=== PATIENT | male | born 1955 | race Caucasian/White ===

== ENCOUNTER → 2017-06-09 | Day surgery (SDC) | payer OTHER ==
[2017-06-08 14:49] VITALS: Ht 182.9 cm; Wt 86.4 kg
[~2017-06-09] VITALS: Ht 182.9 cm; Wt 86.4 kg
[~2017-06-09] MED LIST: LIDOCAINE HCL 2% 2 ML VIAL (20MG/ML) ONE; NAPR1TAB9 PO; PANT40TA PO; PROPOFOL IV EMULSION 10 MG/ML 20 ML VIAL IV ONE; SODIUM CHLORIDE 0.9% 500ML 500 ML IV ONE
--- NOTE | 2017-06-09 12:22 | Endo History and Physical ---
History & Physical Date of Service: Jun 09, 2017. Chief Complaint: Esophageal adenocarcinoma Referring Physician: Dr. Yury Robert History of Present Illness History of esophageal adenocarcinoma, s/p resection, recent mediastinal jaya metastasis. Past Medical History Cancer Past Surgical History Hx Cardiac Surgery: No Hx Internal Defibrillator: No Hx Pacemaker: No Hx Abdominal Surgery: No Hx Post-Op Nausea and Vomiting: No Hx Cancer Surgery: Yes (ESOPHAGECTOMY) Hx Thoracic Surgery: No Hx Orthopedic: No Hx Urinary Tract Surgery: No Family History Esophogeal CA Social History Smoking Status: Former Smoker Hx Substance Use: No Hx Alcohol Use: Yes (VERY RARELY) Allergies Coded Allergies: No Known Allergies (Verified , 06/09/17) Current Medications Reported Home Medications Medications Dose Route/Sig Max Daily Dose Days Date Category Aleve (Naproxen) 220 Mg Tab 220 Mg PO BID 06/09/17 Reported Protonix (Pantoprazole Sodium) 40 Mg Tab 40 Mg PO QAM 06/08/17 Reported Vital Signs Weight (Kilograms): 86.36 Height (Feet): 6 Height (Inches): 0 Date Time Temp Pulse Resp B/P (MAP) Pulse Ox O2 Delivery O2 Flow Rate FiO2 06/09/17 10:41 36.5 79 20 146/100 (115) 99 Room Air Physical Exam General Appearance: WD/WN, no apparent distress Respiratory/Chest: Auscultation: breath sounds normal, no wheezing Cardiovascular: Heart Auscultation: RRR, no murmurs Assessment and Plan EGD today.
--- NOTE | 2017-06-09 12:45 | GI REPORT ---
Procedure Date: 06/09/2017 12:29 PM Procedure: Upper GI endoscopy Indications: Follow-up of malignant esophageal adenocarcinoma, Assessment following esophagogastrectomy Medicines: Monitored Anesthesia Care Complications: No immediate complications. Estimated blood loss: None. Estimated Blood Loss: Estimated blood loss: none. Procedure: Pre-Anesthesia Assessment: - Prior to the procedure, a History and Physical was performed, and patient medications, allergies and sensitivities were reviewed. The patient's tolerance of previous anesthesia was reviewed. - ASA Grade Assessment: III - A patient with severe systemic disease. After obtaining informed consent, the endoscope was passed under direct vision. Throughout the procedure, the patient's blood pressure, pulse, and oxygen saturations were monitored continuously. The scope was introduced through the mouth, and advanced to the duodenal bulb. The upper GI endoscopy was accomplished with ease. The patient tolerated the procedure well. Findings: The upper third of the esophagus and middle third of the esophagus were normal. An esophago-gastric anastomosis was found in the lower third of the esophagus. This was characterized by an intact staple line. Biopsies were taken with a cold forceps for histology. A large amount of food (residue) was found in the entire examined stomach. Diffuse moderate inflammation was found in the entire examined stomach. The examined duodenum was normal. Verification of patient identification for the specimen was done by the physician and nurse using the patient's name, date and medical record number. Impression: - Normal upper third of esophagus and middle third of esophagus. - An esophago-gastric anastomosis was found, characterized by an intact staple line. Biopsied. - A large amount of food (residue) in the stomach. - Gastritis. - Normal examined duodenum. Recommendation: - Await pathology results. - Discharge patient to home (with escort). Arnel Quintana M.D. Arnel Quintana MD 06/09/2017 12:44:44 PM This report has been signed electronically. Note Initiated On: 06/09/2017 12:29 PM I attest to the content of the Intraoperative Record and orders documented therein, exceptions below
--- NOTE | 2017-06-09 12:57 | Discharge Instructions ---
Endoscopy Patient Instructions Date / Procedure(s) Performed Jun 09, 2017. EGD Allergy Information Coded Allergies: No Known Allergies (Verified , 06/09/17) Discharge Date / Findings Jun 09, 2017. Intact esophageal anastomosis. Gastritis with food in stomach. Medication Instructions Stopped Medication(s): Patient was told not to take anything this am. Restart Stopped Medication(s): Restart medications today. Pureed diet. Provider Instructions Activity Restrictions - No exercising or heavy lifting for 24 hours. - Do not drink alcohol the day of the procedure. - Do not drive a car or operate machinery until the day after the procedure. - Do not make any important decisions or sign important papers in 24 hours after the procedure. Following Day: - Return to full activity which may include returning to work/school. Diet Start your diet with liquids and light foods (jello, soup, juice, toast). Then eat your usual diet if not nauseated. Treatment For Common After Affects For mild abdominal pain, bloating, or excessive gas: - Rest - Eat lightly - Lie on right side Follow-Up Information Follow-up with Dr. Yury Robert as scheduled Anesthesia Information What You Should Know You have had a procedure that required some medicine to reduce anxiety and discomfort. This treatment is called moderate sedation. After receiving the treatment, you may be sleepy, but you will be able to breathe on your own. The effects of the treatment may last for several hours. Follow these instructions along with Activity/Diet recommendations noted above: * Do NOT do anything where dizziness or clumsiness would be dangerous. * Rest quietly at home today, then you can be up and about tomorrow. * Have a responsible person stay with you the rest of today. * You may have had an I.V. today. If so, you may take the dressing off later today. Recommendations Call your doctor if: * Trouble breathing * Continuous vomiting for more than 24 hours * Temperature above 101 degrees * Severe abdominal pain or bloating * Pain not relieved by pain medicine ordered * There is increased drainage or redness from any incision * A large amount of rectal bleeding greater than 2-3 tablespoons. (If you had a polyp/s removed or have hemorrhoids, a small amount of blood - from the rectum is to be expected.) * You have any unanswered questions or concerns. IN THE EVENT OF A SERIOUS EMERGENCY, GO TO THE NEAREST EMERGENCY ROOM Your discharge instructions were prepared by provider Arnel Quintana. Patient Instructions Signature Page Roshan Dixon Patient (or Guardian) Signature/Date: I have read and understand the instructions given to me by my caregivers. Caregiver/RN/Doctor Signature/Date: The above-named patient and/or guardian has received patient instructions on this date. + Original Patient Signature Page (only) stays with chart. Please make copy for patient.
--- NOTE | 2017-06-09 13:09 | Anesthesiology Progress Note ---
Anesthesia Post Op Note Date & Time Jun 09, 2017 at 13:09 Vital Signs Pain Intensity: 2 Vital Signs Past 12 Hours Date Time Temp Pulse Resp B/P (MAP) Pulse Ox O2 Delivery O2 Flow Rate FiO2 06/09/17 12:57 71 20 138/82 (100) 98 Room Air 06/09/17 12:42 73 20 136/87 (103) 99 Room Air 06/09/17 10:41 36.5 79 20 146/100 (115) 99 Room Air Notes Mental Status: alert / awake / arousable, participated in evaluation Pt Amnestic to Procedure: Yes Nausea / Vomiting: adequately controlled Pain: adequately controlled Airway Patency, RR, SpO2: stable & adequate BP & HR: stable & adequate Hydration State: stable & adequate Anesthetic Complications: no major complications apparent
[2017-06-09 13:13] VITALS: BP 133/90; PULSE 73; O2SAT 97
== END | disposition home or self-care (01) ==
LOC: C.GI 09:51
PROVIDERS: ATTEND Internal Medicine Gastroenterology
DX: C15.9 Malignant neoplasm of esophagus, unspecified (principal); K21.9 Gastro-esophageal reflux disease without esophagitis; K29.70 Gastritis, unspecified, without bleeding; Z87.891 Personal history of nicotine dependence; Z80.0 Family history of malignant neoplasm of digestive organs

== ENCOUNTER 2017-09-08 20:04 | Inpatient (IN) | payer OTHER ==
[~2017-09-08] VITALS: Ht 182.9 cm; Wt 74.2 kg
[~2017-09-08 20:04] MED LIST changes: -LIDOCAINE HCL 2% 2 ML VIAL (20MG/ML) ONE; -PROPOFOL IV EMULSION 10 MG/ML 20 ML VIAL IV ONE; -SODIUM CHLORIDE 0.9% 500ML 500 ML IV ONE
[2017-09-08] MEDS ORDERED: ALBUT/IPRATROP 3MG/0.5MG NEB 3 ML VIAL INH STA (20:22)
--- NOTE | 2017-09-08 20:27 | EMERGENCY ROOM VISIT NOTE ---
History Report prepared by Tom: Deb Sheppard Under the Supervision of: Dr. Tyrone Sharif M.D. First contact with patient: 20:18 Chief Complaint: DIZZY Stated Complaint: DIZZY History of Present Illness The patient is a 62 year old male who presents to the Emergency Room with complaints of intermittent dizziness beginning a few days ago. The patient states that he has felt more short of breath over the last few days and at work today he had an episode of shortness of breath and dizziness. He reports that his dizziness is worsened with standing and sitting up. The patient complains of right sided chest pain. He reports a history of esophageal cancer 2 years ago with a recent recurrence. Source of History: patient Onset: a few days ago Position: other (global) Quality: other (dizziness) Timing: intermittent Associated Symptoms: + chest pain, + SOB Note: Pt complains of lightheadedness. Review of Systems See HPI for pertinent positives & negatives. A total of 10 systems reviewed and were otherwise negative. Past Medical & Surgical Medical Problems: (1) Dizziness (2) Pneumonia (3) Sepsis Family History No pertinent family history stated. Social History Smoking Status: Former Smoker Drug Use: none Marital Status: Occupation Status: employed Current/Historical Medications Scheduled Pantoprazole (Protonix), 40 MG PO QAM Allergies Coded Allergies: No Known Allergies (Verified , 09/08/17) Physical Exam Vital Signs Date Time Temp Pulse Resp B/P (MAP) Pulse Ox O2 Delivery O2 Flow Rate FiO2 09/08/17 22:00 108 21 152/93 100 Nebulizer 09/08/17 21:22 84 09/08/17 21:22 92 20 96 Room Air 09/08/17 20:29 97 Room Air 09/08/17 20:09 36.7 107 18 97/70 90 Room Air Physical Exam GENERAL: Patient is a cachectic in appearance HEAD: Normocephalic atraumatic EYES: Ocular movements intact pupils equal and react to light OROPHARYNX mucous membranes are moist no exudates present no erythema or edema present NECK: Supple no nuchal rigidity CHEST: Good equal expansion LUNGS: Wheezing bilaterally CARDIAC: Normal S1 and S2 ABDOMEN: Soft nontender no guarding BACK: No CVA tenderness EXTREMITIES: No pain upon palpation normal muscle strength in all groups no clubbing cyanosis or edema NEURO: Patient is following commands and answering questions appropriately. Alert and oriented x3 Cranial Nerves 2-12 grossly intact Medical Decision & Procedures ER Provider Diagnostic Interpretation: CT results as stated below per my review and radiologist interpretation: CT ANGIOGRAM OF THE CHEST FINDINGS: There is a 31 mm left adrenal nodule. This is of mixed attenuation, likely representing a combination of adenoma and metastatic disease. There is extensive adenopathy encasing the superior mesenteric artery. The jaya mass measures 5 cm. There are subtle low-density hepatic lesions suspicious for metastatic deposits There is a left-sided retrocrural lymphadenopathy. There is mediastinal and bilateral hilar adenopathy. An index subcarinal lymph node measures 32 mm in diameter. Also present are enlarged right paratracheal and precarinal lymph nodes. The patient is status post a distal esophagectomy and gastric pull-up. There is extensive debris within the stomach and esophagus. There is mild aneurysmal dilatation of the ascending thoracic aorta which measures 44 mm in diameter. There are coronary artery calcifications. There were no pulmonary artery filling defects to indicate acute pulmonary embolism. There is fat density within the left posterior pleural space. This likely either represents extension of fat and the patient's left-sided hernia, or a chylous type effusion. There are tree-in-bud opacities within the right lower lobe and right upper lobe, consistent with a bronchiolitis/pneumonia. There is extensive debris within the right bronchus intermedius with near occlusion. IMPRESSION: 1. No evidence of acute pulmonary embolism 2. Tree-in-bud opacities within the right lower lobe and right upper lobe consistent with a bronchiolitis/pneumonia 3. Extensive debris within the right bronchus intermedius with near occlusion 4. Interval development of extensive mediastinal, hilar, and upper abdominal lymphadenopathy indicative of metastatic disease. 5. Postsurgical changes of a distal esophagectomy and gastric pull-up. There is extensive debris within the stomach and esophagus. 6. Fat within the left pleural space versus a chylous effusion 7. Suspected hepatic metastasis. Electronically signed by: Jorge A Taylor M.D. 09/08/2017 9:30 PM Dictated Date/Time: 09/08/2017 9:15 PM Laboratory Results 09/08/17 20:40 Red Blood Count 4.44, Mean Corpuscular Volume 71.4, Mean Corpuscular Hemoglobin 21.6, Mean Corpuscular Hemoglobin Concent 30.3, Mean Platelet Volume 8.5, Neutrophils (%) (Auto) 83.2, Lymphocytes (%) (Auto) 7.5, Monocytes (%) (Auto) 8.0, Eosinophils (%) (Auto) 0.7, Basophils (%) (Auto) 0.3, Neutrophils # (Auto) 6.36, Lymphocytes # (Auto) 0.57, Monocytes # (Auto) 0.61, Eosinophils # (Auto) 0.05, Basophils # (Auto) 0.02 09/08/17 20:40 Test 09/08/17 20:32 09/08/17 20:40 09/08/17 20:52 Influenza Type A (RT-PCR) Neg for Influ A (NEG) Influenza Type A Antigen Neg for Influ A (NEG) Influenza Type B Antigen Neg for Influ B (NEG) Influenza Type B (RT-PCR) Neg for Influ B (NEG) White Blood Count 7.63 K/uL (4.8-10.8) Red Blood Count 4.44 M/uL (4.7-6.1) Hemoglobin 9.6 g/dL (14.0-18.0) Hematocrit 31.7 % (42-52) Mean Corpuscular Volume 71.4 fL (80-100) Mean Corpuscular Hemoglobin 21.6 pg (25-34) Mean Corpuscular Hemoglobin Concent 30.3 g/dl (32-36) Platelet Count 334 K/uL (130-400) Mean Platelet Volume 8.5 fL (7.4-10.4) Neutrophils (%) (Auto) 83.2 % Lymphocytes (%) (Auto) 7.5 % Monocytes (%) (Auto) 8.0 % Eosinophils (%) (Auto) 0.7 % Basophils (%) (Auto) 0.3 % Neutrophils # (Auto) 6.36 K/uL (1.4-6.5) Lymphocytes # (Auto) 0.57 K/uL (1.2-3.4) Monocytes # (Auto) 0.61 K/uL (0.11-0.59) Eosinophils # (Auto) 0.05 K/uL (0-0.5) Basophils # (Auto) 0.02 K/uL (0-0.2) RDW Standard Deviation 47.1 fL (36.4-46.3) RDW Coefficient of Variation 18.2 % (11.5-14.5) Immature Granulocyte % (Auto) 0.3 % Immature Granulocyte # (Auto) 0.02 K/uL (0.00-0.02) Hypochromasia PRESENT Microcytosis PRESENT Est Creatinine Clear Calc Drug Dose 85.1 ml/min Estimated GFR () 98.5 Estimated GFR (Non- 85.0 BUN/Creatinine Ratio 16.5 (10-20) Calcium Level 8.6 mg/dl (8.5-10.1) Total Bilirubin 0.3 mg/dl (0.2-1) Aspartate Amino Transf (AST/SGOT) 46 U/L (15-37) Alanine Aminotransferase (ALT/SGPT) 16 U/L (12-78) Alkaline Phosphatase 117 U/L (45-117) Total Creatine Kinase 75 U/L (39-308) Creatine Kinase MB 0.7 ng/ml (0.5-3.6) Creatine Kinase MB Ratio 0.9 (0-3.0) Troponin I < 0.015 ng/ml (0-0.045) Pro-B-Type Natriuretic Peptide 738 pg/ml (0-900) Total Protein 7.3 gm/dl (6.4-8.2) Albumin 3.0 gm/dl (3.4-5.0) Globulin 4.3 gm/dl (2.5-4.0) Albumin/Globulin Ratio 0.7 (0.9-2) Bedside Hemoglobin 10.2 g/dl (14.0-18.0) Bedside Hematocrit 30 % (42-52) Bedside Sodium 139 mEq/L (135-144) Bedside Potassium 3.5 mEq/L (3.3-5.0) Bedside Chloride 101 mEq/L (101-112) Bedside Total CO2 26 mEq/l (24-31) Anion Gap 16.0 mmol/L (16-25) Bedside Blood Urea Nitrogen 17 mg/dl (7-18) Bedside Creatinine 0.9 mg/dl (0.6-1.3) Bedside Glucose (other) 117 mg/dl (70-99) Bedside Ionized Calcium (Ravin) 1.11 mmol/l (1.12-1.32) Labs reviewed by ED physician. Medications Administered Medications (Trade) Dose Ordered Sig/Konstantin Route Start Time Stop Time Status Last Admin Dose Admin Albuterol/ Ipratropium (Duoneb) 12 ml ONE STAT INH 09/08/17 20:22 09/08/17 20:25 DC 09/08/17 20:22 12 ML Sodium Chloride 1,000 ml @ 999 mls/hr Q1H1M STAT IV 09/08/17 21:37 09/08/17 22:37 DC 09/08/17 21:46 999 MLS/HR Cefepime HCl 2000 mg/Dextrose 122 ml @ 200 mls/hr NOW STAT IV 09/08/17 21:37 09/08/17 22:13 DC 09/08/17 22:07 200 MLS/HR Levofloxacin (Levaquin / D5W) 750 mg NOW STAT IV 09/08/17 21:37 09/08/17 21:39 DC 09/08/17 21:48 750 MG ECG Indication: SOB/dyspnea Rate (beats per minute): 88 Rhythm: normal sinus Findings: no acute ischemic change, no ectopy ED Course 2018: Past medical records reviewed. The patient was evaluated in room A11. A complete history and physical examination was performed. 2021: Duoneb 12ml INH. 2136: Levofloxacin 750mg IV, Cefepime HCl 2000mg/Dextrose 122ml @ 200mls/hr IV, Sodium Chloride 1000 ml @ 999 mls/hr IV. 2141: I discussed the patient's case with Dr. Cooney, he has agreed to evaluate the patient for further management and care. 2152: Upon reexamination the patient is doing well. I discussed results and treatment plan with the patient. He verbalizes agreement and understanding. I spoke with Dr. Conoey from the [facility] Hospitalist Service. The patient will be evaluated for further management. Medical Decision Differential diagnosis: Etiologies such as infections, reactive airway disease, pneumonia, pneumothorax , COPD, CHF, cardiac ischemia, pulmonary embolism, musculoskeletal, gastrointestinal, as well as others were entertained. This is a 62-year-old male with a history of esophageal cancer presents emergency department complaining of right-sided chest pain along with hypoxia. My suspicion of PE is high therefore the patient was sent for CAT scan of the chest. This did not reveal any evidence of a PE however the patient has metastatic disease present and appears to have pneumonia. He is hypotensive and tachycardic therefore he was given fluid bolus. I did discuss the case with the hospitalist service. The patient was pancultured up and started on cefepime as well as Levaquin. Patient and family were in agreement with the treatment plan. Medication Reconcilliation Current Medication List: was personally reviewed by me Blood Pressure Screening Patient's blood pressure: Low blood pressure Blood pressure disposition: Did not require urgent referral Consults Time Called: 2130 Consulting Physician: Dr. Cooney - [facility] Returned Call: [phone] I discussed the patient's case with Dr. Cooney, he has agreed to evaluate the patient for further management and care. Impression Primary Impression: Hypoxia Additional Impression: Pneumonia Scribe Attestation The scribe's documentation has been prepared under my direction and personally reviewed by me in its entirety. I confirm that the note above accurately reflects all work, treatment, procedures, and medical decision making performed by me. Departure Information Dispostion Being Evaluated By Hospitalist Referrals Yury Robert M.D. (PCP) Patient Instructions My [facility] Problem Qualifiers Additional Impression: Pneumonia Pneumonia type: due to unspecified organism Laterality: unspecified laterality Lung location: unspecified part of lung Qualified Codes: J18.9 - Pneumonia, unspecified organism
[2017-09-08 20:56] LABS: BASO % 0.3 %; BASO ABS # 0.02 K/uL (0-0.2); EOS % 0.7 %; HEMATOCRIT 31.7 % (42-52); IG% 0.3 %; LYMPH % 7.5 %; LYMPH ABS # 0.57 K/uL (1.2-3.4); MEAN CELL VOLUME 71.4 fL (80-100); MEAN CORPUSCULAR HEMOGLOBIN 21.6 pg (25-34); MEAN CORPUSCULAR HGB CONC 30.3 g/dl (32-36); MEAN PLATELET VOLUME 8.5 fL (7.4-10.4); NEUT % 83.2 %; PLATELET COUNT 334 K/uL (130-400); RED BLOOD COUNT 4.44 M/uL (4.7-6.1); WHITE BLOOD COUNT 7.63 K/uL (4.8-10.8)
[2017-09-08] MEDS ORDERED: OPTIRAY 320 IV PRN (21:00)
[2017-09-08 21:07] LABS: ISTAT CREATININE 0.9 mg/dl (0.6-1.3); ISTAT HEMOGLOBIN 10.2 g/dl (14.0-18.0); ISTAT IONIZED CALCIUM 1.11 mmol/l (1.12-1.32)
[2017-09-08 21:15] LABS: ALT/SGPT 16 U/L (12-78); BLOOD UREA NITROGEN 16 mg/dl (7-18); BUN/CREATININE RATIO 16.5 (10-20); CALCIUM 8.6 mg/dl (8.5-10.1); CARBON DIOXIDE 26 mmol/L (21-32); CHLORIDE 103 mmol/L (98-107); CREATININE 0.96 mg/dl (0.60-1.40); GLUCOSE 113 mg/dl (70-99); POTASSIUM 3.4 mmol/L (3.5-5.1); SODIUM 135 mmol/L (136-145)
[2017-09-08 21:20] LABS: ALB/GLOB RATIO 0.7 (0.9-2); ALKALINE PHOSPHATASE 117 U/L (45-117); AST/SGOT 46 U/L (15-37); CKMB/CK RATIO 0.9 (0-3.0)
[2017-09-08 21:22] VITALS: PULSE 92; O2SAT 96
[2017-09-08 21:27] LABS: COMPLETE YES; HYPOCHROMIA PRESENT; MICROCYTOSIS PRESENT
--- NOTE | 2017-09-08 21:32 | DIAGNOSTIC IMAGING REPORT ---
CT ANGIOGRAM OF THE CHEST CLINICAL HISTORY: Shortness of breath. History of esophageal carcinoma. COMPARISON STUDY: November 05, 2015 TECHNIQUE: Following the IV administration of 115 mL of Optiray-320, CT angiogram of the thorax was performed from the thoracic inlet to the lung bases utilizing the pulmonary embolus protocol. Images are reviewed in the axial, sagittal, and coronal planes. IV contrast was administered without complication. MIP imaging was performed. A dose lowering technique was utilized adhering to the principles of ALARA. CT DOSE: 313.95 mGy.cm FINDINGS: There is a 31 mm left adrenal nodule. This is of mixed attenuation, likely representing a combination of adenoma and metastatic disease. There is extensive adenopathy encasing the superior mesenteric artery. The jaya mass measures 5 cm. There are subtle low-density hepatic lesions suspicious for metastatic deposits There is a left-sided retrocrural lymphadenopathy. There is mediastinal and bilateral hilar adenopathy. An index subcarinal lymph node measures 32 mm in diameter. Also present are enlarged right paratracheal and precarinal lymph nodes. The patient is status post a distal esophagectomy and gastric pull-up. There is extensive debris within the stomach and esophagus. There is mild aneurysmal dilatation of the ascending thoracic aorta which measures 44 mm in diameter. There are coronary artery calcifications. There were no pulmonary artery filling defects to indicate acute pulmonary embolism. There is fat density within the left posterior pleural space. This likely either represents extension of fat and the patient's left-sided hernia, or a chylous type effusion. There are tree-in-bud opacities within the right lower lobe and right upper lobe, consistent with a bronchiolitis/pneumonia. There is extensive debris within the right bronchus intermedius with near occlusion. IMPRESSION: 1. No evidence of acute pulmonary embolism 2. Tree-in-bud opacities within the right lower lobe and right upper lobe consistent with a bronchiolitis/pneumonia 3. Extensive debris within the right bronchus intermedius with near occlusion 4. Interval development of extensive mediastinal, hilar, and upper abdominal lymphadenopathy indicative of metastatic disease. 5. Postsurgical changes of a distal esophagectomy and gastric pull-up. There is extensive debris within the stomach and esophagus. 6. Fat within the left pleural space versus a chylous effusion 7. Suspected hepatic metastasis. Electronically signed by: Jorge A Taylor M.D. 09/08/2017 9:30 PM Dictated Date/Time: 09/08/2017 9:15 PM
[2017-09-08] MEDS ORDERED: SODIUM CHLORIDE 0.9% 1000ML 1,000 ML IV STA (21:37)
[2017-09-08] MEDS ORDERED: CEFEPIME IV 2,000 MG in DEXTROSE 5% 100ML 100 ML IV STA (21:37)
[2017-09-08] MEDS ORDERED: LEVAQUIN 750MG / 150ML D5W IV STA (21:37)
--- NOTE | 2017-09-08 21:58 | History and Physical ---
History & Physical Date & Time of Service: Sep 08, 2017 at 21:57 Chief Complaint: DIZZY Primary Care Physician: Yury Robert M.D. History of Present Illness Source: patient 62 y/o M Hx Esophageal CA, esophagela resection 2014 - recent recurrence, GERD, gastritis, MRSA pneumonia 2015. Presents with cough, SOB and intermittent lightheadedness which occurred while he was working today. He denies CP, N/V, dysuria or fevers. A CTA was obtained which was negative for PE, however, results are consistent with RLL pneumonia. There is also debris within the right bronchus intermedius with near occlusion. Also demonstrated is extensive adenopathy and a liver lesion representing metastatic disease. Past Medical/Surgical History 1) Esophageal CA - resection of lower esophagus and gastro-esophageal anastomosis 2014 - recent recurrence. 2) GERD 3) Gastritis 4) MRSA PNM and sepsis 2015 Family History Noncontributory to current case Social History Quit smoking 2014 when he received CA diagnosis Smoking Status: Former Smoker Drug Use: none Marital Status: Occupational Status: employed Immunizations History of Influenza Vaccine: No History of Tetanus Vaccine?: No History of Pneumococcal: No History of Hepatitis B Vaccine: No Allergies Coded Allergies: No Known Allergies (Verified , 09/08/17) Home Medications Scheduled Pantoprazole (Protonix), 40 MG PO QAM Review of Systems Constitutional: No fever, No chills, No sweats Eyes: No worsening of vision ENT: No hearing loss, No unusual epistaxis, No nasal symptoms Respiratory: + cough, + shortness of breath, + dyspnea on exertion, + dyspnea at rest Cardiovascular: No chest pain, No orthopnea, No PND Abdomen: No pain, No nausea, No vomiting Musculoskeletal: No joint pain Genitourinary - Male: No hematuria, No dysuria Neurologic: + problem reported (Dizziness reported), No memory loss, No paralysis, No weakness Psychiatric: No depression symptoms Endocrine: No fatigue Hematologic / Lymphatic: No abnormal bleeding/bruising Integumentary: No rash Allergic / Immunologic: No environmental allergies Physical Exam Vital Signs Date Time Temp Pulse Resp B/P (MAP) Pulse Ox O2 Delivery O2 Flow Rate FiO2 09/08/17 21:22 84 09/08/17 21:22 92 20 96 Room Air 09/08/17 20:29 97 Room Air 09/08/17 20:09 36.7 107 18 97/70 90 Room Air General Appearance: WD/WN, no apparent distress Head: normocephalic ENT: normal ENT inspection, pharynx normal Neck: supple, no JVD Respiratory/Chest: + pertinent finding (Minmal air entry at bases and crackles on R) Cardiovascular: regular rate, rhythm, no edema, no gallop Abdomen/GI: normal bowel sounds, non tender, soft Back: normal inspection, no CVA tenderness Extremities/Musculoskelatal: normal inspection, no calf tenderness, normal capillary refill Neurologic/Psych: digital marketer II-XII nml as tested, no motor/sensory deficits, alert, oriented x 3 Skin: normal color Diagnostics Laboratory Results Results Past 24 Hours Test 09/08/17 20:32 09/08/17 20:40 09/08/17 20:52 Range/Units Influenza Type A Antigen Neg for Influ A NEG Influenza Type B Antigen Neg for Influ B NEG White Blood Count 7.63 4.8-10.8 K/uL Red Blood Count 4.44 4.7-6.1 M/uL Hemoglobin 9.6 14.0-18.0 g/dL Hematocrit 31.7 42-52 % Mean Corpuscular Volume 71.4 80-100 fL Mean Corpuscular Hemoglobin 21.6 25-34 pg Mean Corpuscular Hemoglobin Concent 30.3 32-36 g/dl Platelet Count 334 130-400 K/uL Mean Platelet Volume 8.5 7.4-10.4 fL Neutrophils (%) (Auto) 83.2 % Lymphocytes (%) (Auto) 7.5 % Monocytes (%) (Auto) 8.0 % Eosinophils (%) (Auto) 0.7 % Basophils (%) (Auto) 0.3 % Neutrophils # (Auto) 6.36 1.4-6.5 K/uL Lymphocytes # (Auto) 0.57 1.2-3.4 K/uL Monocytes # (Auto) 0.61 0.11-0.59 K/uL Eosinophils # (Auto) 0.05 0-0.5 K/uL Basophils # (Auto) 0.02 0-0.2 K/uL RDW Standard Deviation 47.1 36.4-46.3 fL RDW Coefficient of Variation 18.2 11.5-14.5 % Immature Granulocyte % (Auto) 0.3 % Immature Granulocyte # (Auto) 0.02 0.00-0.02 K/uL Hypochromasia PRESENT Microcytosis PRESENT Sodium Level 135 136-145 mmol/L Potassium Level 3.4 3.5-5.1 mmol/L Chloride Level 103 98-107 mmol/L Carbon Dioxide Level 26 21-32 mmol/L Anion Gap 7.0 16.0 16-25 mmol/L Blood Urea Nitrogen 16 7-18 mg/dl Creatinine 0.96 0.60-1.40 mg/dl Est Creatinine Clear Calc Drug Dose 85.1 ml/min Estimated GFR () 98.5 Estimated GFR (Non- 85.0 BUN/Creatinine Ratio 16.5 10-20 Random Glucose 113 70-99 mg/dl Calcium Level 8.6 8.5-10.1 mg/dl Total Bilirubin 0.3 0.2-1 mg/dl Aspartate Amino Transf (AST/SGOT) 46 15-37 U/L Alanine Aminotransferase (ALT/SGPT) 16 12-78 U/L Alkaline Phosphatase 117 45-117 U/L Total Creatine Kinase 75 39-308 U/L Creatine Kinase MB 0.7 0.5-3.6 ng/ml Creatine Kinase MB Ratio 0.9 0-3.0 Troponin I < 0.015 0-0.045 ng/ml Pro-B-Type Natriuretic Peptide 738 0-900 pg/ml Total Protein 7.3 6.4-8.2 gm/dl Albumin 3.0 3.4-5.0 gm/dl Globulin 4.3 2.5-4.0 gm/dl Albumin/Globulin Ratio 0.7 0.9-2 Bedside Hemoglobin 10.2 14.0-18.0 g/dl Bedside Hematocrit 30 42-52 % Bedside Sodium 139 135-144 mEq/L Bedside Potassium 3.5 3.3-5.0 mEq/L Bedside Chloride 101 101-112 mEq/L Bedside Total CO2 26 24-31 mEq/l Bedside Blood Urea Nitrogen 17 7-18 mg/dl Bedside Creatinine 0.9 0.6-1.3 mg/dl Bedside Glucose (other) 117 70-99 mg/dl Bedside Ionized Calcium (Ravin) 1.11 1.12-1.32 mmol/l Diagnostic Radiology CTA: 1. No evidence of acute pulmonary embolism 2. Tree-in-bud opacities within the right lower lobe and right upper lobe consistent with a bronchiolitis/pneumonia 3. Extensive debris within the right bronchus intermedius with near occlusion 4. Interval development of extensive mediastinal, hilar, and upper abdominal lymphadenopathy indicative of metastatic disease. 5. Postsurgical changes of a distal esophagectomy and gastric pull-up. There is extensive debris within the stomach and esophagus. 6. Fat within the left pleural space versus a chylous effusion 7. Suspected hepatic metastasis. EKG NSR Impression Assessment and Plan 62 y/o M Hx Esophageal CA, esophageal resection 2014 - recent recurrence, GERD, gastritis, MRSA pneumonia 2016. Presents with cough, SOB and intermittent lightheadedness which occurred while he was working today. He denies CP, N/V, dysuria or fevers. A CTA was obtained which was negative for PE, however, results are consistent with RLL pneumonia. There is also debris within the right bronchus intermedius with near occlusion. Also demonstrated is extensive adenopathy and a liver lesion representing metastatic disease. 1) Pneumonia - Placed on Levaquin and we will add Flagyl due to concern for aspiration - we will obtain a Sputum culture. He has a history of MRSA PNM - if a nasal swab is (+) we would consider empirical addition of Vanc. There is debris and plugging of the R bronchus - this may be due to aspiration owing to compromised anatomy. Pulmonology consult is requested. 2) Dizziness - may be due to poor oxygenation with activity - there is a 3% chance of brain metastasis with esophageal CA in individuals over 60. An MRI w/ suraj can be considered if his symptoms do not resolve with treatment of PNM. 3) Esophageal CA - Pt follows with Dr cochran - is aware of recurrence and has a PET scheduled for the . 4) Anemia is present on initial labs - we do not have a recent baseline - we will trend his Hb and check iron studies - this is presumably chronic as we have no evidence of acute hemorrhage. Full code - heparin prophylaxis Total time for this admit including review of labs, meds, imaging, records - discussion with pt and ER attending 38 min Level of Care Telemetry Resuscitation Status FULL RESUSCITATION VTE Prophylaxis Given or contraindicated: Unfractionated heparin SQ
[2017-09-08 21:59] LABS: INFLUENZA A PCR Neg for Influ A (NEG); INFLUENZA B PCR Neg for Influ B (NEG)
[2017-09-08] MEDS ORDERED: ONDANSETRON INJ 2 MG/ML 2 ML VIAL IV PRN (22:15)
[2017-09-08] MEDS ORDERED: ZOLPIDEM TARTRATE 5 MG TAB PO PRN (22:15)
[2017-09-08] MEDS ORDERED: POLYETHYLENE (MIRALAX) 17 GM PACK PO PRN (22:15)
[2017-09-08] MEDS ORDERED: LEVALBUTEROL 1.25MG/0.5ML NEB INH PRN (22:15)
[2017-09-08] MEDS ORDERED: ALUMINUM/MAGNESIUM/SIMETH (MAALOX MAX) 30 ML UDC PO PRN (22:15)
[2017-09-08] MEDS ORDERED: MAGNESIUM HYDROXIDE SUSP 30 ML UDC PO PRN (22:15)
[2017-09-08 22:53] VITALS: O2SAT 95; Ht 182.9 cm; Wt 74.2 kg
[2017-09-08 23:00] VITALS: BP 139/86; PULSE 125; TEMP 37.1; O2SAT 92
[2017-09-08] MEDS: D5NSS + 20MEQ KCL 1,000 ML IV SCH (23:34)
[2017-09-08] MEDS: METRONIDAZOLE / NSS 500 MG in PREMIXED NSS 100 ML IV SCH (23:34)
[2017-09-08 23:42] LABS: INR 1.1 (0.9-1.1); PROTHROMBIN TIME (PATIENT) 11.4 SECONDS (9.0-12.0)
[2017-09-08 23:58] LABS: URINE APPEARANCE CLEAR (CLEAR); URINE BILIRUBIN NEG (NEG); URINE COLOR YELLOW; URINE NITRITE NEG (NEG); URINE SPECIFIC GRAVITY > 1.045 (1.000-1.030); UROBILINOGEN NEG (NEG)
[2017-09-08 23:59] VITALS: O2SAT 92
[2017-09-08 23:59] LABS: MANUAL MICROSCOPIC REQUIRED? NO; REVIEW REQ? NO
[2017-09-09] VITALS (10 sets, daily range): BP systolic 132–142; BP diastolic 82–96; PULSE 90–105; TEMP 36.7–37.4; O2SAT 92–98
[2017-09-09] MEDS: ALBUT/IPRATROP 3MG/0.5MG NEB 3 ML VIAL INH SCH ×4 (02:39→19:15)
[2017-09-09] MEDS: HEPARIN SOD 5000 UNIT/0.5 ML CARP SQ SCH ×3 (05:38→21:53)
[2017-09-09 07:41] LABS: BUN/CREATININE RATIO 18.8 (10-20); CALCIUM 8.1 mg/dl (8.5-10.1); CREATININE 0.8 mg/dl (0.60-1.40); MAGNESIUM 1.8 mg/dl (1.8-2.4); POTASSIUM 3.5 mmol/L (3.5-5.1)
[2017-09-09] MEDS: METRONIDAZOLE / NSS 500 MG in PREMIXED NSS 100 ML IV SCH ×2 (07:42→16:12)
[2017-09-09] MEDS: PANTOprazole SOD 40 MG TAB PO SCH (07:42)
[2017-09-09] MEDS: ACETAMINOPHEN 325 MG TAB PO PRN ×2 (10:08→19:14)
[2017-09-09] MEDS: D5NSS + 20MEQ KCL 1,000 ML IV SCH (10:10)
[2017-09-09] MEDS ORDERED: NURSING VERBAL MED ORDER ONE (13:15)
[2017-09-09] MEDS ORDERED: [UNRECOGNIZED DRUG - REMARK] PRN (14:30)
--- NOTE | 2017-09-09 15:56 | Pulmonary Consultation ---
History General Date of Service: Sep 09, 2017. Stated Complaint: Dizziness, Pneumonia HPI The patient is a 62 year old male who presents to [facility] with complaints of Dizziness, Pneumonia. The patient's primary care provider is Yury Robert M.D.. Mr. Dixon is a 62-year-old male with history of recent diagnosis of esophageal adenocarcinoma in 2015 status post esophageal resection with gastroesophageal anastomosis who presents to the ER with worsening shortness of breath, dyspnea on exertion, and cough with nonproductive sputum. He also admits to increased lethargy, fatigue and lightheadedness. He denies any fevers, chills, chest pain , nausea, vomiting. He states that over the last several months he has had unintentional weight loss of about 30 pounds Her loss of appetite and decreased by mouth intake. He denies any lower extremity edema, paroxysmal nocturnal dyspnea or orthopnea. He denies any recent travel or sick contacts. He was recently informed this week that he had recurrence of adenocarcinoma and is scheduled to see the oncologist on 09/13/2017. Upon arrival to the ER his initial vital signs were 36.7, pulse 107, respiratory rate 18, blood pressure 97/70 saturating 90% on room air. EKG shows normal sinus rhythm at 80 bpm. Laboratory data showed white blood cell count of 7.63, hemoglobin 9.6, hematocrit 31.7, platelet count 334. Repeat hemoglobin this morning 7.7. Chemistry significant for sodium 135, potassium 3.4, BUN 16 and creatinine 0.96. Troponin less than 0.015 and proBNP 738. Influenza A and B PCR negative. CT chest showed no evidence of pulmonary emboli however did show new tree-in- bud opacities in the right upper and lower lobes consistent with bronchiolitis versus pneumonia. There is extensive debris in the right bronchus with near occlusion. There is also interval development of extensive mediastinal hilar and upper abdominal lymphadenopathy. Pulmonary was consulted for further evaluation and possible bronchoscopy. At the time of my evaluation patient had already eaten breakfast. He said that his lightheadedness and dizziness had resolved and he was feeling much better from a respiratory standpoint. Historian: patient Onset: last week Severity: mild Complaint Status: improved Review of Systems Constitutional: reports: as stated in HPI Eyes: reports: as stated in HPI ENT: reports: as stated in HPI Cardiovascular: reports: as stated in HPI Respiratory: reports: as stated in HPI Gastrointestinal: reports: as stated in HPI Genitourinary - Male: reports: as stated in HPI Musculoskeletal: reports: as stated in HPI Integumentary: reports: as stated in HPI Neurologic: reports: as stated in HPI Psychiatric: reports: as stated in HPI Endocrine: as stated in HPI Hematologic / Lymphatic: as stated in HPI Allergic / Immunologic: as stated in HPI All Other Symptoms All Other Systems: Reviewed and Negative Past Medical History Past Medical History: Esophageal adenocarcinoma status post resection of lower esophagus with gastroesophageal anastomosis GERD Gastritis MRSA bacteremia 2015 Social History Previous tobacco user. Quit smoking in 2014. Denies any alcohol or illicit drug use. and lives alone. Hx Tobacco Use In Past Year?: Yes (quit in April) Smoking Status: Former Smoker Marital status: Occupational Status: employed Immunizations History of Influenza Vaccine: No History of Tetanus Vaccine?: No History of Pneumococcal: No History of Hepatitis B Vaccine: No Allergies Coded Allergies: No Known Allergies (Verified , 09/08/17) Current Medications Reported Home Medications Medications Dose Route/Sig Max Daily Dose Days Date Category Protonix (Pantoprazole Sodium) 40 Mg Tab 40 Mg PO QAM 06/08/17 Reported Physical Physical Exam Vital Signs: Date Time Temp Pulse Resp B/P (MAP) Pulse Ox O2 Delivery O2 Flow Rate FiO2 09/09/17 08:00 Room Air 09/09/17 07:45 37.1 104 18 141/96 (111) 95 Room Air 09/09/17 07:02 101 18 96 Room Air 09/09/17 04:00 92 Room Air 09/09/17 03:10 37.4 103 18 132/82 (99) 97 Room Air 09/09/17 02:39 105 18 96 Room Air 09/08/17 23:59 92 Room Air 09/08/17 23:00 37.1 125 18 139/86 (103) 92 Room Air 09/08/17 22:53 95 Room Air 09/08/17 22:41 115 20 134/84 95 09/08/17 22:00 108 21 152/93 100 Nebulizer 09/08/17 21:22 84 09/08/17 21:22 92 20 96 Room Air 09/08/17 20:29 97 Room Air 09/08/17 20:09 36.7 107 18 97/70 90 Room Air General Appearance: WD/WN, NO APPARENT DISTRESS Head: NORMOCEPHALIC, ATRAUMATIC Eyes: PERRLA, NO DISCHARGE, EOMI, SCLERAE NORMAL ENT: NORMAL MOUTH EXAM, NORMAL THROAT EXAM Neck: NO TENDERNESS, TRACHEA MIDLINE, NO STRIDOR, SUPPLE Respiratory: other (bilateral basilar crackles greater on the right than on the left, no wheezing. Good air entry otherwise) Cardiovasular: REGULAR RATE/RHYTHM, NORMAL S1S2 Abdomen: NON TENDER, NORMAL BOWEL SOUNDS Back: NORMAL INSPECTION, NO MIDLINE TENDERNESS, NO CVA TENDERNESS Upper Extremities: NO EDEMA, NO DEFORMITY, NORMAL ROM, other (no cyanosis, no clubbing) Lower Extremities: NO EDEMA, NO DEFORMITY, NORMAL ROM Pulses: dorsalis pedis (R) (2+), dorsalis pedis (L) (2+) Neuro: ALERT, ORIENTED x 3 Psychiatric: NORMAL AFFECT, NO SUICIDAL IDEATION, CONTRACTS FOR SAFETY Diagnostics Labs Results Past 24 Hours Test 09/08/17 20:32 09/08/17 20:40 09/08/17 20:52 09/08/17 23:20 Range/Units Influenza Type A (RT-PCR) Neg for Influ A NEG Influenza Type A Antigen Neg for Influ A NEG Influenza Type B Antigen Neg for Influ B NEG Influenza Type B (RT-PCR) Neg for Influ B NEG White Blood Count 7.63 4.8-10.8 K/uL Red Blood Count 4.44 4.7-6.1 M/uL Hemoglobin 9.6 14.0-18.0 g/dL Hematocrit 31.7 42-52 % Mean Corpuscular Volume 71.4 80-100 fL Mean Corpuscular Hemoglobin 21.6 25-34 pg Mean Corpuscular Hemoglobin Concent 30.3 32-36 g/dl Platelet Count 334 130-400 K/uL Mean Platelet Volume 8.5 7.4-10.4 fL Neutrophils (%) (Auto) 83.2 % Lymphocytes (%) (Auto) 7.5 % Monocytes (%) (Auto) 8.0 % Eosinophils (%) (Auto) 0.7 % Basophils (%) (Auto) 0.3 % Neutrophils # (Auto) 6.36 1.4-6.5 K/uL Lymphocytes # (Auto) 0.57 1.2-3.4 K/uL Monocytes # (Auto) 0.61 0.11-0.59 K/uL Eosinophils # (Auto) 0.05 0-0.5 K/uL Basophils # (Auto) 0.02 0-0.2 K/uL RDW Standard Deviation 47.1 36.4-46.3 fL RDW Coefficient of Variation 18.2 11.5-14.5 % Immature Granulocyte % (Auto) 0.3 % Immature Granulocyte # (Auto) 0.02 0.00-0.02 K/uL Hypochromasia PRESENT Microcytosis PRESENT Sodium Level 135 136-145 mmol/L Potassium Level 3.4 3.5-5.1 mmol/L Chloride Level 103 98-107 mmol/L Carbon Dioxide Level 26 21-32 mmol/L Anion Gap 7.0 16.0 16-25 mmol/L Blood Urea Nitrogen 16 7-18 mg/dl Creatinine 0.96 0.60-1.40 mg/dl Est Creatinine Clear Calc Drug Dose 85.1 ml/min Estimated GFR () 98.5 Estimated GFR (Non- 85.0 BUN/Creatinine Ratio 16.5 10-20 Random Glucose 113 70-99 mg/dl Calcium Level 8.6 8.5-10.1 mg/dl Total Bilirubin 0.3 0.2-1 mg/dl Aspartate Amino Transf (AST/SGOT) 46 15-37 U/L Alanine Aminotransferase (ALT/SGPT) 16 12-78 U/L Alkaline Phosphatase 117 45-117 U/L Total Creatine Kinase 75 39-308 U/L Creatine Kinase MB 0.7 0.5-3.6 ng/ml Creatine Kinase MB Ratio 0.9 0-3.0 Troponin I < 0.015 0-0.045 ng/ml Pro-B-Type Natriuretic Peptide 738 0-900 pg/ml Total Protein 7.3 6.4-8.2 gm/dl Albumin 3.0 3.4-5.0 gm/dl Globulin 4.3 2.5-4.0 gm/dl Albumin/Globulin Ratio 0.7 0.9-2 Bedside Hemoglobin 10.2 14.0-18.0 g/dl Bedside Hematocrit 30 42-52 % Bedside Sodium 139 135-144 mEq/L Bedside Potassium 3.5 3.3-5.0 mEq/L Bedside Chloride 101 101-112 mEq/L Bedside Total CO2 26 24-31 mEq/l Bedside Blood Urea Nitrogen 17 7-18 mg/dl Bedside Creatinine 0.9 0.6-1.3 mg/dl Bedside Glucose (other) 117 70-99 mg/dl Bedside Ionized Calcium (Ravin) 1.11 1.12-1.32 mmol/l Prothrombin Time 11.4 9.0-12.0 SECONDS Prothromb Time International Ratio 1.1 0.9-1.1 Test 09/08/17 23:30 09/09/17 06:26 Range/Units Urine Color YELLOW Urine Appearance CLEAR CLEAR Urine pH 7.0 4.5-7.5 Urine Specific [place] > 1.045 1.000-1.030 Urine Protein NEG NEG Urine Glucose (UA) NEG NEG Urine Ketones 1+ NEG Urine Occult Blood NEG NEG Urine Nitrite NEG NEG Urine Bilirubin NEG NEG Urine Urobilinogen NEG NEG Urine Leukocyte Esterase NEG NEG Hemoglobin 7.7 14.0-18.0 g/dL Sodium Level 136 136-145 mmol/L Potassium Level 3.5 3.5-5.1 mmol/L Chloride Level 105 98-107 mmol/L Carbon Dioxide Level 26 21-32 mmol/L Anion Gap 5.0 3-11 mmol/L Blood Urea Nitrogen 15 7-18 mg/dl Creatinine 0.80 0.60-1.40 mg/dl Est Creatinine Clear Calc Drug Dose 101.6 ml/min Estimated GFR () 111.7 Estimated GFR (Non- 96.4 BUN/Creatinine Ratio 18.8 10-20 Random Glucose 126 70-99 mg/dl Calcium Level 8.1 8.5-10.1 mg/dl Magnesium Level 1.8 1.8-2.4 mg/dl Microbiology Results 09/08/17 MRSA DNA Surveillance Screen - Final, Complete Specimen Negative for MRSA by DNA Probe Diagnostic Radiology CT ANGIOGRAM OF THE CHEST CLINICAL HISTORY: Shortness of breath. History of esophageal carcinoma. COMPARISON STUDY: November 05, 2015 TECHNIQUE: Following the IV administration of 115 mL of [id number], CT angiogram of the thorax was performed from the thoracic inlet to the lung bases utilizing the pulmonary embolus protocol. Images are reviewed in the axial, sagittal, and coronal planes. IV contrast was administered without complication. MIP imaging was performed. A dose lowering technique was utilized adhering to the principles of ALARA. CT DOSE: 313.95 mGy.cm FINDINGS: There is a 31 mm left adrenal nodule. This is of mixed attenuation, likely representing a combination of adenoma and metastatic disease. There is extensive adenopathy encasing the superior mesenteric artery. The jaya mass measures 5 cm. There are subtle low-density hepatic lesions suspicious for metastatic deposits There is a left-sided retrocrural lymphadenopathy. There is mediastinal and bilateral hilar adenopathy. An index subcarinal lymph node measures 32 mm in diameter. Also present are enlarged right paratracheal and precarinal lymph nodes. The patient is status post a distal esophagectomy and gastric pull-up. There is extensive debris within the stomach and esophagus. There is mild aneurysmal dilatation of the ascending thoracic aorta which measures 44 mm in diameter. There are coronary artery calcifications. There were no pulmonary artery filling defects to indicate acute pulmonary embolism. There is fat density within the left posterior pleural space. This likely either represents extension of fat and the patient's left-sided hernia, or a chylous type effusion. There are tree-in-bud opacities within the right lower lobe and right upper lobe, consistent with a bronchiolitis/pneumonia. There is extensive debris within the right bronchus intermedius with near occlusion. IMPRESSION: 1. No evidence of acute pulmonary embolism 2. Tree-in-bud opacities within the right lower lobe and right upper lobe consistent with a bronchiolitis/pneumonia 3. Extensive debris within the right bronchus intermedius with near occlusion 4. Interval development of extensive mediastinal, hilar, and upper abdominal lymphadenopathy indicative of metastatic disease. 5. Postsurgical changes of a distal esophagectomy and gastric pull-up. There is extensive debris within the stomach and esophagus. 6. Fat within the left pleural space versus a chylous effusion 7. Suspected hepatic metastasis. EKG EKG shows normal sinus rhythm at 80 bpm. Impression Assessment and Plan Aspiration pneumonitis versus pneumonia Gastric reflux disease Adenocarcinoma of the esophagus, recurrence Mediastinal and hilar adenopathy Mr. Dixon is a 62-year-old male with history of esophageal carcinoma status post esophageal resection, GERD Presents with several week history of cough, shortness of breath associated with decreased by mouth intake and weight loss. Yesterday he had worsening lightheadedness and presented to ER for further evaluation. CT of chest showed extensive debris in the right bronchus intermedius, tree-in-bud opacities in the right upper and lower lobe suggestive of pneumonia/pneumonitis with extensive hilar and mediastinal adenopathy adenopathy. Esophagus and stomach are both full of retained food which is likely precipitating reflux into the lungs. Lightheadedness and dizziness likely secondary to dehydration and decreased by mouth intake. He is already feeling better with fluid resuscitation. Recommendations Recommend use supplemental oxygen when necessary, to maintain SaO2 greater than 92%. Discussed therapeutic bronchoscopy with the patient and will likely proceed tomorrow morning. Keep nothing by mouth past midnight. Aspiration will likely recur if GI and esophageal motility remain the same. Consider GI consult. Continue to treat for aspiration pneumonia. Can probably switch Flagyl to Unasyn for better respiratory coverage. Continue with nebulizers when necessary Continue with PPI. I appreciate the consult. Please contact me if you have any further questions or concerns
--- NOTE | 2017-09-09 16:23 | Progress Note ---
Subjective Date of Service: Sep 09, 2017. Subjective Pt evaluation today including: conversation w/ patient, physical exam, chart review, lab review, review of studies, conversation w/ portrait consultant, review of inpatient medication list Pain: no pain reported PO Intake: good Voiding: no voiding problems, no incontinence Patient is seen and examined by me. Pt denies cp, sob, dizziness, palpitation and loss of consciousness.Pt sates his cough did improved. Pt denies nausea, vomiting, abdominal pain and diarrhea.Did discuss with pulmonology regarding bronchoscopy. Problem List Medical Problems: (1) Hypoxia Status: Acute Review of Systems Constitutional: No fever, No chills, No sweats Eyes: No worsening of vision ENT: No hearing loss, No unusual epistaxis, No nasal symptoms Respiratory: + cough, + shortness of breath, + dyspnea on exertion, Cardiovascular: No chest pain, No orthopnea, No PND Abdomen: No pain, No nausea, No vomiting Musculoskeletal: No joint pain Genitourinary - Male: No hematuria, No dysuria Neurologic: + problem reported (Dizziness reported), No memory loss, No paralysis, No weakness Psychiatric: No depression symptoms Endocrine: No fatigue Hematologic / Lymphatic: No abnormal bleeding/bruising Integumentary: No rash Allergic / Immunologic: No environmental allergies Medications Medications (Trade) Dose Ordered Sig/Konstantin Route Start Time Stop Time Status Last Admin Dose Admin Albuterol/ Ipratropium (Duoneb) 12 ml ONE STAT INH 09/08/17 20:22 09/08/17 20:25 DC 09/08/17 20:22 12 ML Sodium Chloride 1,000 ml @ 999 mls/hr Q1H1M STAT IV 09/08/17 21:37 09/08/17 22:37 DC 09/08/17 21:46 999 MLS/HR Cefepime HCl 2000 mg/Dextrose 122 ml @ 200 mls/hr NOW STAT IV 09/08/17 21:37 09/08/17 22:13 DC 09/08/17 22:07 200 MLS/HR Levofloxacin (Levaquin / D5W) 750 mg NOW STAT IV 09/08/17 21:37 09/08/17 21:39 DC 09/08/17 21:48 750 MG Pantoprazole Sodium (Protonix Tab) 40 mg QAM PO 09/09/17 09:00 1/22/18 08:59 09/09/17 07:42 40 MG Heparin Sodium (Porcine) (Heparin Sq 5000 Unit/0.5ml) 5,000 unit Q8 SQ 09/09/17 06:00 10/09/17 05:59 09/09/17 13:49 5,000 UNIT Acetaminophen (Tylenol Tab) 650 mg Q4H PRN PO 09/08/17 22:15 18 22:14 09/09/17 10:08 650 MG Al Hydrox/Mg Hydrox/Simethicone (Maalox Max Susp) 15 ml Q4H PRN PO 09/08/17 22:15 10/08/17 22:14 09/09/17 00:41 15 ML Potassium Chloride/Dextrose/ Sod Cl 1,000 ml @ 100 mls/hr Q10H IV 09/08/17 23:30 09/09/17 19:29 09/09/17 10:10 100 MLS/HR Albuterol/ Ipratropium (Duoneb) 3 ml Q6R INH 09/09/17 03:00 10/09/17 02:59 09/09/17 14:16 3 ML Metronidazole 500 mg/Prmx 100 ml @ 100 mls/hr Q8H IV 09/09/17 00:00 09/16/17 00:00 09/09/17 07:42 100 MLS/HR Objective Vital Signs Date Time Temp Pulse Resp B/P (MAP) Pulse Ox O2 Delivery O2 Flow Rate FiO2 09/09/17 08:00 Room Air 09/09/17 07:45 37.1 104 18 141/96 (111) 95 Room Air 09/09/17 07:02 101 18 96 Room Air 09/09/17 04:00 92 Room Air 09/09/17 03:10 37.4 103 18 132/82 (99) 97 Room Air 09/09/17 02:39 105 18 96 Room Air 09/08/17 23:59 92 Room Air 09/08/17 23:00 37.1 125 18 139/86 (103) 92 Room Air 09/08/17 22:53 95 Room Air 09/08/17 22:41 115 20 134/84 95 09/08/17 22:00 108 21 152/93 100 Nebulizer 09/08/17 21:22 84 09/08/17 21:22 92 20 96 Room Air 09/08/17 20:29 97 Room Air 09/08/17 20:09 36.7 107 18 97/70 90 Room Air Physical Exam Comments: General Appearance: WD/WN, no apparent distress Head: normocephalic ENT: normal ENT inspection, pharynx normal Neck: supple, no JVD Respiratory/Chest: + pertinent finding (Minmal air entry at bases and crackles on R) Cardiovascular: regular rate, rhythm, no edema, no gallop Abdomen/GI: normal bowel sounds, non tender, soft Back: normal inspection, no CVA tenderness Extremities/Musculoskelatal: normal inspection, no calf tenderness, normal capillary refill 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, no motor/sensory deficits, alert, oriented x 3 Skin: normal color Laboratory Results Last 24 Hours Test 09/08/17 20:32 09/08/17 20:40 09/08/17 20:52 09/08/17 23:20 Influenza Type A (RT-PCR) Neg for Influ A Influenza Type A Antigen Neg for Influ A Influenza Type B Antigen Neg for Influ B Influenza Type B (RT-PCR) Neg for Influ B White Blood Count 7.63 K/uL Red Blood Count 4.44 M/uL Hemoglobin 9.6 g/dL Hematocrit 31.7 % Mean Corpuscular Volume 71.4 fL Mean Corpuscular Hemoglobin 21.6 pg Mean Corpuscular Hemoglobin Concent 30.3 g/dl Platelet Count 334 K/uL Mean Platelet Volume 8.5 fL Neutrophils (%) (Auto) 83.2 % Lymphocytes (%) (Auto) 7.5 % Monocytes (%) (Auto) 8.0 % Eosinophils (%) (Auto) 0.7 % Basophils (%) (Auto) 0.3 % Neutrophils # (Auto) 6.36 K/uL Lymphocytes # (Auto) 0.57 K/uL Monocytes # (Auto) 0.61 K/uL Eosinophils # (Auto) 0.05 K/uL Basophils # (Auto) 0.02 K/uL RDW Standard Deviation 47.1 fL RDW Coefficient of Variation 18.2 % Immature Granulocyte % (Auto) 0.3 % Immature Granulocyte # (Auto) 0.02 K/uL Hypochromasia PRESENT Microcytosis PRESENT Sodium Level 135 mmol/L Potassium Level 3.4 mmol/L Chloride Level 103 mmol/L Carbon Dioxide Level 26 mmol/L Anion Gap 7.0 mmol/L 16.0 mmol/L Blood Urea Nitrogen 16 mg/dl Creatinine 0.96 mg/dl Est Creatinine Clear Calc Drug Dose 85.1 ml/min Estimated GFR () 98.5 Estimated GFR (Non- 85.0 BUN/Creatinine Ratio 16.5 Random Glucose 113 mg/dl Calcium Level 8.6 mg/dl Total Bilirubin 0.3 mg/dl Aspartate Amino Transf (AST/SGOT) 46 U/L Alanine Aminotransferase (ALT/SGPT) 16 U/L Alkaline Phosphatase 117 U/L Total Creatine Kinase 75 U/L Creatine Kinase MB 0.7 ng/ml Creatine Kinase MB Ratio 0.9 Troponin I < 0.015 ng/ml Pro-B-Type Natriuretic Peptide 738 pg/ml Total Protein 7.3 gm/dl Albumin 3.0 gm/dl Globulin 4.3 gm/dl Albumin/Globulin Ratio 0.7 Bedside Hemoglobin 10.2 g/dl Bedside Hematocrit 30 % Bedside Sodium 139 mEq/L Bedside Potassium 3.5 mEq/L Bedside Chloride 101 mEq/L Bedside Total CO2 26 mEq/l Bedside Blood Urea Nitrogen 17 mg/dl Bedside Creatinine 0.9 mg/dl Bedside Glucose (other) 117 mg/dl Bedside Ionized Calcium (Ravin) 1.11 mmol/l Prothrombin Time 11.4 SECONDS Prothromb Time International Ratio 1.1 Test 09/08/17 23:30 09/09/17 06:26 Urine Color YELLOW Urine Appearance CLEAR Urine pH 7.0 Urine Specific [place] > 1.045 Urine Protein NEG Urine Glucose (UA) NEG Urine Ketones 1+ Urine Occult Blood NEG Urine Nitrite NEG Urine Bilirubin NEG Urine Urobilinogen NEG Urine Leukocyte Esterase NEG Hemoglobin 7.7 g/dL Sodium Level 136 mmol/L Potassium Level 3.5 mmol/L Chloride Level 105 mmol/L Carbon Dioxide Level 26 mmol/L Anion Gap 5.0 mmol/L Blood Urea Nitrogen 15 mg/dl Creatinine 0.80 mg/dl Est Creatinine Clear Calc Drug Dose 101.6 ml/min Estimated GFR () 111.7 Estimated GFR (Non- 96.4 BUN/Creatinine Ratio 18.8 Random Glucose 126 mg/dl Calcium Level 8.1 mg/dl Magnesium Level 1.8 mg/dl Assessment and Plan 62 y/o M Hx Esophageal CA, esophageal resection 2014 - recent recurrence, GERD, gastritis, MRSA pneumonia 2016. Presents with cough, SOB and intermittent lightheadedness, Ct shows RLL pneumonia and extensive adenopathy and a liver lesion representing metastatic disease. Pneumonia possible aspiration - we will switch to Unasyn 3g iv q6 hr. -- possible bronchoscopy in morning. - Sputum culture pending - He has a history of MRSA PNM - if a nasal swab is (+) we would consider empirical addition of Vanc. - There is debris and plugging of the R bronchus - this may be due to aspiration owing to compromised anatomy. - Pulmonology recommendation appreciated Dizziness - Improved, will keep a close eye. - there is a 3% chance of brain metastasis with esophageal CA in individuals over 60. - An MRI w/suraj can be considered if his symptoms do not resolve with treatment of PNM. Esophageal CA - Pt follows with Dr Lopez - is aware of recurrence and has a PET scheduled for the . Anemia - present on initial labs - Hgb trended down to 7.7 - will repeat h/h - Anemia could be secondary to malabsorption. - No black joy stool or fresh blood per rectum. Full code - heparin prophylaxis Continued [facility] stay due to: multiple IV medications needed Discharge planning: home
[2017-09-09 16:26] LABS: HEMATOCRIT 26.1 % (42-52)
[2017-09-09] MEDS: AMPICILLIN/SULBACTAM SOD INJ 3,000 MG in SODIUM CHLORIDE 0.9% 100ML 100 ML IV SCH (19:03)
[2017-09-09] MEDS ORDERED: LEVOFLOXACIN 750MG / D5W IV SCH (22:00)
[2017-09-10] VITALS (19 sets, daily range): BP systolic 128–161; BP diastolic 78–105; PULSE 88–105; TEMP 36.8–37.1; O2SAT 92–100
[2017-09-10] MEDS: AMPICILLIN/SULBACTAM SOD INJ 3,000 MG in SODIUM CHLORIDE 0.9% 100ML 100 ML IV SCH ×3 (00:15→11:43)
[2017-09-10] MEDS: ALBUT/IPRATROP 3MG/0.5MG NEB 3 ML VIAL INH SCH ×3 (02:07→14:27)
[2017-09-10 06:07] LABS: HEMATOCRIT 26.6 % (42-52)
[2017-09-10] MEDS: HEPARIN SOD 5000 UNIT/0.5 ML CARP SQ SCH ×2 (06:11→14:00)
[2017-09-10] MEDS ORDERED: NURSING VERBAL MED ORDER ONE (08:45)
--- NOTE | 2017-09-10 08:45 | Pulmonology Progress Note ---
Pulmonary Progress Note Date of Service Sep 10, 2017. Attending Dr. Ritter Subjective Patient seen and examined. He has no complaints. He still has intermittent cough, but denies any lightheadedness, dizziness, chest pain or shortness of breath. NPO past midnight for bronchoscopy. Objective VS reviewed. HEENT: [place] II CVS: S1, S2, RRR Lungs: diminshed breath sounds in the right, good air entry on the left. Mild crackles bibasilar Abd: soft/NT/NT/BS+ Ext: no edema bilaterally, no cyanosis, no clubbing Labs reviewed. Imaging reviewed. Medications reviewed. Assessment & Plan Aspiration pneumonitis versus pneumonia Gastric reflux disease Adenocarcinoma of the esophagus, recurrence Mediastinal and hilar adenopathy Patient doing much better from a respiratory standpoint. Will proceed with bronchoscopy. Consent in chart. Aspiration will likely recur if GI and esophageal motility remain the same. Consider GI consult. Continue to treat for aspiration pneumonia. Can probably switch Flagyl to Unasyn for better respiratory coverage. Continue with nebulizers when necessary Continue with PPI. Data Medications: Current Inpatient Medications Medications (Trade) Dose Ordered Sig/Konstantin Route Start Time Stop Time Status Last Admin Dose Admin Ioversol (Optiray 320) 100 ml UD PRN IV 09/08/17 21:00 09/12/17 20:59 Pantoprazole Sodium (Protonix Tab) 40 mg QAM PO 09/09/17 09:00 10/09/17 08:59 09/09/17 07:42 40 MG Heparin Sodium (Porcine) (Heparin Sq 5000 Unit/0.5ml) 5,000 unit Q8 SQ 09/09/17 06:00 10/09/17 05:59 09/10/17 06:11 5,000 UNIT Acetaminophen (Tylenol Tab) 650 mg Q4H PRN PO 09/08/17 22:15 10/08/17 22:14 09/09/17 19:14 650 MG Al Hydrox/Mg Hydrox/Simethicone (Maalox Max Susp) 15 ml Q4H PRN PO 09/08/17 22:15 10/08/17 22:14 09/09/17 00:41 15 ML Magnesium Hydroxide (Milk Of Magnesia Susp) 30 ml Q12H PRN PO 09/08/17 22:15 10/08/17 22:14 Zolpidem Tartrate (Ambien Tab) 5 mg HSZ PRN PO 09/08/17 22:15 18 22:14 Ondansetron HCl (Zofran Inj) 4 mg Q6H PRN IV 09/08/17 22:15 10/08/17 22:14 Polyethylene (Miralax Powder Packet) 17 gm DAILY PRN PO 09/08/17 22:15 10/08/17 22:14 Albuterol/ Ipratropium (Duoneb) 3 ml Q6R INH 09/09/17 03:00 10/09/17 02:59 09/10/17 07:01 3 ML Levalbuterol (Xopenex 1.25MG/ 0.5ML Neb) 1.25 mg Q4R PRN INH 09/08/17 22:15 10/08/17 22:14 Miscellaneous Information 1 ea UD PRN N/A 09/09/17 14:30 10/09/17 14:29 Ampicillin Sodium/ Sulbactam Sodium 3000 mg/Sodium Chloride 108 ml @ 216 mls/hr Q6 IV 09/09/17 18:00 09/16/17 17:59 09/10/17 06:05 216 MLS/HR Vital Signs: Date Time Temp Pulse Resp B/P (MAP) Pulse Ox O2 Delivery O2 Flow Rate FiO2 09/10/17 08:10 37.1 105 21 132/88 (103) 94 Room Air 09/10/17 07:01 98 16 99 Room Air 09/10/17 04:26 97 18 128/78 (95) 95 09/10/17 04:00 Room Air 09/10/17 02:07 88 16 97 Room Air 09/10/17 00:21 37.1 91 18 134/84 (101) 93 09/09/17 23:59 Room Air 09/09/17 20:09 37.3 99 18 142/91 (108) 97 Room Air 09/09/17 20:00 Room Air 09/09/17 19:15 90 18 96 Room Air 09/09/17 16:01 37.2 92 18 133/84 (100) 95 Room Air 09/09/17 16:00 Room Air 09/09/17 14:16 92 18 98 Room Air 09/09/17 12:10 Room Air 09/09/17 12:09 36.7 97 20 141/87 (105) 95 Room Air Laboratory Results: Last 24 Hours Test 09/09/17 16:13 09/10/17 05:56 Hemoglobin 7.8 g/dL 8.0 g/dL Hematocrit 26.1 % 26.6 %
--- NOTE | 2017-09-10 08:46 | Pre Sedation Assessment ---
Pre Sedation Assessment General Date of Sedation: Sep 10, 2017. Vital Signs Past 12 Hours Date Time Temp Pulse Resp B/P (MAP) Pulse Ox O2 Delivery O2 Flow Rate FiO2 09/10/17 08:10 37.1 105 21 132/88 (103) 94 Room Air 09/10/17 07:01 98 16 99 Room Air 09/10/17 04:26 97 18 128/78 (95) 95 09/10/17 04:00 Room Air 09/10/17 02:07 88 16 97 Room Air 09/10/17 00:21 37.1 91 18 134/84 (101) 93 09/09/17 23:59 Room Air Review Cardiovascular: regular rate, rhythm, no edema Lungs: no respiratory distress, no accessory muscle use, + crackles Pre-Sedation Airway Assessment Smoking Status: Former Smoker Hx of Sleep Apnea: No Short Thick Neck: No Thyro-mental Distance: > 3 Finger Breadths Oral Cavity: Dentures Mallampati Classification: Class II ASA Classification: Class III NPO Status Date of Last Intake of Fluids: Sep 10, 2017 Time of Last Intake of Fluids: 00:00 Date of Last Intake of Solids: Sep 10, 2017 Time of Last Intake of Solids: 00:00 Procedure Planning Contraindications for Sedation: None Current Medications Reviewed: Yes Notes The planned sedation has been discussed with the patient. Informed Consent was obtained. I have identified the patient, determined the appropriateness of sedation and have assessed the patient immediately prior to the procedure. All medicine(s) and interventions are by my order.
[2017-09-10] MEDS ORDERED: MIDAZOLAM HCL 5 MG/ML 1 ML VIAL ONE (08:47)
[2017-09-10] MEDS: FENTANYL CITRATE INJ 50 MCG/1 ML 2 ML VIAL ONE (09:05)
--- NOTE | 2017-09-10 09:36 | Procedure Note ---
Procedure Note Date of Service Sep 10, 2017. Procedure Note Procedure: Bronchoscopy, conscious sedation, Consent: Obtained through the patient placed into the chart Pre-procedural diagnosis:Mucus plug Post-procedural diagnosis:Endobronchial mass Start time: 906 End time: 927 Total time: 21 minutes Analgesia: 2% liquid lidocaine: Via nebulizer 4% gel lidocaine: Via right naris 2% liquid lidocaine: Via bronchoscopy Sedation: Versed IV: 4mg Fentanyl IV:100 g Procedure: The Olympus video bronchoscope was used for this procedure and passed down through the right naris Right naris/posterior naris/posterior oropharynx: Anatomically within normal limits Glottis: Anatomically within normal limits Vocal cords: Proper abduction and abduction, anatomically within normal limits Subglottis/trachea/Helen: Anatomically within normal limits Right bronchial tree: Right mainstem bronchus: Anatomically within normal limits Right upper lobe: Anatomically within normal limits Bronchus intermedius: Near obstructing pedunculated friable mass able to pass and view RML and RLL to subsegmental level Right middle lobe: Anatomically within normal limits Right lower lobe: Anatomically within normal limits Findings: Friable, bleeding controlled with cold saline. Left bronchial tree: Left mainstem bronchus: Anatomically within normal limits Left upper lobe: Anatomically within normal limits Lingula: Anatomically within normal limits Left lower lobe: Anatomically within normal limits Findings: No significant findings noted Bronchial alveolar lavage/Washing: Bronchus intermedius Brushings: Mass at Bronchus intermedius EBL: < 5 cc Complications: None
--- NOTE | 2017-09-10 10:52 | DIAGNOSTIC IMAGING REPORT ---
CHEST 1 VW FRONT-NOT PORTABLE CLINICAL HISTORY: post bronchoscopy ESOPHAGEAL CARCINOMA. SHORTNESS OF BREATH. COMPARISON STUDY: 05/13/2015, CT scan dated 09/08/2017 FINDINGS: There is a left-sided A-Port catheter. There is no pneumothorax. There is mild elevation of the interstitium suggesting mild pulmonary vascular congestion/fluid overload. There is a small left pleural effusion. There is left basilar atelectasis/consolidation. Gas of the left medial lung base, likely represents postsurgical changes of a distal esophagectomy and gastric pull-up. There is right hilar enlargement consistent with adenopathy.[ IMPRESSION: 1. Postsurgical changes 2. Small left pleural effusion with associated left basilar atelectasis/consolidation 3. Enlarged right hilum consistent with adenopathy 4. Mild pulmonary vascular congestion/fluid overload 5. No evidence of pneumothorax Electronically signed by: Jorge A Taylor M.D. 09/10/2017 10:50 AM Dictated Date/Time: 09/10/2017 10:48 AM
[2017-09-10] MEDS: ACETAMINOPHEN 325 MG TAB PO PRN (11:40)
[2017-09-10] MEDS: PANTOprazole SOD 40 MG TAB PO SCH (11:40)
--- NOTE | 2017-09-10 14:22 | DIAGNOSTIC IMAGING REPORT ---
CT HEAD WITHOUT CONTRAST (CT) CLINICAL HISTORY: dizziness COMPARISON STUDY: No previous studies for comparison. TECHNIQUE: Axial CT of the brain is performed from the vertex to the skull base. IV contrast was not administered for this examination. A dose lowering technique was utilized adhering to the principles of ALARA. CT DOSE: 537.48 mGy.cm FINDINGS: No intra or extra-axial mass lesions are visualized. There is no CT evidence of acute cortical infarction. There is no evidence of midline shift. There is no acute hemorrhage. No calvarial fractures are visualized. There are minimal white matter hypodensities likely on a small vessel basis. There is no evidence of pathologic ventricular dilatation. There is no evidence of acute sinusitis IMPRESSION: No acute intracranial findings Electronically signed by: Jorge A Taylor M.D. 09/10/2017 2:21 PM Dictated Date/Time: 09/10/2017 2:20 PM
--- NOTE | 2017-09-10 14:45 | Discharge Instructions ---
Discharge Instructions Date of Service Sep 10, 2017. Admission Reason for Admission: Dizziness, Pneumonia Discharge Discharge Diagnosis / Problem: Lung mass Discharge Goals Goal(s): Decrease discomfort, Improve function, Learn about illness, Diagnostic testing Activity Recommendations Activity Limitations: as noted below Lifting Limitations: gradually increase as tolerated Exercise/Sports Limitations: rest today May Resume Sexual Activity: when tolerated Shower/Bathe: no limitations Driving or Machine Use: resume 1 day after discharge . Current Hospital Diet Patient's current hospital diet: Full Liquid Diet Discharge Diet Recommended Diet: Regular Diet Procedures Procedures Performed: bronchoscopy Pending Studies Studies pending at discharge: no Medical Emergencies . Who to Call and When: Medical Emergencies: If at any time you feel your situation is an emergency, please call 911 immediately. . Non-Emergent Contact Non-Emergency issues call your: Primary Care Provider Call Non-Emergent contact if: temperature is above 100.5, your pain is not controlled . . "Provider Documentation" section prepared by Yasemin Saucedo . VTE Core Measure Inpt VTE Proph given/why not?: Unfractionated heparin SQ
--- NOTE | 2017-09-10 14:59 | Discharge Summary ---
Discharge Summary Date of Service Sep 10, 2017. Discharge Summary Admission Date: Sep 08, 2017 at 22:10 Discharge Date: Sep 10, 2017 Discharge Disposition: Home Principal Diagnosis: Metastatic disease primary liver or lung Immunizations: Have You Had Influenza Vaccine: No History of Tetanus Vaccine?: No History of Pneumococcal: No History of Hepatitis B Vaccine: No Procedures: Bronchoscopy Consultations: Pulmonary Medication Reconciliation Continued Medications: Pantoprazole (Protonix) 40 Mg Tab 40 MG PO QAM Referrals At Discharge Follow up Referrals: Physician Referral - Within 1-2 Weeks with Yury Robert M.D. Discharge Exam Review of Systems: Constitutional: + weight loss, No fever, No chills Eyes: No worsening of vision, No redness, No discharge ENT: No hearing loss Respiratory: No cough, No sputum, No wheezing, No shortness of breath, No dyspnea on exertion, No dyspnea at rest, No hemoptysis Cardiovascular: No chest pain, No orthopnea, No edema, No claudication, No palpitations Abdomen: No pain, No nausea, No vomiting, No diarrhea, No constipation Musculoskeletal: No joint pain, No muscle pain, No swelling Genitourinary - Male: No dysuria, No urinary frequency, No urinary urgency Neurologic: No memory loss Endocrine: No fatigue Integumentary: No rash Physical Exam: General Appearance: WD/WN, no apparent distress Eyes: normal inspection Neck: supple, no JVD Respiratory/Chest: chest non-tender, no respiratory distress, no accessory muscle use Cardiovascular: regular rate, rhythm, no edema, no gallop, no murmur Extremities: normal inspection, no calf tenderness, normal capillary refill , no pedal edema 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 Presents with cough, SOB and intermittent lightheadedness, Ct shows RLL pneumonia and extensive adenopathy and a liver lesion representing metastatic disease. Pneumonia less likely - we will discontinue Unasyn 3g iv q6 hr. -- s/p bronchoscopy new lung mass, pending pathology- need out patient palliative consult- talk to patient in full length-- patient wants to go home for [place]. - Sputum culture pending - There is debris and plugging of the R bronchus - confirm lung mass, and no aspiration on bronchoscopy - Pulmonology recommendation appreciated Dizziness - Ct head negative for brain metastasis. resolved, walking without any difficulty. - there is a 3% chance of brain metastasis with esophageal CA in individuals over 60. - An MRI w/suraj can be considered if his symptoms do not resolve with treatment of PNM. Esophageal CA - Pt follows with Dr Lopez - is aware of recurrence and has a PET scheduled for the . Pt has metastasis to possible liver, and a new mass found on bronchoscopy. Talk to patient about the findings. Pt states he will call his oncologist on Monday to schedule an earlier appointment. Anemia - present on initial labs - Hgb trended down to 7.7 - will repeat h/h - Anemia could be secondary to malabsorption. - No black joy stool or fresh blood per rectum. Full code - heparin prophylaxis Total Time Spent: Greater than 30 minutes This includes examination of the patient, discharge planning, medication reconciliation, and communication with other providers. Discharge Instructions Please refer to the electronic Patient Visit Report (Discharge Instructions) for additional information. Follow-Up With oncology with PCP Additional Copies To Yury Robert M.D.
== END 2017-09-10 16:00 | disposition home or self-care (01) | DRG 166 ==
LOC: C.EDB 20:06 → C.2E 22:10 → ENRESERV 22:32
PROVIDERS: ADMIT Internal Medicine; ATTEND Internal Medicine
PROC: 0B9L8ZX Drainage of Left Lung, Via Natural or Artificial Opening Endoscopic, Diagnostic (ICD-10-PCS; principal; 2017-09-10)
PROC: 0BB38ZX Excision of Right Main Bronchus, Via Natural or Artificial Opening Endoscopic, Diagnostic (ICD-10-PCS; principal; 2017-09-10)
DX: R91.8 Other nonspecific abnormal finding of lung field (principal); J69.0 Pneumonitis due to inhalation of food and vomit; C15.9 Malignant neoplasm of esophagus, unspecified; C78.7 Secondary malignant neoplasm of liver and intrahepatic bile duct; R42 Dizziness and giddiness; K21.9 Gastro-esophageal reflux disease without esophagitis; D64.89 Other specified anemias; R59.0 Localized enlarged lymph nodes; Z79.899 Other long term (current) drug therapy; Z87.891 Personal history of nicotine dependence

== ENCOUNTER 2017-10-06 06:49 | Inpatient (IN) | payer OTHER ==
[~2017-10-06] VITALS: Ht 182.9 cm; Wt 74.5 kg
[~2017-10-06 06:49] MED LIST changes: +[UNRECOGNIZED DRUG - CODE] PO
[2017-10-06] MEDS ORDERED: STEROID PO (07:33)
[2017-10-06] MEDS ORDERED: DRGTP12 TOP (07:33)
--- NOTE | 2017-10-06 07:33 | EMERGENCY ROOM VISIT NOTE ---
History Report prepared by Tom: Willam Lipscomb Under the Supervision of: Dr. Shon Guthrie M.D. First contact with patient: 07:02 Chief Complaint: ABDOMINAL PAIN Stated Complaint: ABD AREA TIGHT Nursing Triage Summary: Pt c/o "tightness going around his abdomen like a belt". Pt verbalizes he had a blood transfusion yesterday and thinks this might be a reaction. Abdominal pain 4/10. Pain is intermittent. Denies urinary problems. Last bm yesterday. Denies hx kid stones. Denies N/V/D. Hx esophageal CA with mets to lungs, liver, & kidneys. Chemotherapy treatments have not started yet. History of Present Illness The patient is a 62 year old male who presents to the Emergency Room with complaints of pain in his lower abdomen and back that began this morning. The patient describes his pain as being "squeezed by a belt" or a "bloating" feeling. The patient notes that he has been in the medical treatment unit for the past two days to receive blood transfusions. The patient is having blood transfusions secondary to esophageal cancer with metastasis. He is also complaining of "rubbery" feeling in his legs and a 30 minute period of chest pain this morning. He denies any recent fevers. Source of History: patient Onset: This morning Position: abdomen (Lower), back (lower) Quality: other ("Squeeze") Associated Symptoms: + chest pain Review of Systems See HPI for pertinent positives & negatives. A total of 10 systems reviewed and were otherwise negative. Past Medical & Surgical Medical Problems: (1) Dizziness (2) Esophageal cancer (3) Pneumonia (4) Sepsis Esophageal mass Old medical records were reviewed. Nurse's notes were reviewed and I agree with. Family History FHx: cancer Hypertension Social History Smoking Status: Former Smoker Drug Use: none Marital Status: Occupation Status: employed Current/Historical Medications Scheduled Fentanyl (Fentanyl), 12 MCG TOP Q3DAYS [Steroid], 1 TAB PO DAILY Allergies Coded Allergies: No Known Allergies (Verified , 10/06/17) Physical Exam Vital Signs Date Time Temp Pulse Resp B/P (MAP) Pulse Ox O2 Delivery O2 Flow Rate FiO2 10/06/17 09:02 89 16 134/87 97 Room Air 10/06/17 08:44 84 18 137/89 99 Room Air 10/06/17 07:41 90 18 133/90 96 Room Air 10/06/17 07:17 90 10/06/17 07:10 96 Room Air 10/06/17 06:54 36.4 104 18 113/79 92 Room Air Physical Exam General: Chronically-ill appearing middle age male, somewhat cachectic appearing. HEENT: Normal cephalic atraumatic. Pupils are equal round and reactive to light. Extraocular movements are intact. Oropharynx is pink with moist mucous membranes. No swelling of the mouth lips or tongue. Neck: Supple with a midline trachea. No meningeal signs or stiffness, no JVD or bruits. No Stridor. Chest: There is an A-port accessed in the left chest. Clear to auscultation bilaterally. No wheezes or rhonchi. No increased work of breathing. Heart: regular rate and rhythm. Abdomen: Soft nontender, nondistended without rebound guarding or rigidity. Extremities: No cyanosis clubbing. Trace pedal edema bilaterally. No calf tenderness or assymetry Spine/Back. Non tender to palpation. No CVA tenderness Skin: Good turgor without rashes. Neurologic exam: Cranial nerves two through 12 are intact. Motor and sensation are intact and symmetrical throughout. Rectal: Rectal exam reveals brown stool guaiac positive. Medical Decision & Procedures ER Provider Diagnostic Interpretation: Radiology results as stated below per my review and radiologist interpretation: CHEST ONE VIEW PORTABLE CLINICAL HISTORY: CHEST PAIN dyspnea COMPARISON STUDY: 09/10/2017 FINDINGS: Mild cardiomegaly. Central catheter in superior vena cava. Unchanging consolidative change/fusion change left base. Central catheter in superior vena cava. Unaltered right and to lesser extent left hilar prominence. Potential developing pulmonary vascular congestion versus right basilar infiltrate. IMPRESSION: Developing right basal infiltrate versus pulmonary vascular congestion. Unchanging consolidative change left lung base. The above report was generated using voice recognition software. It may contain grammatical, syntax or spelling errors. Electronically signed by: Riley Pittman M.D. 10/06/2017 7:35 AM Dictated Date/Time: 10/06/2017 7:34 AM Laboratory Results 10/06/17 07:35 Red Blood Count 3.52, Mean Corpuscular Volume 77.0, Mean Corpuscular Hemoglobin 24.1, Mean Corpuscular Hemoglobin Concent 31.4, Mean Platelet Volume 8.4, Neutrophils (%) (Auto) 73.9, Lymphocytes (%) (Auto) 11.8, Monocytes (%) (Auto) 12.8, Eosinophils (%) (Auto) 1.1, Basophils (%) (Auto) 0.1, Neutrophils # (Auto ) 5.87, Lymphocytes # (Auto) 0.94, Monocytes # (Auto) 1.02, Eosinophils # (Auto ) 0.09, Basophils # (Auto) 0.01 10/06/17 07:35 Test 10/06/17 07:35 10/06/17 07:52 White Blood Count 7.95 K/uL (4.8-10.8) Red Blood Count 3.52 M/uL (4.7-6.1) Hemoglobin 8.5 g/dL (14.0-18.0) Hematocrit 27.1 % (42-52) Mean Corpuscular Volume 77.0 fL (80-100) Mean Corpuscular Hemoglobin 24.1 pg (25-34) Mean Corpuscular Hemoglobin Concent 31.4 g/dl (32-36) Platelet Count 353 K/uL (130-400) Mean Platelet Volume 8.4 fL (7.4-10.4) Neutrophils (%) (Auto) 73.9 % Lymphocytes (%) (Auto) 11.8 % Monocytes (%) (Auto) 12.8 % Eosinophils (%) (Auto) 1.1 % Basophils (%) (Auto) 0.1 % Neutrophils # (Auto) 5.87 K/uL (1.4-6.5) Lymphocytes # (Auto) 0.94 K/uL (1.2-3.4) Monocytes # (Auto) 1.02 K/uL (0.11-0.59) Eosinophils # (Auto) 0.09 K/uL (0-0.5) Basophils # (Auto) 0.01 K/uL (0-0.2) RDW Standard Deviation 56.3 fL (36.4-46.3) RDW Coefficient of Variation 20.1 % (11.5-14.5) Immature Granulocyte % (Auto) 0.3 % Immature Granulocyte # (Auto) 0.02 K/uL (0.00-0.02) Nucleated RBC Absolute Count (auto) 0.11 K/uL (0-0) Nucleated Red Blood Cells % 1.4 % Hypochromasia PRESENT Anisocytosis PRESENT Microcytosis PRESENT Ovalocytes 1+ Prothrombin Time 10.4 SECONDS (9.0-12.0) Prothromb Time International Ratio 1.0 (0.9-1.1) Activated Partial Thromboplast Time 25.4 SECONDS (21.0-31.0) Partial Thromboplastin Ratio 1.0 Anion Gap 8.0 mmol/L (3-11) Est Creatinine Clear Calc Drug Dose 124.1 ml/min Estimated GFR () 133.4 Estimated GFR (Non- 115.1 BUN/Creatinine Ratio 37.9 (10-20) Calcium Level 8.0 mg/dl (8.5-10.1) Total Bilirubin 0.4 mg/dl (0.2-1) Direct Bilirubin < 0.1 mg/dl (0-0.2) Aspartate Amino Transf (AST/SGOT) 81 U/L (15-37) Alanine Aminotransferase (ALT/SGPT) 20 U/L (12-78) Alkaline Phosphatase 164 U/L (45-117) Total Creatine Kinase 63 U/L (39-308) Creatine Kinase MB 0.8 ng/ml (0.5-3.6) Creatine Kinase MB Ratio 1.3 (0-3.0) Total Protein 5.8 gm/dl (6.4-8.2) Albumin 2.4 gm/dl (3.4-5.0) Lipase 55 U/L (73-393) Bedside Troponin I < 0.030 ng/ml (0-0.045) Laboratory studies as stated above per my review. ECG Indication: abdominal pain, chest pain Rate (beats per minute): 84 Rhythm: normal sinus Findings: no acute ischemic change, no ectopy Comparison ECG Date: 09/08/2017 Change: no significant change Change: Patient's electrocardiogram per my interpretation ED Course 0703: Past medical records reviewed. The patient was evaluated in room A11B, and a complete history and physical examination were performed. 0748: I checked on the patient at this time. He is comfortable. 0825: I performed a rectal exam at this time. See PE for further findings. 0852: I discussed the case with Dr. Chris - Hospitalist at this time. He will evaluate the patient for further treatment. Medical Decision Differential Diagnosis includes; Anemia, GI bleed, cancer complication, transfusion reaction, electrolyte or metabolic abnormality, hematoma, cardiac disease. This patient comes in as described above he has metastatic esophageal cancer and was found have a low hemoglobin 2 days ago. he had a transfusion yesterday and today and he now has some back pain and some mild abdominal discomfort. He' s been afebrile. He does have an a port which is still accessed. He had a brief episode of chest pain as well. His vital signs are stable. He has been having dark stools for the last month he tells me. IV access has been established previously with his port and blood work was obtained including type and screen. EKG does not suggest acute coronary syndrome or arrhythmia. Chest x-ray was obtained and has some possible infiltrate/malignancy/atelectasis in the right base. His hemoglobin today was 8.4. CAT scan of the abdomen and chest shows progressive metastatic disease but no acute findings. His no acute electrode or metabolic abnormalities. He was guaiac positive from below and he may be losing his blood from a GI bleed/source. I do think he needs to be admitted/observed for further treatment and evaluation of his anemia and GI bleed Blood Pressure Screening Patient's blood pressure: Elevated blood pressure Consults Time Called: 0845 Consulting Physician: Dr. Arise Zheng Returned Call: [phone] I discussed the case with Dr. Aries Zheng at this time. He will evaluate the patient for further treatment. Impression Primary Impression: GI bleed Additional Impressions: Anemia Metastasis from esophageal cancer Scribe Attestation The scribe's documentation has been prepared under my direction and personally reviewed by me in its entirety. I confirm that the note above accurately reflects all work, treatment, procedures, and medical decision making performed by me. Departure Information Dispostion Being Evaluated By Hospitalist Referrals Yury Robert M.D. (PCP) Patient Instructions My [facility] Problem Qualifiers
--- NOTE | 2017-10-06 07:36 | DIAGNOSTIC IMAGING REPORT ---
CHEST ONE VIEW PORTABLE CLINICAL HISTORY: CHEST PAIN dyspnea COMPARISON STUDY: 09/10/2017 FINDINGS: Mild cardiomegaly. Central catheter in superior vena cava. Unchanging consolidative change/fusion change left base. Central catheter in superior vena cava. Unaltered right and to lesser extent left hilar prominence. Potential developing pulmonary vascular congestion versus right basilar infiltrate. IMPRESSION: Developing right basal infiltrate versus pulmonary vascular congestion. Unchanging consolidative change left lung base. The above report was generated using voice recognition software. It may contain grammatical, syntax or spelling errors. Electronically signed by: Riley Pittman M.D. 10/06/2017 7:35 AM Dictated Date/Time: 10/06/2017 7:34 AM
[2017-10-06 07:48] LABS: BASO % 0.1 %; BASO ABS # 0.01 K/uL (0-0.2); EOS % 1.1 %; EOS ABS # 0.09 K/uL (0-0.5); HEMATOCRIT 27.1 % (42-52); HEMOGLOBIN 8.5 g/dL (14.0-18.0); IG# 0.02 K/uL (0.00-0.02); LYMPH % 11.8 %; LYMPH ABS # 0.94 K/uL (1.2-3.4); MEAN CORPUSCULAR HEMOGLOBIN 24.1 pg (25-34); MEAN CORPUSCULAR HGB CONC 31.4 g/dl (32-36); MEAN PLATELET VOLUME 8.4 fL (7.4-10.4); MONO % 12.8 %; MONO ABS # 1.02 K/uL (0.11-0.59); NEUT % 73.9 %; NEUT ABS # 5.87 K/uL (1.4-6.5); NUCLEATED RED BLOOD CELL ABS 0.11 K/uL (0-0); PLATELET COUNT 353 K/uL (130-400); RED CELL DISTRIBUTION WIDTH CV 20.1 % (11.5-14.5); RED CELL DISTRIBUTION WIDTH SD 56.3 fL (36.4-46.3); WHITE BLOOD COUNT 7.95 K/uL (4.8-10.8)
[2017-10-06 07:57] LABS: PTT PATIENT 25.4 SECONDS (21.0-31.0)
[2017-10-06 08:08] LABS: CREATININE 0.52 mg/dl (0.60-1.40); POTASSIUM 3.7 mmol/L (3.5-5.1)
[2017-10-06 08:12] LABS: ALBUMIN 2.4 gm/dl (3.4-5.0); ALKALINE PHOSPHATASE 164 U/L (45-117); ALT/SGPT 20 U/L (12-78); AST/SGOT 81 U/L (15-37); CKMB 0.8 ng/ml (0.5-3.6); LIPASE 55 U/L (73-393); TOTAL PROTEIN 5.8 gm/dl (6.4-8.2)
--- NOTE | 2017-10-06 09:10 | DIAGNOSTIC IMAGING REPORT ---
CT ABD/PELVIS IV CONTRAST ONLY CLINICAL HISTORY: Metastatic esophageal carcinoma. Chest and abdominal pain. COMPARISON STUDY: October 2015 TECHNIQUE: Following the IV administration of 120 mL of [id number]-320, CT scan of the abdomen and pelvis was performed from the lung bases to the proximal femurs. Images are reviewed in the axial, sagittal, and coronal planes. IV contrast was administered without complication. A dose lowering technique was utilized adhering to the principles of ALARA. CT DOSE: FINDINGS: Lower chest: There are postsurgical changes of a distal esophagectomy and gastric pull-up. There are bilateral pleural effusions. There are nodular right lower lobe airspace opacities, likely inflammatory. Liver: Since the prior study, the patient has developed in numerable space-occupying hepatic masses the largest of which measures 6 cm. The findings are indicative of extensive metastatic disease. Gallbladder: Contracted with pericholecystic edema Spleen: There is a 21 mm perisplenic nodule, possibly representing a tumor implant Pancreas: No definite masses but difficult to evaluate due to adjacent adenopathy Adrenal glands: There is a 3 cm left adrenal mass consistent with a metastasis Kidneys: There is a persistent dilated left renal pelvis unchanged from the prior study. There is a 12 mm left renal cyst. Bowel: There are no transition zones indicate bowel obstruction. No acute inflammatory changes are visualized. Peritoneum: There is low volume ascites. Vasculature: The abdominal aorta is normal in course and caliber. Adenopathy: There is retroperitoneal adenopathy encasing the celiac and superior mesenteric arteries. There is periportal adenopathy. There are enlarged para-aortic lymph nodes. Pelvic viscera: The bladder, and pelvic viscera are unremarkable. Skeletal structures: No destructive osseous lesions are seen. IMPRESSION: 1. Interval space-occupying hepatic masses consistent with extensive hepatic metastasis 2. Left adrenal mass consistent with metastasis 3. Moderately extensive retroperitoneal adenopathy with encasement of the celiac and superior mesenteric origins 4. No evidence of bowel obstruction. No evidence of free air 5. Postsurgical changes of distal esophagectomy and gastric pull-up. Bilateral pleural effusions 6. Low volume ascites 7. Right lower lobe nodularity, likely inflammatory. Electronically signed by: Jorge A Taylor M.D. 10/06/2017 9:09 AM Dictated Date/Time: 10/06/2017 9:01 AM
--- NOTE | 2017-10-06 09:12 | DIAGNOSTIC IMAGING REPORT ---
(CHEST) THORAX WITH CT DOSE: 601.83 mGy.cm HISTORY: Pain 09/08/2017 TECHNIQUE: Multiaxial CT images of the chest were performed following the intravenous administration of contrast. A dose lowering technique was utilized adhering to the principles of ALARA. COMPARISON: 09/08/2017 FINDINGS: operative findings consistent with a prior distal esophagectomy and gastric pull-through procedure. This component of the study is similar as compared to the prior exam. Hilar mediastinal adenopathy is mildly progressive from the prior exam. A precarinal node has a maximum linear dimension of 3.2 cm increased from the prior study of 2.8 cm. Moderate atelectatic change thoracic aorta unchanged. Upper mediastinal) esophageal node. Moderate narrowing of the proximal esophagus. Is perhaps minimally progressive from the prior exam. Hilar adenopathy is also somewhat progressive. Bilateral pleural effusions are present considered at least mildly progressive compared to the prior exam. Upper chest no pathology is considered stable. Reticular nodular-type changes and/or infiltrative changes of the right middle lobe are slightly diminished compared to the prior exam. Potential developing left basilar and to a lesser extent right basilar parenchymal infiltrative change associated with slightly progressive and/or interval nodular pathology. Limited evaluation the upper abdomen shows diffuse progression of the patient's hepatic metastatic disease. There is also progression of the patient's upper abdominal and retroperitoneal adenopathy. IMPRESSION:: 1. Operative changes consistent with a prior partial esophagectomy and gastric pull-through procedure. 2. Progressive mediastinal and hilar jaya pathology with moderately progressive superior mediastinal jaya pathology. 3. Progressive metastatic pulmonary nodular pathology. 4. Improved infiltrative change right middle lobe procedure described in the prior exam. 5. Progressive hepatic metastatic disease. 6. Progressive bilateral pleural effusions and bibasilar infiltrative change. 7. Restless of upper abdominal adenopathy. IMPRESSION: No significant abnormality identified within the chest. The above report was generated using voice recognition software. It may contain grammatical, syntax or spelling errors. Electronically signed by: Riley Pittman M.D. 10/06/2017 9:11 AM Dictated Date/Time: 10/06/2017 9:01 AM
[2017-10-06] MEDS ORDERED: ACETAMINOPHEN 325 MG TAB PO PRN (09:30)
[2017-10-06] MEDS ORDERED: ONDANSETRON INJ 2 MG/ML 2 ML VIAL IV PRN (09:30)
[2017-10-06] MEDS ORDERED: ALUMINUM/MAGNESIUM/SIMETH (MAALOX MAX) 30 ML UDC PO PRN (09:30)
[2017-10-06] MEDS ORDERED: MAGNESIUM HYDROXIDE SUSP 30 ML UDC PO PRN (09:30)
--- NOTE | 2017-10-06 09:47 | History and Physical ---
History & Physical Date & Time of Service: Oct 06, 2017 at 09:27 Chief Complaint: Abd Area Tight Primary Care Physician: Yury Robert M.D. History of Present Illness Source: patient, clinic records, hospital records Patient is a pleasant 62 y/o male, with PMHx of esophageal cancer w/ mets to lungs/liver/kidneys s/p esophagectomy/gastrectomy, chronic anemia, gastritis, GERD, and MRSA PNA in 2015, who presented to the ED because of belt like pain around umbilical region and back. Patient was treated in [facility] on 10/04 and 10/05 with 2 u PRBCs each day due to anemia of 4.3 and 6.4. Today his hgb is 8.5. His main reason for coming to the ED is because of the abdominal/back pain that has not subsided. He notes +weakness/fatigue over the last few days. +melena- patient states this has been ongoing for a couple of months now. He has an EGD 06/04 and colonoscopy 01/31, which reported gastritis and diverticulosis. He has not been on Protonix as he states he cannot afford the medication. Patient notes he has chronic back pain- he was seen in ED in 07/2017 and had lumbar, throacic, and ribs x-ray with no significant findings. He was placed on Fentanyl 12 mcg patch 3 days ago and notes no significant improvement in pain. Patient recently found out about metastatic disease. He follows with Dr. Nicole- has not started chemo/radiation yet. Patient denies any fever, chills, sweats, lightheadedness, dizziness, vision changes, CP, palpitations, edema, SOB, wheezing, cough, nausea, vomiting, diarrhea, urinary symptoms, numbness/tingling , anxiety/depression, active bleeding, or new skin discoloration/changes. Past Medical/Surgical History Medical Problems: esophageal cancer w/ mets to lungs/liver/kidneys s/p esophagectomy/gastrectomy gastritis GERD MRSA PNA in 2016 chronic anemia Family History FHx: cancer Hypertension Social History Smoking Status: Former Smoker Drug Use: none Marital Status: Occupational Status: employed Immunizations History of Influenza Vaccine: No History of Tetanus Vaccine?: No History of Pneumococcal: No History of Hepatitis B Vaccine: No Allergies Coded Allergies: No Known Allergies (Verified , 10/06/17) Home Medications Scheduled Fentanyl (Fentanyl), 12 MCG TOP Q3DAYS [Steroid], 1 TAB PO DAILY Physical Exam Vital Signs Date Time Temp Pulse Resp B/P (MAP) Pulse Ox O2 Delivery O2 Flow Rate FiO2 10/06/17 09:02 89 16 134/87 97 Room Air 10/06/17 08:44 84 18 137/89 99 Room Air 10/06/17 07:41 90 18 133/90 96 Room Air 10/06/17 07:17 90 10/06/17 07:10 96 Room Air 10/06/17 06:54 36.4 104 18 113/79 92 Room Air General Appearance: no apparent distress Head: normocephalic, atraumatic Eyes: PERRL ENT: hearing grossly normal Neck: supple Respiratory/Chest: no respiratory distress, no accessory muscle use, + wheezing (R lung mid/base ), + pertinent finding (course breath sounds R mid/base lung ) Cardiovascular: regular rate, rhythm Abdomen/GI: normal bowel sounds, non tender, soft Back: normal inspection Extremities/Musculoskelatal: no calf tenderness, + swelling (non pitting, bilateral lower extremities ) Neurologic/Psych: alert, normal mood/affect, oriented x 3 Skin: normal color, warm/dry, no rash Diagnostics Laboratory Results Results Past 24 Hours Test 10/06/17 07:35 10/06/17 07:52 Range/Units White Blood Count 7.95 4.8-10.8 K/uL Red Blood Count 3.52 4.7-6.1 M/uL Hemoglobin 8.5 14.0-18.0 g/dL Hematocrit 27.1 42-52 % Mean Corpuscular Volume 77.0 80-100 fL Mean Corpuscular Hemoglobin 24.1 25-34 pg Mean Corpuscular Hemoglobin Concent 31.4 32-36 g/dl Platelet Count 353 130-400 K/uL Mean Platelet Volume 8.4 7.4-10.4 fL Neutrophils (%) (Auto) 73.9 % Lymphocytes (%) (Auto) 11.8 % Monocytes (%) (Auto) 12.8 % Eosinophils (%) (Auto) 1.1 % Basophils (%) (Auto) 0.1 % Neutrophils # (Auto) 5.87 1.4-6.5 K/uL Lymphocytes # (Auto) 0.94 1.2-3.4 K/uL Monocytes # (Auto) 1.02 0.11-0.59 K/uL Eosinophils # (Auto) 0.09 0-0.5 K/uL Basophils # (Auto) 0.01 0-0.2 K/uL RDW Standard Deviation 56.3 36.4-46.3 fL RDW Coefficient of Variation 20.1 11.5-14.5 % Immature Granulocyte % (Auto) 0.3 % Immature Granulocyte # (Auto) 0.02 0.00-0.02 K/uL Nucleated RBC Absolute Count (auto) 0.11 0-0 K/uL Nucleated Red Blood Cells % 1.4 % Hypochromasia PRESENT Anisocytosis PRESENT Microcytosis PRESENT Ovalocytes 1+ Prothrombin Time 10.4 9.0-12.0 SECONDS Prothromb Time International Ratio 1.0 0.9-1.1 Activated Partial Thromboplast Time 25.4 21.0-31.0 SECONDS Partial Thromboplastin Ratio 1.0 Sodium Level 136 136-145 mmol/L Potassium Level 3.7 3.5-5.1 mmol/L Chloride Level 103 98-107 mmol/L Carbon Dioxide Level 25 21-32 mmol/L Anion Gap 8.0 3-11 mmol/L Blood Urea Nitrogen 20 7-18 mg/dl Creatinine 0.52 0.60-1.40 mg/dl Est Creatinine Clear Calc Drug Dose 124.1 ml/min Estimated GFR () 133.4 Estimated GFR (Non- 115.1 BUN/Creatinine Ratio 37.9 10-20 Random Glucose 86 70-99 mg/dl Calcium Level 8.0 8.5-10.1 mg/dl Total Bilirubin 0.4 0.2-1 mg/dl Direct Bilirubin < 0.1 0-0.2 mg/dl Aspartate Amino Transf (AST/SGOT) 81 15-37 U/L Alanine Aminotransferase (ALT/SGPT) 20 12-78 U/L Alkaline Phosphatase 164 45-117 U/L Total Creatine Kinase 63 39-308 U/L Creatine Kinase MB 0.8 0.5-3.6 ng/ml Creatine Kinase MB Ratio 1.3 0-3.0 Total Protein 5.8 6.4-8.2 gm/dl Albumin 2.4 3.4-5.0 gm/dl Lipase 55 73-393 U/L Bedside Troponin I < 0.030 0-0.045 ng/ml Diagnostic Radiology CHEST ONE VIEW PORTABLE CLINICAL HISTORY: CHEST PAIN dyspnea COMPARISON STUDY: 09/10/2017 FINDINGS: Mild cardiomegaly. Central catheter in superior vena cava. Unchanging consolidative change/fusion change left base. Central catheter in superior vena cava. Unaltered right and to lesser extent left hilar prominence. Potential developing pulmonary vascular congestion versus right basilar infiltrate. IMPRESSION: Developing right basal infiltrate versus pulmonary vascular congestion. Unchanging consolidative change left lung base. The above report was generated using voice recognition software. It may contain grammatical, syntax or spelling errors. Electronically signed by: Riley Pittman M.D. 10/06/2017 7:35 AM Dictated Date/Time: 10/06/2017 7:34 AM The status of this report is Signed. Draft = Not yet reviewed or approved by Radiologist. Signed = Reviewed and approved by Radiologist. (CHEST) THORAX WITH CT DOSE: 601.83 mGy.cm HISTORY: Pain 09/08/2017 TECHNIQUE: Multiaxial CT images of the chest were performed following the intravenous administration of contrast. A dose lowering technique was utilized adhering to the principles of ALARA. COMPARISON: 09/08/2017 FINDINGS: operative findings consistent with a prior distal esophagectomy and gastric pull-through procedure. This component of the study is similar as compared to the prior exam. Hilar mediastinal adenopathy is mildly progressive from the prior exam. A precarinal node has a maximum linear dimension of 3.2 cm increased from the prior study of 2.8 cm. Moderate atelectatic change thoracic aorta unchanged. Upper mediastinal) esophageal node. Moderate narrowing of the proximal esophagus. Is perhaps minimally progressive from the prior exam. Hilar adenopathy is also somewhat progressive. Bilateral pleural effusions are present considered at least mildly progressive compared to the prior exam. Upper chest no pathology is considered stable. Reticular nodular-type changes and/or infiltrative changes of the right middle lobe are slightly diminished compared to the prior exam. Potential developing left basilar and to a lesser extent right basilar parenchymal infiltrative change associated with slightly progressive and/or interval nodular pathology. Limited evaluation the upper abdomen shows diffuse progression of the patient's hepatic metastatic disease. There is also progression of the patient's upper abdominal and retroperitoneal adenopathy. IMPRESSION:: 1. Operative changes consistent with a prior partial esophagectomy and gastric pull-through procedure. 2. Progressive mediastinal and hilar jaya pathology with moderately progressive superior mediastinal jaya pathology. 3. Progressive metastatic pulmonary nodular pathology. 4. Improved infiltrative change right middle lobe procedure described in the prior exam. 5. Progressive hepatic metastatic disease. 6. Progressive bilateral pleural effusions and bibasilar infiltrative change. 7. Restless of upper abdominal adenopathy. IMPRESSION: No significant abnormality identified within the chest. The above report was generated using voice recognition software. It may contain grammatical, syntax or spelling errors. Electronically signed by: Riley Pittman M.D. 10/06/2017 9:11 AM Dictated Date/Time: 10/06/2017 9:01 AM The status of this report is Signed. Draft = Not yet reviewed or approved by Radiologist. Signed = Reviewed and approved by Radiologist. CT ABD/PELVIS IV CONTRAST ONLY CLINICAL HISTORY: Metastatic esophageal carcinoma. Chest and abdominal pain. COMPARISON STUDY: October 2015 TECHNIQUE: Following the IV administration of 120 mL of [id number]-320, CT scan of the abdomen and pelvis was performed from the lung bases to the proximal femurs. Images are reviewed in the axial, sagittal, and coronal planes. IV contrast was administered without complication. A dose lowering technique was utilized adhering to the principles of ALARA. CT DOSE: FINDINGS: Lower chest: There are postsurgical changes of a distal esophagectomy and gastric pull-up. There are bilateral pleural effusions. There are nodular right lower lobe airspace opacities, likely inflammatory. Liver: Since the prior study, the patient has developed in numerable space-occupying hepatic masses the largest of which measures 6 cm. The findings are indicative of extensive metastatic disease. Gallbladder: Contracted with pericholecystic edema Spleen: There is a 21 mm perisplenic nodule, possibly representing a tumor implant Pancreas: No definite masses but difficult to evaluate due to adjacent adenopathy Adrenal glands: There is a 3 cm left adrenal mass consistent with a metastasis Kidneys: There is a persistent dilated left renal pelvis unchanged from the prior study. There is a 12 mm left renal cyst. Bowel: There are no transition zones indicate bowel obstruction. No acute inflammatory changes are visualized. Peritoneum: There is low volume ascites. Vasculature: The abdominal aorta is normal in course and caliber. Adenopathy: There is retroperitoneal adenopathy encasing the celiac and superior mesenteric arteries. There is periportal adenopathy. There are enlarged para-aortic lymph nodes. Pelvic viscera: The bladder, and pelvic viscera are unremarkable. Skeletal structures: No destructive osseous lesions are seen. IMPRESSION: 1. Interval space-occupying hepatic masses consistent with extensive hepatic metastasis 2. Left adrenal mass consistent with metastasis 3. Moderately extensive retroperitoneal adenopathy with encasement of the celiac and superior mesenteric origins 4. No evidence of bowel obstruction. No evidence of free air 5. Postsurgical changes of distal esophagectomy and gastric pull-up. Bilateral pleural effusions 6. Low volume ascites 7. Right lower lobe nodularity, likely inflammatory. Electronically signed by: Jorge A Taylor M.D. 10/06/2017 9:09 AM Dictated Date/Time: 10/06/2017 9:01 AM The status of this report is Signed. Draft = Not yet reviewed or approved by Radiologist. Signed = Reviewed and approved by Radiologist. EKG TAE CISSE ID:[id number] 06-OCT-2017 07:30:52 [facility] Poor data quality, interpretation may be adversely affected Normal sinus rhythm Normal ECG When compared with ECG of 08-SEP-2017 20:33, No significant change was found 25mm/s 10mm/mV 150Hz 8.0 SP2 12SL 241 CLEMENTINE: 13 Referred by: Referred Self Unconfirmed Vent. rate 84 BPM [place] interval 132 ms QRS duration 102 ms QT/QTc 382/451 ms P-R-T axes * 34 48 1955 (62 yr) Male 1lb Room:[facility] Loc:15 Supervisor Patching: [id number] Test ind: Impression Assessment and Plan Patient is a pleasant 62 y/o male, with PMHx of esophageal cancer w/ mets to lungs/liver/kidneys s/p esophagectomy/gastrectomy, who presented to the ED because of belt like pain around umbilical region and back. Acute on chronic iron deficient anemia secondary to GI bleed: - Admit to med/surg- vitals stable, no ischemic change on EKG, negative cardiac enzymes - Follow H&H- STABLE currently at 8.5- transfuse PRN -- Transfused a total of 4 u on 10/04 and 10/05 - Keep NPO until seen by GI - IV NSS @ 100 ml/hr - IV Protonix BID - Iron panel reviewed from 10/04/17 - Consult GI, appreciate recommendations Metastatic esophageal cancer- follows w/ Dr. Nicole: - Continue Fentanyl 12 mcg q72 hr patch- consider increasing - Continue Prednisone- call out to [facility] pharmacy for prescription as patient is unsure and not in [employer] GI prophylaxis: Protonix IV BID DVT prophylaxis: TEDs/SCDs; no chemical anticoagulation due to anemia Code Status: LEVEL I, FULL- no prolonged measures Dispo: From home- PT/OT and CM consulted Level of Care Med/Surg Resuscitation Status FULL RESUSCITATION VTE Prophylaxis VTE Risk Assessment Done? Y/N: Yes Risk Level: Moderate Given or contraindicated: T.E.D. Stockings, SCD's, Contraindicated Note Supervising Note Dr. Diallo I performed a history and physical examination on the patient. I reviewed above note and agree with it. I discussed plan with APC and patient. During my face to face encounter with the patient, I answered all of the patient's questions. Patient was informed of his porr prognosis. At this time, he would like to discuss case with GI and Onc, while also obtaining a consult with palliative care before changing his code status. Currently, he is a full resuscitation. This may change, either over the course of the weekend, or Monday when the patient has a meeting with his daughter and palliative care.
[2017-10-06 10:53] VITALS: BP 139/88; PULSE 82; TEMP 36.3; O2SAT 98
[2017-10-06 10:55] VITALS: BP 139/88; PULSE 82; TEMP 36.3; O2SAT 98; BMI 31.0
[2017-10-06] MEDS: SODIUM CHLORIDE 0.9% 1000ML 1,000 ML IV SCH ×2 (10:55→23:14)
--- NOTE | 2017-10-06 11:14 | Gastrointestinal Consultation ---
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 Pt was seen and evaluate, chart reviewed. Pt notes that over the past few months he has had abrupt weight loss, abd pain, back pain and melena daily resulting in anemia requiring frequent transfusion. Pt grew concerned as he developed an episode of coffee ground emesis and more frequent episodes of dark, tarry stools 2 times daily. Pt denies any BRBPR and hematemesis. He endorses generalized abdominal pain and back pains and sensation of abdominal fullness. No fever, chills, CP, SOB. NSAIDs: Aleve BID daily x months EGD 06/09/17: Normal upper third of esophagus and middle third of esophagus. An esophago-gastric anastomosis was found, characterized by an intact staple line. Biopsied. A large amount of food (residue) in the stomach. Gastritis. Normal examined duodenum. EGD Biopsies 06/09/17: INFLAMED COLUMNAR/GASTRIC-TYPE MUCOSA PRESENT. NEGATIVE FOR INTESTINAL METAPLASIA, DYSPLASIA AND CARCINOMA. CT ABD/Pelvis 10/06/17: Interval space-occupying hepatic masses consistent with extensive hepatic metastasis Left adrenal mass consistent with metastasis Moderately extensive retroperitoneal adenopathy with encasement of the celiac and superior mesenteric origins No evidence of bowel obstruction. No evidence of free air Postsurgical changes of distal esophagectomy and gastric pull-up. Bilateral pleural effusions Low volume ascites Right lower lobe nodularity, likely inflammatory Past Medical/Surgical History Medical Problems: (1) Anemia Status: Acute (2) Esophageal cancer Status: Chronic (3) GI bleed Status: Acute (4) Hypoxia Status: Acute (5) Metastasis from esophageal cancer Status: Acute Past Medical History: esophageal CA 2015 s/p chemo radiation, recurrent eso CA w/ mets to lungs/liver/ kidneys s/p esophagectomy/gastrectomy, gastritis, GERD, anemia Past Surgical History: EGD Family History FHx: cancer Hypertension Social History Smoking Status: Former Smoker Drug Use: none Marital Status: Occupation Status: employed Allergies Coded Allergies: No Known Allergies (Verified , 10/06/17) Current Medications Home Meds and Scripts Medications Dose Route/Sig Max Daily Dose Days Date Category Dose Instructions [Steroid] 1 Tab PO DAILY 10/06/17 Reported PT UNSURE WHAT MED THIS IS. I'M CALLING [facility] WHEN THEY OPEN TO FIND OUT. -BETTY Fentanyl 12 Mcg Tdsy 12 Mcg TOP Q3DAYS 10/06/17 Reported Review of Systems Constitutional: + weight loss, + weakness, + fatigue, No fever, No chills Respiratory: + cough, No shortness of breath Cardiac: No chest pain, No edema Abdomen: + pain, + nausea, + vomiting, + diarrhea, + GI bleeding (dark tarry stools, coffee ground emesis), No constipation Physical Exam Date Time Temp Pulse Resp B/P (MAP) Pulse Ox O2 Delivery O2 Flow Rate FiO2 10/06/17 10:53 36.3 82 16 139/88 (105) 98 Room Air 10/06/17 10:24 89 16 128/90 97 Room Air 10/06/17 09:02 89 16 134/87 97 Room Air 10/06/17 08:44 84 18 137/89 99 Room Air 10/06/17 07:41 90 18 133/90 96 Room Air 10/06/17 07:17 90 10/06/17 07:10 96 Room Air 10/06/17 06:54 36.4 104 18 113/79 92 Room Air General Appearance: + thin, + pertinent finding (ill appearing) Eyes: PERRL ENT: hearing grossly normal Neck: trachea midline Respiratory/Chest: no respiratory distress, no accessory muscle use, + wheezing (bilateral expiratory wheezes) Cardiovascular: regular rate, rhythm, no JVD, + pertinent finding (trace lower extremity edema) Abdomen: normal bowel sounds, soft, + tenderness, + pertinent finding ( palpable lesion of RUQ) Neurologic/Psych: alert, normal mood/affect, oriented x 3 Skin: warm/dry, no rash Laboratory Results Last 24 Hours Test 10/06/17 07:35 10/06/17 07:52 White Blood Count 7.95 K/uL Red Blood Count 3.52 M/uL Hemoglobin 8.5 g/dL Hematocrit 27.1 % Mean Corpuscular Volume 77.0 fL Mean Corpuscular Hemoglobin 24.1 pg Mean Corpuscular Hemoglobin Concent 31.4 g/dl Platelet Count 353 K/uL Mean Platelet Volume 8.4 fL Neutrophils (%) (Auto) 73.9 % Lymphocytes (%) (Auto) 11.8 % Monocytes (%) (Auto) 12.8 % Eosinophils (%) (Auto) 1.1 % Basophils (%) (Auto) 0.1 % Neutrophils # (Auto) 5.87 K/uL Lymphocytes # (Auto) 0.94 K/uL Monocytes # (Auto) 1.02 K/uL Eosinophils # (Auto) 0.09 K/uL Basophils # (Auto) 0.01 K/uL RDW Standard Deviation 56.3 fL RDW Coefficient of Variation 20.1 % Immature Granulocyte % (Auto) 0.3 % Immature Granulocyte # (Auto) 0.02 K/uL Nucleated RBC Absolute Count (auto) 0.11 K/uL Nucleated Red Blood Cells % 1.4 % Hypochromasia PRESENT Anisocytosis PRESENT Microcytosis PRESENT Ovalocytes 1+ Prothrombin Time 10.4 SECONDS Prothromb Time International Ratio 1.0 Activated Partial Thromboplast Time 25.4 SECONDS Partial Thromboplastin Ratio 1.0 Sodium Level 136 mmol/L Potassium Level 3.7 mmol/L Chloride Level 103 mmol/L Carbon Dioxide Level 25 mmol/L Anion Gap 8.0 mmol/L Blood Urea Nitrogen 20 mg/dl Creatinine 0.52 mg/dl Est Creatinine Clear Calc Drug Dose 124.1 ml/min Estimated GFR () 133.4 Estimated GFR (Non- 115.1 BUN/Creatinine Ratio 37.9 Random Glucose 86 mg/dl Calcium Level 8.0 mg/dl Total Bilirubin 0.4 mg/dl Direct Bilirubin < 0.1 mg/dl Aspartate Amino Transf (AST/SGOT) 81 U/L Alanine Aminotransferase (ALT/SGPT) 20 U/L Alkaline Phosphatase 164 U/L Total Creatine Kinase 63 U/L Creatine Kinase MB 0.8 ng/ml Creatine Kinase MB Ratio 1.3 Total Protein 5.8 gm/dl Albumin 2.4 gm/dl Lipase 55 U/L Bedside Troponin I < 0.030 ng/ml Impression Patient is a 62 year old male admitted with melena, ongoing x 2 months w/ bouts of coffee ground emesis. No AC but was using Aleve BID x months for abd pain, back pain. Recently diagnosed suspected recurrent esophageal CA w/ suspected mets to lungs/liver/kidneys. gastritis vs PUD vs anastomotic ulceration vs malignancy vs other Plan NPO EGD IV PPI bolus and drip Trend H&H Monitor stools Transfuse PRN Additional recommendations pending results of EGD Attg add: I interviewed and examined pt, reviewed chart and labs. Pt with esoph cancer, now with UGIB. Plan EGD now.
[2017-10-06] MEDS ORDERED: HYDROmorphone INJ 1 MG/ML SYR IV PRN (11:15)
[2017-10-06] MEDS: PANTOprazole INJ 40 MG in SYRINGE 0 ML IV SCH ×2 (11:31→20:45)
[2017-10-06] MEDS: FENTANYL 12 MCG/HR TDSY TD SCH (11:31)
[2017-10-06] MEDS: FENTANYL PATCH REMOVE & WASTE SCH (11:36)
[2017-10-06] MEDS ORDERED: PROPOFOL IV EMULSION 10 MG/ML 20 ML VIAL IV ONE (12:47)
[2017-10-06] MEDS ORDERED: LIDOCAINE HCL 2% 2 ML VIAL (20MG/ML) ONE ×2 (12:47)
--- NOTE | 2017-10-06 12:51 | Oncology Consultation ---
Oncology/Heme Consultation Date of Consultation: Oct 06, 2017. Attending Physician: Benjamin Diallo M.D. Reason for Consultation: History of esophageal carcinoma History of Present Illness Mr. Mcmahon is a 62-year-old gentleman with a history of esophageal adenocarcinoma that dates back to April 2015. He was treated with neoadjuvant chemoradiotherapy. He then went have resection of this tumor done at [facility]. That was followed by 3 months of FOLFOX therapy. He has been doing well until recently he reviews with me that he has lost between 30 and 40 pounds over the past few months. He is also now required frequent transfusions with a CBCs that reflect a decreasing hemoglobin since late June. He also states that he has had black stool. He denies dysphagia. He lives alone. He denies any fever or chills. Recent PET CT scan shows widespread changes consistent with metastatic disease to the liver as well as retroperitoneal abdominal adenopathy. He denies constipation. He is admitted now with abdominal pain that is primarily over the liver and has been gradually increasing over the past few weeks. The plans in our clinic were to begin chemotherapy with docetaxel cis-sun'aq and leucovorin 5-FU next week. Past Medical/Surgical History Medical Problems: (1) Anemia Status: Acute (2) Esophageal cancer Status: Chronic (3) GI bleed Status: Acute (4) Hypoxia Status: Acute (5) Metastasis from esophageal cancer Status: Acute Family History FHx: cancer Hypertension Social History Smoking Status: Former Smoker Drug Use: none Marital Status: Occupation Status: employed Allergies Coded Allergies: No Known Allergies (Verified , 10/06/17) Home Medications Scheduled Fentanyl (Fentanyl), 12 MCG TOP Q3DAYS [Steroid], 1 TAB PO DAILY Current Inpatient Medications Current Inpatient Medications Medications (Trade) Dose Ordered Sig/Konstantin Route Start Time Stop Time Status Last Admin Dose Admin Acetaminophen (Tylenol Tab) 650 mg Q4H PRN PO 10/06/17 09:30 11/05/17 09:29 Al Hydrox/Mg Hydrox/Simethicone (Maalox Max Susp) 15 ml Q4H PRN PO 10/06/17 09:30 11/05/17 09:29 Magnesium Hydroxide (Milk Of Magnesia Susp) 30 ml Q6H PRN PO 10/06/17 09:30 11/05/17 09:29 Polyethylene (Miralax Powder Packet) 17 gm DAILY PRN PO 10/06/17 09:30 11/05/17 09:29 Ondansetron HCl (Zofran Inj) 4 mg Q6H PRN IV 10/06/17 09:30 11/05/17 09:29 Fentanyl (Duragesic Patch) 12 mcg Q3D@1130 TD 10/06/17 11:30 10/20/17 11:29 10/06/17 11:31 12 MCG Miscellaneous Information (Order Awaiting Action) 1 ea QS N/A 10/06/17 16:00 11/05/17 15:59 Pantoprazole Sodium 40 mg/ Syringe 10 ml @ 5 mls/min BID@0900,2100 IV 10/06/17 12:00 11/05/17 11:59 10/06/17 11:31 5 MLS/MIN Sodium Chloride 1,000 ml @ 100 mls/hr Q10H IV 10/06/17 09:45 11/05/17 09:44 10/06/17 10:55 100 MLS/HR Hydromorphone HCl (Dilaudid Inj) 1 mg Q3H PRN IV 10/06/17 11:15 10/20/17 11:14 10/06/17 11:32 1 MG Miscellaneous (Fentanyl Patch Remove & Waste) 1 ea Q3D@1129 N/A 10/06/17 11:29 11/05/17 11:28 10/06/17 11:36 1 EA Miscellaneous Information (Check Fentanyl Patch Placement) 1 ea QS N/A 10/06/17 16:00 11/05/17 15:59 Review of Systems Constitutional: Positive for weight loss as stated negative for fever or chills Eyes: Negative for event change of vision ENT: Negative for epistaxis, nasal discharge, sore throat, or deafness Cardiovascular: Negative for chest pain, palpitations, dizziness, diaphoresis Respiratory: Negative for new shortness of breath,hemoptysis, or purulent cough Gastrointestinal: Negative for diarrhea, or significant constipation. He states his stools have been black. He has not been taking oral iron. Integumentary (skin): Negative for rash or jaundice discoloration Genitourinary: Negative for urinary frequency, hematuria, or dysuria Neurological: Negative for weakness, seizure activity, headache, or dizziness Lymphatic/Hematologic: Negative for petechiae, bleeding or new adenopathy Musculoskeletal: Negative for new joint or back pain Allergic/Immunologic: Negative for unusual rash or pruritis. Physical Exam Date Time Temp Pulse Resp B/P (MAP) Pulse Ox O2 Delivery O2 Flow Rate FiO2 10/06/17 12:30 36.5 88 18 135/90 (105) 18 Room Air 10/06/17 10:55 36.3 82 16 139/88 98 Room Air 10/06/17 10:53 36.3 82 16 139/88 (105) 98 Room Air 10/06/17 10:24 89 16 128/90 97 Room Air 10/06/17 09:02 89 16 134/87 97 Room Air 10/06/17 08:44 84 18 137/89 99 Room Air 10/06/17 07:41 90 18 133/90 96 Room Air 10/06/17 07:17 90 10/06/17 07:10 96 Room Air 10/06/17 06:54 36.4 104 18 113/79 92 Room Air Constitutional: vitals are stable. Thin pleasant gentleman. Eyes: negative for icterus. ENT: External examination was negative for masses. Neck: Negative for masses or palpable thyromegaly Respiratory: Lung sounds were generally clear bilaterally Cardiovascular: Heart was RRR without significant murmur, gallops aoe rubs Gastrointestinal: The liver extends below the right costal margin at least 5-6 cm. Spleen is not enlarged Lymphatic system: there was no palpable peripheral lymphadenopathy Musculoskeletal System: The musculoskeletal system seemed concordant with age. Skin: The skin was negative for jaundice. Neurologic exam: The exam was negative for any focal findings. Deep tendon reflexes were equal and symmetrical. Psychiatric exam: Was essentially negative with normal mood and effect. Extremities: Negative for edema or erythema Laboratory Results Last 24 Hours Test 10/06/17 07:35 10/06/17 07:52 White Blood Count 7.95 K/uL Red Blood Count 3.52 M/uL Hemoglobin 8.5 g/dL Hematocrit 27.1 % Mean Corpuscular Volume 77.0 fL Mean Corpuscular Hemoglobin 24.1 pg Mean Corpuscular Hemoglobin Concent 31.4 g/dl Platelet Count 353 K/uL Mean Platelet Volume 8.4 fL Neutrophils (%) (Auto) 73.9 % Lymphocytes (%) (Auto) 11.8 % Monocytes (%) (Auto) 12.8 % Eosinophils (%) (Auto) 1.1 % Basophils (%) (Auto) 0.1 % Neutrophils # (Auto) 5.87 K/uL Lymphocytes # (Auto) 0.94 K/uL Monocytes # (Auto) 1.02 K/uL Eosinophils # (Auto) 0.09 K/uL Basophils # (Auto) 0.01 K/uL RDW Standard Deviation 56.3 fL RDW Coefficient of Variation 20.1 % Immature Granulocyte % (Auto) 0.3 % Immature Granulocyte # (Auto) 0.02 K/uL Nucleated RBC Absolute Count (auto) 0.11 K/uL Nucleated Red Blood Cells % 1.4 % Hypochromasia PRESENT Anisocytosis PRESENT Microcytosis PRESENT Ovalocytes 1+ Prothrombin Time 10.4 SECONDS Prothromb Time International Ratio 1.0 Activated Partial Thromboplast Time 25.4 SECONDS Partial Thromboplastin Ratio 1.0 Sodium Level 136 mmol/L Potassium Level 3.7 mmol/L Chloride Level 103 mmol/L Carbon Dioxide Level 25 mmol/L Anion Gap 8.0 mmol/L Blood Urea Nitrogen 20 mg/dl Creatinine 0.52 mg/dl Est Creatinine Clear Calc Drug Dose 124.1 ml/min Estimated GFR () 133.4 Estimated GFR (Non- 115.1 BUN/Creatinine Ratio 37.9 Random Glucose 86 mg/dl Calcium Level 8.0 mg/dl Total Bilirubin 0.4 mg/dl Direct Bilirubin < 0.1 mg/dl Aspartate Amino Transf (AST/SGOT) 81 U/L Alanine Aminotransferase (ALT/SGPT) 20 U/L Alkaline Phosphatase 164 U/L Total Creatine Kinase 63 U/L Creatine Kinase MB 0.8 ng/ml Creatine Kinase MB Ratio 1.3 Total Protein 5.8 gm/dl Albumin 2.4 gm/dl Lipase 55 U/L Bedside Troponin I < 0.030 ng/ml Assessment & Plan Metastatic carcinoma most likely metastatic adenocarcinoma from the original esophageal ca (original lesion pT3N2). Black tarry stools with need for frequent transfusions recently consistent with a GI bleed. An upper endoscopy is being planned. PET CT scan was reviewed. Again widespread changes consistent with metastatic disease throughout the abdomen. There is a small defect in the rectum. If nothing is found in the upper endoscopy that I would suspect a brief sigmoid exam might delineate a cause or possibly a cause. We do plan to begin chemotherapy next week. In review of his original diagnosis it turns out that his tumor was read originally as HER-2/minh positive. Most likely will be adding trastuzumab to his therapy next week. In preparation for that I will asked for an echocardiogram. We will follow with you while he is hospitalized.
--- NOTE | 2017-10-06 13:14 | Anesthesiology Progress Note ---
Anesthesia Post Op Note Date & Time Oct 06, 2017 at 13:14 Vital Signs Pain Intensity: 1 Vital Signs Past 12 Hours Date Time Temp Pulse Resp B/P (MAP) Pulse Ox O2 Delivery O2 Flow Rate FiO2 10/06/17 13:04 89 18 112/79 (90) 18 Room Air 10/06/17 12:30 36.5 88 18 135/90 (105) 18 Room Air 10/06/17 10:55 36.3 82 16 139/88 98 Room Air 10/06/17 10:53 36.3 82 16 139/88 (105) 98 Room Air 10/06/17 10:24 89 16 128/90 97 Room Air 10/06/17 09:02 89 16 134/87 97 Room Air 10/06/17 08:44 84 18 137/89 99 Room Air 10/06/17 07:41 90 18 133/90 96 Room Air 10/06/17 07:17 90 10/06/17 07:10 96 Room Air 10/06/17 06:54 36.4 104 18 113/79 92 Room Air Notes Mental Status: alert / awake / arousable, participated in evaluation Pt Amnestic to Procedure: Yes Nausea / Vomiting: adequately controlled Pain: adequately controlled Airway Patency, RR, SpO2: stable & adequate BP & HR: stable & adequate Hydration State: stable & adequate Anesthetic Complications: no major complications apparent
--- NOTE | 2017-10-06 13:27 | GI REPORT ---
Procedure Date: 10/06/2017 12:54 PM Procedure: Upper GI endoscopy Indications: Melena Medicines: See the Anesthesia note for documentation of the administered medications Complications: No immediate complications. Estimated Blood Loss: Estimated blood loss: none. Procedure: Pre-Anesthesia Assessment: - ASA Grade Assessment: III - A patient with severe systemic disease. After obtaining informed consent, the endoscope was passed under direct vision. Throughout the procedure, the patient's blood pressure, pulse, and oxygen saturations were monitored continuously. The Scope was introduced through the mouth, and advanced to the body of the stomach. The upper GI endoscopy was accomplished without difficulty. The patient tolerated the procedure well. Findings: There was esophagitis in the lower esophagus. There was food and bilious fluid in the esophagus. The GE junction was at 32 cm. There was a large, cratered ulcer with a single small pigmented spot at the anastamotic line; there was food collecting in the ulcer base. The ulcer did not clearly appear malignant - there was no mass effect, and ulcer edges were smooth, and ulcer shape was round. There were multiple mik around the ulcer edge. There was a large amount of food and bilious fluid that could not be suctioned, in the body of the stomach. The stomach was not well examined. Biopsies taken from ulcer edge and brushing done of ulcer base Impression: Large ulcer at esophago gastric anastamosis. Large amount of food in stomach. Recommendation: - Discharge patient to floor. - BID PPI, carafate. - Follow up biopsy results. - Proctoscopy cancelled due to aspiration risk; would ask oncology service to reconsult us if this is needed. Gerardo Griggs M.D. Gerardo Griggs MD 10/06/2017 1:26:34 PM This report has been signed electronically. Note Initiated On: 10/06/2017 12:54 PM I attest to the content of the Intraoperative Record and orders documented therein, exceptions below
--- NOTE | 2017-10-06 14:14 | Palliative Care Consultation ---
Consultation Date of Consultation: Oct 06, 2017. Requesting Physician: Dr. Diallo Attending Physician: Dr. Diallo Reason for Consultation: Goals of care History of Present Illness This 62 year old male patient with PMH terminal esophageal cancer with mets to lungs, liver and adrenal glands, presents to the hospital today with c/o abdominal pain, black tarry stools, and anemia requiring frequent blood transfusions. Patient had two units of PRBCs yesterday as outpatient. After his transfusion he went home and was doing find until this "band-like" lower abdominal pain started today. His hgb is 8.5 today. Patient's cancer started in August 2015 at which time he underwent esophagectomy and partial gastrectomy. He received chemo and radiation in 2015. He was doing fairly well after that- following regularly with heme/onc until the Fall of 2016 when the abdominal pain started as well as weakness and weight loss. He had a PET/CT done which showed metastatic disease. Today, CT abd/pelvis shows widespread mets to the lungs, liver, spleen, adrenal glands, as well as retroperitoneal lymphadenopathy which encases his mesenteric and celiac arteries. Our GI team saw patient and plans to take him for EGD. Patient reports that he was told at his last heme/onc appointment that his cancer was terminal, but they planned to do a trial of chemotherapy beginning next week. He has never had a discussion about goals of care per se. Palliative care is consulted. I met with the patient in room [address] Cooper. He is awake, alert and oriented x4, quite pleasant. States that his pain has been relieved by 1mg IV Dilaudid that he received about 20 minutes before I entered room and denies any other complaints. Patient states he has lost about 30-40lbs in last few months, but otherwise is still living independently without difficulty. His daughter, Lolly Junior, is supportive and involved in his life. We discussed his medical conditions as well as reviewed the findings on his CT scan. Patient was aware of the metastases and understands that his disease has been deemed terminal. Patient states he tolerated chemotherapy very well the first time around and would be willing to try it again if it will give him a chance of extending his life as long as he is able to maintain good quality. Past Medical/Surgical History Medical History: Metastatic esophageal cancer as described above Gastritis GERD MRSA pnx 2016 Chronic anemia Surgical History: Esophagectomy Partial gastrectomy 2014 Social History Smoking Status: Former Smoker History of Alcohol Use: No Drug Use: none Marital Status: Occupation Status: employed Review of Systems Constitutional: + weight loss, No fever, No chills, No weakness ENT: No trouble swallowing Respiratory: + dyspnea on exertion, No wheezing, No dyspnea at rest Cardiac: No chest pain, No edema Abdomen: + pain, + GI bleeding (tarry stools), No nausea, No vomiting Male : No sexual dysfunction Neurologic: + numbness/tingling (of feet during chemotherapy) Psychiatric: No depression symptoms, No anxiety Allergies Coded Allergies: No Known Allergies (Verified , 10/06/17) Medications Current Inpatient Medications Medications (Trade) Dose Ordered Sig/Konstantin Route Start Time Stop Time Status Last Admin Dose Admin Acetaminophen (Tylenol Tab) 650 mg Q4H PRN PO 10/06/17 09:30 11/05/17 09:29 Al Hydrox/Mg Hydrox/Simethicone (Maalox Max Susp) 15 ml Q4H PRN PO 10/06/17 09:30 11/05/17 09:29 Magnesium Hydroxide (Milk Of Magnesia Susp) 30 ml Q6H PRN PO 10/06/17 09:30 11/05/17 09:29 Polyethylene (Miralax Powder Packet) 17 gm DAILY PRN PO 10/06/17 09:30 11/05/17 09:29 Ondansetron HCl (Zofran Inj) 4 mg Q6H PRN IV 10/06/17 09:30 11/05/17 09:29 Fentanyl (Duragesic Patch) 12 mcg Q3D@1130 TD 10/06/17 11:30 10/20/17 11:29 10/06/17 11:31 12 MCG Miscellaneous Information (Order Awaiting Action) 1 ea QS N/A 10/06/17 16:00 11/05/17 15:59 Pantoprazole Sodium 40 mg/ Syringe 10 ml @ 5 mls/min BID@0900,2100 IV 10/06/17 12:00 11/05/17 11:59 10/06/17 11:31 5 MLS/MIN Sodium Chloride 1,000 ml @ 100 mls/hr Q10H IV 10/06/17 09:45 11/05/17 09:44 10/06/17 10:55 100 MLS/HR Hydromorphone HCl (Dilaudid Inj) 1 mg Q3H PRN IV 10/06/17 11:15 10/20/17 11:14 10/06/17 11:32 1 MG Miscellaneous (Fentanyl Patch Remove & Waste) 1 ea Q3D@1129 N/A 10/06/17 11:29 11/05/17 11:28 10/06/17 11:36 1 EA Miscellaneous Information (Check Fentanyl Patch Placement) 1 ea QS N/A 10/06/17 16:00 11/05/17 15:59 Physical Exam Date Time Temp Pulse Resp B/P (MAP) Pulse Ox O2 Delivery O2 Flow Rate FiO2 10/06/17 13:19 85 18 124/86 (99) 94 Room Air 10/06/17 13:04 89 18 112/79 (90) 94 Room Air 10/06/17 12:30 36.5 88 18 135/90 (105) 18 Room Air 10/06/17 10:55 36.3 82 16 139/88 98 Room Air 10/06/17 10:53 36.3 82 16 139/88 (105) 98 Room Air 10/06/17 10:24 89 16 128/90 97 Room Air 10/06/17 09:02 89 16 134/87 97 Room Air 10/06/17 08:44 84 18 137/89 99 Room Air 10/06/17 07:41 90 18 133/90 96 Room Air 10/06/17 07:17 90 10/06/17 07:10 96 Room Air 10/06/17 06:54 36.4 104 18 113/79 92 Room Air General Appearance: no apparent distress, + pertinent finding (appears older than stated age) ENT: hearing grossly normal Neck: supple, no JVD Respiratory: no respiratory distress, no accessory muscle use Cardiovascular: regular rate, rhythm, no edema, + normal peripheral pulses Abdomen: normal bowel sounds, non tender, soft Neurologic/Psychiatric: alert, normal mood/affect, oriented x 3 Skin: + pallor Laboratory Results Last 24 Hours Test 10/06/17 07:35 10/06/17 07:52 10/06/17 13:30 White Blood Count 7.95 K/uL Red Blood Count 3.52 M/uL Hemoglobin 8.5 g/dL Hematocrit 27.1 % Mean Corpuscular Volume 77.0 fL Mean Corpuscular Hemoglobin 24.1 pg Mean Corpuscular Hemoglobin Concent 31.4 g/dl Platelet Count 353 K/uL Mean Platelet Volume 8.4 fL Neutrophils (%) (Auto) 73.9 % Lymphocytes (%) (Auto) 11.8 % Monocytes (%) (Auto) 12.8 % Eosinophils (%) (Auto) 1.1 % Basophils (%) (Auto) 0.1 % Neutrophils # (Auto) 5.87 K/uL Lymphocytes # (Auto) 0.94 K/uL Monocytes # (Auto) 1.02 K/uL Eosinophils # (Auto) 0.09 K/uL Basophils # (Auto) 0.01 K/uL RDW Standard Deviation 56.3 fL RDW Coefficient of Variation 20.1 % Immature Granulocyte % (Auto) 0.3 % Immature Granulocyte # (Auto) 0.02 K/uL Nucleated RBC Absolute Count (auto) 0.11 K/uL Nucleated Red Blood Cells % 1.4 % Hypochromasia PRESENT Anisocytosis PRESENT Microcytosis PRESENT Ovalocytes 1+ Prothrombin Time 10.4 SECONDS Prothromb Time International Ratio 1.0 Activated Partial Thromboplast Time 25.4 SECONDS Partial Thromboplastin Ratio 1.0 Sodium Level 136 mmol/L Potassium Level 3.7 mmol/L Chloride Level 103 mmol/L Carbon Dioxide Level 25 mmol/L Anion Gap 8.0 mmol/L Blood Urea Nitrogen 20 mg/dl Creatinine 0.52 mg/dl Est Creatinine Clear Calc Drug Dose 124.1 ml/min Estimated GFR () 133.4 Estimated GFR (Non- 115.1 BUN/Creatinine Ratio 37.9 Random Glucose 86 mg/dl Calcium Level 8.0 mg/dl Total Bilirubin 0.4 mg/dl Direct Bilirubin < 0.1 mg/dl Aspartate Amino Transf (AST/SGOT) 81 U/L Alanine Aminotransferase (ALT/SGPT) 20 U/L Alkaline Phosphatase 164 U/L Total Creatine Kinase 63 U/L Creatine Kinase MB 0.8 ng/ml Creatine Kinase MB Ratio 1.3 Total Protein 5.8 gm/dl Albumin 2.4 gm/dl Lipase 55 U/L Bedside Troponin I < 0.030 ng/ml Assessment & Plan Palliative Performance Scale: 70 % Problem list: Pain, abdominal MATTA Weight loss, unintentional Widely metastatic esophageal cancer Black tarry stools/GI bleed Anemia Goals of care (Z51.5) Palliative care recs: -Fentanyl patch 12mcg/hr TD patch Q72h placed today. Continue. -Has Dilaudid 1mg IV PRN pain. After EGD, consider dropping this to 0.5mg. Patient felt this was possibly even more than enough. Will follow pain medication needs during hospitalization and determine plan. -Patient states he is aware his cancer is terminal and was told by heme/onc he could have 3-6 months to live. Patient states he is okay with pursuing systemic therapy as long as he is able to tolerate it well. If not, he would consider stopping treatment. -Plan for EGD today with our GI team. Awaiting results of this. -Patient is currently a full code. This can be addressed with him when I revisit. -On Monday I will reach out to patient's daughter Lolly Junior to arrange for discussion of goals of care. Will see how the weekend goes. Than you kindly for this consult. I will follow as needed.
[2017-10-06 15:08] VITALS: BP 132/84; PULSE 87; TEMP 36.5; O2SAT 98
[2017-10-06] MEDS: CHECK FENTANYL PATCH PLACEMENT SCH (15:46)
--- NOTE | 2017-10-06 15:57 | ECHOCARDIOGRAM REPORT ---
*NOTICE TO RECEIVING REPUBLICAN AGENCY This information is strictly Confidential and protected under [place] law. [place] law prohibits you from making any further disclosure of this information unless further disclosure is expressly permitted by the written consent of the person to whom it pertains or is authorized by law. A general authorization for the release of medical or other information is not sufficient for this purpose. Hospital accepts no responsibility if the information is made available to any other person, INCLUDING THE PATIENT. Interpretation Summary * Name: TAE CISSE Study Date: 10/06/2017 02:15 PM BP: 127/85 mmHg * Patient Location: .[id number]\S\E421\S\1 HR: 87 * : 1955 (M/d/yyyy) Gender: Male Height: 72 in * Age: 62 yrs Ethnicity: CA Weight: 158 lb * Ordering Physician: Gregorio Carson * Referring Physician: Self, Referred * Performed By: Elena Quiles RCS * * Reason For Study: Pre-CHEMO, Eval LVFX * BSA: 1.9 m2 * -- Conclusions -- * 1. Normal LV size, mild concentric LVH. * 2. Normal LV function. LVEF 55-60%. No regional wall motion abnormalities. * 3. Borderline dilated RV. Normal RV function. * 4. Aortic sclerosis. Mild aortic regurgitation. * 5. Mild to moderate mitral regurgitation. * 6. Mild TR. Borderline PASP 35-40 mmHg. Normal CVP. * 7. Dilated ascending aorta (4.2 cm). * 8. Compared with prior study on 09/28/2015: AI is new. MR is slightly worse. Procedure Details * A complete two-dimensional transthoracic echocardiogram was performed (2D, M-mode, Doppler and color flow Doppler). Left Ventricle * The left ventricle is grossly normal size. * There is mild concentric left ventricular hypertrophy. * Ejection Fraction = 60-65%. Right Ventricle * The right ventricle is borderline dilated. * The right ventricular systolic function is normal as assessed by tricuspid annular plane systolic excursion (TAPSE) (normal >1.5 cm). Atria * The left atrium is moderately dilated. * The right atrium is mildly dilated. * No ASD detected; PFO is not assessed. Mitral Valve * The mitral valve is grossly normal. * There is no mitral valve stenosis. * There is mild to moderate mitral regurgitation. Tricuspid Valve * There is mild tricuspid regurgitation. Aortic Valve * Aortic valve sclerosis mild, without significant aortic valvular stenosis. * The aortic valve is trileaflet. * Mild aortic regurgitation. Pulmonic Valve * The pulmonary valve is inadequately visualized, but the Doppler data is adequate for interpretation. * There is no pulmonic valvular stenosis. * Mild pulmonic valvular regurgitation. Great Vessels * Mildly dilated ascending aorta. * Asc Aorta 4.2 cm Pericardium/Pleural * There is no pericardial effusion. Great Vessels * Normal inferior vena cava size and collapsability with sniff indicates a normal right atrial pressure of 3 mmHg MMode 2D Measurements and Calculations IVSd 1.2 cm IVSs 1.5 cm LVIDd 3.7 cm LVIDs 2.5 cm LVPWd 1.2 cm LVPWs 1.5 cm IVS/LVPW 1.0 FS 30.7 % EDV(Teich) 56.9 ml ESV(Teich) 23.3 ml EF(Teich) 59.2 % EDV(cubed) 49.4 ml ESV(cubed) 16.4 ml EF(cubed) 66.7 % % IVS thick 17.4 % % LVPW thick 19.9 % LV mass(C)d 153.9 grams LV mass(C)dI 79.8 grams/m\S\2 LV mass(C)s 125.1 grams LV mass(C)sI 64.9 grams/m\S\2 SV(Teich) 33.7 ml SI(Teich) 17.5 ml/m\S\2 SV(cubed) 32.9 ml SI(cubed) 17.1 ml/m\S\2 Ao root diam 3.9 cm Ao root area 11.9 cm\S\2 ACS 2.0 cm LA dimension 4.1 cm asc Aorta Diam 4.2 cm LA/Ao 1.1 EDV(MOD-sp4) 177.0 ml ESV(MOD-sp4) 86.0 ml EF(MOD-sp4) 51.4 % EDV(MOD-sp2) 162.0 ml ESV(MOD-sp2) 76.0 ml EF(MOD-sp2) 53.1 % SV(MOD-sp4) 91.0 ml SI(MOD-sp4) 47.2 ml/m\S\2 SV(MOD-sp2) 86.0 ml SI(MOD-sp2) 44.6 ml/m\S\2 Doppler Measurements and Calculations MV E max yessy 102.4 cm/sec MV A max yessy 101.2 cm/sec MV E/A 1.0 MV P1/2t max yessy 126.7 cm/sec MV P1/2t 74.8 msec MVA(P1/2t) 2.9 cm\S\2 MV dec slope 496.1 cm/sec\S\2 MV dec time 0.22 sec Ao V2 max 180.3 cm/sec Ao max PG 13.0 mmHg Ao max PG (full) 8.7 mmHg AI max yessy 470.3 cm/sec AI max PG 88.5 mmHg AI dec slope 327.5 cm/sec\S\2 AI P1/2t 420.7 msec LV V1 max PG 4.3 mmHg LV V1 max 103.9 cm/sec PA V2 max 101.7 cm/sec PA max PG 4.1 mmHg TR max yessy 278.7 cm/sec
[2017-10-06 17:04] LABS: HEMATOCRIT 25.5 % (42-52)
[2017-10-06] MEDS: HYDROmorphone INJ 0.5 MG/0.5 ML SYR IV PRN (18:51)
[2017-10-06 19:49] VITALS: BP 130/82; PULSE 90; TEMP 36.9; O2SAT 94
[2017-10-06 22:27] LABS: HEMATOCRIT 26.4 % (42-52); HEMOGLOBIN 8.4 g/dL (14.0-18.0)
[2017-10-06 23:28] VITALS: BP 150/85; PULSE 82; TEMP 36.5; O2SAT 94
[2017-10-07] MEDS: HYDROmorphone INJ 0.5 MG/0.5 ML SYR IV PRN ×6 (00:12→23:28)
[2017-10-07] MEDS: CHECK FENTANYL PATCH PLACEMENT SCH ×4 (00:15→23:29)
[2017-10-07 01:52] LABS: HEMATOCRIT 25.5 % (42-52)
[2017-10-07 04:20] VITALS: BP 145/93; PULSE 87; TEMP 37; O2SAT 94
[2017-10-07 05:59] LABS: HEMATOCRIT 25.8 % (42-52); MEAN CELL VOLUME 77.2 fL (80-100); MEAN PLATELET VOLUME 8.7 fL (7.4-10.4); NUCLEATED RED BLOOD CELL ABS 0.07 K/uL (0-0); PLATELET COUNT 355 K/uL (130-400); RED CELL DISTRIBUTION WIDTH CV 20.4 % (11.5-14.5); RED CELL DISTRIBUTION WIDTH SD 57.7 fL (36.4-46.3)
[2017-10-07] MEDS: SODIUM CHLORIDE 0.9% 1000ML 1,000 ML IV SCH ×2 (06:26→16:29)
[2017-10-07 06:34] LABS: CALCIUM 7.4 mg/dl (8.5-10.1); CREATININE 0.43 mg/dl (0.60-1.40); POTASSIUM 3.6 mmol/L (3.5-5.1)
[2017-10-07 07:05] VITALS: BP 149/89; PULSE 89; TEMP 36.8; O2SAT 96
[2017-10-07] MEDS: PANTOprazole INJ 40 MG in SYRINGE 0 ML IV SCH ×2 (08:38→20:21)
[2017-10-07 11:36] VITALS: BP 128/85; PULSE 93; TEMP 36.4; O2SAT 94
--- NOTE | 2017-10-07 13:03 | Hematology/Oncology Prog Note ---
Hematology/Onc Progress Note Date of Service Oct 07, 2017. Diagnoses Metastatic esophageal adenocarcinoma GI bleed Pain secondary to liver involvement with tumor Medications Medications Administered Medications (Trade) Dose Ordered Sig/Konstantin Route Start Time Stop Time Status Last Admin Dose Admin Magnesium Hydroxide (Milk Of Magnesia Susp) 30 ml Q6H PRN PO 10/06/17 09:30 11/05/17 09:29 10/06/17 18:56 30 ML Fentanyl (Duragesic Patch) 12 mcg Q3D@1130 TD 10/06/17 11:30 10/20/17 11:29 10/06/17 11:31 12 MCG Pantoprazole Sodium 40 mg/ Syringe 10 ml @ 5 mls/min BID@0900,2100 IV 10/06/17 12:00 11/05/17 11:59 10/07/17 08:38 5 MLS/MIN Sodium Chloride 1,000 ml @ 100 mls/hr Q10H IV 10/06/17 09:45 11/05/17 09:44 10/07/17 06:26 100 MLS/HR Hydromorphone HCl (Dilaudid Inj) 1 mg Q3H PRN IV 10/06/17 11:15 10/06/17 14:42 DC 10/06/17 11:32 1 MG Miscellaneous (Fentanyl Patch Remove & Waste) 1 ea Q3D@1129 N/A 10/06/17 11:29 11/05/17 11:28 10/06/17 11:36 1 EA Miscellaneous Information (Check Fentanyl Patch Placement) 1 ea QS N/A 10/06/17 16:00 11/05/17 15:59 10/07/17 07:37 1 EA Hydromorphone HCl (Dilaudid Inj) 0.5 mg Q3H PRN IV 10/06/17 14:45 10/20/17 11:14 10/07/17 11:56 0.5 MG Subjective Seems to be doing well. Had endoscopy yesterday showed a large smooth based E- G ulceration. He states his pain seems to be better. He is eating a liquid lunch today Review of Systems: Constitutional: Negative for night sweats, or fever Eyes: Negative for event change of vision ENT: Negative for epistaxis, nasal discharge, sore throat, or deafness Cardiovascular: Negative for chest pain, palpitations, dizziness, diaphoresis Respiratory: Negative for new shortness of breath,hemoptysis, or purulent cough Gastrointestinal: Negative for diarrhea, hematemesis, melena, nausea, vomiting , or dyspepsia Integumentary (skin): Negative for rash or jaundice discoloration Neurological: Negative for weakness, seizure activity, headache, or dizziness Lymphatic/Hematologic: Negative for petechiae, bleeding or new adenopathy Musculoskeletal: Negative for new joint or back pain Allergic/Immunologic: Negative for unusual rash or pruritis. Vital Signs Vital Signs Past 12 Hours Date Time Temp Pulse Resp B/P (MAP) Pulse Ox O2 Delivery O2 Flow Rate FiO2 10/07/17 11:36 36.4 93 18 128/85 (99) 94 Room Air 10/07/17 08:00 Room Air 10/07/17 07:05 36.8 89 18 149/89 (109) 96 Room Air 10/07/17 04:20 37.0 87 20 145/93 (110) 94 Room Air Physical Exam Constitutional: vitals are stable. Eyes: Eyes are CAROL EOMI without conjuctival erythema or icterus. ENT: External examination was negative for masses. Neck: Negative for masses or palpable thyromegaly Respiratory: Lung sounds were generally clear bilaterally Cardiovascular: Heart was RRR without significant murmur, gallops aoe rubs Gastrointestinal: The abdomen is soft. Hepatomegaly as before. Lymphatic system: there was no palpable peripheral lymphadenopathy Musculoskeletal System: The musculoskeletal system seemed concordant with age. Skin: The skin was negative for jaundice. Neurologic exam: The exam was negative for any focal findings. Deep tendon reflexes were equal and symmetrical. Psychiatric exam: Was essentially negative with normal mood and effect. Extremities: negative for edema Laboratory Last 24 Hours Test 10/06/17 16:06 10/06/17 22:19 10/07/17 01:24 10/07/17 05:03 Hemoglobin 8.0 g/dL 8.4 g/dL 8.0 g/dL 8.0 g/dL Hematocrit 25.5 % 26.4 % 25.5 % 25.8 % White Blood Count 6.60 K/uL Red Blood Count 3.34 M/uL Mean Corpuscular Volume 77.2 fL Mean Corpuscular Hemoglobin 24.0 pg Mean Corpuscular Hemoglobin Concent 31.0 g/dl RDW Standard Deviation 57.7 fL RDW Coefficient of Variation 20.4 % Platelet Count 355 K/uL Mean Platelet Volume 8.7 fL Nucleated RBC Absolute Count (auto) 0.07 K/uL Nucleated Red Blood Cells % 1.1 % Sodium Level 134 mmol/L Potassium Level 3.6 mmol/L Chloride Level 103 mmol/L Carbon Dioxide Level 25 mmol/L Anion Gap 6.0 mmol/L Blood Urea Nitrogen 12 mg/dl Creatinine 0.43 mg/dl Est Creatinine Clear Calc Drug Dose 150.0 ml/min Estimated GFR () 144.2 Estimated GFR (Non- 124.4 BUN/Creatinine Ratio 27.8 Random Glucose 82 mg/dl Calcium Level 7.4 mg/dl Assessment & Plan Metastatic esophageal carcinoma. Patient's echocardiogram is acceptable. It appears that the EG ulceration is likely responsible for his anemia. Hemoglobin is 8.0 and would ask that he be transfused with 1-2 more units of blood prior to discharge in preparation for chemotherapy next week. His hemoglobin at 8 g/dL is just barely acceptable. He should also be placed on oral iron supplementation such as ferrous sulfate daily. We will see him in clinic in anticipation of chemotherapy next week. Thank you.
[2017-10-07 15:44] VITALS: BP 154/88; PULSE 88; TEMP 36.8; O2SAT 95
[2017-10-07 16:36] VITALS: Ht 182.9 cm; Wt 74.5 kg
[2017-10-07 19:38] VITALS: BP 147/83; PULSE 95; TEMP 36.9; O2SAT 94
--- NOTE | 2017-10-07 21:33 | Progress Note ---
Subjective Date of Service: Oct 07, 2017. Subjective Pt evaluation today including: conversation w/ patient, physical exam, chart review, lab review, review of studies, review of inpatient medication list Pain: well controled with medication Voiding: no voiding problems, no incontinence pt is seen and exmained by me. After talking to patient wants to try to see id he can get little bit more time after systemic chemotherapy. Pt is considering also palliative care/hospice. Problem List Medical Problems: (1) Anemia Status: Acute (2) Esophageal cancer Status: Chronic (3) GI bleed Status: Acute (4) Hypoxia Status: Acute (5) Metastasis from esophageal cancer Status: Acute Review of Systems Constitutional: vitals are stable.cachetic Eyes: Eyes are CAROL EOMI without conjuctival erythema or icterus. ENT: External examination was negative for masses. Neck: Negative for masses or palpable thyromegaly Respiratory: Lung sounds were generally clear bilaterally Cardiovascular: Heart was RRR without significant murmur, gallops aoe rubs Gastrointestinal: The abdomen is soft. Hepatomegaly as before. Lymphatic system: there was no palpable peripheral lymphadenopathy Musculoskeletal System: The musculoskeletal system seemed concordant with age. Skin: The skin was negative for jaundice. Neurologic exam: The exam was negative for any focal findings. Deep tendon reflexes were equal and symmetrical. Psychiatric exam: Was essentially negative with normal mood and effect. Extremities: negative for edema All Other Systems: Reviewed and Negative Objective Vital Signs Date Time Temp Pulse Resp B/P (MAP) Pulse Ox O2 Delivery O2 Flow Rate FiO2 10/07/17 20:00 Room Air 10/07/17 19:38 36.9 95 18 147/83 (104) 94 Room Air 10/07/17 16:00 Room Air 10/07/17 15:44 36.8 88 18 154/88 (110) 95 Room Air 10/07/17 11:36 36.4 93 18 128/85 (99) 94 Room Air 10/07/17 08:00 Room Air 10/07/17 07:05 36.8 89 18 149/89 (109) 96 Room Air 10/07/17 04:20 37.0 87 20 145/93 (110) 94 Room Air 10/07/17 00:50 Room Air 10/06/17 23:28 36.5 82 19 150/85 (106) 94 Room Air Laboratory Results Last 24 Hours Test 10/06/17 22:19 10/07/17 01:24 10/07/17 05:03 Hemoglobin 8.4 g/dL 8.0 g/dL 8.0 g/dL Hematocrit 26.4 % 25.5 % 25.8 % White Blood Count 6.60 K/uL Red Blood Count 3.34 M/uL Mean Corpuscular Volume 77.2 fL Mean Corpuscular Hemoglobin 24.0 pg Mean Corpuscular Hemoglobin Concent 31.0 g/dl RDW Standard Deviation 57.7 fL RDW Coefficient of Variation 20.4 % Platelet Count 355 K/uL Mean Platelet Volume 8.7 fL Nucleated RBC Absolute Count (auto) 0.07 K/uL Nucleated Red Blood Cells % 1.1 % Sodium Level 134 mmol/L Potassium Level 3.6 mmol/L Chloride Level 103 mmol/L Carbon Dioxide Level 25 mmol/L Anion Gap 6.0 mmol/L Blood Urea Nitrogen 12 mg/dl Creatinine 0.43 mg/dl Est Creatinine Clear Calc Drug Dose 150.0 ml/min Estimated GFR () 144.2 Estimated GFR (Non- 124.4 BUN/Creatinine Ratio 27.8 Random Glucose 82 mg/dl Calcium Level 7.4 mg/dl Assessment and Plan Metastatic esophageal carcinoma. -- EG ulceration is likely responsible for his anemia. -- Hemoglobin is 8.0 -- will transfuse 2 units PRBC in morning. -- will strat feso4 1 tab twice a day. GI prophylaxis: Protonix IV BID DVT prophylaxis: TEDs/SCDs; no chemical anticoagulation due to anemia Code Status: LEVEL I, FULL- no prolonged measures Continued [facility] stay due to: multiple IV medications needed Discharge planning: home with Hospice
[2017-10-07 23:14] VITALS: BP 146/91; PULSE 90; TEMP 36.9; O2SAT 94
[2017-10-08] VITALS (16 sets, daily range): BP systolic 140–160; BP diastolic 83–96; PULSE 84–98; TEMP 36.5–37.1; O2SAT 93–96
[2017-10-08] MEDS: SODIUM CHLORIDE 0.9% 1000ML 1,000 ML IV SCH ×3 (02:37→23:29)
[2017-10-08] MEDS: HYDROmorphone INJ 0.5 MG/0.5 ML SYR IV PRN ×4 (04:32→19:30)
[2017-10-08 06:32] LABS: HEMATOCRIT 25.6 % (42-52); HEMOGLOBIN 7.9 g/dL (14.0-18.0); MEAN CELL VOLUME 77.6 fL (80-100); MEAN CORPUSCULAR HEMOGLOBIN 23.9 pg (25-34); MEAN CORPUSCULAR HGB CONC 30.9 g/dl (32-36); MEAN PLATELET VOLUME 8.4 fL (7.4-10.4); NUCLEATED RED BLOOD CELL ABS 0.03 K/uL (0-0); PLATELET COUNT 357 K/uL (130-400); RED CELL DISTRIBUTION WIDTH CV 20.4 % (11.5-14.5); RED CELL DISTRIBUTION WIDTH SD 58.1 fL (36.4-46.3); WHITE BLOOD COUNT 6.11 K/uL (4.8-10.8)
[2017-10-08 06:58] LABS: CALCIUM 7.3 mg/dl (8.5-10.1); CREATININE 0.4 mg/dl (0.60-1.40); POTASSIUM 3.4 mmol/L (3.5-5.1)
[2017-10-08] MEDS: CHECK FENTANYL PATCH PLACEMENT SCH ×3 (07:19→23:30)
[2017-10-08] MEDS: PANTOprazole INJ 40 MG in SYRINGE 0 ML IV SCH ×2 (08:13→20:30)
[2017-10-08] MEDS: FERROUS SULFATE 325 MG TAB PO SCH ×2 (08:13→15:44)
[2017-10-08] MEDS: POLYETHYLENE (MIRALAX) 17 GM PACK PO PRN (08:13)
--- NOTE | 2017-10-08 12:13 | Progress Note ---
Subjective Date of Service: Oct 08, 2017. Subjective Pt evaluation today including: conversation w/ patient, physical exam, chart review, lab review, review of studies, review of inpatient medication list Voiding: no voiding problems Patient is seen and examined by me. Pt denies, nausea, vomiting and diarrhea. pt denies cp, sob, dizziness and palpitation. We will give 1 units PRBC. Problem List Medical Problems: (1) Anemia Status: Acute (2) Esophageal cancer Status: Chronic (3) GI bleed Status: Acute (4) Hypoxia Status: Acute (5) Metastasis from esophageal cancer Status: Acute Review of Systems All Other Systems: Reviewed and Negative Medications Medications (Trade) Dose Ordered Sig/Konstantin Route Start Time Stop Time Status Last Admin Dose Admin Ferrous Sulfate (Feosol Tab) 325 mg BIDM PO 10/08/17 08:00 11/07/17 07:59 10/08/17 08:13 325 MG Objective Vital Signs Date Time Temp Pulse Resp B/P (MAP) Pulse Ox O2 Delivery O2 Flow Rate FiO2 10/08/17 11:17 36.5 88 18 160/94 (116) 94 Room Air 10/08/17 08:04 36.8 84 16 151/85 (107) 93 Room Air 10/08/17 04:46 36.8 87 20 154/93 (113) 93 Room Air 10/08/17 00:20 Room Air 10/07/17 23:14 36.9 90 18 146/91 (109) 94 Room Air 10/07/17 20:00 Room Air 10/07/17 19:38 36.9 95 18 147/83 (104) 94 Room Air 10/07/17 16:00 Room Air 10/07/17 15:44 36.8 88 18 154/88 (110) 95 Room Air Physical Exam General Appearance: no apparent distress, + cachetic Eyes: EOMI Neck: supple Respiratory/Chest: chest non-tender, lungs clear, normal breath sounds, no respiratory distress Cardiovascular: regular rate, rhythm, no murmur Abdomen: normal bowel sounds, soft Neurologic/Psychiatric: alert, normal mood/affect, oriented x 3 Skin: no rash Laboratory Results Last 24 Hours Test 10/08/17 05:48 White Blood Count 6.11 K/uL Red Blood Count 3.30 M/uL Hemoglobin 7.9 g/dL Hematocrit 25.6 % Mean Corpuscular Volume 77.6 fL Mean Corpuscular Hemoglobin 23.9 pg Mean Corpuscular Hemoglobin Concent 30.9 g/dl RDW Standard Deviation 58.1 fL RDW Coefficient of Variation 20.4 % Platelet Count 357 K/uL Mean Platelet Volume 8.4 fL Nucleated RBC Absolute Count (auto) 0.03 K/uL Nucleated Red Blood Cells % 0.5 % Sodium Level 134 mmol/L Potassium Level 3.4 mmol/L Chloride Level 103 mmol/L Carbon Dioxide Level 24 mmol/L Anion Gap 7.0 mmol/L Blood Urea Nitrogen 7 mg/dl Creatinine 0.40 mg/dl Est Creatinine Clear Calc Drug Dose 199.1 ml/min Estimated GFR () 148.6 Estimated GFR (Non- 128.2 BUN/Creatinine Ratio 18.2 Random Glucose 96 mg/dl Calcium Level 7.3 mg/dl Assessment and Plan Metastatic esophageal carcinoma. -- EG ulceration is likely responsible for his anemia. -- Hemoglobin is 7.9 -- will transfuse 1 units PRBC today -- cont feso4 1 tab twice a day. GI prophylaxis: Protonix IV BID DVT prophylaxis: TEDs/SCDs; no chemical anticoagulation due to anemia Code Status: LEVEL I, FULL- no prolonged measures Continued [facility] stay due to: multiple IV medications needed Discharge planning: home with Hospice
[2017-10-09] MEDS: HYDROmorphone INJ 0.5 MG/0.5 ML SYR IV PRN ×7 (00:09→21:12)
[2017-10-09 04:52] VITALS: BP 158/90; PULSE 86; TEMP 36.9; O2SAT 93
[2017-10-09 05:58] LABS: HEMATOCRIT 29.9 % (42-52); HEMOGLOBIN 9.4 g/dL (14.0-18.0); MEAN CELL VOLUME 78.7 fL (80-100); MEAN CORPUSCULAR HEMOGLOBIN 24.7 pg (25-34); MEAN CORPUSCULAR HGB CONC 31.4 g/dl (32-36); MEAN PLATELET VOLUME 8.4 fL (7.4-10.4); PLATELET COUNT 320 K/uL (130-400); RED CELL DISTRIBUTION WIDTH CV 19.7 % (11.5-14.5); RED CELL DISTRIBUTION WIDTH SD 56.8 fL (36.4-46.3); WHITE BLOOD COUNT 6.38 K/uL (4.8-10.8)
[2017-10-09 06:32] LABS: BLOOD UREA NITROGEN 5 mg/dl (7-18); CALCIUM 7.3 mg/dl (8.5-10.1); CARBON DIOXIDE 26 mmol/L (21-32); CREATININE 0.37 mg/dl (0.60-1.40); GLUCOSE 84 mg/dl (70-99); POTASSIUM 3.3 mmol/L (3.5-5.1); SODIUM 135 mmol/L (136-145)
[2017-10-09] MEDS: CHECK FENTANYL PATCH PLACEMENT SCH ×3 (07:07→23:20)
[2017-10-09] MEDS: SODIUM CHLORIDE 0.9% 1000ML 1,000 ML IV SCH ×2 (07:18→21:12)
[2017-10-09] MEDS: FERROUS SULFATE 325 MG TAB PO SCH ×2 (07:18→17:25)
[2017-10-09 07:40] VITALS: BP 164/94; PULSE 84; TEMP 37; O2SAT 91
[2017-10-09] MEDS: PANTOprazole INJ 40 MG in SYRINGE 0 ML IV SCH ×2 (08:31→21:12)
--- NOTE | 2017-10-09 10:44 | Gastroenterology Progress Note ---
Progress Note Date of Service: Oct 09, 2017 Subjective Pt evaluation today including: conversation w/ patient, physical exam, chart review, lab review Pt was seen and evaluated, chart reviewed. No acute events noted. No further episodes of coffee ground emesis or melena. Stools now brown. No BRBPR either. EGD w/ EG anatomsis, is on PPI and carafate. Biopsies pending. Pt continues to have abd pain and back pain, likely secondary to lesions. No new concerns. No fever, chills, CP, SOB NSAIDs: Aleve BID daily x months EGD: Large ulcer at esophago gastric anastamosis. Large amount of food in stomach. EGD 06/09/17: Normal upper third of esophagus and middle third of esophagus. An esophago-gastric anastomosis was found, characterized by an intact staple line. Biopsied. A large amount of food (residue) in the stomach. Gastritis. Normal examined duodenum. EGD Biopsies 06/09/17: INFLAMED COLUMNAR/GASTRIC-TYPE MUCOSA PRESENT. NEGATIVE FOR INTESTINAL METAPLASIA, DYSPLASIA AND CARCINOMA. CT ABD/Pelvis 10/06/17: Interval space-occupying hepatic masses consistent with extensive hepatic metastasis Left adrenal mass consistent with metastasis Moderately extensive retroperitoneal adenopathy with encasement of the celiac and superior mesenteric origins No evidence of bowel obstruction. No evidence of free air Postsurgical changes of distal esophagectomy and gastric pull-up. Bilateral pleural effusions Low volume ascites Right lower lobe nodularity, likely inflammatory Review of Systems Constitutional: No fever, No chills Respiratory: No cough Cardiac: No chest pain Abdomen: + pain, No nausea, No vomiting, No diarrhea Medications Current Inpatient Medications Medications (Trade) Dose Ordered Sig/Konstantin Route Start Time Stop Time Status Last Admin Dose Admin Acetaminophen (Tylenol Tab) 650 mg Q4H PRN PO 10/06/17 09:30 11/05/17 09:29 Al Hydrox/Mg Hydrox/Simethicone (Maalox Max Susp) 15 ml Q4H PRN PO 10/06/17 09:30 11/05/17 09:29 Magnesium Hydroxide (Milk Of Magnesia Susp) 30 ml Q6H PRN PO 10/06/17 09:30 11/05/17 09:29 10/06/17 18:56 30 ML Polyethylene (Miralax Powder Packet) 17 gm DAILY PRN PO 10/06/17 09:30 11/05/17 09:29 10/08/17 08:13 17 GM Ondansetron HCl (Zofran Inj) 4 mg Q6H PRN IV 10/06/17 09:30 11/05/17 09:29 Fentanyl (Duragesic Patch) 12 mcg Q3D@1130 TD 10/06/17 11:30 10/20/17 11:29 10/06/17 11:31 12 MCG Miscellaneous Information (Order Awaiting Action) 1 ea QS N/A 10/06/17 16:00 11/05/17 15:59 Pantoprazole Sodium 40 mg/ Syringe 10 ml @ 5 mls/min BID@0900,2100 IV 10/06/17 12:00 11/05/17 11:59 10/09/17 08:31 5 MLS/MIN Sodium Chloride 1,000 ml @ 100 mls/hr Q10H IV 10/06/17 09:45 11/05/17 09:44 10/09/17 07:18 100 MLS/HR Miscellaneous (Fentanyl Patch Remove & Waste) 1 ea Q3D@1129 N/A 10/06/17 11:29 11/05/17 11:28 10/06/17 11:36 1 EA Miscellaneous Information (Check Fentanyl Patch Placement) 1 ea QS N/A 10/06/17 16:00 11/05/17 15:59 10/09/17 07:07 1 EA Hydromorphone HCl (Dilaudid Inj) 0.5 mg Q3H PRN IV 10/06/17 14:45 10/20/17 11:14 10/09/17 07:19 0.5 MG Heparin Sodium (Porcine) (Heparin 100 Unit/ml 5ml Flush) 5 ml PRN PRN IV 10/07/17 00:45 11/06/17 00:44 Ferrous Sulfate (Feosol Tab) 325 mg BIDM PO 10/08/17 08:00 11/07/17 07:59 10/09/17 07:18 325 MG Objective Vital Signs Date Time Temp Pulse Resp B/P (MAP) Pulse Ox O2 Delivery O2 Flow Rate FiO2 10/09/17 08:00 Room Air 10/09/17 07:40 37.0 84 18 164/94 (117) 91 Room Air 10/09/17 04:52 36.9 86 20 158/90 (112) 93 Room Air 10/09/17 00:05 Room Air 10/08/17 23:30 37.0 91 18 151/96 10/08/17 23:10 37.0 87 18 160/92 10/08/17 22:40 37.0 86 20 157/91 10/08/17 22:25 37.0 88 20 149/93 10/08/17 22:10 36.6 92 20 156/92 10/08/17 22:04 36.6 92 20 156/92 94 10/08/17 21:00 37.0 85 18 154/87 10/08/17 20:30 Room Air 10/08/17 20:30 37.1 88 18 153/83 10/08/17 20:00 37.0 88 18 157/86 10/08/17 19:45 37.0 88 18 150/85 10/08/17 19:25 36.9 90 18 149/83 94 0.0 10/08/17 16:00 Room Air 10/08/17 15:50 36.8 88 18 157/90 (112) 95 Room Air 10/08/17 13:35 98 96 10/08/17 11:17 36.5 88 18 160/94 (116) 94 Room Air Physical Exam General Appearance: no apparent distress Eyes: PERRL ENT: hearing grossly normal Neck: supple Respiratory/Chest: lungs clear Cardiovascular: regular rate, rhythm Abdomen: normal bowel sounds, soft, no pulsatile mass, + tenderness ( generalized tenderness) Neurologic/Psych: alert, normal mood/affect, oriented x 3 Skin: normal color Laboratory Results Last 24 Hours Test 10/09/17 05:20 White Blood Count 6.38 K/uL Red Blood Count 3.80 M/uL Hemoglobin 9.4 g/dL Hematocrit 29.9 % Mean Corpuscular Volume 78.7 fL Mean Corpuscular Hemoglobin 24.7 pg Mean Corpuscular Hemoglobin Concent 31.4 g/dl RDW Standard Deviation 56.8 fL RDW Coefficient of Variation 19.7 % Platelet Count 320 K/uL Mean Platelet Volume 8.4 fL Sodium Level 135 mmol/L Potassium Level 3.3 mmol/L Chloride Level 103 mmol/L Carbon Dioxide Level 26 mmol/L Anion Gap 6.0 mmol/L Blood Urea Nitrogen 5 mg/dl Creatinine 0.37 mg/dl Est Creatinine Clear Calc Drug Dose 215.3 ml/min Estimated GFR () > 150.0 Estimated GFR (Non- 132.4 BUN/Creatinine Ratio 12.9 Random Glucose 84 mg/dl Calcium Level 7.3 mg/dl Assessment and Plan 62 year old male admitted with melena, ongoing x 2 months w/ bouts of coffee ground emesis. No AC but was using Aleve BID x months for abd pain, back pain. Recently diagnosed suspected recurrent esophageal CA w/ suspected mets to lungs/ liver/kidneys. gastritis vs PUD vs anastomotic ulceration vs malignancy vs other. EGD w/ large ulceration at EG anastomosis. It appears there is already plan in place for initiating chemotherapy - if EUS w/ biopsy is needed, GI is able to perform. PPI BID Carafate Follow up biopsy results. GI to sign off. GI can perform EUS, colonoscopy if needed. Please re-consult if appropriate. I saw and evaluated the patient. I agree with the plan as stated by . At this point we are waiting for biopsies taken last week. If needed we are happy to pursue endoscopic ultrasound for further assessment of suspected metastatic disease.
[2017-10-09] MEDS: FENTANYL PATCH REMOVE & WASTE SCH (10:45)
[2017-10-09] MEDS: FENTANYL 12 MCG/HR TDSY TD SCH (10:49)
[2017-10-09 11:57] VITALS: BP 149/90; PULSE 82; TEMP 37; O2SAT 93
[2017-10-09] MEDS: SUCRALFATE 1 GM/10 ML UDC PO SCH ×3 (12:30→21:12)
[2017-10-09] MEDS ORDERED: POTASSIUM CHLORIDE 20 MEQ TABCR PO ONE (13:00)
--- NOTE | 2017-10-09 13:02 | Hospitalist Progress Note ---
Hospitalist Progress Note Date of Service Oct 09, 2017. (Joaquina Pizano ., PA-C) Subjective Pt evaluation today including: conversation w/ patient, physical exam, lab review, review of studies, conversation w/ property consultant, review of inpatient medication list Voiding: no voiding problems Patient resting in bed. On clear liquid diet Discussed w/ GI and Oncology- no further workup needed, GI sign-off, will advance diet today. +BM, no melena noted. +abdominal pain but improving and well controlled w/ IV Dilaudid. Patient denies any fever, chills, sweats, lightheadedness, dizziness, vision changes, CP, palpitations, edema, SOB, wheezing, cough, nausea, vomiting, diarrhea, urinary symptoms, melena, numbness/tingling, weakness, muscle/joint pain, anxiety/depression, active bleeding, or new skin discoloration/changes. (Joaquina Pizano ., PA-C) Medications Current Inpatient Medications Medications (Trade) Dose Ordered Sig/Konstantin Route Start Time Stop Time Status Last Admin Dose Admin Acetaminophen (Tylenol Tab) 650 mg Q4H PRN PO 10/06/17 09:30 11/05/17 09:29 Al Hydrox/Mg Hydrox/Simethicone (Maalox Max Susp) 15 ml Q4H PRN PO 10/06/17 09:30 11/05/17 09:29 Magnesium Hydroxide (Milk Of Magnesia Susp) 30 ml Q6H PRN PO 10/06/17 09:30 11/05/17 09:29 10/06/17 18:56 30 ML Polyethylene (Miralax Powder Packet) 17 gm DAILY PRN PO 10/06/17 09:30 11/05/17 09:29 10/08/17 08:13 17 GM Ondansetron HCl (Zofran Inj) 4 mg Q6H PRN IV 10/06/17 09:30 11/05/17 09:29 Fentanyl (Duragesic Patch) 12 mcg Q3D@1130 TD 10/06/17 11:30 10/20/17 11:29 10/09/17 10:49 12 MCG Miscellaneous Information (Order Awaiting Action) 1 ea QS N/A 10/06/17 16:00 11/05/17 15:59 Pantoprazole Sodium 40 mg/ Syringe 10 ml @ 5 mls/min BID@0900,2100 IV 10/06/17 12:00 11/05/17 11:59 10/09/17 08:31 5 MLS/MIN Sodium Chloride 1,000 ml @ 100 mls/hr Q10H IV 10/06/17 09:45 11/05/17 09:44 10/09/17 07:18 100 MLS/HR Miscellaneous (Fentanyl Patch Remove & Waste) 1 ea Q3D@1129 N/A 10/06/17 11:29 11/05/17 11:28 10/09/17 10:45 1 EA Miscellaneous Information (Check Fentanyl Patch Placement) 1 ea QS N/A 10/06/17 16:00 11/05/17 15:59 10/09/17 07:07 1 EA Hydromorphone HCl (Dilaudid Inj) 0.5 mg Q3H PRN IV 10/06/17 14:45 10/20/17 11:14 10/09/17 10:49 0.5 MG Heparin Sodium (Porcine) (Heparin 100 Unit/ml 5ml Flush) 5 ml PRN PRN IV 10/07/17 00:45 11/06/17 00:44 Ferrous Sulfate (Feosol Tab) 325 mg BIDM PO 10/08/17 08:00 11/07/17 07:59 10/09/17 07:18 325 MG Sucralfate (Carafate Susp) 1 gm QID PO 10/09/17 12:00 11/08/17 11:59 10/09/17 12:30 1 GM (Joaquina Pizano, RAMUC) Objective Vital Signs Date Time Temp Pulse Resp B/P (MAP) Pulse Ox O2 Delivery O2 Flow Rate FiO2 10/09/17 08:00 Room Air 10/09/17 07:40 37.0 84 18 164/94 (117) 91 Room Air 10/09/17 04:52 36.9 86 20 158/90 (112) 93 Room Air 10/09/17 00:05 Room Air 10/08/17 23:30 37.0 91 18 151/96 10/08/17 23:10 37.0 87 18 160/92 10/08/17 22:40 37.0 86 20 157/91 10/08/17 22:25 37.0 88 20 149/93 10/08/17 22:10 36.6 92 20 156/92 10/08/17 22:04 36.6 92 20 156/92 94 10/08/17 21:00 37.0 85 18 154/87 10/08/17 20:30 Room Air 10/08/17 20:30 37.1 88 18 153/83 10/08/17 20:00 37.0 88 18 157/86 10/08/17 19:45 37.0 88 18 150/85 10/08/17 19:25 36.9 90 18 149/83 94 0.0 10/08/17 16:00 Room Air 10/08/17 15:50 36.8 88 18 157/90 (112) 95 Room Air 10/08/17 13:35 98 96 (Joaquina Pizano, NAIMA-C) Physical Exam General Appearance: no apparent distress Eyes: normal inspection, PERRL ENT: hearing grossly normal Neck: supple Respiratory/Chest: lungs clear, no respiratory distress, no accessory muscle use Cardiovascular: regular rate, rhythm Abdomen: normal bowel sounds, non tender, soft Extremities: no pedal edema, no calf tenderness Neurologic/Psychiatric: alert, normal mood/affect, oriented x 3 Skin: normal color, warm/dry, no rash (Joaquina Pizano, NAIMA-C) Laboratory Results Last 24 Hours Test 10/09/17 05:20 White Blood Count 6.38 K/uL Red Blood Count 3.80 M/uL Hemoglobin 9.4 g/dL Hematocrit 29.9 % Mean Corpuscular Volume 78.7 fL Mean Corpuscular Hemoglobin 24.7 pg Mean Corpuscular Hemoglobin Concent 31.4 g/dl RDW Standard Deviation 56.8 fL RDW Coefficient of Variation 19.7 % Platelet Count 320 K/uL Mean Platelet Volume 8.4 fL Sodium Level 135 mmol/L Potassium Level 3.3 mmol/L Chloride Level 103 mmol/L Carbon Dioxide Level 26 mmol/L Anion Gap 6.0 mmol/L Blood Urea Nitrogen 5 mg/dl Creatinine 0.37 mg/dl Est Creatinine Clear Calc Drug Dose 215.3 ml/min Estimated GFR () > 150.0 Estimated GFR (Non- 132.4 BUN/Creatinine Ratio 12.9 Random Glucose 84 mg/dl Calcium Level 7.3 mg/dl (Joaquina Pizano, PA-C) Assessment and Plan Patient is a pleasant 62 y/o male, with PMHx of esophageal cancer w/ mets to lungs/liver/kidneys s/p esophagectomy/gastrectomy, who presented to the ED because of belt like pain around umbilical region and back. Acute on chronic iron deficient anemia secondary to GI bleed from EG anastomosis ulceration: - Admit to med/surg - Follow H&H- STABLE currently at 9.4 -- Transfused 2 u PRBCs on 10/08- continue to follow and transfuse PRN for hgb < 8.0 or symptomatic - Advance diet today - IV NSS @ 100 ml/hr while NPO- will d/c tonight if diet tolerated - IV Protonix BID + Carafate - Iron panel reviewed from 10/04/17- Ferrous Sulfate BID started - Consult GI, appreciate recommendations- EGD on 10/[address] Lyles, continue Protonix BID and Carafate - Oncology consulted- no further workup needed from oncology standpoint Metastatic esophageal cancer- follows w/ Dr. Nicole: - Continue Fentanyl 12 mcg q72 hr patch, Prednisone - Oncology following- ECHO completed in preparation for chemotherapy treatment, f/u outpatient as scheduled Hypokalemia: Replace w/ KCL 40 mEq supplement x1, follow PRP and replace PRN GI prophylaxis: Protonix IV BID + Carafate DVT prophylaxis: TEDs/SCDs; no chemical anticoagulation due to anemia/GI bleed Code Status: LEVEL I, FULL- no prolonged measures Dispo: From home- PT/OT and CM consulted- hopeful discharge in the next 1 day (oJaquina Pizano, RAMUC) I personally interviewed and examined the patient. I agree with history of present illness and physical exam mentioned above, I also performed my own history taking and examination. Past medical history and review of system has been obtained by myself I reviewed all pertinent labs and studies Reviewed current medications I discussed and formulated of the assessment and plan mentioned above. Please refer to the Summary mentioned below. 62-year-old male with history of metastasized esophageal cancer presented with abdominal pain referred to the back Found to have GI bleed from esophageal gastric anastomosis ulceration site Acute blood loss anemia Electrolyte imbalance Plan Status post EGD, GI consult an oncologist consult appreciated Status post 2 units red blood corpuscles transfusion Advanced diet today/tolerated well Continue IV Protonix BID + Carafate If continues to improve might be discharged tomorrow General Appearance: not in acute distress Eyes: normal Sclerae, extraocular muscle intact ENT: hearing grossly normal Neck: supple Respiratory/Chest: normal air entry bilateral ,no respiratory distress, no accessory muscle use Cardiovascular: regular rate, rhythm, no murmur Abdomen: non tender, soft, no masses Extremities: no edema Neurologic/Psychiatric: Awake alert oriented times place and person moves all extremities sensation intact cranial nerves II-12 appear to be intact Skin: normal color, warm/dry, no rash Gustavo Hu MD, [facility] (Gustavo Denney MD)
[2017-10-09] MEDS: POLYETHYLENE (MIRALAX) 17 GM PACK PO PRN (14:24)
[2017-10-09 16:18] VITALS: BP 160/101; PULSE 95; TEMP 36.6; O2SAT 93
[2017-10-09 19:33] VITALS: BP 160/102; PULSE 96; TEMP 37.1; O2SAT 93
[2017-10-09 23:25] VITALS: BP 168/106; PULSE 88; TEMP 36.9; O2SAT 91
[2017-10-10] MEDS: HYDROmorphone INJ 0.5 MG/0.5 ML SYR IV PRN ×3 (01:49→11:52)
[2017-10-10 04:28] VITALS: BP 159/96; PULSE 82; TEMP 37; O2SAT 90
[2017-10-10 05:58] LABS: HEMATOCRIT 31.1 % (42-52); HEMOGLOBIN 9.8 g/dL (14.0-18.0); MEAN CELL VOLUME 79.3 fL (80-100); MEAN CORPUSCULAR HGB CONC 31.5 g/dl (32-36); MEAN PLATELET VOLUME 8.8 fL (7.4-10.4); PLATELET COUNT 333 K/uL (130-400); RED CELL DISTRIBUTION WIDTH SD 57.7 fL (36.4-46.3); WHITE BLOOD COUNT 7.87 K/uL (4.8-10.8)
[2017-10-10 06:41] LABS: CALCIUM 7.5 mg/dl (8.5-10.1); CREATININE 0.46 mg/dl (0.60-1.40); POTASSIUM 3.6 mmol/L (3.5-5.1)
[2017-10-10] MEDS: CHECK FENTANYL PATCH PLACEMENT SCH ×2 (08:00→15:42)
--- NOTE | 2017-10-10 08:02 | Hematology/Oncology Prog Note ---
Hematology/Onc Progress Note Date of Service Oct 10, 2017. Diagnoses Metastatic esophageal adenocarcinoma GI bleed Pain secondary to liver involvement with tumor Medications Medications Administered Medications (Trade) Dose Ordered Sig/Konstantin Route Start Time Stop Time Status Last Admin Dose Admin Magnesium Hydroxide (Milk Of Magnesia Susp) 30 ml Q6H PRN PO 10/06/17 09:30 11/05/17 09:29 10/06/17 18:56 30 ML Polyethylene (Miralax Powder Packet) 17 gm DAILY PRN PO 10/06/17 09:30 11/05/17 09:29 10/09/17 14:24 17 GM Fentanyl (Duragesic Patch) 12 mcg Q3D@1130 TD 10/06/17 11:30 10/20/17 11:29 10/09/17 10:49 12 MCG Pantoprazole Sodium 40 mg/ Syringe 10 ml @ 5 mls/min BID@0900,2100 IV 10/06/17 12:00 11/05/17 11:59 10/09/17 21:12 5 MLS/MIN Sodium Chloride 1,000 ml @ 100 mls/hr Q10H IV 10/06/17 09:45 11/05/17 20:00 10/09/17 21:12 100 MLS/HR Hydromorphone HCl (Dilaudid Inj) 1 mg Q3H PRN IV 10/06/17 11:15 10/06/17 14:42 DC 10/06/17 11:32 1 MG Miscellaneous (Fentanyl Patch Remove & Waste) 1 ea Q3D@1129 N/A 10/06/17 11:29 11/05/17 11:28 10/09/17 10:45 1 EA Miscellaneous Information (Check Fentanyl Patch Placement) 1 ea QS N/A 10/06/17 16:00 11/05/17 15:59 10/09/17 23:20 1 EA Hydromorphone HCl (Dilaudid Inj) 0.5 mg Q3H PRN IV 10/06/17 14:45 10/20/17 11:14 10/10/17 06:30 0.5 MG Ferrous Sulfate (Feosol Tab) 325 mg BIDM PO 10/08/17 08:00 11/07/17 07:59 10/09/17 17:25 325 MG Sucralfate (Carafate Susp) 1 gm QID PO 10/09/17 12:00 11/08/17 11:59 10/09/17 21:12 1 GM Potassium Chloride (Klor-Con Tab) 40 meq ONE ONCE PO 10/09/17 13:00 10/09/17 13:19 DC 10/09/17 14:15 40 MEQ Subjective Seems to be doing fairly well hemoglobin is 9.8. He complains bitterly of constipation. He also complains of fullness underneath his ribs. Review of Systems: Constitutional: Negative for night sweats, or fever Eyes: Negative for event change of vision ENT: Negative for epistaxis, nasal discharge, sore throat, or deafness Cardiovascular: Negative for chest pain, palpitations, dizziness, diaphoresis Respiratory: Negative for new shortness of breath,hemoptysis, or purulent cough Gastrointestinal: Pain seems to be fairly well-controlled. He complains of constipation. He has not seen any further black stools Integumentary (skin): Negative for rash or jaundice discoloration Genitourinary: Negative for urinary frequency, hematuria, or dysuria Neurological: Negative for weakness, seizure activity, headache, or dizziness Lymphatic/Hematologic: Negative for petechiae, bleeding or new adenopathy Musculoskeletal: Negative for new joint or back pain Allergic/Immunologic: Negative for unusual rash or pruritis. Vital Signs Vital Signs Past 12 Hours Date Time Temp Pulse Resp B/P (MAP) Pulse Ox O2 Delivery O2 Flow Rate FiO2 10/10/17 04:28 37.0 82 16 159/96 (117) 90 Room Air 10/10/17 00:10 Room Air 10/09/17 23:25 36.9 88 18 168/106 (126) 91 Room Air Physical Exam Constitutional: vitals are stable. Thin pleasant gentleman Eyes: Eyes are CAROL EOMI without conjuctival erythema or icterus. ENT: External examination was negative for masses. Neck: Negative for masses or palpable thyromegaly Respiratory: Lung sounds were generally clear bilaterally Cardiovascular: Heart was RRR without significant murmur, gallops aoe rubs Gastrointestinal: The patient is feeling his liver. The liver extends several centimeters at least 4 5 cm below the right costal margin and over to the subxiphoid process at least 3 cm below that.. Lymphatic system: there was no palpable peripheral lymphadenopathy Musculoskeletal System: The musculoskeletal system seemed concordant with age. Skin: The skin was negative for jaundice. Neurologic exam: The exam was negative for any focal findings. Deep tendon reflexes were equal and symmetrical. Psychiatric exam: Was essentially negative with normal mood and effect. Extremities: Negative for edema Laboratory Last 24 Hours Test 10/10/17 05:10 White Blood Count 7.87 K/uL Red Blood Count 3.92 M/uL Hemoglobin 9.8 g/dL Hematocrit 31.1 % Mean Corpuscular Volume 79.3 fL Mean Corpuscular Hemoglobin 25.0 pg Mean Corpuscular Hemoglobin Concent 31.5 g/dl RDW Standard Deviation 57.7 fL RDW Coefficient of Variation 20.0 % Platelet Count 333 K/uL Mean Platelet Volume 8.8 fL Sodium Level 134 mmol/L Potassium Level 3.6 mmol/L Chloride Level 102 mmol/L Carbon Dioxide Level 24 mmol/L Anion Gap 8.0 mmol/L Blood Urea Nitrogen 7 mg/dl Creatinine 0.46 mg/dl Est Creatinine Clear Calc Drug Dose 177.7 ml/min Estimated GFR () 140.3 Estimated GFR (Non- 121.0 BUN/Creatinine Ratio 14.3 Random Glucose 80 mg/dl Calcium Level 7.5 mg/dl Assessment & Plan Metastatic esophageal carcinoma. Please supply the patient with a strong stool softener. Perhaps lactulose as part of his regimen 30 cc every 4-6 hours as needed could be part of that. His hemoglobin is stable and I suspect discharge is eminent. He will be seen in our clinic in anticipation of chemotherapy in the very near future. I believe he was scheduled actually for this week but will have to delay that until he is discharged. Otherwise he seems quite stable. For now we will sign off as a service for please not hesitate to reconsult as needed.
[2017-10-10 08:15] VITALS: BP 138/88; PULSE 90; TEMP 36.6; O2SAT 95
[2017-10-10] MEDS: SODIUM CHLORIDE 0.9% 1000ML 1,000 ML IV SCH (08:26)
[2017-10-10] MEDS: SUCRALFATE 1 GM/10 ML UDC PO SCH ×3 (08:34→16:49)
[2017-10-10] MEDS: FERROUS SULFATE 325 MG TAB PO SCH ×2 (08:35→16:49)
[2017-10-10] MEDS: PANTOprazole INJ 40 MG in SYRINGE 0 ML IV SCH (08:36)
[2017-10-10] MEDS ORDERED: OXYC-57 PO (10:48)
[2017-10-10] MEDS ORDERED: FRRS300 PO (10:48)
[2017-10-10] MEDS ORDERED: CRFUDL PO (10:48)
[2017-10-10] MEDS ORDERED: PANT40TA PO (10:48)
--- NOTE | 2017-10-10 10:52 | Discharge Instructions ---
Discharge Instructions Date of Service Oct 10, 2017. Admission Reason for Admission: Anemia, Gi Bleed Discharge Discharge Diagnosis / Problem: Gastric ulcer; GI bleed; anemia Discharge Goals Goal(s): Decrease discomfort, Improve function, Increase independence, Improve disease control, Learn about illness, Diagnostic testing, Therapeutic intervention, Prevent Disease Progression Activity Recommendations Activity Limitations: resume your previous activity . Instructions / Follow-Up Instructions / Follow-Up Gastric Ulcer: Protonix 40 mg twice daily Carafate 1 gm four times daily STOP NSAID use (ex: Ibuprofen, Aleve, Motrin, Naprosyn) Anemia secondary to GI bleed from gastric ulcer: Iron supplement twice daily It is recommended you continue MiraLAX daily to prevent constipation. You may also take a stool softener as needed. These medications can be bought over-the- counter, please follow instructions on the label. You may take Percocet 1 tablet every 4 hours as needed for pain control Resume all other regular home medications FOLLOW-UPS: Please follow-up with your PCP on October 12 as scheduled Please follow-up with Oncology on October 16 as scheduled Please follow-up/keep all of your subspecialty appointments Current Hospital Diet Patient's current hospital diet: Regular Diet Discharge Diet Recommended Diet: Regular Diet Procedures Procedures Performed: EGD Pending Studies Studies pending at discharge: no Medical Emergencies . Who to Call and When: Medical Emergencies: If at any time you feel your situation is an emergency, please call 911 immediately. . Non-Emergent Contact Non-Emergency issues call your: Primary Care Provider, International Sales Manager, Oncologist Call Non-Emergent contact if: you have a fever, your pain is not controlled, your pain is worsening, your pain is unusual for you, your pain is concerning you, you have any medication questions . . "Provider Documentation" section prepared by Joaquina Pizano. . VTE Core Measure Inpt VTE Proph given/why not?: T.E.D. Stockings, SCD's, Contraindicated
--- NOTE | 2017-10-10 11:00 | Discharge Summary ---
Discharge Summary Date of Service Oct 10, 2017. Discharge Summary Admission Date: Oct 06, 2017 at 09:27 Discharge Disposition: Home with services Principal Diagnosis: GI bleed Problems/Secondary Diagnoses: Acute on chronic iron deficient anemia secondary to GI bleed from EG anastomosis ulceration Metastatic esophageal cancer Hypokalemia Immunizations: Have You Had Influenza Vaccine: No History of Tetanus Vaccine?: No History of Pneumococcal: No History of Hepatitis B Vaccine: No Procedures: CHEST ONE VIEW PORTABLE CLINICAL HISTORY: CHEST PAIN dyspnea COMPARISON STUDY: 09/10/2017 FINDINGS: Mild cardiomegaly. Central catheter in superior vena cava. Unchanging consolidative change/fusion change left base. Central catheter in superior vena cava. Unaltered right and to lesser extent left hilar prominence. Potential developing pulmonary vascular congestion versus right basilar infiltrate. IMPRESSION: Developing right basal infiltrate versus pulmonary vascular congestion. Unchanging consolidative change left lung base. The above report was generated using voice recognition software. It may contain grammatical, syntax or spelling errors. Electronically signed by: Riley Pittman M.D. 10/06/2017 7:35 AM Dictated Date/Time: 10/06/2017 7:34 AM The status of this report is Signed. Draft = Not yet reviewed or approved by Radiologist. Signed = Reviewed and approved by Radiologist. (CHEST) THORAX WITH CT DOSE: 601.83 mGy.cm HISTORY: Pain 09/08/2017 TECHNIQUE: Multiaxial CT images of the chest were performed following the intravenous administration of contrast. A dose lowering technique was utilized adhering to the principles of ALARA. COMPARISON: 09/08/2017 FINDINGS: operative findings consistent with a prior distal esophagectomy and gastric pull-through procedure. This component of the study is similar as compared to the prior exam. Hilar mediastinal adenopathy is mildly progressive from the prior exam. A precarinal node has a maximum linear dimension of 3.2 cm increased from the prior study of 2.8 cm. Moderate atelectatic change thoracic aorta unchanged. Upper mediastinal) esophageal node. Moderate narrowing of the proximal esophagus. Is perhaps minimally progressive from the prior exam. Hilar adenopathy is also somewhat progressive. Bilateral pleural effusions are present considered at least mildly progressive compared to the prior exam. Upper chest no pathology is considered stable. Reticular nodular-type changes and/or infiltrative changes of the right middle lobe are slightly diminished compared to the prior exam. Potential developing left basilar and to a lesser extent right basilar parenchymal infiltrative change associated with slightly progressive and/or interval nodular pathology. Limited evaluation the upper abdomen shows diffuse progression of the patient's hepatic metastatic disease. There is also progression of the patient's upper abdominal and retroperitoneal adenopathy. IMPRESSION:: 1. Operative changes consistent with a prior partial esophagectomy and gastric pull-through procedure. 2. Progressive mediastinal and hilar jaya pathology with moderately progressive superior mediastinal jaya pathology. 3. Progressive metastatic pulmonary nodular pathology. 4. Improved infiltrative change right middle lobe procedure described in the prior exam. 5. Progressive hepatic metastatic disease. 6. Progressive bilateral pleural effusions and bibasilar infiltrative change. 7. Restless of upper abdominal adenopathy. IMPRESSION: No significant abnormality identified within the chest. The above report was generated using voice recognition software. It may contain grammatical, syntax or spelling errors. Electronically signed by: Riley Pittman M.D. 10/06/2017 9:11 AM Dictated Date/Time: 10/06/2017 9:01 AM The status of this report is Signed. Draft = Not yet reviewed or approved by Radiologist. Signed = Reviewed and approved by Radiologist. CT ABD/PELVIS IV CONTRAST ONLY CLINICAL HISTORY: Metastatic esophageal carcinoma. Chest and abdominal pain. COMPARISON STUDY: October 2015 TECHNIQUE: Following the IV administration of 120 mL of [id number]-320, CT scan of the abdomen and pelvis was performed from the lung bases to the proximal femurs. Images are reviewed in the axial, sagittal, and coronal planes. IV contrast was administered without complication. A dose lowering technique was utilized adhering to the principles of ALARA. CT DOSE: FINDINGS: Lower chest: There are postsurgical changes of a distal esophagectomy and gastric pull-up. There are bilateral pleural effusions. There are nodular right lower lobe airspace opacities, likely inflammatory. Liver: Since the prior study, the patient has developed in numerable space-occupying hepatic masses the largest of which measures 6 cm. The findings are indicative of extensive metastatic disease. Gallbladder: Contracted with pericholecystic edema Spleen: There is a 21 mm perisplenic nodule, possibly representing a tumor implant Pancreas: No definite masses but difficult to evaluate due to adjacent adenopathy Adrenal glands: There is a 3 cm left adrenal mass consistent with a metastasis Kidneys: There is a persistent dilated left renal pelvis unchanged from the prior study. There is a 12 mm left renal cyst. Bowel: There are no transition zones indicate bowel obstruction. No acute inflammatory changes are visualized. Peritoneum: There is low volume ascites. Vasculature: The abdominal aorta is normal in course and caliber. Adenopathy: There is retroperitoneal adenopathy encasing the celiac and superior mesenteric arteries. There is periportal adenopathy. There are enlarged para-aortic lymph nodes. Pelvic viscera: The bladder, and pelvic viscera are unremarkable. Skeletal structures: No destructive osseous lesions are seen. IMPRESSION: 1. Interval space-occupying hepatic masses consistent with extensive hepatic metastasis 2. Left adrenal mass consistent with metastasis 3. Moderately extensive retroperitoneal adenopathy with encasement of the celiac and superior mesenteric origins 4. No evidence of bowel obstruction. No evidence of free air 5. Postsurgical changes of distal esophagectomy and gastric pull-up. Bilateral pleural effusions 6. Low volume ascites 7. Right lower lobe nodularity, likely inflammatory. Electronically signed by: Jorge A Taylor M.D. 10/06/2017 9:09 AM Dictated Date/Time: 10/06/2017 9:01 AM The status of this report is Signed. Draft = Not yet reviewed or approved by Radiologist. ECHOCARDIOGRAM: Interpretation Summary * Name: TAE CISSE Study Date: 10/06/2017 02:15 PM BP: 127/85 mmHg * Patient Location: [facility]\S\21\S\1 HR: 87 * : 1955 (M/d/yyyy) Gender: Male Height: 72 in * Age: 62 yrs Ethnicity: [place] Weight: 158 lb * Ordering Physician: Gregorio Carson * Referring Physician: Self, Referred * Performed By: Elena Quiles RCS * * Reason For Study: Pre-CHEMO, Eval LVFX * BSA: 1.9 m2 * -- Conclusions -- * 1. Normal LV size, mild concentric LVH. * 2. Normal LV function. LVEF 55-60%. No regional wall motion abnormalities. * 3. Borderline dilated RV. Normal RV function. * 4. Aortic sclerosis. Mild aortic regurgitation. * 5. Mild to moderate mitral regurgitation. * 6. Mild TR. Borderline PASP 35-40 mmHg. Normal CVP. * 7. Dilated ascending aorta (4.2 cm). * 8. Compared with prior study on 09/28/2015: AI is new. MR is slightly worse. Procedure Details * A complete two-dimensional transthoracic echocardiogram was performed (2D, M- mode, Doppler and color flow Doppler). Left Ventricle * The left ventricle is grossly normal size. * There is mild concentric left ventricular hypertrophy. * Ejection Fraction = 60-65%. Right Ventricle * The right ventricle is borderline dilated. * The right ventricular systolic function is normal as assessed by tricuspid annular plane systolic excursion (TAPSE) (normal >1.5 cm). Atria * The left atrium is moderately dilated. * The right atrium is mildly dilated. * No ASD detected; PFO is not assessed. Mitral Valve * The mitral valve is grossly normal. * There is no mitral valve stenosis. * There is mild to moderate mitral regurgitation. Tricuspid Valve * There is mild tricuspid regurgitation. Aortic Valve * Aortic valve sclerosis mild, without significant aortic valvular stenosis. * The aortic valve is trileaflet. * Mild aortic regurgitation. Pulmonic Valve * The pulmonary valve is inadequately visualized, but the Doppler data is adequate for interpretation. * There is no pulmonic valvular stenosis. * Mild pulmonic valvular regurgitation. Great Vessels * Mildly dilated ascending aorta. * Asc Aorta 4.2 cm Pericardium/Pleural * There is no pericardial effusion. Great Vessels * Normal inferior vena cava size and collapsability with sniff indicates a normal right atrial pressure of 3 mmHg EGD: Large ulceration at EG anastomosis Consultations: GI Oncology Palliative care Medication Reconciliation New Medications: Oxycodone/Acetaminophen 5MG/325MG (Percocet 5MG/325MG) Tab 1 TABLET PO Q4H PRN for Pain for 3 Days, #18 TAB Pantoprazole (Protonix) 40 Mg Tab 40 MG PO BID, #60 TAB Ferrous Sulfate (Ferrous Sulfate) 325 Mg Tab 325 MG PO BIDM for 30 Days, #60 TAB Sucralfate (Sucralfate) 1 Gm/10 Ml Susp 1 GM PO QID for 10 Days, #40 DOSE Continued Medications: Fentanyl (Fentanyl) 12 Mcg Tdsy 12 MCG TOP Q3DAYS [Steroid] () 1 TAB PO DAILY PT UNSURE WHAT MED THIS IS. I'M CALLING [facility] WHEN THEY OPEN TO FIND OUT. -BETTY Discharge Exam Review of Systems: Constitutional: No fever, No chills, No sweats, No weakness, No fatigue Eyes: No worsening of vision ENT: No hearing loss Respiratory: No cough, No shortness of breath, No hemoptysis Cardiovascular: No chest pain, No edema, No palpitations Abdomen: No pain, No nausea, No vomiting, No diarrhea, No constipation, No GI bleeding Musculoskeletal: No joint pain, No muscle pain, No swelling, No calf pain Genitourinary - Male: No hematuria, No dysuria Neurologic: No weakness, No numbness/tingling Psychiatric: No depression symptoms, No anxiety Endocrine: No fatigue Hematologic / Lymphatic: No abnormal bleeding/bruising Integumentary: No rash, No itch, No new/changing skin lesions Physical Exam: General Appearance: no apparent distress Eyes: normal inspection, PERRL ENT: hearing grossly normal Neck: supple Respiratory/Chest: lungs clear, no respiratory distress, no accessory muscle use Cardiovascular: regular rate, rhythm Abdomen / GI: normal bowel sounds, non tender, soft Extremities: no calf tenderness, no pedal edema Neurologic/Psychiatric: alert, normal mood/affect, oriented x 3 Skin: normal color, warm/dry, no rash Hospital Course Patient is a pleasant 62 y/o male, with PMHx of esophageal cancer w/ mets to lungs/liver/kidneys s/p esophagectomy/gastrectomy, who presented to the ED because of belt like pain around umbilical region and back. Acute on chronic iron deficient anemia secondary to GI bleed from EG anastomosis ulceration: - Admit to med/surg - Follow H&H- STABLE at 9.8 -- Transfused 2 u PRBCs on 10/08- continue to follow and transfuse PRN for hgb < 8.0 or symptomatic - Advance diet today- tolerating well prior to discharge - IV NSS @ 100 ml/hr while NPO - IV Protonix BID + Carafate - IV Dilaudid PRN for pain management- Percocet 1 tablet q4 hrs PRN x3 days for pain management at discharge - Iron panel reviewed from 10/04/17- Ferrous Sulfate BID started - Consult GI, appreciate recommendations- EGD on 10/[address] Lyles, continue Protonix BID and Carafate - Oncology consulted- no further workup needed from oncology standpoint Metastatic esophageal cancer- follows w/ Dr. Nicole: - Continue Fentanyl 12 mcg q72 hr patch, Prednisone - Oncology following- ECHO completed in preparation for chemotherapy treatment, f/u outpatient as scheduled Hypokalemia- RESOLVED: Replace w/ KCL 40 mEq supplement x1, follow PRP and replace PRN Constipation: - Had large BM day of discharge- recommend MiraLAX daily and stool softener PRN at discharge GI prophylaxis: Protonix IV BID + Carafate DVT prophylaxis: TEDs/SCDs; no chemical anticoagulation due to anemia/GI bleed Code Status: LEVEL I, FULL- no prolonged measures Dispo: Discharge to home w/ [facility] I personally interviewed and examined the patient. I agree with history of present illness and physical exam mentioned above, I also performed my own history taking and examination. Past medical history and review of system has been obtained by myself I reviewed all pertinent labs and studies Reviewed current medications I discussed and formulated of the assessment and plan mentioned above. Please refer to the Summary mentioned below. 62-year-old male with history of metastasized esophageal cancer presented with abdominal pain referred to the back Found to have GI bleed from esophageal gastric anastomosis ulceration site Acute blood loss anemia Electrolyte imbalance Plan Status post EGD, GI consult an oncologist consult appreciated Status post 2 units red blood corpuscles transfusion Advanced diet today/tolerated well IV Protonix BID switched to by mouth + Carafate Appears stable and within acceptable medical condition for discharge General Appearance: not in acute distress Eyes: normal Sclerae, extraocular muscle intact ENT: hearing grossly normal Neck: supple Respiratory/Chest: normal air entry bilateral ,no respiratory distress, no accessory muscle use Cardiovascular: regular rate, rhythm, no murmur Abdomen: non tender, soft, no masses Extremities: no edema Neurologic/Psychiatric: Awake alert oriented times place and person moves all extremities sensation intact cranial nerves II-12 appear to be intact Skin: normal color, warm/dry, no rash Gustavo Hu MD, [facility] hospitalist group Total Time Spent: Greater than 30 minutes This includes examination of the patient, discharge planning, medication reconciliation, and communication with other providers. Discharge Instructions Please refer to the electronic Patient Visit Report (Discharge Instructions) for additional information. Follow-Up Please follow-up with your PCP on October 12 as scheduled Please follow-up with Oncology on October 16 as scheduled Please follow-up/keep all of your subspecialty appointments Additional Copies To Yury Robert M.D.
--- NOTE | 2017-10-10 11:14 | Palliative Care Progress Note ---
Palliative Care Progress Note Date of Service Oct 10, 2017. Subjective Dr. Cooper and I met briefly with patient yesterday. He is feeling much better , still having some abdominal pain but it is improved. He plans to go back home and continue to pursue chemotherapy. I believe patient would be a good candidate to follow palliative perhaps as an outpatient which was offered to him. He will let his oncologist know if he wants palliative as outpt. Thank you again for this consult, please contact me with any further palliative needs.
[2017-10-10 11:27] VITALS: O2SAT 95
[2017-10-10 11:56] VITALS: BP 158/94; PULSE 92; TEMP 36.5; O2SAT 94
[2017-10-10 15:31] VITALS: BP 145/94; PULSE 104; TEMP 37.1; O2SAT 92
[2017-10-10 15:40] VITALS: BP 145/94; PULSE 104; TEMP 37.1; O2SAT 92
== END 2017-10-10 17:15 | disposition home or self-care (01) | DRG 378 ==
LOC: C.EDB 06:49 → C.4E 09:27 → ENRESERV 09:59
PROVIDERS: ADMIT Internal Medicine Sports Medicine; ATTEND Internal Medicine
PROC: 0DB48ZX Excision of Esophagogastric Junction, Via Natural or Artificial Opening Endoscopic, Diagnostic (ICD-10-PCS; principal; 2017-10-06 12:26)
DX: K25.4 Chronic or unspecified gastric ulcer with hemorrhage (principal); D62 Acute posthemorrhagic anemia; C15.9 Malignant neoplasm of esophagus, unspecified; C78.00 Secondary malignant neoplasm of unspecified lung; C79.01 Secondary malignant neoplasm of right kidney and renal pelvis; C79.02 Secondary malignant neoplasm of left kidney and renal pelvis; C78.7 Secondary malignant neoplasm of liver and intrahepatic bile duct; C78.89 Secondary malignant neoplasm of other digestive organs; C79.71 Secondary malignant neoplasm of right adrenal gland; C79.72 Secondary malignant neoplasm of left adrenal gland; Z87.891 Personal history of nicotine dependence; Z86.14 Personal history of Methicillin resistant Staphylococcus aureus infection; K21.9 Gastro-esophageal reflux disease without esophagitis; E87.6 Hypokalemia; K59.00 Constipation, unspecified; Z92.3 Personal history of irradiation

== ENCOUNTER 2017-10-14 19:40 | Inpatient (IN) | payer OTHER ==
[~2017-10-14] VITALS: Ht 182.9 cm; Wt 69.4 kg
[~2017-10-14 19:40] MED LIST changes: +CRFUDL PO; +DRGTP12 TOP; +FRRS300 PO; -NAPR1TAB9 PO; +OXYC-57 PO; +STEROID PO; -[UNRECOGNIZED DRUG - CODE] PO
[2017-10-14] MEDS ORDERED: ALBUT/IPRATROP 3MG/0.5MG NEB 3 ML VIAL INH STA (19:54)
--- NOTE | 2017-10-14 20:00 | EMERGENCY ROOM VISIT NOTE ---
History Report prepared by Tom: Gigi Domingo Under the Supervision of: Dr. Roosevelt Gregory M.D. First contact with patient: 19:48 Chief Complaint: SHORTNESS OF BREATH Stated Complaint: SOB, WEAK History of Present Illness The patient is a 62 year old male who presents to the Emergency Room with complaints of worsening shortness of breath that began 1 day ago. Patient has associated symptoms of weakness and a cough. Patient denies any fevers or chest pain. Patient is present with his daughter. Daughter states that the patient was discharged from [facility] 4 days ago. Patient denies using any breathing treatments or oxygen at home. Pertinent past medical history includes a collapsed lung in 2014. Patient adds that he has a port located on the left side of his chest. Patient states his PCP is Dr. Robert. I reviewed the patient's records and noted that he was discharged from the hospital on October 10. He was at the hospital for a GI bleed. The patient's hemoglobin level was 9.8 at discharge. Source of History: patient Onset: 1 day ago Position: chest Timing: worsening Associated Symptoms: + cough, + weakness, No fevers, No chest pain Review of Systems See HPI for pertinent positives & negatives. A total of 10 systems reviewed and were otherwise negative. Past Medical & Surgical Medical Problems: (1) Acute respiratory failure with hypoxia (2) Dizziness (3) Esophageal cancer (4) Pneumonia (5) Sepsis Family History FHx: cancer Hypertension Social History Smoking Status: Former Smoker Drug Use: none Marital Status: Occupation Status: employed Current/Historical Medications Scheduled Fentanyl (Fentanyl), 12 MCG TOP Q3DAYS Ferrous Sulfate (Ferrous Sulfate), 325 MG PO BIDM Pantoprazole (Protonix), 40 MG PO BID Sucralfate (Sucralfate), 1 GM PO QID Scheduled PRN Ondansetron Hcl (Zofran), 8 MG PO Q8 PRN for Nausea Oxycodone Hcl (Oxycodone Hcl), 1 TAB PO Q4 PRN for Pain Oxycodone/Acetaminophen 5MG/325MG (Percocet 5MG/325MG), 1 TABLET PO Q4H PRN for Pain Miscellaneous Medications Dexamethasone (Decadron), 8 MG PO Allergies Coded Allergies: No Known Allergies (Verified , 10/14/17) Physical Exam Vital Signs Date Time Temp Pulse Resp B/P (MAP) Pulse Ox O2 Delivery O2 Flow Rate FiO2 10/14/17 22:45 104 20 92 Nasal Cannula 4.0 10/14/17 22:31 109/67 10/14/17 22:15 108 20 95 10/14/17 22:00 126/81 10/14/17 21:45 108 19 89 Nasal Cannula 4.0 10/14/17 21:30 133/91 10/14/17 21:21 107 20 130/86 90 Nasal Cannula 4.0 10/14/17 21:15 108 22 90 10/14/17 20:40 98 18 93 Nasal Cannula 4.0 10/14/17 20:30 134/86 10/14/17 20:12 128/88 10/14/17 20:10 104 19 92 10/14/17 20:07 92 Nasal Cannula 4.0 10/14/17 19:59 101 10/14/17 19:58 92 Nasal Cannula 4.0 10/14/17 19:44 36.8 111 20 106/73 75 Room Air Physical Exam GENERAL: Patient is in no acute distress. HEENT: No acute trauma, normocephalic atraumatic, mucous membranes moist, no nasal congestion, no scleral icterus. NECK: No stridor, no adenopathy, no meningismus, trachea is midline. LUNGS: Decreased breath sounds on the left, with crackles on the left, no wheezing, right lung fairly clear. HEART: Without murmurs gallops or rubs, regular rate and rhythm. ABDOMEN: Soft, nontender, bowel sounds positive, no hernias, no peritonitis. EXTREMITIES: No cyanosis, moderate bilateral pedal edema, full range of motion of all the joints without pain or difficulty, no signs for acute trauma. NEUROLOGIC: Oriented x 3, no acute motor or sensory deficits, no focal weakness. SKIN: No rash, no jaundice, no diaphoresis. Medical Decision & Procedures ER Provider Diagnostic Interpretation: Radiology results as stated below per my review and radiologist interpretation: CHEST ONE VIEW PORTABLE HISTORY: EVALUATE RESPIRATORY DISTRESS.DYSPNEA COMPARISON: Chest 10/06/2017. Chest CT 10/06/2017. FINDINGS: Small right and moderate left pleural effusions have progressed. Left subclavian Port-A-Cath terminates in the right atrium. The heart remains mildly enlarged. No pneumothorax. Bibasilar densities have also progressed. There is mild interstitial thickening which is also progressed. Bilateral hilar lymphadenopathy is again noted. IMPRESSION: Progressive bilateral pleural effusions and bibasilar airspace opacities. This could represent atelectasis or pneumonia. Electronically signed by: Ángel Prieto M.D. 10/14/2017 8:46 PM CHEST CTA for PULMONARY ARTERIES CT DOSE: 346.83 mGy.cm HISTORY: Atypical chest pain. Short of breath. TECHNIQUE: Multiaxial CT images of the chest were performed following the intravenous administration of contrast to evaluate the pulmonary arteries. Maximal intensity projection images were also obtained. A dose lowering technique was utilized adhering to the principles of ALARA. COMPARISON STUDY: Chest CT 10/06/2017. FINDINGS: No evidence for an aortic dissection. Respiratory motion artifact results in suboptimal evaluation of the majority of the segmental and subsegmental pulmonary emboli. However, there are no definite filling defects within the pulmonary arteries to suggest pulmonary embolus. Mild narrowing of the bilateral distal main pulmonary arteries and bilateral lower pulmonary arteries due to the extensive mediastinal and hilar lymphadenopathy. There is also supraclavicular lymphadenopathy, unchanged. Left subclavian Port-A-Cath terminates in the right atrium. There again noted postoperative changes consistent with esophagectomy with gastric pull-up. Moderate bilateral pleural effusions have increased in size. The right pleural effusion is partially loculated. Hepatic metastatic lesions are again noted. Small amount of upper abdominal ascites. Body wall edema is present. Large diaphragmatic hernia occupying the majority of the left lung base. This contains both large and small bowel. This also remains unchanged. No significant pericardial effusion. Consolidation involving the base of the left lower lobe and a small amount of consolidation within the base of the lingula. This favors atelectasis. However, a pneumonia also have a similar appearance. There is mucoid material filling the majority of the left distal mainstem bronchus and left lower lobe bronchi. Focal obstruction of the bronchus intermedius best seen on image 147. This could represent a mass or mucous plug. No pneumothorax. Multiple scattered pulmonary nodules are again noted consistent with metastatic disease. Patchy densities within the right lower lobe. IMPRESSION: 1. No definite evidence for pulmonary embolus. 2. There appears to be near complete mucoid impaction of the distal left main bronchus and left lower lobe bronchus. There is associated consolidation at the base of the left lower lobe and lingula which may be due to atelectasis from the mucoid impaction or a possible pneumonia. 3. Focal obstruction of the right bronchus intermedius which could be due to a mass or mucous plug. 4. Recommend follow-up bronchoscopy for further evaluation. 5. Increase in size in the moderate bilateral pleural effusions. The right pleural effusion is partially loculated. 6. Metastatic disease is again noted. 7. Patchy densities within the right lower lobe favor a pneumonia. 8. No change in the large left diaphragmatic hernia. 9. These findings were discussed with Dr. Gregory at 9:26 PM on 10/14/2017. Electronically signed by: Ángel Prieto M.D. 10/14/2017 9:26 PM Laboratory Results 10/14/17 20:00 Red Blood Count 4.12, Mean Corpuscular Volume 82.3, Mean Corpuscular Hemoglobin 25.0, Mean Corpuscular Hemoglobin Concent 30.4, Mean Platelet Volume 8.9, Neutrophils (%) (Auto) 77.6, Lymphocytes (%) (Auto) 11.5, Monocytes (%) (Auto) 9.3, Eosinophils (%) (Auto) 1.1, Basophils (%) (Auto) 0.2, Neutrophils # (Auto) 5.12, Lymphocytes # (Auto) 0.76, Monocytes # (Auto) 0.61, Eosinophils # (Auto) 0.07, Basophils # (Auto) 0.01 10/14/17 20:00 Test 10/14/17 20:00 10/14/17 20:39 White Blood Count 6.59 K/uL (4.8-10.8) Red Blood Count 4.12 M/uL (4.7-6.1) Hemoglobin 10.3 g/dL (14.0-18.0) Hematocrit 33.9 % (42-52) Mean Corpuscular Volume 82.3 fL (80-100) Mean Corpuscular Hemoglobin 25.0 pg (25-34) Mean Corpuscular Hemoglobin Concent 30.4 g/dl (32-36) Platelet Count 347 K/uL (130-400) Mean Platelet Volume 8.9 fL (7.4-10.4) Neutrophils (%) (Auto) 77.6 % Lymphocytes (%) (Auto) 11.5 % Monocytes (%) (Auto) 9.3 % Eosinophils (%) (Auto) 1.1 % Basophils (%) (Auto) 0.2 % Neutrophils # (Auto) 5.12 K/uL (1.4-6.5) Lymphocytes # (Auto) 0.76 K/uL (1.2-3.4) Monocytes # (Auto) 0.61 K/uL (0.11-0.59) Eosinophils # (Auto) 0.07 K/uL (0-0.5) Basophils # (Auto) 0.01 K/uL (0-0.2) RDW Standard Deviation 64.5 fL (36.4-46.3) RDW Coefficient of Variation 21.2 % (11.5-14.5) Immature Granulocyte % (Auto) 0.3 % Immature Granulocyte # (Auto) 0.02 K/uL (0.00-0.02) Polychromasia 1+ Hypochromasia PRESENT Anisocytosis PRESENT Prothrombin Time 13.4 SECONDS (9.0-12.0) Prothromb Time International Ratio 1.3 (0.9-1.1) Activated Partial Thromboplast Time 32.8 SECONDS (21.0-31.0) Partial Thromboplastin Ratio 1.3 Anion Gap 5.0 mmol/L (3-11) Estimated GFR () 130.4 Estimated GFR (Non- 112.5 BUN/Creatinine Ratio 18.5 (10-20) Calcium Level 7.7 mg/dl (8.5-10.1) Total Bilirubin 0.3 mg/dl (0.2-1) Aspartate Amino Transf (AST/SGOT) 108 U/L (15-37) Alanine Aminotransferase (ALT/SGPT) 22 U/L (12-78) Alkaline Phosphatase 254 U/L (45-117) Troponin I 0.017 ng/ml (0-0.045) Pro-B-Type Natriuretic Peptide 1180 pg/ml (0-900) Total Protein 6.0 gm/dl (6.4-8.2) Albumin 2.3 gm/dl (3.4-5.0) Globulin 3.7 gm/dl (2.5-4.0) Albumin/Globulin Ratio 0.6 (0.9-2) Arterial Blood pH 7.40 (7.35-7.45) Arterial Blood Partial Pressure CO2 48 mmHg (35-46) Arterial Blood Partial Pressure O2 66 mm/Hg (80-95) Arterial Blood HCO3 29 mmol/L (19-24) Arterial Blood Oxygen Saturation 91.2 % (90-95) Arterial Blood Base Excess 3.4 mEq/L (-9-1.8) Arterial Blood Gas Delivery 4L O2 Danny Test POS (POS) Laboratory results reviewed by me. Medications Administered Medications (Trade) Dose Ordered Sig/Konstantin Route Start Time Stop Time Status Last Admin Dose Admin Albuterol/ Ipratropium (Duoneb) 3 ml NOW STAT INH 10/14/17 19:54 10/14/17 19:57 DC 10/14/17 20:01 3 ML Furosemide (Lasix Inj) 40 mg NOW STAT IV 10/14/17 20:19 10/14/17 20:20 DC 10/14/17 20:30 40 MG Cefepime HCl 2000 mg/Dextrose 112.5 ml @ 200 mls/hr ONE STAT IV 10/14/17 21:24 10/14/17 21:57 DC 10/14/17 21:48 200 MLS/HR ECG Indication: SOB/dyspnea Rate (beats per minute): 99 Rhythm: sinus rhythm Findings: 1st degree AV block, no acute ischemic change, no ectopy, other ( Significant baseline artifact) Change: Patient's electrocardiogram was interpreted by me. ED Course 1949: The patient was evaluated in room B1. A complete history and physical exam was performed. 1953: Duoneb 3ml INH 2019: Lasix Inj 40mg IV 5: Ioversol 100ml IV 4: Cefepime HCl 2000mg/Dextrose 112.5ml @ 200 mls/hr IV 2201: Upon reexamination the patient will be further evaluated. I discussed results and treatment plan with the patient. He verbalizes agreement and understanding. I spoke with Dr. Allen, who is a 3rd year resident covering for the [facility] [place]. We discussed the patient's results and findings. The patient will be evaluated by Dr. Allen for further management. Medical Decision Differential Diagnosis: Pneumonia or bronchitis, CHF, cardiac ischemia, anemia, pneumothorax, ND, or PE. There is no leukocytosis. An anemia was noted. No significant electrolyte abnormality or kidney failure. No hepatitis. No concerning coagulopathy. BNP was elevated consistent with fluid overload. EKG showed a sinus tachycardia, no acute ischemia. Cardiac enzyme testing times one is not consistent with acute cardiac injury. Chest x-ray shows possible pneumonia worse on the left versus fluid overload. There was no evidence for pneumothorax. Chest CT shows significant lung collapse and bronchial plugging. There was some mass effect noted on the bronchial tubes. No evidence for PE. ABG does show a mild hypoxia , no acidosis. The patient received a DuoNeb, IV Lasix. He was given a dose of IV cefepime. The patient seems to be improved with the above treatment and with oxygen supplementation. I discussed this case with the commercial litigation paralegal. I talked with the on-call hospitalist. Case management has been involved. Admission/ observation is warranted. A bronchoscopy may be needed. Medication Reconcilliation Current Medication List: was personally reviewed by me Blood Pressure Screening Patient's blood pressure: Elevated blood pressure Referred to hospitalist. Consults Time Called: 2124 Consulting Physician: Myles Moreno PA-C - ICU Returned Call: 2125 Discussed the patient's case with Myles Moreno PA-C. He states he will see the patient and then talk with his attending about the possibility of a bronchoscopy. Additional Consults: Time Called: 2137 Consulted Physician: Dr. Allen - 3rd year resident covering for [facility] Returned Call: 2138 Additional Comments: Discussed the patient's case. The patient will be evaluated for further management. Impression Primary Impression: Hypoxia Additional Impressions: Pneumonia Pedal edema Scribe Attestation The scribe's documentation has been prepared under my direction and personally reviewed by me in its entirety. I confirm that the note above accurately reflects all work, treatment, procedures, and medical decision making performed by me. Departure Information Dispostion Being Evaluated By Hospitalist Referrals Yury Robert M.D. (PCP) Forms HOME CARE DOCUMENTATION FORM, IMPORTANT VISIT INFORMATION Patient Instructions [facility] Problem Qualifiers
[2017-10-14 20:18] LABS: BASO % 0.2 %; BASO ABS # 0.01 K/uL (0-0.2); EOS % 1.1 %; EOS ABS # 0.07 K/uL (0-0.5); HEMATOCRIT 33.9 % (42-52); HEMOGLOBIN 10.3 g/dL (14.0-18.0); IG# 0.02 K/uL (0.00-0.02); LYMPH % 11.5 %; LYMPH ABS # 0.76 K/uL (1.2-3.4); MEAN CELL VOLUME 82.3 fL (80-100); MEAN CORPUSCULAR HGB CONC 30.4 g/dl (32-36); MEAN PLATELET VOLUME 8.9 fL (7.4-10.4); MONO % 9.3 %; MONO ABS # 0.61 K/uL (0.11-0.59); NEUT % 77.6 %; NEUT ABS # 5.12 K/uL (1.4-6.5); PLATELET COUNT 347 K/uL (130-400); RED CELL DISTRIBUTION WIDTH CV 21.2 % (11.5-14.5); RED CELL DISTRIBUTION WIDTH SD 64.5 fL (36.4-46.3); WHITE BLOOD COUNT 6.59 K/uL (4.8-10.8)
[2017-10-14] MEDS ORDERED: FUROSEMIDE 40 MG/4 ML VIAL IV STA (20:19)
[2017-10-14 20:30] LABS: INR 1.3 (0.9-1.1); PTT PATIENT 32.8 SECONDS (21.0-31.0)
[2017-10-14 20:36] LABS: ALBUMIN 2.3 gm/dl (3.4-5.0); ALT/SGPT 22 U/L (12-78); AST/SGOT 108 U/L (15-37); BLOOD UREA NITROGEN 10 mg/dl (7-18); CALCIUM 7.7 mg/dl (8.5-10.1); CARBON DIOXIDE 30 mmol/L (21-32); CREATININE 0.55 mg/dl (0.60-1.40); GLUCOSE 94 mg/dl (70-99); POTASSIUM 3.7 mmol/L (3.5-5.1); SODIUM 134 mmol/L (136-145)
[2017-10-14 20:41] LABS: ALKALINE PHOSPHATASE 254 U/L (45-117)
[2017-10-14] MEDS ORDERED: OPTIRAY 320 IV PRN (20:45)
--- NOTE | 2017-10-14 20:47 | DIAGNOSTIC IMAGING REPORT ---
CHEST ONE VIEW PORTABLE HISTORY: EVALUATE RESPIRATORY DISTRESS.DYSPNEA COMPARISON: Chest 10/06/2017. Chest CT 10/06/2017. FINDINGS: Small right and moderate left pleural effusions have progressed. Left subclavian Port-A-Cath terminates in the right atrium. The heart remains mildly enlarged. No pneumothorax. Bibasilar densities have also progressed. There is mild interstitial thickening which is also progressed. Bilateral hilar lymphadenopathy is again noted. IMPRESSION: Progressive bilateral pleural effusions and bibasilar airspace opacities. This could represent atelectasis or pneumonia. Electronically signed by: Ángel Prieto M.D. 10/14/2017 8:46 PM Dictated Date/Time: 10/14/2017 8:44 PM
[2017-10-14] MEDS ORDERED: CEFEPIME IV 2,000 MG in DEXTROSE 5% 100ML 100 ML IV STA (21:24)
--- NOTE | 2017-10-14 21:27 | DIAGNOSTIC IMAGING REPORT ---
CHEST CTA for PULMONARY ARTERIES CT DOSE: 346.83 mGy.cm HISTORY: Atypical chest pain. Short of breath. TECHNIQUE: Multiaxial CT images of the chest were performed following the intravenous administration of contrast to evaluate the pulmonary arteries. Maximal intensity projection images were also obtained. A dose lowering technique was utilized adhering to the principles of ALARA. COMPARISON STUDY: Chest CT 10/06/2017. FINDINGS: No evidence for an aortic dissection. Respiratory motion artifact results in suboptimal evaluation of the majority of the segmental and subsegmental pulmonary emboli. However, there are no definite filling defects within the pulmonary arteries to suggest pulmonary embolus. Mild narrowing of the bilateral distal main pulmonary arteries and bilateral lower pulmonary arteries due to the extensive mediastinal and hilar lymphadenopathy. There is also supraclavicular lymphadenopathy, unchanged. Left subclavian Port-A-Cath terminates in the right atrium. There again noted postoperative changes consistent with esophagectomy with gastric pull-up. Moderate bilateral pleural effusions have increased in size. The right pleural effusion is partially loculated. Hepatic metastatic lesions are again noted. Small amount of upper abdominal ascites. Body wall edema is present. Large diaphragmatic hernia occupying the majority of the left lung base. This contains both large and small bowel. This also remains unchanged. No significant pericardial effusion. Consolidation involving the base of the left lower lobe and a small amount of consolidation within the base of the lingula. This favors atelectasis. However, a pneumonia also have a similar appearance. There is mucoid material filling the majority of the left distal mainstem bronchus and left lower lobe bronchi. Focal obstruction of the bronchus intermedius best seen on image 147. This could represent a mass or mucous plug. No pneumothorax. Multiple scattered pulmonary nodules are again noted consistent with metastatic disease. Patchy densities within the right lower lobe. IMPRESSION: 1. No definite evidence for pulmonary embolus. 2. There appears to be near complete mucoid impaction of the distal left main bronchus and left lower lobe bronchus. There is associated consolidation at the base of the left lower lobe and lingula which may be due to atelectasis from the mucoid impaction or a possible pneumonia. 3. Focal obstruction of the right bronchus intermedius which could be due to a mass or mucous plug. 4. Recommend follow-up bronchoscopy for further evaluation. 5. Increase in size in the moderate bilateral pleural effusions. The right pleural effusion is partially loculated. 6. Metastatic disease is again noted. 7. Patchy densities within the right lower lobe favor a pneumonia. 8. No change in the large left diaphragmatic hernia. 9. These findings were discussed with Dr. Gregory at 9:26 PM on 10/14/2017. Electronically signed by: Ángel Prieto M.D. 10/14/2017 9:26 PM Dictated Date/Time: 10/14/2017 9:12 PM
[2017-10-14] MEDS ORDERED: DXM/4 PO (22:30)
[2017-10-14] MEDS ORDERED: OXYC-164 PO (22:30)
[2017-10-14] MEDS ORDERED: OXYC-57 PO (22:30)
[2017-10-14] MEDS ORDERED: ONDA-170 PO (22:35)
[2017-10-14] MEDS ORDERED: POLYETHYLENE (MIRALAX) 17 GM PACK PO PRN (23:00)
[2017-10-14] MEDS ORDERED: FENTANYL 12 MCG/HR TDSY TD SCH (23:00)
--- NOTE | 2017-10-14 23:03 | History and Physical ---
History & Physical Date & Time of Service: Oct 14, 2017 at 23:00 Chief Complaint: Sob, Weak Primary Care Physician: Yury Robert M.D. History of Present Illness Source: patient, family, hospital records 62-year-old male with a past medical history of esophageal cancer with metastasis to the lungs, liver, kidneys status post esophagectomy and gastrectomy, chronic anemia, GERD presented to the ER with complaints of acute onset of shortness of breath that started this morning. He also complains of fatigue and a cough but denies any fevers with chills, chest pain, palpitations , dizziness or lightheadedness. States that he had received IV fluids during his recent hospitalization within this last week and had noticed increased swelling of his lower extremities ever since. His most recent admission was for GI bleed and was discharged about 4 days ago. Past Medical/Surgical History Medical Problems: (1) Esophageal cancer Status: Chronic Family History FHx: cancer Hypertension Social History Smoking Status: Former Smoker Smokeless Tobacco Use: No Alcohol Use: none Drug Use: none Marital Status: Occupational Status: employed Immunizations History of Influenza Vaccine: No History of Tetanus Vaccine?: No History of Pneumococcal: No History of Hepatitis B Vaccine: No Multi-Drug Resistant Organisms History of MDRO: No Allergies Coded Allergies: No Known Allergies (Verified , 10/14/17) Home Medications Scheduled Fentanyl (Fentanyl), 12 MCG TOP Q3DAYS Ferrous Sulfate (Ferrous Sulfate), 325 MG PO BIDM Pantoprazole (Protonix), 40 MG PO BID Sucralfate (Sucralfate), 1 GM PO QID Scheduled PRN Ondansetron Hcl (Zofran), 8 MG PO Q8 PRN for Nausea Oxycodone Hcl (Oxycodone Hcl), 1 TAB PO Q4 PRN for Pain Oxycodone/Acetaminophen 5MG/325MG (Percocet 5MG/325MG), 1 TABLET PO Q4H PRN for Pain Miscellaneous Medications Dexamethasone (Decadron), 8 MG PO Review of Systems Constitutional: No fever, No chills Eyes: No worsening of vision ENT: No hearing loss Respiratory: + shortness of breath, + dyspnea at rest, No cough Cardiovascular: No chest pain, No palpitations Abdomen: + pain (generalized), No nausea, No vomiting Musculoskeletal: No joint pain Genitourinary - Male: No hematuria, No dysuria Neurologic: No memory loss Psychiatric: No depression symptoms Physical Exam Vital Signs Date Time Temp Pulse Resp B/P (MAP) Pulse Ox O2 Delivery O2 Flow Rate FiO2 10/14/17 21:21 107 20 130/86 90 Nasal Cannula 4.0 10/14/17 20:40 98 18 93 Nasal Cannula 4.0 10/14/17 20:30 134/86 10/14/17 20:12 128/88 10/14/17 20:10 104 19 92 10/14/17 20:07 92 Nasal Cannula 4.0 10/14/17 19:59 101 10/14/17 19:58 92 Nasal Cannula 4.0 10/14/17 19:44 36.8 111 20 106/73 75 Room Air General Appearance: WD/WN, + mild distress, + cachetic Head: normocephalic Eyes: normal inspection ENT: hearing grossly normal Neck: supple Respiratory/Chest: + crackles (RLL base), + rhonchi (diffuse), + wheezing ( left lung) Cardiovascular: no murmur, + tachycardia Abdomen/GI: normal bowel sounds, soft, + tenderness (diffusely) Back: + pertinent finding (decub ulcer) Extremities/Musculoskelatal: + pedal edema Neurologic/Psych: alert, normal mood/affect, oriented x 3 Diagnostics Laboratory Results Results Past 24 Hours Test 10/14/17 20:00 10/14/17 20:39 Range/Units White Blood Count 6.59 4.8-10.8 K/uL Red Blood Count 4.12 4.7-6.1 M/uL Hemoglobin 10.3 14.0-18.0 g/dL Hematocrit 33.9 42-52 % Mean Corpuscular Volume 82.3 80-100 fL Mean Corpuscular Hemoglobin 25.0 25-34 pg Mean Corpuscular Hemoglobin Concent 30.4 32-36 g/dl Platelet Count 347 130-400 K/uL Mean Platelet Volume 8.9 7.4-10.4 fL Neutrophils (%) (Auto) 77.6 % Lymphocytes (%) (Auto) 11.5 % Monocytes (%) (Auto) 9.3 % Eosinophils (%) (Auto) 1.1 % Basophils (%) (Auto) 0.2 % Neutrophils # (Auto) 5.12 1.4-6.5 K/uL Lymphocytes # (Auto) 0.76 1.2-3.4 K/uL Monocytes # (Auto) 0.61 0.11-0.59 K/uL Eosinophils # (Auto) 0.07 0-0.5 K/uL Basophils # (Auto) 0.01 0-0.2 K/uL RDW Standard Deviation 64.5 36.4-46.3 fL RDW Coefficient of Variation 21.2 11.5-14.5 % Immature Granulocyte % (Auto) 0.3 % Immature Granulocyte # (Auto) 0.02 0.00-0.02 K/uL Polychromasia 1+ Hypochromasia PRESENT Anisocytosis PRESENT Prothrombin Time 13.4 9.0-12.0 SECONDS Prothromb Time International Ratio 1.3 0.9-1.1 Activated Partial Thromboplast Time 32.8 21.0-31.0 SECONDS Partial Thromboplastin Ratio 1.3 Sodium Level 134 136-145 mmol/L Potassium Level 3.7 3.5-5.1 mmol/L Chloride Level 99 98-107 mmol/L Carbon Dioxide Level 30 21-32 mmol/L Anion Gap 5.0 3-11 mmol/L Blood Urea Nitrogen 10 7-18 mg/dl Creatinine 0.55 0.60-1.40 mg/dl Estimated GFR () 130.4 Estimated GFR (Non- 112.5 BUN/Creatinine Ratio 18.5 10-20 Random Glucose 94 70-99 mg/dl Calcium Level 7.7 8.5-10.1 mg/dl Total Bilirubin 0.3 0.2-1 mg/dl Aspartate Amino Transf (AST/SGOT) 108 15-37 U/L Alanine Aminotransferase (ALT/SGPT) 22 12-78 U/L Alkaline Phosphatase 254 45-117 U/L Troponin I 0.017 0-0.045 ng/ml Pro-B-Type Natriuretic Peptide 1180 0-900 pg/ml Total Protein 6.0 6.4-8.2 gm/dl Albumin 2.3 3.4-5.0 gm/dl Globulin 3.7 2.5-4.0 gm/dl Albumin/Globulin Ratio 0.6 0.9-2 Arterial Blood pH 7.40 7.35-7.45 Arterial Blood Partial Pressure CO2 48 35-46 mmHg Arterial Blood Partial Pressure O2 66 80-95 mm/Hg Arterial Blood HCO3 29 19-24 mmol/L Arterial Blood Oxygen Saturation 91.2 90-95 % Arterial Blood Base Excess 3.4 -9-1.8 mEq/L Arterial Blood Gas Delivery 4L O2 Danny Test POS POS Microbiology Results 10/14/17 Blood Culture, Received Pending 10/14/17 Blood Culture, Received Pending Diagnostic Radiology CHEST ONE VIEW PORTABLE HISTORY: EVALUATE RESPIRATORY DISTRESS.DYSPNEA COMPARISON: Chest 10/06/2017. Chest CT 10/06/2017. FINDINGS: Small right and moderate left pleural effusions have progressed. Left subclavian Port-A-Cath terminates in the right atrium. The heart remains mildly enlarged. No pneumothorax. Bibasilar densities have also progressed. There is mild interstitial thickening which is also progressed. Bilateral hilar lymphadenopathy is again noted. IMPRESSION: Progressive bilateral pleural effusions and bibasilar airspace opacities. This could represent atelectasis or pneumonia. Electronically signed by: Ángel Prieto M.D. 10/14/2017 8:46 PM Dictated Date/Time: 10/14/2017 8:44 PM CHEST CTA for PULMONARY ARTERIES CT DOSE: 346.83 mGy.cm HISTORY: Atypical chest pain. Short of breath. TECHNIQUE: Multiaxial CT images of the chest were performed following the intravenous administration of contrast to evaluate the pulmonary arteries. Maximal intensity projection images were also obtained. A dose lowering technique was utilized adhering to the principles of ALARA. COMPARISON STUDY: Chest CT 10/06/2017. FINDINGS: No evidence for an aortic dissection. Respiratory motion artifact results in suboptimal evaluation of the majority of the segmental and subsegmental pulmonary emboli. However, there are no definite filling defects within the pulmonary arteries to suggest pulmonary embolus. Mild narrowing of the bilateral distal main pulmonary arteries and bilateral lower pulmonary arteries due to the extensive mediastinal and hilar lymphadenopathy. There is also supraclavicular lymphadenopathy, unchanged. Left subclavian Port-A-Cath terminates in the right atrium. There again noted postoperative changes consistent with esophagectomy with gastric pull-up. Moderate bilateral pleural effusions have increased in size. The right pleural effusion is partially loculated. Hepatic metastatic lesions are again noted. Small amount of upper abdominal ascites. Body wall edema is present. Large diaphragmatic hernia occupying the majority of the left lung base. This contains both large and small bowel. This also remains unchanged. No significant pericardial effusion. Consolidation involving the base of the left lower lobe and a small amount of consolidation within the base of the lingula. This favors atelectasis. However, a pneumonia also have a similar appearance. There is mucoid material filling the majority of the left distal mainstem bronchus and left lower lobe bronchi. Focal obstruction of the bronchus intermedius best seen on image 147. This could represent a mass or mucous plug. No pneumothorax. Multiple scattered pulmonary nodules are again noted consistent with metastatic disease. Patchy densities within the right lower lobe. IMPRESSION: 1. No definite evidence for pulmonary embolus. 2. There appears to be near complete mucoid impaction of the distal left main bronchus and left lower lobe bronchus. There is associated consolidation at the base of the left lower lobe and lingula which may be due to atelectasis from the mucoid impaction or a possible pneumonia. 3. Focal obstruction of the right bronchus intermedius which could be due to a mass or mucous plug. 4. Recommend follow-up bronchoscopy for further evaluation. 5. Increase in size in the moderate bilateral pleural effusions. The right pleural effusion is partially loculated. 6. Metastatic disease is again noted. 7. Patchy densities within the right lower lobe favor a pneumonia. 8. No change in the large left diaphragmatic hernia. 9. These findings were discussed with Dr. Gregory at 9:26 PM on 10/14/2017. Electronically signed by: Ángel Prieto M.D. 10/14/2017 9:26 PM Dictated Date/Time: 10/14/2017 9:12 PM Impression Assessment and Plan 62-year-old male with a past medical history of esophageal cancer with metastasis to the lungs, liver, kidneys status post esophagectomy and gastrectomy, chronic anemia, GERD presented to the ER with complaints of acute onset of shortness of breath that started this morning. Acute hypoxic respiratory failure: - His saturations on arrival to the ER was about 75% which had increased to late 80s-90s after O2 supplementation. It could be a combination of fluid overload due to IV fluids he received during his hospitalization and pneumonia as evidenced on CT - Chest x-ray :Progressive bilateral pleural effusions and bibasilar airspace opacities, which could represent atelectasis or pneumonia - CT chest: near complete mucoid impaction of the distal left main bronchus and left lower lobe bronchus. consolidation at the base of the left lower lobe and lingula which may be due to atelectasis from the mucoid impaction or a possible pneumonia and a Focal obstruction of the right bronchus intermedius which could be due to a mass or mucous plug. Patchy densities within the right lower lobe favor a pneumonia. - Consult pulmonology for possible bronchoscopy - DuoNeb's, vibration vest, incentive spirometer to enable pulmonary toilet - Vancomycin, Levaquin, Zosyn for pneumonia - Consider cardiac thoracic surgery consult for thoracocentesis for bilateral pleural effusions Metastatic esophageal carcinoma status post esophagectomy and gastrectomy - The patient follows with Dr. Nicole and intends to pursue chemotherapy and radiation therapy - Elevated liver enzymes reflective of liver metastasis - 12 g fentanyl patch and oxycodone as needed for pain - Consider palliative consult: The patient still intends to be aggressive with this treatment and was seen by palliative during his previous admission and was recommended outpatient palliative follow-up H/o Recent Gastric bleed: - Protonix IV 40 mg BID DVT prophylaxis: SCDs Chemical anticoagulation avoided in anticipation of bronchoscopy tomorrow Full code Disposition: Admitted to telemetry Attending addendum: I have physically seen this patient, have supervised the medical residents activities, and agree with the H&P unless as otherwise noted. Assessment and Plan: Acute respiratory failure with hypoxia/progressive bilateral pleural effusions/ bibasilar pneumonia/mucous plugging bilaterally-- Nothing by mouth status for possible procedure Admit to telemetry unit Vancomycin IV, levofloxacin IV and Zosyn IV Solu-Medrol 40 mg IV every 8 hours Sputum Gram stain and culture Duonebs every 4 hours while awake and every 2 hours when necessary. Consult pulmonology for bronchoscopy Metastatic esophageal carcinoma/status post esophagectomy and gastrectomy-- Continue current pain regimen of fentanyl patch and oxycodone Consult Dr. Lopez his oncologist GERD/recent gastric ulcer with bleeding requiring 6 units PRBCs Protonix 40 mg IV twice a day Level of Care Telemetry Advanced Directives Existing Advance Directive: No Existing Living Will: No Existing Power of Compliance Analyst: No Resuscitation Status FULL RESUSCITATION VTE Prophylaxis VTE Risk Assessment Done? Y/N: Yes Risk Level: Moderate Given or contraindicated: SCD's Resident Tracking Resident Involvement: Resident Care Provided Care Provided: Adult [facility]
[2017-10-14 23:08] VITALS: BP 135/85; PULSE 103; TEMP 36.4; O2SAT 93; BMI 22.0; BMI 23.8
[2017-10-14] MEDS ORDERED: OXYCODONE/ACETAMINOPHEN 5-325 TAB ONE (23:11)
[2017-10-14] MEDS: OXYCODONE/ACETAMINOPHEN 5-325 TAB PO PRN (23:14)
[2017-10-14] MEDS ORDERED: PIPERACILL/TAZOBAC CONSULT ACTIVE PRN (23:30)
[2017-10-14] MEDS ORDERED: VANCOMYCIN CONSULT ACTIVE PRN (23:30)
[2017-10-14 23:37] VITALS: BP 137/87; PULSE 111; TEMP 36.4; O2SAT 89
[2017-10-14 23:48] VITALS: BP 135/85; PULSE 103; O2SAT 92
[2017-10-15] VITALS (28 sets, daily range): BP systolic 112–151; BP diastolic 75–96; PULSE 18–102; TEMP 36.4–37; O2SAT 90–100; Ht 182.9 cm; Wt 69.4 kg
[2017-10-15] MEDS ORDERED: PIPERACILL/TAZOBAC IV 3.375 GM in DEXTROSE 5% 100ML IV ONE ×2
[2017-10-15] MEDS ORDERED: VANCOMYCIN INJ 2,000 MG in SODIUM CHLORIDE 0.9% 500ML 500 ML IV SCH ×2
[2017-10-15] MEDS: CHECK FENTANYL PATCH PLACEMENT SCH ×4 (00:04→23:18)
[2017-10-15] MEDS: LEVOFLOXACIN / D5W 750 MG in PREMIXED IN D5W 150 ML IV SCH (03:14)
[2017-10-15] MEDS: ACETAMINOPHEN 325 MG TAB PO PRN ×2 (05:29→21:55)
[2017-10-15] MEDS: PIPERACILL/TAZOBAC IV 3.375 GM in DEXTROSE 5% 100ML IV SCH ×3 (05:30→21:53)
[2017-10-15] MEDS ORDERED: PIPERACILL/TAZOBAC IV 3.375 GM in DEXTROSE 5% 100ML 100 ML IV SCH (06:00)
[2017-10-15] MEDS: ALBUT/IPRATROP 3MG/0.5MG NEB 3 ML VIAL INH SCH ×4 (07:08→19:45)
[2017-10-15] MEDS: FERROUS SULFATE 325 MG TAB PO SCH ×2 (07:15→16:05)
[2017-10-15] MEDS: SUCRALFATE 1 GM/10 ML UDC PO SCH ×4 (07:26→20:59)
[2017-10-15] MEDS: VANCOMYCIN INJ 1,250 MG in SODIUM CHLORIDE 0.9% 250ML 250 ML IV SCH ×2 (07:30→16:00)
[2017-10-15] MEDS: ONDANSETRON INJ 2 MG/ML 2 ML VIAL IV PRN (07:59)
[2017-10-15] MEDS ORDERED: DEXAMETHASONE 4 MG TAB PO SCH (09:00)
[2017-10-15] MEDS ORDERED: PANTOprazole INJ 40 MG in SYRINGE 0 ML IV SCH (09:00)
[2017-10-15] MEDS ORDERED: PANTOprazole SOD 40 MG TAB PO SCH (09:00)
[2017-10-15] MEDS ORDERED: VANCOMYCIN INJ 1,000 MG in SODIUM CHLORIDE 0.9% 250ML 250 ML IV SCH (09:00)
[2017-10-15] MEDS ORDERED: LIDOCAINE HCL 1% 20 ML VIAL ONE (09:17)
[2017-10-15] MEDS ORDERED: NURSING VERBAL MED ORDER ONE ×2 (10:00→11:15)
[2017-10-15] MEDS ORDERED: MIDAZOLAM HCL 5 MG/ML 1 ML VIAL IV SCH (10:15)
[2017-10-15] MEDS ORDERED: FENTANYL CITRATE INJ 50 MCG/1 ML 2 ML VIAL IV SCH (10:15)
[2017-10-15] MEDS ORDERED: FENTANYL CITRATE INJ 50 MCG/1 ML 2 ML VIAL ONE (10:20)
[2017-10-15] MEDS ORDERED: MIDAZOLAM HCL 1 MG/ML 2ML VIAL ONE (10:20)
--- NOTE | 2017-10-15 10:38 | DIAGNOSTIC IMAGING REPORT ---
CHEST ONE VIEW PORTABLE CLINICAL HISTORY: post bilateral thoracentesis COMPARISON STUDY: Chest radiograph and chest CT October 14, 2017. FINDINGS: A left subclavian [id number] is in place. There is no pneumothorax. Bilateral pleural effusions have decreased in size. There are bibasilar opacities bilateral hilar enlargement is due to lymphadenopathy as shown on CT. Abnormal mediastinal contour is due to lymphadenopathy and previous esophagectomy with gastric pull-up. IMPRESSION: No pneumothorax following bilateral thoracentesis. Interval decrease in size of the bilateral pleural effusions. Electronically signed by: Zay Jones M.D. 10/15/2017 10:37 AM Dictated Date/Time: 10/15/2017 10:33 AM
[2017-10-15 10:48] LABS: PLEURAL FLUID GLUCOSE 87 mg/dl
[2017-10-15 10:59] LABS: PLEURAL FLUID TOTAL PROTEIN 1.8 g/dl
[2017-10-15] MEDS: OXYCODONE/ACETAMINOPHEN 5-325 TAB PO PRN ×3 (13:50→23:11)
--- NOTE | 2017-10-15 15:13 | Hospitalist Progress Note ---
Hospitalist Progress Note Date of Service Oct 15, 2017. (Katrina Calvert PA-C) Subjective Pt evaluation today including: conversation w/ patient, conversation w/ family , physical exam, chart review, lab review, review of studies, conversation w/ seo consultant (Dr. Sumner), review of inpatient medication list Patient seen today after b/l thoracentesis. States he feel a lot better now that that fluid is removed. Also had bronchoscopy that show b/l mass protrusion on airways. Patient discussed with daughter and is planning of mass removal He continues to have a cough that is sometimes productive of small amounts of sputum. Denies fever/chills. Additional Comments: General/Constitutional: Denies fever/chills, fatigue, weakness ENT: Denies visual changes, nasal drainage, sore throat, trouble swallowing Cardiovascular: Denies chest pain, palpitations, edema Respiratory: + SOB - improving after thoracentesis, + cough, + minimal sputum; Denies orthopnea GI: Denies nausea, vomiting, abdominal pain, constipation, diarrhea, melena/ hematochezia : Denies dysuria Musculoskeletal: + swelling b/l lower extremities - improving; Denies joint/ muscle aches, weakness Neurologic: Denies dizziness/lightheadedness, numbness/tingling, weakness Hematologic/Lymphatic: Denies bleeding/clotting abnormalities Skin: Denies rash (Katrina Calvert, [facility]) Medications Current Inpatient Medications Medications (Trade) Dose Ordered Sig/Konstantin Route Start Time Stop Time Status Last Admin Dose Admin Ioversol (Optiray 320) 100 ml UD PRN IV 10/14/17 20:45 10/18/17 20:44 Acetaminophen (Tylenol Tab) 650 mg Q4H PRN PO 10/14/17 23:00 11/13/17 22:59 10/15/17 05:29 650 MG Ondansetron HCl (Zofran Inj) 4 mg Q6H PRN IV 10/14/17 23:00 11/13/17 22:59 10/15/17 07:59 4 MG Polyethylene (Miralax Powder Packet) 17 gm DAILY PRN PO 10/14/17 23:00 11/13/17 22:59 Dexamethasone (Decadron Tab) 8 mg QAM PO 10/15/17 09:00 11/14/17 08:59 Ferrous Sulfate (Feosol Tab) 325 mg BIDM PO 10/15/17 07:15 11/14/17 07:59 Oxycodone/ Acetaminophen (Percocet 5-325mg Tab) 1 tab Q4H PRN PO 10/14/17 23:00 10/28/17 22:59 10/15/17 13:50 1 TAB Sucralfate (Carafate Susp) 1 gm QID PO 10/15/17 09:00 11/14/17 08:59 Albuterol/ Ipratropium (Duoneb) 3 ml QIDR INH 10/15/17 08:00 11/14/17 07:59 10/15/17 11:19 3 ML Miscellaneous Information (Consult) 1 ea UD PRN N/A 10/14/17 23:30 11/13/17 23:29 Miscellaneous Information (Consult) 1 ea UD PRN N/A 10/14/17 23:30 11/13/17 23:29 Levofloxacin 750 mg/Prmx 150 ml @ 100 mls/hr Q24H IV 10/15/17 03:00 10/22/17 02:59 10/15/17 03:14 100 MLS/HR Pantoprazole Sodium 40 mg/ Syringe 10 ml @ 5 mls/min DAILY@09,21 IV 10/15/17 09:00 11/14/17 08:59 10/15/17 08:40 5 MLS/MIN Piperacillin Sod/ Tazobactam Sod 3.375 gm/Dextrose 115 ml @ 28.75 mls/ hr Q8H IV 10/15/17 06:00 10/22/17 05:59 10/15/17 13:46 28.75 MLS/HR Fentanyl (Duragesic Patch) 12 mcg Q3D TD 10/16/17 14:30 10/30/17 14:29 Miscellaneous (Fentanyl Patch Remove & Waste) 1 ea Q3D N/A 10/16/17 14:29 11/15/17 14:28 Miscellaneous Information (Check Fentanyl Patch Placement) 1 ea QS N/A 10/15/17 00:00 11/14/17 00:00 10/15/17 07:30 1 EA Heparin Sodium (Porcine) (Heparin 100 Unit/ml 5ml Flush) 5 ml PRN PRN IV 10/15/17 00:30 11/14/17 00:29 Vancomycin HCl 1250 mg/Sodium Chloride 275 ml @ 125 mls/hr Q8H IV 10/15/17 08:00 10/22/17 07:59 10/15/17 07:30 125 MLS/HR (Katrina Calvert, EDIN) Objective Vital Signs Date Time Temp Pulse Resp B/P (MAP) Pulse Ox O2 Delivery O2 Flow Rate FiO2 10/15/17 12:30 Nasal Cannula 3.0 10/15/17 12:30 36.4 18 18 129/84 (99) 96 Nasal Cannula 3.0 92 10/15/17 11:30 36.6 98 17 122/77 98 Nasal Cannula 4.0 10/15/17 11:20 36.6 94 14 122/80 (90) 100 10/15/17 11:19 94 16 98 Mask 4.0 10/15/17 11:15 96 15 116/76 (80) 98 10/15/17 11:10 36.6 95 14 112/75 (90) 98 10/15/17 11:09 Mask 10/15/17 11:05 92 20 127/77 (91) 98 10/15/17 11:05 36.6 94 14 127/77 98 Mask 4.0 10/15/17 11:00 36.6 96 15 138/87 (92) 97 10/15/17 10:55 92 2 127/83 (93) 100 10/15/17 10:50 36.6 98 17 140/91 (101) 100 10/15/17 10:45 92 27 137/92 (100) 100 10/15/17 10:45 97 18 137/92 100 Diffusion Mask 5.0 10/15/17 10:43 36.8 92 20 129/89 (102) 100 10/15/17 10:40 91 25 100 10/15/17 10:35 89 19 100 10/15/17 08:00 Nasal Cannula 3.0 10/15/17 07:39 36.7 91 18 140/87 (104) 92 Nasal Cannula 3.0 10/15/17 07:08 95 18 91 Nasal Cannula 3.0 10/15/17 04:00 36.6 95 16 138/84 (102) 95 Nasal Cannula 3.0 10/15/17 04:00 95 Nasal Cannula 3.0 10/15/17 03:00 95 20 145/92 (109) 90 Nasal Cannula 3.0 10/15/17 02:00 89 14 117/76 (90) 94 Nasal Cannula 3.0 10/15/17 01:00 93 15 127/82 (97) 96 Nasal Cannula 3.0 10/15/17 00:01 95 Nasal Cannula 3.0 10/15/17 00:00 101 16 127/88 (101) 96 Nasal Cannula 3.0 10/14/17 23:48 103 19 135/85 (102) 92 Nasal Cannula 3.0 10/14/17 23:37 36.4 111 17 137/87 (104) 89 Nasal Cannula 3.0 10/14/17 23:21 101 20 137/96 92 10/14/17 23:08 36.4 103 20 135/85 93 Nasal Cannula 3.0 10/14/17 23:03 106 10/14/17 23:00 137/96 10/14/17 22:45 104 20 92 Nasal Cannula 4.0 10/14/17 22:31 109/67 10/14/17 22:15 108 20 95 10/14/17 22:00 126/81 10/14/17 21:45 108 19 89 Nasal Cannula 4.0 10/14/17 21:30 133/91 10/14/17 21:21 107 20 130/86 90 Nasal Cannula 4.0 10/14/17 21:15 108 22 90 10/14/17 20:40 98 18 93 Nasal Cannula 4.0 10/14/17 20:30 134/86 10/14/17 20:12 128/88 10/14/17 20:10 104 19 92 10/14/17 20:07 92 Nasal Cannula 4.0 10/14/17 19:59 101 10/14/17 19:58 92 Nasal Cannula 4.0 10/14/17 19:44 36.8 111 20 106/73 75 Room Air (Katrina Calvert, [facility]) Physical Exam Notes: General Appearance: WDWN in NAD who is A&O x 3; thin HEENT: Head is normocephalic/atraumatic; Hearing grossly intact; Mucous membranes moist; Pharynx negative for exudate/lesions Neck: Supple; Trachea midline; Neg JVD Heart: RRR with no M/G/R Lungs: + rhonchi diffusely with good inspiratory expansion; Respirations unlabored; Neg accessory muscle use; chest wall with dressings c/d/i after b/l thoracentesis Abdomen: Soft, non-tender, non-distended; Positive BS x 4 quadrants Extremities: + Edema B/L lower extremities (reporting improving) Neurological: Speech clear; Neg focal neurologic deficits Psychiatric: Appropriate mood/affect Skin: Normal Color; Warm/Dry (Katrina Calvert, EDIN) Laboratory Results Last 24 Hours Test 10/14/17 20:00 10/14/17 20:39 10/15/17 09:32 10/15/17 09:47 White Blood Count 6.59 K/uL Red Blood Count 4.12 M/uL Hemoglobin 10.3 g/dL Hematocrit 33.9 % Mean Corpuscular Volume 82.3 fL Mean Corpuscular Hemoglobin 25.0 pg Mean Corpuscular Hemoglobin Concent 30.4 g/dl Platelet Count 347 K/uL Mean Platelet Volume 8.9 fL Neutrophils (%) (Auto) 77.6 % Lymphocytes (%) (Auto) 11.5 % Monocytes (%) (Auto) 9.3 % Eosinophils (%) (Auto) 1.1 % Basophils (%) (Auto) 0.2 % Neutrophils # (Auto) 5.12 K/uL Lymphocytes # (Auto) 0.76 K/uL Monocytes # (Auto) 0.61 K/uL Eosinophils # (Auto) 0.07 K/uL Basophils # (Auto) 0.01 K/uL RDW Standard Deviation 64.5 fL RDW Coefficient of Variation 21.2 % Immature Granulocyte % (Auto) 0.3 % Immature Granulocyte # (Auto) 0.02 K/uL Polychromasia 1+ Hypochromasia PRESENT Anisocytosis PRESENT Prothrombin Time 13.4 SECONDS Prothromb Time International Ratio 1.3 Activated Partial Thromboplast Time 32.8 SECONDS Partial Thromboplastin Ratio 1.3 Sodium Level 134 mmol/L Potassium Level 3.7 mmol/L Chloride Level 99 mmol/L Carbon Dioxide Level 30 mmol/L Anion Gap 5.0 mmol/L Blood Urea Nitrogen 10 mg/dl Creatinine 0.55 mg/dl Estimated GFR () 130.4 Estimated GFR (Non- 112.5 BUN/Creatinine Ratio 18.5 Random Glucose 94 mg/dl Calcium Level 7.7 mg/dl Total Bilirubin 0.3 mg/dl Aspartate Amino Transf (AST/SGOT) 108 U/L Alanine Aminotransferase (ALT/SGPT) 22 U/L Alkaline Phosphatase 254 U/L Troponin I 0.017 ng/ml Pro-B-Type Natriuretic Peptide 1180 pg/ml Total Protein 6.0 gm/dl Albumin 2.3 gm/dl Globulin 3.7 gm/dl Albumin/Globulin Ratio 0.6 Arterial Blood pH 7.40 Arterial Blood Partial Pressure CO2 48 mmHg Arterial Blood Partial Pressure O2 66 mm/Hg Arterial Blood HCO3 29 mmol/L Arterial Blood Oxygen Saturation 91.2 % Arterial Blood Base Excess 3.4 mEq/L Arterial Blood Gas Delivery 4L O2 Danny Test POS Pleural Fluid Source LEFT LUNG RIGHT LUNG Pleural Fluid Color NISREEN NISREEN Pleural Fluid Appearance HAZY HAZY Pleural Fluid WBC 530 /uL 482 /uL Pleural Fluid RBC 41689 /uL 66840 /uL Pleural Fluid Polynuclear WBCs % 20.9 % 27.0 % Pleural Fluid Mononuclear WBCs % 79.1 % 73.0 % Pleural Fluid Total Protein 1.8 g/dl Pleural Fluid Albumin 0.9 g/dl Pleural Fluid LDH 150 IU Pleural Fluid Glucose 87 mg/dl Pleural Fluid Amylase 11 U/L (Katrina Calvert, PA-C) Assessment and Plan 62-year-old male with a past medical history of esophageal cancer with metastasis to the lungs, liver, kidneys status post esophagectomy and gastrectomy, chronic anemia, GERD presented to the ER with complaints of acute onset of shortness of breath that started this morning. Acute Hypoxic Respiratory Failure 2/2 B/L Pleural Effusions with Mucus Plugging vs Tumor Hiddenite vs HCAP - Patient is S/P B/L Thoracentesis and Bronchoscopy on 10/15 - tapped for 650 cc and 1 L with bronchoscopy revealing tumor burden on airways and mucus plugging -- Dr. Sumner discussed with patient and patient would be interested in mass removal - will need interventionalist consultation - Possible PNA? However patient is afebrile and without leukocytosis - currently being covered for HCAP but likely can de-escalate - for now will continue Levafloxacin 750 mg daily, Zosyn, and Vancomycin - Follow pleural fluid cytology - Continue Duonebs KONSTANTIN and PRN - Pulmonary following - discussed case with Dr. Sumner - findings as above Recent Ulceration of Esophagogastric Anastamosis with Recent Upper GI Bleed: - Recent admission with EGD performed - will continue Protonix 40 mg BID and Carafate QID Metastatic Esophageal Carcinoma S/P Esophagectomy and Gastrectomy: Follows with Dr. Nicole - Has not initiated chemotherapy yet due to hospitalization. Patient currently would like to pursue aggressive treatment - [place] to Lung, Liver, and Kidney - evidenced on imaging and support LFTs - He is prescribed Decadron to take with chemotherapy DVT Prophylaxis: SCDs Code Status: FULL RESUSCITATION Disposition: - Discussion with pulm interventionalist for possible tumor burden on airways - patient does want to actively treat his cancer at this point; was seen by Palliative on previous admission with recommendations for outpatient F/U. Continued [facility] stay due to: multiple IV medications needed Discharge planning: home (Katrina Calvert PA-C) Reviewed: Pt Seen/Exam by Me (Ines Donovan MD) History Physician Imaging Account Manager Supervision Note: I interviewed and examined the patient. Discussed with NAIMA Calvert and agree with findings and plan as documented in the note. Any exceptions or clarifications are listed here: Pt feeling much improved with less SOB since bilat thoracenteses and bronchoscopy with lavage of mucus plugging. Discussed case with Pulmonology today. Effusions are transudative and likely reactive due to atelectasis. But did have a lot of purulence on bronchoscopy and likely could have post-obstructive PNA as well. Pt has c/o left shoulder pain constantly. Vitals reviewed thin, appears chronically ill, temporal wasting RRR no mgr Diffuse rhonchi, decreased BS throughout both lungs Abd +BS soft NT ND Ext trace pitting edema bilat 62 yo male with metastatic esophageal CA, here with bilateral pleural effusions that are large, bilateral obstructing bronchial tumors, and post-obstructive PNA vs HCAP, treating for MRSA and GNR PNA given recent hospital stay. Pleural effusions transudative likely secondary to atelectasis -continue Vanco/Levaquin/Zosyn, MRSA nasal swab negative but will continue Vanco until see gram stains/cxs results -f/u cultures from bronchoscopy, BCxs, pleural fluid cultures -plan for possible interventional Pulm procedure to alleviate bronchial obstruction -supportive care, supplemental O2, pain control -hgb remains stable from previous given recent GI bleed Palliative consult obtained last week at previous admission Documented By: Ines Donovan (Ines Donovan MD)
--- NOTE | 2017-10-15 15:55 | Pharmacy Progress Note ---
Pharmacy Abx Initial Consult Date of Service Oct 15, 2017. Pharmacy Dosing Scope Date of Consult: 10/15 Consultation requested by: Dr. Allen Pharmacy is consulted to initiate Vancomycin and Zosyn IV dosing therapy, order appropriate labs and adjust drug dose/frequency. Pt is also on Levaquin 750mg IV q 24 hours. Subjective The patient is a 62 year old male admitted on Oct 14, 2017 at 22:59. Objective Height (Feet): 6 Height (Inches): 0.00 Weight (Kilograms): 73.700 Vital Signs (Past 12Hrs) Vital Signs Past 12 Hours Date Time Temp Pulse Resp B/P (MAP) Pulse Ox O2 Delivery O2 Flow Rate FiO2 10/15/17 15:11 36.7 89 20 137/84 (101) 96 Nasal Cannula 4.0 10/15/17 12:30 Nasal Cannula 3.0 10/15/17 12:30 36.4 18 18 129/84 (99) 96 Nasal Cannula 3.0 92 10/15/17 11:30 36.6 98 17 122/77 98 Nasal Cannula 4.0 10/15/17 11:20 36.6 94 14 122/80 (90) 100 10/15/17 11:19 94 16 98 Mask 4.0 10/15/17 11:15 96 15 116/76 (80) 98 10/15/17 11:10 36.6 95 14 112/75 (90) 98 10/15/17 11:09 Mask 10/15/17 11:05 92 20 127/77 (91) 98 10/15/17 11:05 36.6 94 14 127/77 98 Mask 4.0 10/15/17 11:00 36.6 96 15 138/87 (92) 97 10/15/17 10:55 92 2 127/83 (93) 100 10/15/17 10:50 36.6 98 17 140/91 (101) 100 10/15/17 10:45 92 27 137/92 (100) 100 10/15/17 10:45 97 18 137/92 100 Diffusion Mask 5.0 10/15/17 10:43 36.8 92 20 129/89 (102) 100 10/15/17 10:40 91 25 100 10/15/17 10:35 89 19 100 10/15/17 08:00 Nasal Cannula 3.0 10/15/17 07:39 36.7 91 18 140/87 (104) 92 Nasal Cannula 3.0 10/15/17 07:08 95 18 91 Nasal Cannula 3.0 10/15/17 04:00 36.6 95 16 138/84 (102) 95 Nasal Cannula 3.0 10/15/17 04:00 95 Nasal Cannula 3.0 Lab Results (24Hrs) Laboratory Tests (24 Hours) Test 10/14/17 20:00 White Blood Count 6.59 K/uL (4.8-10.8) Red Blood Count 4.12 M/uL (4.7-6.1) L Hemoglobin 10.3 g/dL (14.0-18.0) L Hematocrit 33.9 % (42-52) L Mean Corpuscular Volume 82.3 fL (80-100) Mean Corpuscular Hemoglobin 25.0 pg (25-34) Mean Corpuscular Hemoglobin Concent 30.4 g/dl (32-36) L Platelet Count 347 K/uL (130-400) Mean Platelet Volume 8.9 fL (7.4-10.4) Neutrophils (%) (Auto) 77.6 % Lymphocytes (%) (Auto) 11.5 % Monocytes (%) (Auto) 9.3 % Eosinophils (%) (Auto) 1.1 % Basophils (%) (Auto) 0.2 % Neutrophils # (Auto) 5.12 K/uL (1.4-6.5) Lymphocytes # (Auto) 0.76 K/uL (1.2-3.4) L Monocytes # (Auto) 0.61 K/uL (0.11-0.59) H Eosinophils # (Auto) 0.07 K/uL (0-0.5) Basophils # (Auto) 0.01 K/uL (0-0.2) Micro Results Date/Time Source Procedure Growth Status 10/14/17 21:36 Blood Blood Culture Pending Received 10/14/17 20:00 Blood Blood Culture Pending Received 10/14/17 23:45 Nasal MRSA DNA Surveillance Screen - Final Specimen Negative for MRSA by DNA Probe Complete 10/15/17 09:47 Pleural Fluid (Thoracentesis) Right Gram Stain Pending Received 10/15/17 09:47 Pleural Fluid (Thoracentesis) Right Bacterial Culture Pending Received 10/15/17 09:32 Pleural Fluid (Thoracentesis) Left Gram Stain Pending Received 10/15/17 09:32 Pleural Fluid (Thoracentesis) Left Bacterial Culture Pending Received Risk Factors for Resistance * Hospitalization for 48 hours or more within the past 90 days * Admitted Aug 2017 for hypoxia * Admitted 10/06-10/10/17 for GI bleed * Immunocompromised * Pt has history of esophageal cancer, on steroids. Assessment & Plan Assessment 62 year old male with h/o esophageal cancer w/ mets to lungs, liver and kidneys admitted for pneumonia after being discharged on 10/10/17. * Renal function at baseline. Scr=0.55mg/dl * MRSA nasal swab negative * Dr Donovan would like to continue vanc for now secondary to patient's status * Blood and pleural fluid cultures pending * Pt has no leucocytosis and is afebrile Plan Vancomycin and Zosyn for treatment of pneumonia. Vancomycin IV * Loading dose: 2000 mg (27 mg/kg) * Maintenance dose: 1250 mg IV (16.9 mg/kg) every 8 hours * Goal trough level for pneumonia : 15 to 20 mcg/mL * Trough level ordered for 10/15 @ 2330 Piperacillin/tazobactam * 3.375 g bolus administered over 30 minutes, then 3.375 g IV extended infusion every 8 hours for CrCl greater than 20 mL/min Pharmacy will continue to follow and will adjust dose/frequency as necessary. Thank you.
--- NOTE | 2017-10-15 16:32 | Pulmonary Consultation ---
History General Date of Service: Oct 15, 2017. Stated Complaint: Acute Respiratory Failure With Hypoxia HPI The patient is a 62 year old male who presents to [facility] with complaints of Acute Respiratory Failure With Hypoxia. The patient's primary care provider is Yury Robert M.D.. Historian: patient Onset: other (few months) Severity: moderate Complaint Status: improved, persistent Quality of Pain: aching, other (left shoulder) Review of Systems Constitutional: reports: no symptoms ENT: reports: no symptoms Cardiovascular: reports: no symptoms Respiratory: reports: cough, shortness of breath Gastrointestinal: reports: constipation, nausea Musculoskeletal: reports: other (chronic left shoulder pain) Neurologic: reports: no symptoms Psychiatric: reports: no symptoms Hematologic / Lymphatic: other (metastasis to the lymph nodes in the chest, cachexia.) Allergic / Immunologic: no symptoms Past Medical History Past Medical History: History of adenocarcinoma of the esophagus, status post esophagectomy in 2014, followed by chemoradiation, and recently found to have metastasis to the liver, lung and kidney. History of smoking the past, cachexia, COPD. Family History FHx: cancer Hypertension Social History Hx Tobacco Use In Past Year?: No Smoking Status: Former Smoker Marital status: Occupational Status: employed Immunizations History of Influenza Vaccine: No History of Tetanus Vaccine?: No History of Pneumococcal: No History of Hepatitis B Vaccine: No History of MDRO History of MDRO: No Allergies Coded Allergies: No Known Allergies (Verified , 10/14/17) Current Medications Reported Home Medications Medications Dose Route/Sig Max Daily Dose Days Date Category Dose Instructions Zofran (Ondansetron HCl) 8 Mg Tab 8 Mg PO Q8 PRN 10/14/17 Reported Oxycodone Hcl 10 Mg Tab 1 Tab PO Q4 PRN 30 10/14/17 Reported Decadron (Dexamethasone) 4 Mg Tab 8 Mg PO 10/14/17 Reported Percocet 5MG/325MG (Oxycodone/Acetaminophen) Tab 1 Tablet PO Q4H PRN 10/14/17 Reported PAIN Sucralfate 1 Gm/10 Ml Susp 1 Gm PO QID 10 10/10/17 Rx Protonix (Pantoprazole Sodium) 40 Mg Tab 40 Mg PO BID 10/10/17 Rx Ferrous Sulfate 325 Mg Tab 325 Mg PO BIDM 30 10/10/17 Rx Fentanyl 12 Mcg Tdsy 12 Mcg TOP Q3DAYS 10/06/17 Reported Physical Physical Exam Vital Signs: Date Time Temp Pulse Resp B/P (MAP) Pulse Ox O2 Delivery O2 Flow Rate FiO2 10/15/17 15:50 93 16 95 Nasal Cannula 4.0 10/15/17 15:11 36.7 89 20 137/84 (101) 96 Nasal Cannula 4.0 10/15/17 12:30 Nasal Cannula 3.0 10/15/17 12:30 36.4 18 18 129/84 (99) 96 Nasal Cannula 3.0 92 10/15/17 11:30 36.6 98 17 122/77 98 Nasal Cannula 4.0 10/15/17 11:20 36.6 94 14 122/80 (90) 100 10/15/17 11:19 94 16 98 Mask 4.0 10/15/17 11:15 96 15 116/76 (80) 98 10/15/17 11:10 36.6 95 14 112/75 (90) 98 10/15/17 11:09 Mask 10/15/17 11:05 92 20 127/77 (91) 98 10/15/17 11:05 36.6 94 14 127/77 98 Mask 4.0 10/15/17 11:00 36.6 96 15 138/87 (92) 97 10/15/17 10:55 92 2 127/83 (93) 100 10/15/17 10:50 36.6 98 17 140/91 (101) 100 10/15/17 10:45 92 27 137/92 (100) 100 10/15/17 10:45 97 18 137/92 100 Diffusion Mask 5.0 10/15/17 10:43 36.8 92 20 129/89 (102) 100 10/15/17 10:40 91 25 100 10/15/17 10:35 89 19 100 10/15/17 08:00 Nasal Cannula 3.0 10/15/17 07:39 36.7 91 18 140/87 (104) 92 Nasal Cannula 3.0 10/15/17 07:08 95 18 91 Nasal Cannula 3.0 10/15/17 04:00 36.6 95 16 138/84 (102) 95 Nasal Cannula 3.0 10/15/17 04:00 95 Nasal Cannula 3.0 10/15/17 03:00 95 20 145/92 (109) 90 Nasal Cannula 3.0 10/15/17 02:00 89 14 117/76 (90) 94 Nasal Cannula 3.0 10/15/17 01:00 93 15 127/82 (97) 96 Nasal Cannula 3.0 10/15/17 00:01 95 Nasal Cannula 3.0 10/15/17 00:00 101 16 127/88 (101) 96 Nasal Cannula 3.0 10/14/17 23:48 103 19 135/85 (102) 92 Nasal Cannula 3.0 10/14/17 23:37 36.4 111 17 137/87 (104) 89 Nasal Cannula 3.0 10/14/17 23:21 101 20 137/96 92 10/14/17 23:08 36.4 103 20 135/85 93 Nasal Cannula 3.0 10/14/17 23:03 106 10/14/17 23:00 137/96 10/14/17 22:45 104 20 92 Nasal Cannula 4.0 10/14/17 22:31 109/67 10/14/17 22:15 108 20 95 10/14/17 22:00 126/81 10/14/17 21:45 108 19 89 Nasal Cannula 4.0 10/14/17 21:30 133/91 10/14/17 21:21 107 20 130/86 90 Nasal Cannula 4.0 10/14/17 21:15 108 22 90 10/14/17 20:40 98 18 93 Nasal Cannula 4.0 10/14/17 20:30 134/86 10/14/17 20:12 128/88 10/14/17 20:10 104 19 92 10/14/17 20:07 92 Nasal Cannula 4.0 10/14/17 19:59 101 10/14/17 19:58 92 Nasal Cannula 4.0 10/14/17 19:44 36.8 111 20 106/73 75 Room Air General Appearance: NO APPARENT DISTRESS, cachetic, other Eyes: PERRLA, EOMI ENT: NORMAL MOUTH EXAM Neck: NO TENDERNESS, NO STRIDOR Respiratory: other (distant breath sounds.) Cardiovasular: REGULAR RATE/RHYTHM, NORMAL S1S2, NO M/G/R, NO MURMUR Abdomen: NON TENDER Lower Extremities: edema Neuro: ALERT, ORIENTED x 3, NORMAL MOTOR EXAM, NORMAL SENSATION Psychiatric: NORMAL AFFECT Diagnostics Labs Results Past 24 Hours Test 10/14/17 20:00 10/14/17 20:39 10/15/17 09:32 10/15/17 09:47 Range/Units White Blood Count 6.59 4.8-10.8 K/uL Red Blood Count 4.12 4.7-6.1 M/uL Hemoglobin 10.3 14.0-18.0 g/dL Hematocrit 33.9 42-52 % Mean Corpuscular Volume 82.3 80-100 fL Mean Corpuscular Hemoglobin 25.0 25-34 pg Mean Corpuscular Hemoglobin Concent 30.4 32-36 g/dl Platelet Count 347 130-400 K/uL Mean Platelet Volume 8.9 7.4-10.4 fL Neutrophils (%) (Auto) 77.6 % Lymphocytes (%) (Auto) 11.5 % Monocytes (%) (Auto) 9.3 % Eosinophils (%) (Auto) 1.1 % Basophils (%) (Auto) 0.2 % Neutrophils # (Auto) 5.12 1.4-6.5 K/uL Lymphocytes # (Auto) 0.76 1.2-3.4 K/uL Monocytes # (Auto) 0.61 0.11-0.59 K/uL Eosinophils # (Auto) 0.07 0-0.5 K/uL Basophils # (Auto) 0.01 0-0.2 K/uL RDW Standard Deviation 64.5 36.4-46.3 fL RDW Coefficient of Variation 21.2 11.5-14.5 % Immature Granulocyte % (Auto) 0.3 % Immature Granulocyte # (Auto) 0.02 0.00-0.02 K/uL Polychromasia 1+ Hypochromasia PRESENT Anisocytosis PRESENT Prothrombin Time 13.4 9.0-12.0 SECONDS Prothromb Time International Ratio 1.3 0.9-1.1 Activated Partial Thromboplast Time 32.8 21.0-31.0 SECONDS Partial Thromboplastin Ratio 1.3 Sodium Level 134 136-145 mmol/L Potassium Level 3.7 3.5-5.1 mmol/L Chloride Level 99 98-107 mmol/L Carbon Dioxide Level 30 21-32 mmol/L Anion Gap 5.0 3-11 mmol/L Blood Urea Nitrogen 10 7-18 mg/dl Creatinine 0.55 0.60-1.40 mg/dl Estimated GFR () 130.4 Estimated GFR (Non- 112.5 BUN/Creatinine Ratio 18.5 10-20 Random Glucose 94 70-99 mg/dl Calcium Level 7.7 8.5-10.1 mg/dl Total Bilirubin 0.3 0.2-1 mg/dl Aspartate Amino Transf (AST/SGOT) 108 15-37 U/L Alanine Aminotransferase (ALT/SGPT) 22 12-78 U/L Alkaline Phosphatase 254 45-117 U/L Troponin I 0.017 0-0.045 ng/ml Pro-B-Type Natriuretic Peptide 1180 0-900 pg/ml Total Protein 6.0 6.4-8.2 gm/dl Albumin 2.3 3.4-5.0 gm/dl Globulin 3.7 2.5-4.0 gm/dl Albumin/Globulin Ratio 0.6 0.9-2 Arterial Blood pH 7.40 7.35-7.45 Arterial Blood Partial Pressure CO2 48 35-46 mmHg Arterial Blood Partial Pressure O2 66 80-95 mm/Hg Arterial Blood HCO3 29 19-24 mmol/L Arterial Blood Oxygen Saturation 91.2 90-95 % Arterial Blood Base Excess 3.4 -9-1.8 mEq/L Arterial Blood Gas Delivery 4L O2 Danny Test POS POS Pleural Fluid Source LEFT LUNG RIGHT LUNG Pleural Fluid Color NISREEN NISREEN Pleural Fluid Appearance HAZY HAZY Pleural Fluid WBC 530 482 /uL Pleural Fluid RBC 58773 90379 /uL Pleural Fluid Polynuclear WBCs % 20.9 27.0 % Pleural Fluid Mononuclear WBCs % 79.1 73.0 % Pleural Fluid Total Protein 1.8 g/dl Pleural Fluid Albumin 0.9 g/dl Pleural Fluid LDH 150 IU Pleural Fluid Glucose 87 mg/dl Pleural Fluid Amylase 11 U/L Microbiology Results 10/14/17 Blood Culture, Received Pending 10/14/17 Blood Culture, Received Pending 10/14/17 MRSA DNA Surveillance Screen - Final, Complete Specimen Negative for MRSA by DNA Probe 10/15/17 Gram Stain, Received Pending 10/15/17 Bacterial Culture, Received Pending 10/15/17 Gram Stain, Received Pending 10/15/17 Bacterial Culture, Received Pending Diagnostic Radiology I have reviewed the chest x-ray as well as a CAT scan both of them showed multiple pulmonary nodules, lymphadenopathy, endobronchial occlusion on the left , bilateral pleural effusion, pull-through of the stomach after esophagectomy. Impression Assessment and Plan As above, the patient presented to the hospital with increasing shortness of breath for the past several days. Patient recently discharged from the hospital with diagnosis of GI bleeding, complicated by pneumonia and sepsis and was treated with aggressive IV fluid. The patient presented to the hospital this time with increasing shortness of breath accompanied with difficulty raising his sputum. The patient does have significant esophageal reflux and due to absence of most of his esophagus after esophagectomy. The patient was diagnosed with esophageal cancer with metastasis to multiple organs and he is at the terminal stage of his esophageal cancer. The patient had Port-A-Cath placed in 2014. And he had 2 admissions to the hospital related to sepsis, GI bleeding. He left the hospital 4 days ago. He returned back again with increasing shortness of breath. No chest pain was reported no palpitation no altered mental status. The rest of his review of system was unremarkable. Impression: #1 advanced esophageal CA, status post esophagectomy, chemoradiation therapy. With recurrence and multiple metastasis in multiple organs. #2 shortness of breath due to occluded airway, bilateral pleural effusion. #3 pleural fluid appeared to be transudate in nature, most likely related to reactive pleural effusion secondary to atelectasis. #4 endobronchial lesion almost occluding the bronchus intermedius. Another lesion noted occluding the takeoff of the anterior segment of the left upper lobe. #5 large amount of mucoid impaction and multiple areas including left upper lobe , right lower lobe, right middle lobe, lingula all suctioned to clear and specimen was sent for culture. Approximately 35 mL of purulent secretion was sent. #6 cachexia and malnutrition. #7 possible food and acid reflux given the fact patient has absence of the esophagus after esophagectomy. 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 Plan: #1 bronchoscopy was done, dictated separately, showing lesion almost occluding the bronchus intermedius. The patient would benefit from debulking, however the procedure was done on the weekend and I will defer further treatment to my colleague and pulmonary in the morning. Whether the patient would like to proceed with debulking procedure using Argon versus CO2 laser versus seeking comfort care only. I will defer that decision to my colleague in the morning. #2 bilateral thoracentesis was done at the bedside, dictated separately, 650 mL was removed from the left at was difficult but able to remove it, 1250 mL removed from the right. The patient felt better and his respiratory status has improved significantly. #3 continue current treatment including antibiotic. #4 no need for the patient to stay on telemetry and he can be changed disposition to regular floor. #5 palliative care consult. #6 addressed the CODE STATUS as the patient remains full code. #7 bronchodilators. Thank you
--- NOTE | 2017-10-15 16:35 | Procedure Note ---
Procedure Note Procedure Date Oct 15, 2017. Procedure Description Procedure time out: side/site verified, patient ID confirmed, correct procedure Consent obtained: written Performed by: attending Indications: diagnostic, therapeutic Contraindications: none Description: Bilateral thoracentesis. Consent obtained from the patient, risk and benefit explained in details, agreed to the procedure. #1 left-sided thoracentesis, ultrasound was done, noted at the level of ninth intercostal space posteriorly, the fluids were complex in nature, no septation was noted except that the fluid was going around the bowel which were eventrating to the left chest cavity, a jennifer was placed, the skin was prepped with chlorhexidine, 3 attempts needed to perform the procedure, the skin was injected with 10 mL 1% lidocaine, addition of 5 mL also was used of 1% lidocaine. A scalpel and Seldinger technique was used, total of 650 mL of fluid was removed. The catheter was removed and the patient tolerated the procedure well. #2 right-sided thoracentesis, ultrasound was used, at the level of the 10th intercostal space posteriorly, the skin was prepped with chlorhexidine, 1 attempt, skin was injected with 10 mL 1% lidocaine, using scalpel and the catheter was inserted into the right pleural space, total of 1250 mL of blood- tinged fluid was removed, sent for analysis. The catheter was removed and pressure was applied at the insertion site for 2 minutes. No immediate complication. The patient tolerated the procedure very well. Chest x-ray was reviewed which showed no pneumothorax and reduction in the pleural effusion bilaterally.
--- NOTE | 2017-10-15 16:41 | Procedure Note ---
Procedure Note Procedure Date Oct 15, 2017. Procedure Description Procedure Name: Bronchoscopy Procedure time out: side/site verified, patient ID confirmed, correct procedure Consent obtained: written Performed by: attending Indications: diagnostic, therapeutic Contraindications: none Description: The patient had a bronchoscopy due to difficulty breathing and occluded airway noted on the CAT scan of the chest. The procedure was done in the ICU, the patient monitored throughout the entire procedure with ICU style of monitoring. With the presence of a nurse certified for moderate sedation. Consent obtained from the patient. The risk and benefit explained in details and agreed to the procedure. The patient was localized with an mL of 1% lidocaine initially using the localized treatment. The patient also was injected with total of 15 mL of 1% lidocaine throughout the entire procedure. Using a bite block, the patient was afterward sedated with total of 75 mics of fentanyl and 3 mg of Versed. The bronchoscope passed through the oral bite block and visualized the pharyngeal and hypopharyngeal structures which appeared to be normal. The vocal cords were mobile. The bronchoscope passed into the tracheobronchial tree. Which was examined from RB1 to our betaine and LB 1 to LB 10. Findings: #1 large amount of secretions were occluding almost entirely the takeoff of LB 1 through LB 6 all suctioned to clear. Minimal amount of saline total of 20 mL was used and suctioned totally and specimen was sent for culture. #2 abnormal mucosa highly suspicious for malignancy at the takeoff of LB 2. #3 large lesion noted at the level of the bronchus intermedius. The bronchoscope was able to pass around it and large amount of purulent secretion was suctioned from the takeoff of LB 4-5 and LB 7 through 10 all suctioned to clear. #4 the bronchoscope S after that was removed. No biopsy was obtained at the patient is known to have metastatic esophageal cancer. Although the patient possibly had a second primary which could represent adenocarcinoma of the lung, however confirming this diagnosis would be useless at this point given the patient being terminal with metastatic esophageal adenocarcinoma. Chest x-ray showed improvement in aereation of both lungs. Specimen was sent for culture. Patient notified about the diagnosis and show in the picture taken through the bronchoscopy and the patient's left in the chart. Appreciate the assistance of the nursing staff and respiratory therapist. Complications: none Patient tolerated procedure: well
[2017-10-15] MEDS: PANTOprazole SOD 40 MG TAB PO SCH (20:58)
[2017-10-15] MEDS ORDERED: VANCOMYCIN TROUGH ONE (23:30)
[2017-10-16] VITALS (13 sets, daily range): BP systolic 108–152; BP diastolic 54–92; PULSE 80–100; TEMP 36.6–36.9; O2SAT 90–95
[2017-10-16] MEDS: VANCOMYCIN INJ 1,250 MG in SODIUM CHLORIDE 0.9% 250ML 250 ML IV SCH ×2 (01:25→08:34)
[2017-10-16] MEDS: LEVOFLOXACIN / D5W 750 MG in PREMIXED IN D5W 150 ML IV SCH (03:03)
[2017-10-16] MEDS: OXYCODONE/ACETAMINOPHEN 5-325 TAB PO PRN ×3 (03:03→15:25)
[2017-10-16] MEDS: ONDANSETRON INJ 2 MG/ML 2 ML VIAL IV PRN ×2 (03:33→10:45)
[2017-10-16 05:02] LABS: HEMATOCRIT 31.2 % (42-52); HEMOGLOBIN 9.6 g/dL (14.0-18.0); MEAN CELL VOLUME 82.1 fL (80-100); MEAN CORPUSCULAR HEMOGLOBIN 25.3 pg (25-34); MEAN CORPUSCULAR HGB CONC 30.8 g/dl (32-36); MEAN PLATELET VOLUME 8.6 fL (7.4-10.4); PLATELET COUNT 282 K/uL (130-400); RED CELL DISTRIBUTION WIDTH CV 21.8 % (11.5-14.5); RED CELL DISTRIBUTION WIDTH SD 64.6 fL (36.4-46.3); WHITE BLOOD COUNT 6.79 K/uL (4.8-10.8)
[2017-10-16 05:21] LABS: BLOOD UREA NITROGEN 10 mg/dl (7-18); CALCIUM 7.2 mg/dl (8.5-10.1); CARBON DIOXIDE 33 mmol/L (21-32); CREATININE 0.39 mg/dl (0.60-1.40); GLUCOSE 86 mg/dl (70-99); POTASSIUM 3.4 mmol/L (3.5-5.1); SODIUM 136 mmol/L (136-145)
[2017-10-16] MEDS: PIPERACILL/TAZOBAC IV 3.375 GM in DEXTROSE 5% 100ML IV SCH ×3 (05:33→21:31)
[2017-10-16] MEDS: ACETAMINOPHEN 325 MG TAB PO PRN (06:14)
[2017-10-16] MEDS: ALBUT/IPRATROP 3MG/0.5MG NEB 3 ML VIAL INH SCH ×4 (07:13→19:51)
[2017-10-16] MEDS: CHECK FENTANYL PATCH PLACEMENT SCH ×2 (08:00→16:15)
[2017-10-16] MEDS: PANTOprazole SOD 40 MG TAB PO SCH ×2 (08:29→20:37)
[2017-10-16] MEDS: FERROUS SULFATE 325 MG TAB PO SCH ×2 (08:29→16:36)
[2017-10-16] MEDS: SUCRALFATE 1 GM/10 ML UDC PO SCH ×4 (08:30→20:36)
[2017-10-16] MEDS ORDERED: POTASSIUM CHLORIDE 10 MEQ TABCR PO STA (08:43)
[2017-10-16] MEDS: MAGNESIUM SULFATE 1GM / D5W 1 GM in PREMIXED IN D5W 100 ML IV SCH ×2 (08:56→10:38)
[2017-10-16] MEDS ORDERED: NURSING VERBAL MED ORDER ONE ×2 (12:45→20:00)
--- NOTE | 2017-10-16 12:45 | DIAGNOSTIC IMAGING REPORT ---
CHEST ONE VIEW PORTABLE CLINICAL HISTORY: 62 years-old Male presenting with chest pain, dypnea. TECHNIQUE: Portable upright AP view of the chest was obtained. COMPARISON: 10/15/2017 at 10:11 AM. FINDINGS: Surgical clips project over the mediastinum. Left subclavian Mediport terminates in the right atrium and has been accessed. Left heart border largely obscured secondary to increasing left basilar predominant opacity. Pulmonary vascular prominence. Increasing right basilar opacity. No pneumothorax. Osseous structures normal. Upper abdomen normal. IMPRESSION: 1. Increasing left mid to basilar consolidation. Minimal increasing right basilar consolidation. Bilateral pleural effusions are likely also present. No pneumothorax. Underlying edema or infection are difficult to exclude. Electronically signed by: Stiven Morel M.D. 10/16/2017 12:44 PM Dictated Date/Time: 10/16/2017 12:41 PM
--- NOTE | 2017-10-16 13:24 | Hospitalist Progress Note ---
Hospitalist Progress Note Date of Service Oct 16, 2017. Subjective Pt evaluation today including: conversation w/ patient, conversation w/ compliance consultant (Pulmonology Dr. Jimenez) Pt had an acute episode of chest pain while eating lunch today, felt like something was stuck in his chest, caused severe 10/10 pain and SOB. He was eating mashed potatoes, green beans, and fish at the time. ECG sinus tach no acute ischemia, CXR with pleural effusions, left appears slightly larger than yesterday. Currently when I came to see him, his pain was a 1/10 in the chest, and then 5 min later was down to a 0.5/10. Prior to that episode, his SOB was stable from yesterday and improved overall with breathing since admission/throacenteses and bronchoscopy Constitutional: No fever Respiratory: + shortness of breath Cardiovascular: + chest pain Abdomen: + constipation (no BM in 6 days), No nausea All Other Systems: Reviewed and Negative Objective Vital Signs Date Time Temp Pulse Resp B/P (MAP) Pulse Ox O2 Delivery O2 Flow Rate FiO2 10/16/17 12:00 Nasal Cannula 4.0 10/16/17 11:20 36.7 99 18 115/79 (91) 95 4.0 10/16/17 11:18 100 16 93 Nasal Cannula 4.0 10/16/17 08:00 Nasal Cannula 4.0 10/16/17 07:35 36.6 86 18 148/90 (109) 94 4.0 10/16/17 07:13 90 16 94 Nasal Cannula 4.0 10/16/17 04:00 95 Nasal Cannula 4.0 10/16/17 03:42 36.7 87 18 152/92 (112) 95 Nasal Cannula 4.0 10/15/17 23:59 91 Nasal Cannula 4.0 10/15/17 23:35 37.0 99 18 151/96 (114) 91 Nasal Cannula 4.0 10/15/17 20:00 Nasal Cannula 3.0 10/15/17 19:45 98 16 91 Nasal Cannula 4.0 10/15/17 18:48 36.7 102 20 131/85 (100) 95 Nasal Cannula 3.0 10/15/17 16:00 Nasal Cannula 3.0 10/15/17 15:50 93 16 95 Nasal Cannula 4.0 1/28/18 15:11 36.7 89 20 137/84 (101) 96 Nasal Cannula 4.0 Physical Exam General Appearance: no apparent distress, + thin Eyes: normal inspection, sclerae normal ENT: hearing grossly normal, pharynx normal Neck: trachea midline Respiratory/Chest: no respiratory distress, no accessory muscle use, + decreased breath sounds (at bilateral lower lung bey and left middle lung field, rhonchi improved from yesterday) Cardiovascular: regular rate, rhythm, no edema, no murmur Abdomen: normal bowel sounds, non tender, soft Extremities: non-tender, normal inspection, no pedal edema, no calf tenderness Neurologic/Psychiatric: alert, normal mood/affect, oriented x 3 Skin: normal color, warm/dry, no rash Laboratory Results Last 24 Hours Test 10/15/17 23:10 10/16/17 04:50 Vancomycin Level Trough 16.1 mcg/ml White Blood Count 6.79 K/uL Red Blood Count 3.80 M/uL Hemoglobin 9.6 g/dL Hematocrit 31.2 % Mean Corpuscular Volume 82.1 fL Mean Corpuscular Hemoglobin 25.3 pg Mean Corpuscular Hemoglobin Concent 30.8 g/dl RDW Standard Deviation 64.6 fL RDW Coefficient of Variation 21.8 % Platelet Count 282 K/uL Mean Platelet Volume 8.6 fL Sodium Level 136 mmol/L Potassium Level 3.4 mmol/L Chloride Level 98 mmol/L Carbon Dioxide Level 33 mmol/L Anion Gap 5.0 mmol/L Blood Urea Nitrogen 10 mg/dl Creatinine 0.39 mg/dl Est Creatinine Clear Calc Drug Dose 207.3 ml/min Estimated GFR () > 150.0 Estimated GFR (Non- 129.5 BUN/Creatinine Ratio 24.8 Random Glucose 86 mg/dl Calcium Level 7.2 mg/dl Magnesium Level 1.6 mg/dl Assessment and Plan Pt is a 62 yo male with 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 He was found to have bilateral pleural effusions that are large, bilateral obstructing bronchial tumors, and post-obstructive PNA vs HCAP, treating for MRSA and GNR PNA given recent hospital stay. Pleural effusions transudative likely secondary to atelectasis Acute Hypoxic Respiratory Failure/Bilat Pleural Effusions/Post-obstructive PNA/ Occluding Lung masses - Patient is S/P B/L Thoracentesis and Bronchoscopy on 10/15 - tapped for 650 mL on the left and 1250 mL on right; had bronchoscopy revealing tumor burden with near occlusion bronchus intermedius and also left upper lobe bronchus and mucus plugging suctioned -He was found to have bilateral pleural effusions that are large, bilateral obstructing bronchial tumors, and post-obstructive PNA vs HCAP, treating for MRSA and GNR PNA given recent hospital stay. Pleural effusions transudative likely secondary to atelectasis -- Dr. Sumner discussed with patient and patient would be interested in debulking - will need interventionalist consultation-d/w Dr. Jimenez today -- currently being covered for HCAP with Levafloxacin 750 mg daily, Zosyn, and Vancomycin--> MRSA swab negative and cultures no orgs on Gram stain-will dc Vanco - Follow pleural fluid cytology - Continue Duonebs OCTAVIO and PRN -f/u cultures from bronchoscopy, BCxs, pleural fluid cultures -supportive care, supplemental O2, pain control Palliative consult obtained last week at previous admission, pt wants to proceed with surgery and remain Full Code at this time Recent Ulceration of Esophagogastric Anastamosis with Recent Upper GI Bleed/ Probable food impaction--food imapction at ulcer site most likely occurrence today with chest pain now resolved. ECG fine. Discussed case with GI -continue Carafate, bid PPI, no need for EGD at this time, change to full liquids diet for now -hgb remains stable from previous given recent GI bleed -Appreciate GI consult -follow CBC Constipation-added on daily Miralax, docusate, GI adding Relistor Metastatic Esophageal Carcinoma S/P Esophagectomy and Gastrectomy: Follows with Dr. Nicole - Has not initiated palliative chemotherapy again yet due to hospitalization. Patient currently would like to pursue aggressive treatment - Mets to Lung, Liver, and Kidney - evidenced on imaging and support LFTs - He is prescribed Decadron to take with chemotherapy only, no need for this here DVT Prophylaxis: SCDs only given recent GI bleeding Code Status: FULL RESUSCITATION Disposition: remain on tele
[2017-10-16] MEDS: DOCUSATE SODIUM 100 MG CAP PO SCH ×2 (13:35→20:36)
[2017-10-16] MEDS: POLYETHYLENE (MIRALAX) 17 GM PACK PO SCH (13:35)
--- NOTE | 2017-10-16 13:37 | Pulmonology Progress Note ---
Pulmonary Progress Note Date of Service Oct 16, 2017. Attending Dr. Wright Subjective Report felt markedly improved post thoracentesis. Reports he is interested in moving forward with bronchial de-bulking procedure. Appetite in-tact with some nausea without vomiting last night. Continues to reports abdominal and flank discomfort although this is improved post thoracentesis. Denies h/o prior swallow study or speech therapy. Objective 62-yo male admitted to [facility] through the ER 10/14/17 with symptoms of dyspnea, weakness and cough. Prior records were reviewed. PMHx includes: metastatic esophageal adenocarcinoma (dx 04/2015, chemoradiotherapy s/p esophagectomy & gastrectomy with pull-through @ [facility] [place]), COPD/pulmonary emphysema (1-2ppd, age 17-yo), acid reflux, allergic rhinitis, h/o right pneumothorax (2014), h/o sepsis. Note made of prior admission 10/06/17-10/10/17 with GIB 2/2 EG anastomosis ulceration: -Echocardiogram 10/06/17: pEF, mild AR/MR/TR, PASP: 35-40mmHg. In the ER CTA: No PE. Near complete mucoid impaction of the distal left main bronchus and LLL bronchus. Focal obstruction of the right bronchus intermedius. Increase in size of previously noted moderate bilateral pleural effusions. Patchy densities in the RLL. ABG 10/14/17: 7.4/48/66-4LPM/29. ProBNP: 1180 10/15/17: bronchoscopy with Dr. Sumner: noted near obstructive lesion of the bronchus intermedius as well as lavage of purulent mucoid impaction and secretions from the EMMA, RLL, RML and lingula. Suspected aspiration as well. 10/15/17: - Left thoracentesis: 650mL nuha fluid removed - Right thoracentesis: 1250 mL nuha fluid removed (WBC: 482, LDH: 150, Amylase : 11, Glucose: 87, protein: 1.8). Today: - BAL and pleural cultures: pending - WBC/Hgb/Hct/Plts: 6.79/9.6/31.2/282 - M.6 - Continued O2 need: 91-94% 4LPM - Current ABX: levofloxacin, pip-tazo, Vancomycin Physical Exam: Constitutional: Cachectic male sitting in chair at bedside on computer, NAD Head: + facial symmetry - corrective lenses Chest: Left port in place Respiratory: non-labored respirations. O2 via NC - no cough. Diminished on left. Scattered rales on right with slight expiratory wheeze. CV: RRR, no MRG. Warm and perfused peripherally with mild pedal edema MSK/Extremities: Moving and developed symmetrically Neurologic: A&O Good data recall. Appropriate affect. Assessment & Plan 1. Bilateral pleural effusion: symptomatically improved post thoracentesis - tolerated procedure well - diminished BS on the left, repeat CXR 2. Mucoid impaction and ? aspiration with difficult airway clearance: - flutter valve/pulmonary toilet - BAL cultures pending - Recommend speech therapy consultation 3. Obstructing lesion per bronchoscopy report 10/15 - patient stated he would like to move forward with palliative debulking procedure if option - Dr. Jimenez made aware of case today, he will review the patient and make further recommendations, in the meantime will make him NPO after midnight. Data Medications: Current Inpatient Medications Medications (Trade) Dose Ordered Sig/Konstantin Route Start Time Stop Time Status Last Admin Dose Admin Ioversol (Optiray 320) 100 ml UD PRN IV 10/14/17 20:45 10/18/17 20:44 Acetaminophen (Tylenol Tab) 650 mg Q4H PRN PO 10/14/17 23:00 11/13/17 22:59 10/16/17 06:14 650 MG Ondansetron HCl (Zofran Inj) 4 mg Q6H PRN IV 10/14/17 23:00 11/13/17 22:59 10/16/17 03:33 4 MG Polyethylene (Miralax Powder Packet) 17 gm DAILY PRN PO 10/14/17 23:00 11/13/17 22:59 Ferrous Sulfate (Feosol Tab) 325 mg BIDM PO 10/15/17 07:15 11/14/17 07:59 10/16/17 08:29 325 MG Oxycodone/ Acetaminophen (Percocet 5-325mg Tab) 1 tab Q4H PRN PO 10/14/17 23:00 10/28/17 22:59 10/16/17 08:29 1 TAB Sucralfate (Carafate Susp) 1 gm QID PO 10/15/17 09:00 11/14/17 08:59 10/16/17 08:30 1 GM Albuterol/ Ipratropium (Duoneb) 3 ml QIDR INH 10/15/17 08:00 11/14/17 07:59 10/16/17 07:13 3 ML Miscellaneous Information (Consult) 1 ea UD PRN N/A 10/14/17 23:30 11/13/17 23:29 Miscellaneous Information (Consult) 1 ea UD PRN N/A 10/14/17 23:30 11/13/17 23:29 Piperacillin Sod/ Tazobactam Sod 3.375 gm/Dextrose 115 ml @ 28.75 mls/ hr Q8H IV 10/15/17 06:00 10/22/17 05:59 10/16/17 05:33 28.75 MLS/HR Fentanyl (Duragesic Patch) 12 mcg Q3D TD 10/16/17 14:30 10/30/17 14:29 Miscellaneous (Fentanyl Patch Remove & Waste) 1 ea Q3D N/A 10/16/17 14:29 11/15/17 14:28 Miscellaneous Information (Check Fentanyl Patch Placement) 1 ea QS N/A 10/15/17 00:00 11/14/17 00:00 10/16/17 08:00 1 EA Heparin Sodium (Porcine) (Heparin 100 Unit/ml 5ml Flush) 5 ml PRN PRN IV 10/15/17 00:30 11/14/17 00:29 Vancomycin HCl 1250 mg/Sodium Chloride 275 ml @ 125 mls/hr Q8H IV 10/15/17 08:00 10/22/17 07:59 10/16/17 08:34 125 MLS/HR Pantoprazole Sodium (Protonix Tab) 40 mg BID PO 10/15/17 21:00 11/14/17 20:59 10/16/17 08:29 40 MG Levofloxacin (Levaquin Tab) 750 mg DAILY@11 PO 10/17/17 11:00 10/22/17 10:59 Magnesium Sulfate 1 gm/Prmx 100 ml @ 100 mls/hr Q1H IV 10/16/17 09:00 10/16/17 10:59 10/16/17 08:56 100 MLS/HR Vital Signs: Date Time Temp Pulse Resp B/P (MAP) Pulse Ox O2 Delivery O2 Flow Rate FiO2 10/16/17 07:35 36.6 86 18 148/90 (109) 94 4.0 10/16/17 07:13 90 16 94 Nasal Cannula 4.0 10/16/17 04:00 95 Nasal Cannula 4.0 10/16/17 03:42 36.7 87 18 152/92 (112) 95 Nasal Cannula 4.0 10/15/17 23:59 91 Nasal Cannula 4.0 10/15/17 23:35 37.0 99 18 151/96 (114) 91 Nasal Cannula 4.0 10/15/17 20:00 Nasal Cannula 3.0 10/15/17 19:45 98 16 91 Nasal Cannula 4.0 10/15/17 18:48 36.7 102 20 131/85 (100) 95 Nasal Cannula 3.0 10/15/17 16:00 Nasal Cannula 3.0 10/15/17 15:50 93 16 95 Nasal Cannula 4.0 10/15/17 15:11 36.7 89 20 137/84 (101) 96 Nasal Cannula 4.0 10/15/17 12:30 Nasal Cannula 3.0 10/15/17 12:30 36.4 18 18 129/84 (99) 96 Nasal Cannula 3.0 92 10/15/17 11:30 36.6 98 17 122/77 98 Nasal Cannula 4.0 10/15/17 11:20 36.6 94 14 122/80 (90) 100 10/15/17 11:19 94 16 98 Mask 4.0 10/15/17 11:15 96 15 116/76 (80) 98 10/15/17 11:10 36.6 95 14 112/75 (90) 98 10/15/17 11:09 Mask 10/15/17 11:05 92 20 127/77 (91) 98 10/15/17 11:05 36.6 94 14 127/77 98 Mask 4.0 10/15/17 11:00 36.6 96 15 138/87 (92) 97 10/15/17 10:55 92 2 127/83 (93) 100 10/15/17 10:50 36.6 98 17 140/91 (101) 100 10/15/17 10:45 92 27 137/92 (100) 100 10/15/17 10:45 97 18 137/92 100 Diffusion Mask 5.0 10/15/17 10:43 36.8 92 20 129/89 (102) 100 10/15/17 10:40 91 25 100 10/15/17 10:35 89 19 100 Laboratory Results: Last 24 Hours Test 10/15/17 23:10 10/16/17 04:50 Vancomycin Level Trough 16.1 mcg/ml White Blood Count 6.79 K/uL Red Blood Count 3.80 M/uL Hemoglobin 9.6 g/dL Hematocrit 31.2 % Mean Corpuscular Volume 82.1 fL Mean Corpuscular Hemoglobin 25.3 pg Mean Corpuscular Hemoglobin Concent 30.8 g/dl RDW Standard Deviation 64.6 fL RDW Coefficient of Variation 21.8 % Platelet Count 282 K/uL Mean Platelet Volume 8.6 fL Sodium Level 136 mmol/L Potassium Level 3.4 mmol/L Chloride Level 98 mmol/L Carbon Dioxide Level 33 mmol/L Anion Gap 5.0 mmol/L Blood Urea Nitrogen 10 mg/dl Creatinine 0.39 mg/dl Est Creatinine Clear Calc Drug Dose 207.3 ml/min Estimated GFR () > 150.0 Estimated GFR (Non- 129.5 BUN/Creatinine Ratio 24.8 Random Glucose 86 mg/dl Calcium Level 7.2 mg/dl Magnesium Level 1.6 mg/dl
[2017-10-16] MEDS ORDERED: METHYLNALTREXONE BROMIDE INJ 12 MG/0.6 ML SYR SQ ONE (14:00)
[2017-10-16] MEDS: FENTANYL 12 MCG/HR TDSY TD SCH (14:11)
[2017-10-16] MEDS: FENTANYL PATCH REMOVE & WASTE SCH (14:11)
--- NOTE | 2017-10-16 15:27 | Gastrointestinal Consultation ---
Gastrointestinal Consultation Date of Consultation: Oct 16, 2017 Attending Physician: Ines Donovan Consulting Physician: Gina Dickson Reason for Consultation: Chest pain , esophageal ca, recent ulcer History of Present Illness Patient is a 62 year old male w hx of esophageal ca w mets to lung, liver, kidney s/p esophagectomy, and gastrectomy, anemia GERD who presented to ED w c/ o SOB, fatigue and cough. He also has increased swelling on his lower extremities. Upon eval, he was noted to have bilateral pleural effusions and ? pneumonia. He underwent thoracentesis w 1.8L fluid removal total for both lungs. GI consulted as pt was eating this AM and started to feel that the food isn't going down his esophagus, possibly having a food bolus and he started to have chest pain symptoms. However this resolved spontaneously, pt felt food passed and his chest pain has resolved. He was admitted recently for GI bleed. He had EGD on 10/06/[address] Griggs and was found to have large esogastric anastomosis ulcer. He was started on Protonix 40mg BID and Carafate 1g QID. At home he was taking the Protonix but not Carafate. He's also c/o now having constipation, no BM x 6 days. He feels abd getting uncomfortable. He's on several opioids. Past Medical/Surgical History Medical Problems: (1) Anemia Status: Acute (2) GI bleed Status: Acute (3) Hypoxia Status: Acute (4) Hypoxia Status: Acute (5) Metastasis from esophageal cancer Status: Acute (6) Pedal edema Status: Acute Past Medical History: See above Past Surgical History: See above Family History FHx: cancer Hypertension Social History Smoking Status: Former Smoker Drug Use: none Marital Status: Occupation Status: employed Allergies Coded Allergies: No Known Allergies (Verified , 10/14/17) Current Medications Home Meds and Scripts Medications Dose Route/Sig Max Daily Dose Days Date Category Dose Instructions Zofran (Ondansetron HCl) 8 Mg Tab 8 Mg PO Q8 PRN 10/14/17 Reported Oxycodone Hcl 10 Mg Tab 1 Tab PO Q4 PRN 30 10/14/17 Reported Decadron (Dexamethasone) 4 Mg Tab 8 Mg PO 10/14/17 Reported Percocet 5MG/325MG (Oxycodone/Acetaminophen) Tab 1 Tablet PO Q4H PRN 10/14/17 Reported PAIN Sucralfate 1 Gm/10 Ml Susp 1 Gm PO QID 10 10/10/17 Rx Protonix (Pantoprazole Sodium) 40 Mg Tab 40 Mg PO BID 10/10/17 Rx Ferrous Sulfate 325 Mg Tab 325 Mg PO BIDM 30 10/10/17 Rx Fentanyl 12 Mcg Tdsy 12 Mcg TOP Q3DAYS 10/06/17 Reported Review of Systems Constitutional: No fever, No chills Respiratory: No cough, No shortness of breath Cardiac: + see HPI, + chest pain Abdomen: + constipation, No pain, No nausea, No vomiting Physical Exam Date Time Temp Pulse Resp B/P (MAP) Pulse Ox O2 Delivery O2 Flow Rate FiO2 10/16/17 12:00 Nasal Cannula 4.0 10/16/17 11:20 36.7 99 18 115/79 (91) 95 4.0 10/16/17 11:18 100 16 93 Nasal Cannula 4.0 10/16/17 08:00 Nasal Cannula 4.0 10/16/17 07:35 36.6 86 18 148/90 (109) 94 4.0 10/16/17 07:13 90 16 94 Nasal Cannula 4.0 10/16/17 04:00 95 Nasal Cannula 4.0 10/16/17 03:42 36.7 87 18 152/92 (112) 95 Nasal Cannula 4.0 10/15/17 23:59 91 Nasal Cannula 4.0 10/15/17 23:35 37.0 99 18 151/96 (114) 91 Nasal Cannula 4.0 10/15/17 20:00 Nasal Cannula 3.0 10/15/17 19:45 98 16 91 Nasal Cannula 4.0 10/15/17 18:48 36.7 102 20 131/85 (100) 95 Nasal Cannula 3.0 10/15/17 16:00 Nasal Cannula 3.0 10/15/17 15:50 93 16 95 Nasal Cannula 4.0 General Appearance: WD/WN, no apparent distress Eyes: normal inspection, PERRL, EOMI Neck: supple, no JVD, trachea midline Respiratory/Chest: no respiratory distress, no accessory muscle use, + decreased breath sounds Cardiovascular: regular rate, rhythm, no gallop, no murmur Abdomen: non tender, soft, + abnormal bowel sounds (hypoactive bowel sounds) Extremities: normal inspection, no pedal edema, no calf tenderness Neurologic/Psych: alert, normal mood/affect, oriented x 3 Skin: normal color, warm/dry, no rash Laboratory Results Last 24 Hours Test 10/15/17 23:10 10/16/17 04:50 Vancomycin Level Trough 16.1 mcg/ml White Blood Count 6.79 K/uL Red Blood Count 3.80 M/uL Hemoglobin 9.6 g/dL Hematocrit 31.2 % Mean Corpuscular Volume 82.1 fL Mean Corpuscular Hemoglobin 25.3 pg Mean Corpuscular Hemoglobin Concent 30.8 g/dl RDW Standard Deviation 64.6 fL RDW Coefficient of Variation 21.8 % Platelet Count 282 K/uL Mean Platelet Volume 8.6 fL Sodium Level 136 mmol/L Potassium Level 3.4 mmol/L Chloride Level 98 mmol/L Carbon Dioxide Level 33 mmol/L Anion Gap 5.0 mmol/L Blood Urea Nitrogen 10 mg/dl Creatinine 0.39 mg/dl Est Creatinine Clear Calc Drug Dose 207.3 ml/min Estimated GFR () > 150.0 Estimated GFR (Non- 129.5 BUN/Creatinine Ratio 24.8 Random Glucose 86 mg/dl Calcium Level 7.2 mg/dl Magnesium Level 1.6 mg/dl Impression Patient is a 62 year old male with esophageal ca, mets to lung, liver, kidney s/ p esophagectomy and gastrectomy. Currently admitted for SOB, likely related to bilateral pleural effusions vs pneumonia s/p thoracentesis w 1.8L fluid removal. This AM he had a momentary chocking episode which resolved spontaneously w/o any intervention. He had a recent EGD for GI bleed which showed large esogastric anastomosis ulcer. H/H stable, no signs of melena, in fact he feels he's constipated - likely due to narcotics he's on. Plan - No indication for repeat EGD - Continue Protonix 40mg BID, Carafate 1g QID - Relistor 12mg today, may repeat in 2 days if no BM. He needs a daily bowel regimen, can start on Miralax 17g BID. - FL diet - Call if new questions/concerns. Late entry: Patient was seen and examined on 10/16 with EDSON Morel whose note reflects our findings and plan.
[2017-10-17] VITALS (9 sets, daily range): BP systolic 117–137; BP diastolic 65–83; PULSE 84–103; TEMP 36.5–37; O2SAT 90–96
[2017-10-17] MEDS: CHECK FENTANYL PATCH PLACEMENT SCH ×3 (00:31→16:00)
[2017-10-17 04:23] LABS: HEMATOCRIT 31.6 % (42-52); HEMOGLOBIN 9.8 g/dL (14.0-18.0); MEAN CELL VOLUME 81.9 fL (80-100); MEAN CORPUSCULAR HEMOGLOBIN 25.4 pg (25-34); MEAN PLATELET VOLUME 8.6 fL (7.4-10.4); PLATELET COUNT 300 K/uL (130-400); RED CELL DISTRIBUTION WIDTH CV 22.3 % (11.5-14.5); WHITE BLOOD COUNT 8.33 K/uL (4.8-10.8)
[2017-10-17 04:43] LABS: CALCIUM 7.4 mg/dl (8.5-10.1); CREATININE 0.44 mg/dl (0.60-1.40); POTASSIUM 3.7 mmol/L (3.5-5.1)
[2017-10-17] MEDS: PIPERACILL/TAZOBAC IV 3.375 GM in DEXTROSE 5% 100ML IV SCH ×3 (06:32→21:37)
--- NOTE | 2017-10-17 07:26 | DIAGNOSTIC IMAGING REPORT ---
CHEST ONE VIEW PORTABLE HISTORY: f/u pleural effusions COMPARISON: Chest 10/16/2017. FINDINGS: The small right pleural effusion remains unchanged. No pneumothorax. Increase in size in the large left pleural effusion. There appears to be a component of left mediastinal shift consistent with collapse of the left lower lobe given the findings on the prior chest CT. These findings result in near complete opacification of the left hemithorax. There are surgical clips at the left hilum. Left subclavian Port-A-Cath terminates at the right atrium. This remains unchanged. Diffuse interstitial thickening within the right lung has progressed. This suggests worsening pulmonary edema. IMPRESSION: 1. Near-complete opacification of the left hemithorax due to a combination of left lower lobe collapse and increase in size of the left pleural effusion. 2. Progressive interstitial thickening within the right lung suggestive of worsening pulmonary edema. 3. Small right pleural effusion persists. Electronically signed by: Ángel Prieto M.D. 10/17/2017 7:24 AM Dictated Date/Time: 10/17/2017 7:20 AM
[2017-10-17] MEDS: ALBUT/IPRATROP 3MG/0.5MG NEB 3 ML VIAL INH SCH ×4 (08:01→19:16)
[2017-10-17] MEDS ORDERED: D5NSS + 20MEQ KCL 1,000 ML IV SCH (09:00)
[2017-10-17] MEDS: DOCUSATE SODIUM 100 MG CAP PO SCH ×2 (09:53→20:00)
[2017-10-17] MEDS: SUCRALFATE 1 GM/10 ML UDC PO SCH ×4 (09:53→19:59)
[2017-10-17] MEDS: PANTOprazole SOD 40 MG TAB PO SCH ×2 (09:53→20:01)
[2017-10-17] MEDS: POLYETHYLENE (MIRALAX) 17 GM PACK PO SCH ×2 (09:54→20:00)
[2017-10-17] MEDS: FERROUS SULFATE 325 MG TAB PO SCH ×2 (09:54→17:42)
[2017-10-17] MEDS ORDERED: LEVOFLOXACIN 750 MG TAB PO SCH (11:00)
--- NOTE | 2017-10-17 11:30 | Pulmonology Progress Note ---
Pulmonary Progress Note Date of Service Oct 17, 2017. Attending Dr. Jimenez Subjective Patient notes he continues to have dyspnea on exertion but no other active complaints Objective 62-yo male admitted to [facility] through the ER 10/14/17 with symptoms of dyspnea, weakness and cough. Prior records were reviewed. PMHx includes: metastatic esophageal adenocarcinoma (dx 04/2015, chemoradiotherapy s/p esophagectomy & gastrectomy with pull-through @ [facility] [place] COPD/pulmonary emphysema (1-2ppd, age 17-yo), acid reflux, allergic rhinitis, h/o right pneumothorax (2014), h/o sepsis. Note made of prior admission 10/06/17-10/10/17 with GIB 2/2 EG anastomosis ulceration: -Echocardiogram 10/06/17: pEF, mild AR/MR/TR, PASP: 35-40mmHg. In the ER CTA: No PE. Near complete mucoid impaction of the distal left main bronchus and LLL bronchus. Focal obstruction of the right bronchus intermedius. Increase in size of previously noted moderate bilateral pleural effusions. Patchy densities in the RLL. ABG 10/14/17: 7.4/48/66-4LPM/29. ProBNP: 1180 10/15/17: bronchoscopy with Dr. Sumner: noted near obstructive lesion of the bronchus intermedius as well as lavage of purulent mucoid impaction and secretions from the EMMA, RLL, RML and lingula. Suspected aspiration as well. 10/15/17: - Left thoracentesis: 650mL nuha fluid removed - Right thoracentesis: 1250 mL nuha fluid removed (WBC: 482, LDH: 150, Amylase : 11, Glucose: 87, protein: 1.8). Today: - BAL and pleural cultures: pending - WBC/Hgb/Hct/Plts: 6.79/9.6/31.2/282 - M.6 - Continued O2 need: 91-94% 4LPM - Current ABX: levofloxacin, pip-tazo, Vancomycin Physical Exam: Stable on 4 L nasal cannula Constitutional: Cachectic but no apparent distress Head: + facial symmetry - corrective lenses Chest: Decreased breath sounds bilateral lower lobes with rhonchi in the apices anteriorly bilaterally CV: RRR, no MRG. Warm and perfused peripherally with mild pedal edema MSK/Extremities: Moving and developed symmetrically Neurologic: A&O Good data recall. Appropriate affect. Assessment & Plan 1. Bilateral Pleural Effusion: Chest x-ray suggests that there is increasing opacification of the left hemithorax but bilateral thoracic ultrasound shows small bilateral pleural effusions. Therapeutically switch her no benefit from thoracentesis. 2. Airway obstruction: Patient continues to note difficulty clearing secretions as well as dyspnea on exertion. This time he is planned to undergo bronchoscopy on 10/18/2017 for planning of rigid bronchoscope with tumor debulking on 10/19/2017. Data Medications: Current Inpatient Medications Medications (Trade) Dose Ordered Sig/Konstantin Route Start Time Stop Time Status Last Admin Dose Admin Ioversol (Optiray 320) 100 ml UD PRN IV 10/14/17 20:45 10/18/17 20:44 Acetaminophen (Tylenol Tab) 650 mg Q4H PRN PO 10/14/17 23:00 11/13/17 22:59 10/16/17 06:14 650 MG Ondansetron HCl (Zofran Inj) 4 mg Q6H PRN IV 10/14/17 23:00 11/13/17 22:59 10/16/17 10:45 4 MG Ferrous Sulfate (Feosol Tab) 325 mg BIDM PO 10/15/17 07:15 11/14/17 07:59 10/17/17 09:54 325 MG Sucralfate (Carafate Susp) 1 gm QID PO 10/15/17 09:00 11/14/17 08:59 10/17/17 09:53 1 GM Albuterol/ Ipratropium (Duoneb) 3 ml QIDR INH 10/15/17 08:00 11/14/17 07:59 10/17/17 11:05 3 ML Miscellaneous Information (Consult) 1 ea UD PRN N/A 10/14/17 23:30 11/13/17 23:29 Piperacillin Sod/ Tazobactam Sod 3.375 gm/Dextrose 115 ml @ 28.75 mls/ hr Q8H IV 10/15/17 06:00 10/22/17 05:59 10/17/17 06:32 28.75 MLS/HR Fentanyl (Duragesic Patch) 12 mcg Q3D TD 10/16/17 14:30 10/30/17 14:29 10/16/17 14:11 12 MCG Miscellaneous (Fentanyl Patch Remove & Waste) 1 ea Q3D N/A 10/16/17 14:29 11/15/17 14:28 10/16/17 14:11 1 EA Miscellaneous Information (Check Fentanyl Patch Placement) 1 ea QS N/A 10/15/17 00:00 11/14/17 00:00 10/17/17 08:00 1 EA Heparin Sodium (Porcine) (Heparin 100 Unit/ml 5ml Flush) 5 ml PRN PRN IV 10/15/17 00:30 11/14/17 00:29 Pantoprazole Sodium (Protonix Tab) 40 mg BID PO 10/15/17 21:00 11/14/17 20:59 10/17/17 09:53 40 MG Levofloxacin (Levaquin Tab) 750 mg DAILY@11 PO 10/17/17 11:00 10/22/17 10:59 10/17/17 09:54 750 MG Polyethylene (Miralax Powder Packet) 17 gm DAILY PO 10/16/17 13:15 11/15/17 13:14 10/17/17 09:54 17 GM Docusate Sodium (coLACE CAP) 100 mg BID PO 10/16/17 13:15 11/15/17 13:14 10/17/17 09:53 100 MG Oxycodone/ Acetaminophen (Percocet 5-325mg Tab) `1-2 tabs for pain 1 tab ... Q4H PRN PO 10/16/17 20:45 10/30/17 20:44 Potassium Chloride/Dextrose/ Sod Cl 1,000 ml @ 75 mls/hr [id number] IV 10/17/17 09:00 11/16/17 08:59 10/17/17 10:26 75 MLS/HR Vital Signs: Date Time Temp Pulse Resp B/P (MAP) Pulse Ox O2 Delivery O2 Flow Rate FiO2 10/17/17 11:05 103 16 90 Nasal Cannula 4.0 10/17/17 08:51 36.5 89 16 134/66 (88) 95 10/17/17 08:01 100 16 95 Nasal Cannula 4.0 10/17/17 08:00 Nasal Cannula 4.0 10/17/17 04:00 Nasal Cannula 4.0 10/17/17 03:44 36.7 96 18 117/82 (94) 93 Nasal Cannula 4.0 10/17/17 00:01 Nasal Cannula 4.0 10/16/17 23:47 36.9 97 18 114/81 (92) 91 Nasal Cannula 4.0 10/16/17 20:00 94 Nasal Cannula 4.0 10/16/17 19:52 83 16 94 Nasal Cannula 4.0 10/16/17 19:21 36.7 96 19 108/54 (72) 94 Nasal Cannula 4.0 10/16/17 16:03 80 16 92 Nasal Cannula 4.0 10/16/17 16:00 90 Nasal Cannula 4.0 10/16/17 15:36 36.7 97 18 137/88 (104) 90 Nasal Cannula 4.0 10/16/17 12:00 Nasal Cannula 4.0 Laboratory Results: Last 24 Hours Test 10/17/17 04:02 White Blood Count 8.33 K/uL Red Blood Count 3.86 M/uL Hemoglobin 9.8 g/dL Hematocrit 31.6 % Mean Corpuscular Volume 81.9 fL Mean Corpuscular Hemoglobin 25.4 pg Mean Corpuscular Hemoglobin Concent 31.0 g/dl RDW Standard Deviation 66.0 fL RDW Coefficient of Variation 22.3 % Platelet Count 300 K/uL Mean Platelet Volume 8.6 fL Sodium Level 134 mmol/L Potassium Level 3.7 mmol/L Chloride Level 98 mmol/L Carbon Dioxide Level 33 mmol/L Anion Gap 3.0 mmol/L Blood Urea Nitrogen 9 mg/dl Creatinine 0.44 mg/dl Est Creatinine Clear Calc Drug Dose 184.3 ml/min Estimated GFR () 142.9 Estimated GFR (Non- 123.3 BUN/Creatinine Ratio 20.2 Random Glucose 90 mg/dl Calcium Level 7.4 mg/dl Magnesium Level 1.9 mg/dl
[2017-10-17] MEDS ORDERED: MAGNESIUM HYDROXIDE SUSP 30 ML UDC PO ONE (16:15)
[2017-10-18] VITALS (13 sets, daily range): BP systolic 105–132; BP diastolic 69–84; PULSE 78–107; TEMP 36.2–37.1; O2SAT 90–97
--- NOTE | 2017-10-18 00:38 | Hospitalist Progress Note ---
Hospitalist Progress Note Date of Service Oct 17, 2017. Subjective Pt evaluation today including: conversation w/ patient, conversation w/ economics consultant (Pulm) Pt feels like he can't get his sputum up but congested in the chest. Coughed up some sputum todya. Wants to move his bowels more. Spoke with Pulm and reviewed CXR today All Other Systems: Reviewed and Negative Objective Vital Signs Date Time Temp Pulse Resp B/P (MAP) Pulse Ox O2 Delivery O2 Flow Rate FiO2 10/17/17 16:01 36.8 84 18 137/65 (89) 94 10/17/17 16:00 Nasal Cannula 4.0 10/17/17 15:15 98 16 93 Nasal Cannula 4.0 10/17/17 12:00 Nasal Cannula 4.0 10/17/17 11:47 36.6 88 16 134/66 (88) 95 10/17/17 11:05 103 16 90 Nasal Cannula 4.0 10/17/17 08:51 36.5 89 16 134/66 (88) 95 10/17/17 08:01 100 16 95 Nasal Cannula 4.0 10/17/17 08:00 Nasal Cannula 4.0 10/17/17 04:00 Nasal Cannula 4.0 10/17/17 03:44 36.7 96 18 117/82 (94) 93 Nasal Cannula 4.0 10/17/17 00:01 Nasal Cannula 4.0 10/16/17 23:47 36.9 97 18 114/81 (92) 91 Nasal Cannula 4.0 10/16/17 20:00 94 Nasal Cannula 4.0 10/16/17 19:52 83 16 94 Nasal Cannula 4.0 10/16/17 19:21 36.7 96 19 108/54 (72) 94 Nasal Cannula 4.0 Physical Exam General Appearance: WD/WN, + thin Eyes: normal inspection, sclerae normal ENT: hearing grossly normal Neck: trachea midline Respiratory/Chest: no respiratory distress, no accessory muscle use, + decreased breath sounds (in lower and middle lung bey bilat) Cardiovascular: regular rate, rhythm, no edema, no murmur Abdomen: normal bowel sounds, non tender, soft Extremities: non-tender, normal inspection, no pedal edema, no calf tenderness Neurologic/Psychiatric: alert, normal mood/affect, oriented x 3 Skin: normal color, warm/dry, no rash Laboratory Results Last 24 Hours Test 10/17/17 04:02 White Blood Count 8.33 K/uL Red Blood Count 3.86 M/uL Hemoglobin 9.8 g/dL Hematocrit 31.6 % Mean Corpuscular Volume 81.9 fL Mean Corpuscular Hemoglobin 25.4 pg Mean Corpuscular Hemoglobin Concent 31.0 g/dl RDW Standard Deviation 66.0 fL RDW Coefficient of Variation 22.3 % Platelet Count 300 K/uL Mean Platelet Volume 8.6 fL Sodium Level 134 mmol/L Potassium Level 3.7 mmol/L Chloride Level 98 mmol/L Carbon Dioxide Level 33 mmol/L Anion Gap 3.0 mmol/L Blood Urea Nitrogen 9 mg/dl Creatinine 0.44 mg/dl Est Creatinine Clear Calc Drug Dose 184.3 ml/min Estimated GFR () 142.9 Estimated GFR (Non- 123.3 BUN/Creatinine Ratio 20.2 Random Glucose 90 mg/dl Calcium Level 7.4 mg/dl Magnesium Level 1.9 mg/dl Assessment and Plan Pt is a 62 yo male with 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 He was found to have bilateral pleural effusions that are large, bilateral obstructing bronchial tumors, and post-obstructive PNA vs HCAP, treating for MRSA and GNR PNA given recent hospital stay. Pleural effusions transudative likely secondary to atelectasis Acute Hypoxic Respiratory Failure/Bilat Pleural Effusions/Post-obstructive PNA/ Occluding Lung masses - Patient is S/P B/L Thoracentesis and Bronchoscopy on 10/15 - tapped for 650 mL on the left and 1250 mL on right; had bronchoscopy revealing tumor burden with near occlusion bronchus intermedius and also left upper lobe bronchus and mucus plugging suctioned Pulm performed bedside US today and only small pleural effusions present. CXR today appears much worse and could have EMMA partial collapse, but no worsening resp distress or worsening hypoxia -He was found to have bilateral pleural effusions that are large, bilateral obstructing bronchial tumors, and post-obstructive PNA vs HCAP, treating for MRSA and GNR PNA given recent hospital stay. Pleural effusions transudative likely secondary to atelectasis -- needs debulking of lung masses - will need interventionalist consultation-d/ w Dr. Jimenez plans for bronchoscopy again tomorrow, followed by debulking procedure on -- currently being covered for HCAP with Levafloxacin 750 mg daily, Zosyn, and Vancomycin--> MRSA swab negative and cultures no orgs on Gram stain- dcd Vanco; Pulm dcd Levaquin today - Follow pleural fluid cytology - Continue Duonebs OCTAVIO and PRN -f/u cultures from bronchoscopy, BCxs, pleural fluid cultures -supportive care, supplemental O2, pain control Palliative consult obtained last week at previous admission, pt wants to proceed with surgery and remain Full Code at this time Recent Ulceration of Esophagogastric Anastomosis with Recent Upper GI Bleed/ Probable food impaction--food impaction at ulcer site most likely occurrence with chest pain- now resolved. ECG fine. Discussed case with GI -continue Carafate, bid PPI, no need for EGD at this time, continue full liquids diet for now -hgb remains stable from previous given recent GI bleed -Appreciate GI consult -follow CBC Constipation-increase Miralax to bid, docusate, GI adding Relistor Metastatic Esophageal Carcinoma S/P Esophagectomy and Gastrectomy: Follows with Dr. Nicole - Has not initiated palliative chemotherapy again yet due to hospitalization. Patient currently would like to pursue aggressive treatment - Mets to Lung, Liver, and Kidney - evidenced on imaging and support LFTs - He is prescribed Decadron to take with chemotherapy only, no need for this here DVT Prophylaxis: SCDs only given recent GI bleeding Code Status: FULL RESUSCITATION Disposition: remain on tele
[2017-10-18] MEDS ORDERED: MoRPHine SULFATE 2 MG/ML CARP IV ONE (03:15)
[2017-10-18] MEDS: ONDANSETRON INJ 2 MG/ML 2 ML VIAL IV PRN (03:52)
[2017-10-18 05:29] LABS: HEMATOCRIT 31.3 % (42-52); HEMOGLOBIN 9.6 g/dL (14.0-18.0); MEAN CELL VOLUME 81.7 fL (80-100); MEAN CORPUSCULAR HEMOGLOBIN 25.1 pg (25-34); MEAN CORPUSCULAR HGB CONC 30.7 g/dl (32-36); PLATELET COUNT 320 K/uL (130-400); RED CELL DISTRIBUTION WIDTH CV 22.1 % (11.5-14.5); RED CELL DISTRIBUTION WIDTH SD 66.3 fL (36.4-46.3); WHITE BLOOD COUNT 7.27 K/uL (4.8-10.8)
[2017-10-18] MEDS: PIPERACILL/TAZOBAC IV 3.375 GM in DEXTROSE 5% 100ML IV SCH ×3 (05:56→22:27)
[2017-10-18 06:00] LABS: CALCIUM 7.6 mg/dl (8.5-10.1); CREATININE 0.4 mg/dl (0.60-1.40)
[2017-10-18] MEDS: ALBUT/IPRATROP 3MG/0.5MG NEB 3 ML VIAL INH SCH ×4 (07:02→19:17)
[2017-10-18] MEDS: PANTOprazole SOD 40 MG TAB PO SCH ×2 (07:21→21:09)
[2017-10-18] MEDS: FERROUS SULFATE 325 MG TAB PO SCH ×2 (07:21→16:28)
[2017-10-18] MEDS: DOCUSATE SODIUM 100 MG CAP PO SCH ×2 (07:21→21:09)
[2017-10-18] MEDS: SUCRALFATE 1 GM/10 ML UDC PO SCH ×4 (07:21→21:09)
[2017-10-18] MEDS: POLYETHYLENE (MIRALAX) 17 GM PACK PO SCH ×2 (07:21→21:09)
[2017-10-18] MEDS: CHECK FENTANYL PATCH PLACEMENT SCH ×3 (08:08→15:59)
--- NOTE | 2017-10-18 09:24 | History & Physical Bridge Note ---
H&P Re-Evaluation Bridge Note: I have examined the patient, reviewed the History & Physical and in the interval since the performance of the History & Physical I have noted the following changes of clinical significance: No changes noted
--- NOTE | 2017-10-18 09:25 | Pre Sedation Assessment ---
Pre Sedation Assessment General Date of Sedation: Oct 18, 2017. Vital Signs Past 12 Hours Date Time Temp Pulse Resp B/P (MAP) Pulse Ox O2 Delivery O2 Flow Rate FiO2 10/18/17 08:03 36.9 91 18 128/82 (97) 96 10/18/17 08:00 Nasal Cannula 4.0 10/18/17 07:02 89 16 94 Nasal Cannula 4.0 10/18/17 04:00 Nasal Cannula 4.0 10/18/17 03:28 36.2 78 16 132/71 (91) 96 10/18/17 00:16 37.1 103 20 128/84 (99) 90 Nasal Cannula 4.0 10/17/17 23:59 Nasal Cannula 4.0 Review Cardiovascular: regular rate, rhythm, no edema, no gallop, no JVD, no murmur, normal peripheral pulses Lungs: + decreased breath sounds, + rhonchi Pre-Sedation Airway Assessment Smoking Status: Former Smoker Hx of Sleep Apnea: No Hx of difficult intubation: No Short Thick Neck: No Thyro-mental Distance: > 3 Finger Breadths Oral Cavity: Dentures Mallampati Classification: Class I ASA Classification: Class IV NPO Status Date of Last Intake of Fluids: Oct 14, 2017 Time of Last Intake of Fluids: 2300 Date of Last Intake of Solids: Oct 14, 2017 Time of Last Intake of Solids: 2300 Notes The planned sedation has been discussed with the patient. Informed Consent was obtained. I have identified the patient, determined the appropriateness of sedation and have assessed the patient immediately prior to the procedure. All medicine(s) and interventions are by my order.
--- NOTE | 2017-10-18 09:56 | Bronchoscopy Procedure Note ---
Bronchoscopy Procedure Note Procedure: Bronchoscopy, conscious sedation, ocular lavage right lower lobe Consent: Obtained through the patient placed into the chart Pre-procedural diagnosis: Metastatic CA Post-procedural diagnosis: Metastatic CA Start time: 929 End time: 944 Total time: 15 minutes Analgesia: 2% liquid lidocaine: Via nebulizer 4% gel lidocaine: Via right naris 2% liquid lidocaine: Via bronchoscopy Sedation: Versed IV: 3mg Fentanyl IV: 75g Procedure: The Olympus video bronchoscope was used for this procedure and passed down through the right naris Right naris/posterior naris/posterior oropharynx: Anatomically within normal limits, notable oropharyngeal/nasal erythema Glottis: Anatomically within normal limits Vocal cords: Proper abduction and abduction, anatomically within normal limits Subglottis/trachea/Ryan: Anatomically within normal limits, diffuse mucous plugs especially on the ryan obstructing but not fully both mainstem bronchi, Ryan looked notably splayed Right bronchial tree: Right mainstem bronchus: Anatomically within normal limits, mucous obstruction easily cleared Right upper lobe: Anatomically within normal limits Bronchus intermedius: At the takeoff to the bronchus intermedius there is a fungating mass coming from the medial wall approximately 1 cm long Right middle lobe: Anatomically within normal limits, diffuse mucous secretions suctioned clean Right lower lobe: Anatomically within normal limits, diffuse mucous secretions suctioned clear Left bronchial tree: Left mainstem bronchus: Distal in the left mainstem bronchus was notably infiltrated with what appears to be tumor in this mucosa Left upper lobe: Infiltrated with tumor burden in the mucosa Lingula: Infiltrated with tumor mucosal regions Left lower lobe: Mucous infiltrated with tumor obstructing mucus and cleaned Findings: Diffuse tumor in the mucosa as well as notable obstruction of multiple subsegment/mucus burden Bronchial alveolar lavage: Right lower lobe EBL: None Complications: None Follow-up: ASU
--- NOTE | 2017-10-18 09:59 | Post Sedation Assessment ---
Post Sedation Assessment General Date of Sedation Oct 18, 2017. Vital Signs: Vital Signs Past 12 Hours Date Time Temp Pulse Resp B/P (MAP) Pulse Ox O2 Delivery O2 Flow Rate FiO2 10/18/17 09:50 99 14 129/83 91 Nasal Cannula 6 10/18/17 09:45 99 12 129/88 93 Oxymask 6 10/18/17 09:40 98 16 123/86 95 Oxymask 6 10/18/17 09:35 99 14 128/88 96 Oxymask 6 10/18/17 09:30 93 18 113/82 97 Oxymask 6 10/18/17 09:25 87 16 124/78 97 Oxymask 6 10/18/17 08:03 36.9 91 18 128/82 (97) 96 10/18/17 08:00 Nasal Cannula 4.0 10/18/17 07:02 89 16 94 Nasal Cannula 4.0 10/18/17 04:00 Nasal Cannula 4.0 10/18/17 03:28 36.2 78 16 132/71 (91) 96 10/18/17 00:16 37.1 103 20 128/84 (99) 90 Nasal Cannula 4.0 10/17/17 23:59 Nasal Cannula 4.0 Post Procedure Recovery Score Activity: (2) Moves 4 extremities * Respiration: (2) Deep breath/cough Circulation: (2) +/-20% PreAnes Value Consciousness: (1) Arouseable (by name) Oxygen Saturation: (1) O2 needed for >90% Post Anesthesia Score: 8 Discharge Sedation Level of Care: Phase I Post Sedation Plan On clinical assessment, the patient appears to have tolerated the sedation without complications. Patient is recovering as anticipated. Patient will continue to be monitored by nursing and may be discharged when sedation discharge criteria are met per below protocol. Upon Completions of procedure and additional 15 minutes continue every 5 minute vital signs and the P.A.R. score; then discharge to a Phase I or Fast Track to Phase II per the following guidelines: * Discharge Patient to appropriate Phase II area if PAR is 8 or greater or return to pre- procedure baseline. The post - procedure orders will be as directed. * If PAR score is less than 8 or not return to pre-procedure baseline then patient will follow Phase I monitoring till PAR is reached for Phase II. The Phase I may be done in procedure room or may call to secure a Phase I area. * If naloxone or flumazenil are used for reversal, hold in Phase I for an additional 60 -120 minutes before discharge to Phase II. Please call the Sedation Physician to re-evaluate and complete post-note for discharge to Phase II area. Do NOT discharge from procedure sedation or Phase 1 until post- sedation evaluation note is complete by procedure /sedation MD Sedation Discharge Instructions to be given to the patient at discharge to home.
[2017-10-18] MEDS ORDERED: FENTANYL CITRATE INJ 50 MCG/1 ML 2 ML VIAL IV ONE (10:03)
[2017-10-18] MEDS ORDERED: LIDOCAINE HCL 2% LOCAL 50ML VIAL INSTIL ONE (10:03)
[2017-10-18] MEDS ORDERED: LIDOCAINE 4% INH SOLN 4 ML BTL TOP ONE (10:03)
[2017-10-18] MEDS ORDERED: LIDOCAINE VISCOUS 2% 100ML TOP ONE (10:03)
[2017-10-18] MEDS ORDERED: MIDAZOLAM HCL 5 MG/ML 1 ML VIAL IV ONE (10:03)
--- NOTE | 2017-10-18 15:21 | Hospitalist Progress Note ---
Hospitalist Progress Note Date of Service Oct 18, 2017. Subjective Pt evaluation today including: conversation w/ patient, conversation w/ family Had bronchoscopy this AM. Still feeling SOB, but a little better than prior to bronch. Tolerating full liquids diet. [place] some heart palpitations while I was in there and tele showed brief run of atrial tachycardia. No CP. Had 2 BMs today. Tele with sinus tachycardia, brief atrial tachycardia All Other Systems: Reviewed and Negative Objective Vital Signs Date Time Temp Pulse Resp B/P (MAP) Pulse Ox O2 Delivery O2 Flow Rate FiO2 10/18/17 12:00 Nasal Cannula 4.0 10/18/17 11:45 36.6 94 20 124/83 (97) 92 Nasal Cannula 4.0 10/18/17 11:18 36.9 94 20 130/80 (97) 97 Nasal Cannula 4.0 10/18/17 11:01 93 16 93 Nasal Cannula 4.0 10/18/17 10:45 36.7 93 20 122/84 (97) 94 Nasal Cannula 4.0 10/18/17 10:15 36.6 101 22 105/69 (81) 94 Nasal Cannula 4.0 10/18/17 10:00 99 14 127/86 95 Nasal Cannula 4 10/18/17 09:55 98 14 133/91 95 Nasal Cannula 6 10/18/17 09:50 99 14 129/83 91 Nasal Cannula 6 10/18/17 09:45 99 12 129/88 93 Oxymask 6 10/18/17 09:45 Mask 10/18/17 09:40 98 16 123/86 95 Oxymask 6 10/18/17 09:35 99 14 128/88 96 Oxymask 6 10/18/17 09:30 93 18 113/82 97 Oxymask 6 10/18/17 09:25 87 16 124/78 97 Oxymask 6 10/18/17 08:03 36.9 91 18 128/82 (97) 96 10/18/17 08:00 Nasal Cannula 4.0 10/18/17 07:02 89 16 94 Nasal Cannula 4.0 10/18/17 04:00 Nasal Cannula 4.0 10/18/17 03:28 36.2 78 16 132/71 (91) 96 10/18/17 00:16 37.1 103 20 128/84 (99) 90 Nasal Cannula 4.0 10/17/17 23:59 Nasal Cannula 4.0 10/17/17 20:00 Nasal Cannula 4.0 10/17/17 19:24 37.0 102 18 126/83 (97) 96 Nasal Cannula 4.0 10/17/17 19:16 103 16 96 Nasal Cannula 4.0 10/17/17 16:01 36.8 84 18 137/65 (89) 94 10/17/17 16:00 Nasal Cannula 4.0 10/17/17 15:15 98 16 93 Nasal Cannula 4.0 Physical Exam General Appearance: no apparent distress, + thin Eyes: normal inspection, sclerae normal ENT: + pertinent finding (ATKA) Neck: trachea midline Respiratory/Chest: no respiratory distress, no accessory muscle use, + rhonchi (diffuse) Cardiovascular: regular rate, rhythm, no edema, no murmur, + pertinent finding (left chest wall with port in place) Abdomen: normal bowel sounds, non tender, soft, no organomegaly Extremities: normal inspection, no pedal edema, no calf tenderness Neurologic/Psychiatric: alert Skin: normal color, warm/dry, no rash Laboratory Results Last 24 Hours Test 10/18/17 04:39 White Blood Count 7.27 K/uL Red Blood Count 3.83 M/uL Hemoglobin 9.6 g/dL Hematocrit 31.3 % Mean Corpuscular Volume 81.7 fL Mean Corpuscular Hemoglobin 25.1 pg Mean Corpuscular Hemoglobin Concent 30.7 g/dl RDW Standard Deviation 66.3 fL RDW Coefficient of Variation 22.1 % Platelet Count 320 K/uL Mean Platelet Volume 9.0 fL Sodium Level 133 mmol/L Potassium Level 4.0 mmol/L Chloride Level 99 mmol/L Carbon Dioxide Level 32 mmol/L Anion Gap 2.0 mmol/L Blood Urea Nitrogen 8 mg/dl Creatinine 0.40 mg/dl Est Creatinine Clear Calc Drug Dose 202.7 ml/min Estimated GFR () 148.6 Estimated GFR (Non- 128.2 BUN/Creatinine Ratio 20.1 Random Glucose 93 mg/dl Calcium Level 7.6 mg/dl Magnesium Level 1.9 mg/dl Assessment and Plan Pt is a 62 yo male with 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 He was found to have bilateral pleural effusions that are large, bilateral obstructing bronchial tumors, and post-obstructive PNA vs HCAP, treating for MRSA and GNR PNA given recent hospital stay. Pleural effusions transudative likely secondary to atelectasis Acute Hypoxic Respiratory Failure/Bilat Pleural Effusions/Post-obstructive PNA/ Occluding Lung masses - Patient is S/P B/L Thoracentesis and Bronchoscopy on 10/15 - tapped for 650 mL on the left and 1250 mL on right; had bronchoscopy on 10/15 revealing tumor burden with near occlusion bronchus intermedius and also left upper lobe bronchus and mucus plugging suctioned Pulm performed bedside US 10/17 and only small pleural effusions present despite CXR appearing much worse and could have EMMA partial collapse, but no worsening resp distress or worsening hypoxia Repeat bronchoscopy 10/18 with evidence of tumor burden throughout mucosa in left lung, and fungating mass right bronchus intermedius -treating for MRSA and GNR PNA given recent hospital stay, but now narrowed down to Zosyn alone -- plan for debulking of lung masses with Dr. Jimenez tomorrow - Pleural fluid cytology neg for malignancy - Continue Duonebs OCTAVIO and PRN -f/u cultures from bronchoscopy, BCxs, pleural fluid cultures -supportive care, supplemental O2, pain control Palliative consult obtained last week at previous admission, pt wants to proceed with surgery and remain Full Code at this time Recent Ulceration of Esophagogastric Anastomosis with Recent Upper GI Bleed/ Probable food impaction--food impaction at ulcer site most likely occurrence with chest pain- now resolved. ECG fine. Discussed case with GI -continue Carafate, bid PPI, no need for EGD at this time, continue full liquids diet for now -hgb remains stable from previous given recent GI bleed -Appreciate GI consult -follow CBC Constipation-improved -continue Miralax bid, docusate, Relistor prn Metastatic Esophageal Carcinoma S/P Esophagectomy and Gastrectomy: Follows with Dr. Nicole - Has not initiated palliative chemotherapy again yet due to hospitalization. Patient currently would like to pursue aggressive treatment - Mets to Lung, Liver, and Kidney - evidenced on imaging and support LFTs - He is prescribed Decadron to take with chemotherapy only, no need for this here DVT Prophylaxis: SCDs only given recent GI bleeding and upcoming procedure Code Status: FULL RESUSCITATION Disposition: remain on tele
--- NOTE | 2017-10-18 15:25 | Anesthesiology Progress Note ---
Anesthesia Progress Note Date of Service Oct 18, 2017. Progress Notes Mr. Dixon is scheduled for rigid bronch/debulking tomorrow with Dr. Jimenez. NKDA. PMH significant for esophagectomy 2015 and gastrectomy 2/2 esophageal cancer now with mets to lung, liver, kidney. CT chest showed near complete mucoid impaction of distal left main bronchus and LLL bronchus. He originally presented with acute hypoxic respiratory failure on 10/14/17. Other PMH sig for GERD, hiatal hernia and chronic anemia. Previous smoker as he quit in 2014. Of note, patient does have a left sided A-port for vascular access. Airway exam notable for full upper and lower dentures, diminished breath sounds b/l with faint wheezes (MP 2). He had a bronchoscopy today where he received versed and fentanyl so did NOT have patient sign anesthesia consent at this time. He is aware of surgery tomorrow and plan discussed regarding GA with likely TIVA and possible arterial line monitoring. All questions answered.
[2017-10-18] MEDS ORDERED: NURSING VERBAL MED ORDER ONE (16:30)
[2017-10-18] MEDS: OXYCODONE/ACETAMINOPHEN 5-325 TAB PO PRN (21:08)
[2017-10-19] VITALS (12 sets, daily range): BP systolic 129–147; BP diastolic 81–94; PULSE 89–108; TEMP 36.7–37.3; O2SAT 92–97
[2017-10-19] MEDS: CHECK FENTANYL PATCH PLACEMENT SCH ×3 (00:02→15:44)
[2017-10-19] MEDS ORDERED: MoRPHine SULFATE 2 MG/ML CARP IV ONE (04:45)
[2017-10-19 04:50] LABS: BASO % 0.2 %; BASO ABS # 0.02 K/uL (0-0.2); EOS % 1.9 %; EOS ABS # 0.16 K/uL (0-0.5); HEMATOCRIT 33.1 % (42-52); HEMOGLOBIN 10.1 g/dL (14.0-18.0); IG# 0.02 K/uL (0.00-0.02); LYMPH % 9.3 %; LYMPH ABS # 0.77 K/uL (1.2-3.4); MEAN CELL VOLUME 82.1 fL (80-100); MEAN CORPUSCULAR HEMOGLOBIN 25.1 pg (25-34); MEAN CORPUSCULAR HGB CONC 30.5 g/dl (32-36); MEAN PLATELET VOLUME 8.7 fL (7.4-10.4); MONO % 12.4 %; MONO ABS # 1.02 K/uL (0.11-0.59); NEUT ABS # 6.26 K/uL (1.4-6.5); PLATELET COUNT 296 K/uL (130-400); RED CELL DISTRIBUTION WIDTH SD 65.9 fL (36.4-46.3); WHITE BLOOD COUNT 8.25 K/uL (4.8-10.8)
[2017-10-19] MEDS ORDERED: MoRPHine SULFATE 2 MG/ML CARP ONE (04:50)
[2017-10-19 05:07] LABS: CALCIUM 7.6 mg/dl (8.5-10.1); CREATININE 0.42 mg/dl (0.60-1.40); POTASSIUM 4.1 mmol/L (3.5-5.1)
[2017-10-19] MEDS: PIPERACILL/TAZOBAC IV 3.375 GM in DEXTROSE 5% 100ML IV SCH ×3 (06:20→20:59)
[2017-10-19] MEDS: ALBUT/IPRATROP 3MG/0.5MG NEB 3 ML VIAL INH SCH ×4 (07:20→19:42)
[2017-10-19] MEDS: FERROUS SULFATE 325 MG TAB PO SCH ×2 (07:30→18:00)
--- NOTE | 2017-10-19 07:30 | DIAGNOSTIC IMAGING REPORT ---
CHEST ONE VIEW PORTABLE CLINICAL HISTORY: Pleural effusions COMPARISON STUDY: 10/17/2017 FINDINGS: The cardiac and mediastinal contours remain stable. There is a left-sided A-Port catheter present. There is interval decrease in size of left pleural effusion with improving aeration of the left upper lung zone. There is persistent left lower lobe atelectasis/consolidation. The right pleural effusion is stable to slightly increased in size. There are associated right basilar airspace opacities. There is diffuse interstitial thickening.[ IMPRESSION: 1. Underlying interstitial thickening, likely secondary to congestive failure/pulmonary edema 2. Stable to slightly larger right pleural effusion 3. Interval decrease in the size of the left pleural effusion with improving aeration of the left upper lung zone. 4. Persistent bibasal airspace opacities Electronically signed by: Jorge A Taylor M.D. 10/19/2017 7:28 AM Dictated Date/Time: 10/19/2017 7:26 AM
[2017-10-19] MEDS ORDERED: EpHEDrine SULFATE 50MG/5ML SYR ONE (08:53)
[2017-10-19] MEDS ORDERED: CISATRACURIUM BESYLATE IV SOLN 2 MG/ML 10 ML VIAL ONE (08:53)
[2017-10-19] MEDS ORDERED: LARYING-O-JET KIT (LTA) ONE (08:53)
[2017-10-19] MEDS ORDERED: LIDOCAINE HCL 2% 2 ML VIAL (20MG/ML) ONE (08:53)
[2017-10-19] MEDS ORDERED: MIDAZOLAM HCL 1 MG/ML 2ML VIAL ONE (08:53)
[2017-10-19] MEDS ORDERED: ONDANSETRON INJ 2 MG/ML 2 ML VIAL ONE (08:53)
[2017-10-19] MEDS ORDERED: GLYCOPYRROLATE INJ 0.2 MG/ML VIAL ONE (08:53)
[2017-10-19] MEDS ORDERED: FENTANYL CITRATE INJ 50 MCG/1 ML 2 ML VIAL ONE (08:53)
[2017-10-19] MEDS ORDERED: PROPOFOL IV EMULSION 10 MG/ML 20 ML VIAL IV ONE ×2 (08:53→11:58)
[2017-10-19] MEDS ORDERED: NEOSTIGMINE METHYLSULFATE 5 MG/5 ML SYR ONE (08:53)
[2017-10-19] MEDS ORDERED: DEXAMETHASONE SOD INJ 4 MG/ML VIAL ONE (08:53)
[2017-10-19] MEDS ORDERED: PHENYLEPHRINE 100MCG/ML 5ML SYR ONE (08:53)
[2017-10-19] MEDS: SUCRALFATE 1 GM/10 ML UDC PO SCH ×4 (09:00→20:51)
[2017-10-19] MEDS: POLYETHYLENE (MIRALAX) 17 GM PACK PO SCH ×2 (09:00→20:52)
[2017-10-19] MEDS: PANTOprazole SOD 40 MG TAB PO SCH ×2 (09:00→20:52)
[2017-10-19] MEDS: DOCUSATE SODIUM 100 MG CAP PO SCH ×2 (09:00→20:52)
--- NOTE | 2017-10-19 11:37 | Bronchoscopy Procedure Note ---
Bronchoscopy Procedure Note Procedure: Flexible and rigid Bronchoscopy, bronchial lavage, cryoprobe debridement, forcep debridement Consent: Obtained through the patient placed into the chart Pre-procedural diagnosis: Metastatic gastric carcinoma Post-procedural diagnosis: Metastatic gastric carcinoma Procedure: The Olympus video bronchoscope and Student[employer] rigid tracheoscope was used for this procedure. Posterior oropharynx: Anatomically within normal limits Glottis: Anatomically within normal limits Vocal cords: Anatomically within normal limits but as the patient was under general anesthesia unable to evaluate vocal cord function Subglottis/trachea/Helen: Anatomically within normal limits Right bronchial tree: Right mainstem bronchus: Anatomically within normal limits Right upper lobe: Anatomically within normal limits Bronchus intermedius: Anatomically within normal limits Right middle lobe: 1cm x 9mm fungating mass with 90%occluding the bronchus intermedius with a stalk attached to the lateral wall Cryoprobe and traditional forceps used for debridement the end there was only 5% occlusion of the bronchus intermedius Right lower lobe: Anatomically within normal limits Left bronchial tree: Left mainstem bronchus: Anatomically within normal limits, diffuse mucous plugs Left upper lobe: Sub-mucosal changes consistent with metastatic carcinoma and diffuse mucous plugs Lingula: Submucosal changes consistent with metastatic carcinoma diffuse mucous plugs Left lower lobe: Submucosal changes consistent with metastatic carcinoma Bronchial alveolar lavage: Left upper lobe Cryoprobe and traditional forcep debridement of the bronchus intermedius EBL: None Complications: None Follow-up: PACU
[2017-10-19] MEDS ORDERED: ATROPINE SULFATE 0.1 MG/ML 5ML SYR IV PRN (12:00)
[2017-10-19] MEDS ORDERED: EpHEDrine SULFATE INJ 50 MG/ML AMP IV PRN (12:00)
--- NOTE | 2017-10-19 12:23 | Anesthesiology Progress Note ---
Anesthesia Post Op Note Date & Time Oct 19, 2017 at 12:22 Vital Signs Pain Intensity: 0.0 Vital Signs Past 12 Hours Date Time Temp Pulse Resp B/P (MAP) Pulse Ox O2 Delivery O2 Flow Rate FiO2 10/19/17 12:10 101 19 135/94 98 Nasal Cannula 4 10/19/17 12:00 106 18 127/98 96 Oxymask 10 10/19/17 11:50 102 16 139/95 96 Oxymask 10 10/19/17 11:42 36.0 100 21 133/90 97 Oxymask 10 10/19/17 08:00 Nasal Cannula 2.0 10/19/17 07:32 36.8 93 20 147/94 (111) 94 5.0 10/19/17 07:20 99 16 97 Nasal Cannula 4.0 10/19/17 04:00 Nasal Cannula 4.0 10/19/17 03:39 36.7 89 18 138/87 (104) 93 Notes Mental Status: alert / awake / arousable, participated in evaluation Pt Amnestic to Procedure: Yes Nausea / Vomiting: adequately controlled Pain: adequately controlled Airway Patency, RR, SpO2: stable & adequate BP & HR: stable & adequate Hydration State: stable & adequate Anesthetic Complications: no major complications apparent
[2017-10-19] MEDS: FENTANYL 12 MCG/HR TDSY TD SCH (14:05)
[2017-10-19] MEDS: FENTANYL PATCH REMOVE & WASTE SCH (14:06)
--- NOTE | 2017-10-19 15:28 | Progress Note ---
Subjective Date of Service: Oct 19, 2017. Subjective Pt evaluation today including: conversation w/ patient, conversation w/ family , physical exam, chart review, lab review, conversation w/ implementation consultant, review of inpatient medication list Report generalized weakness after procedure of bronch, some cough up some fresh blood, Speak full sentence, occasional wet cough, mild sore throat Decrease appetite, deny fever and chill Problem List Medical Problems: (1) Anemia Status: Acute (2) GI bleed Status: Acute (3) Hypoxia Status: Acute (4) Hypoxia Status: Acute (5) Metastasis from esophageal cancer Status: Acute (6) Pedal edema Status: Acute Review of Systems Constitutional: + weakness, + fatigue, No fever, No chills, No sweats, No weight loss, No problem reported Eyes: No worsening of vision, No eye pain, No redness, No discharge, No diplopia ENT: No hearing loss, No unusual epistaxis, No nasal symptoms, No sore throat, No tinnitus, No dental problems, No trouble swallowing Respiratory: + cough, + sputum, + wheezing, + shortness of breath, + dyspnea on exertion, + hemoptysis, No dyspnea at rest Cardiac: No chest pain, No orthopnea, No PND, No edema, No claudication, No palpitations Abdomen: No pain, No nausea, No vomiting, No diarrhea, No constipation Musculoskeletal: No joint pain, No muscle pain, No swelling, No calf pain Male : No dysuria, No urinary frequency, No incontinence, No nocturia more than once/night, No slowing stream, No hematuria Neurologic: No memory loss, No paralysis, No weakness, No numbness/tingling, No vertigo, No balance problems Psychiatric: No depression symptoms, No anhedonism, No anxiety, No insomnia, No substance abuse Heme: No abnormal bleeding/bruising, No clotting problems, No swollen lymph nodes, No night sweats Endo: No fatigue, No excessive thirst, No excessive urination Skin: No rash, No itch, No new/changing skin lesions, No color change, No bleeding Objective Vital Signs Date Time Temp Pulse Resp B/P (MAP) Pulse Ox O2 Delivery O2 Flow Rate FiO2 10/19/17 13:00 36.8 92 22 132/83 (99) 94 Nasal Cannula 4.0 10/19/17 13:00 Nasal Cannula 4.0 10/19/17 12:20 36.7 101 18 138/94 96 Nasal Cannula 4 10/19/17 12:10 101 19 135/94 98 Nasal Cannula 4 10/19/17 12:00 106 18 127/98 96 Oxymask 10 10/19/17 11:50 102 16 139/95 96 Oxymask 10 10/19/17 11:42 36.0 100 21 133/90 97 Oxymask 10 10/19/17 08:00 Nasal Cannula 4.0 10/19/17 07:32 36.8 93 20 147/94 (111) 94 5.0 10/19/17 07:20 99 16 97 Nasal Cannula 4.0 10/19/17 04:00 Nasal Cannula 4.0 10/19/17 03:39 36.7 89 18 138/87 (104) 93 10/19/17 00:08 37.0 99 18 129/85 (100) 92 10/19/17 00:00 Nasal Cannula 4.0 10/18/17 20:00 Nasal Cannula 4.0 10/18/17 19:30 36.8 103 19 127/84 (98) 92 Nasal Cannula 4.0 10/18/17 19:17 107 16 94 Nasal Cannula 4.0 10/18/17 16:00 Nasal Cannula 4.0 10/18/17 15:33 36.9 90 18 127/81 (96) 94 Physical Exam General Appearance: WD/WN, no apparent distress, + cachetic, + thin Eyes: normal inspection, PERRL, EOMI, sclerae normal ENT: normal ENT inspection, hearing grossly normal, pharynx normal Neck: supple, no adenopathy, thyroid normal, no JVD, no carotid bruits, trachea midline Respiratory/Chest: chest non-tender, no respiratory distress, no accessory muscle use, + decreased breath sounds, + rales, + wheezing (occasional wheezing) Cardiovascular: regular rate, rhythm, no edema, no gallop, no JVD, no murmur Abdomen: normal bowel sounds, non tender, soft, no organomegaly, no pulsatile mass Extremities: normal range of motion, non-tender, normal inspection, no pedal edema, no calf tenderness, normal capillary refill, pelvis stable 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, no motor/sensory deficits, alert, normal mood/affect, oriented x 3 Skin: normal color, warm/dry, no rash Lymphatic: no adenopathy Laboratory Results Last 24 Hours Test 10/19/17 04:24 White Blood Count 8.25 K/uL Red Blood Count 4.03 M/uL Hemoglobin 10.1 g/dL Hematocrit 33.1 % Mean Corpuscular Volume 82.1 fL Mean Corpuscular Hemoglobin 25.1 pg Mean Corpuscular Hemoglobin Concent 30.5 g/dl Platelet Count 296 K/uL Mean Platelet Volume 8.7 fL Neutrophils (%) (Auto) 76.0 % Lymphocytes (%) (Auto) 9.3 % Monocytes (%) (Auto) 12.4 % Eosinophils (%) (Auto) 1.9 % Basophils (%) (Auto) 0.2 % Neutrophils # (Auto) 6.26 K/uL Lymphocytes # (Auto) 0.77 K/uL Monocytes # (Auto) 1.02 K/uL Eosinophils # (Auto) 0.16 K/uL Basophils # (Auto) 0.02 K/uL RDW Standard Deviation 65.9 fL RDW Coefficient of Variation 22.0 % Immature Granulocyte % (Auto) 0.2 % Immature Granulocyte # (Auto) 0.02 K/uL Poikilocytosis PRESENT Anisocytosis PRESENT Sodium Level 134 mmol/L Potassium Level 4.1 mmol/L Chloride Level 99 mmol/L Carbon Dioxide Level 31 mmol/L Anion Gap 4.0 mmol/L Blood Urea Nitrogen 9 mg/dl Creatinine 0.42 mg/dl Est Creatinine Clear Calc Drug Dose 193.1 ml/min Estimated GFR () 145.6 Estimated GFR (Non- 125.7 BUN/Creatinine Ratio 20.6 Random Glucose 82 mg/dl Calcium Level 7.6 mg/dl Magnesium Level 1.9 mg/dl Assessment and Plan 62 yo male admitted because of acute hypoxic respiratory failure secondary to postobstructive pneumonia and occlusion of lung, hx of metastatic esophageal CA with metastasis to the lungs, liver, kidneys status post esophagectomy with esophago-gastric anastomosis, recent UGI bleed from anastomotic ulcer, chronic anemia, GERD Acute Hypoxic Respiratory Failure/Bilat Pleural Effusions/Post-obstructive PNA/ Occluding Lung masses had flexible and rigid Bronchoscopy, bronchial lavage, cryoprobe debridement, forcep debridement by pulmonay today, so diagnosis is Metastatic gastric carcinoma S/P B/L Thoracentesis and Bronchoscopy on 10/15 Pulm performed bedside US 10/17 and only small pleural effusions bronchoscopy 10/18 with evidence of tumor burden throughout mucosa in left lung, and fungating mass right bronchus intermedius Ttreating for MRSA and GNR PNA given recent hospital stay, but now narrowed down to Zosyn alone Continue Duonebs OCTAVIO and PRN, f/u cultures from bronchoscopy, BCxs, pleural fluid cultures Continue supportive care, pt wants to proceed with surgery and remain Full Code at this time Constipation, continue Miralax bid, docusate, Relistor prn Metastatic Esophageal Carcinoma S/P Esophagectomy and Gastrectomy: Follows with Dr. Nicole DVT Prophylaxis: SCDs because of recent GI bleeding and upcoming procedure Code Status: FULL RESUSCITATION, need to be addressed Will discussed with patient and family about discharge plan Continued [facility] stay due to: multiple IV medications needed Discharge planning: home
[2017-10-19] MEDS ORDERED: COUGH DROP (SUGAR FREE) LOZ 24 LOZ/1 BOX LOZ ONE (17:45)
[2017-10-19] MEDS: OXYCODONE/ACETAMINOPHEN 5-325 TAB PO PRN (20:51)
[2017-10-20] VITALS (10 sets, daily range): BP systolic 134–150; BP diastolic 84–93; PULSE 73–107; TEMP 36.7–37.2; O2SAT 85–95
[2017-10-20] MEDS: CHECK FENTANYL PATCH PLACEMENT SCH ×4 (00:03→23:59)
[2017-10-20] MEDS: PIPERACILL/TAZOBAC IV 3.375 GM in DEXTROSE 5% 100ML IV SCH ×2 (05:57→13:33)
[2017-10-20] MEDS: OXYCODONE/ACETAMINOPHEN 5-325 TAB PO PRN ×2 (06:02→16:01)
[2017-10-20 06:43] LABS: BASO % 0.1 %; BASO ABS # 0.01 K/uL (0-0.2); EOS ABS # 0.08 K/uL (0-0.5); HEMATOCRIT 32.4 % (42-52); IG# 0.02 K/uL (0.00-0.02); LYMPH % 6.5 %; LYMPH ABS # 0.52 K/uL (1.2-3.4); MEAN CELL VOLUME 81.2 fL (80-100); MEAN CORPUSCULAR HEMOGLOBIN 25.1 pg (25-34); MEAN CORPUSCULAR HGB CONC 30.9 g/dl (32-36); MEAN PLATELET VOLUME 8.7 fL (7.4-10.4); MONO % 11.5 %; MONO ABS # 0.92 K/uL (0.11-0.59); NEUT % 80.6 %; NEUT ABS # 6.42 K/uL (1.4-6.5); PLATELET COUNT 310 K/uL (130-400); RED CELL DISTRIBUTION WIDTH CV 21.9 % (11.5-14.5); RED CELL DISTRIBUTION WIDTH SD 64.8 fL (36.4-46.3); WHITE BLOOD COUNT 7.97 K/uL (4.8-10.8)
[2017-10-20] MEDS: ALBUT/IPRATROP 3MG/0.5MG NEB 3 ML VIAL INH SCH ×4 (07:08→19:32)
[2017-10-20 07:18] LABS: BLOOD UREA NITROGEN 8 mg/dl (7-18); CALCIUM 7.8 mg/dl (8.5-10.1); CARBON DIOXIDE 28 mmol/L (21-32); CREATININE 0.39 mg/dl (0.60-1.40); GLUCOSE 82 mg/dl (70-99); POTASSIUM 3.8 mmol/L (3.5-5.1); SODIUM 133 mmol/L (136-145)
--- NOTE | 2017-10-20 07:53 | Anesthesiology Progress Note ---
Anesthesia Post Op Note Date & Time Oct 20, 2017 at 07:52 Vital Signs Pain Intensity: 0.0 Vital Signs Past 12 Hours Date Time Temp Pulse Resp B/P (MAP) Pulse Ox O2 Delivery O2 Flow Rate FiO2 10/20/17 07:39 36.9 96 18 148/93 (111) 93 Room Air 10/20/17 07:08 73 16 93 Nasal Cannula 2.0 10/20/17 04:25 Nasal Cannula 4.0 10/20/17 03:10 37.2 107 23 138/84 (102) 90 Nasal Cannula 2.0 10/20/17 00:30 Nasal Cannula 4.0 10/19/17 23:33 36.9 104 20 142/83 (102) 92 Nasal Cannula 3.0 10/19/17 20:00 95 Nasal Cannula 4.0 Notes Mental Status: alert / awake / arousable, participated in evaluation Pt Amnestic to Procedure: Yes Nausea / Vomiting: adequately controlled Pain: adequately controlled Airway Patency, RR, SpO2: stable & adequate BP & HR: stable & adequate Hydration State: stable & adequate Anesthetic Complications: no major complications apparent
[2017-10-20] MEDS: SUCRALFATE 1 GM/10 ML UDC PO SCH ×5 (08:31→19:48)
[2017-10-20] MEDS: POLYETHYLENE (MIRALAX) 17 GM PACK PO SCH ×2 (08:32→19:48)
[2017-10-20] MEDS: FERROUS SULFATE 325 MG TAB PO SCH ×2 (08:32→16:02)
[2017-10-20] MEDS: PANTOprazole SOD 40 MG TAB PO SCH ×2 (08:32→19:48)
[2017-10-20] MEDS: DOCUSATE SODIUM 100 MG CAP PO SCH ×2 (08:32→19:48)
--- NOTE | 2017-10-20 08:51 | Pulmonology Progress Note ---
Pulmonary Progress Note Date of Service Oct 20, 2017. Attending Dr. Jimenez Subjective Patient does note improvement in his respiratory since yesterday's procedure. He did have some mild hemoptysis status post the procedure but this has past. Objective 62-yo male admitted to [facility] through the ER 10/14/17 with symptoms of dyspnea, weakness and cough. Prior records were reviewed. PMHx includes: metastatic esophageal adenocarcinoma (dx 04/2015, chemoradiotherapy s/p esophagectomy & gastrectomy with pull-through @ [facility] [place]), COPD/pulmonary emphysema (1-2ppd, age 17-yo), acid reflux, allergic rhinitis, h/o right pneumothorax (2014), h/o sepsis. Note made of prior admission 10/06/17-10/10/17 with GIB 2/2 EG anastomosis ulceration: -Echocardiogram 10/06/17: pEF, mild AR/MR/TR, PASP: 35-40mmHg. In the ER CTA: No PE. Near complete mucoid impaction of the distal left main bronchus and LLL bronchus. Focal obstruction of the right bronchus intermedius. Increase in size of previously noted moderate bilateral pleural effusions. Patchy densities in the RLL. ABG 10/14/17: 7.4/48/66-4LPM/29. ProBNP: 1180 10/15/17: bronchoscopy with Dr. Sumner: noted near obstructive lesion of the bronchus intermedius as well as lavage of purulent mucoid impaction and secretions from the EMMA, RLL, RML and lingula. Suspected aspiration as well. 10/15/17: - Left thoracentesis: 650mL nuha fluid removed - Right thoracentesis: 1250 mL nuha fluid removed (WBC: 482, LDH: 150, Amylase : 11, Glucose: 87, protein: 1.8). Physical Exam: Stable on 4 L nasal cannula Constitutional: Cachectic but no apparent distress Head: + facial symmetry - corrective lenses Chest: Rhonchi bilaterally but notably increase in the right lower lobe from previous exams CV: RRR, no MRG. Warm and perfused peripherally with mild pedal edema MSK/Extremities: Moving and developed symmetrically Neurologic: A&O Good data recall. Appropriate affect. Assessment & Plan 62-year-old gentleman with metastatic esophageal CA: 1. Bilateral Pleural Effusion: Can continue to monitor at this time as his last transthoracic ultrasound evaluation showed small bilateral pleural effusions. He is at risk for future increase in his pleural effusions but notes physiologic/respiratory improvement since rigid bronchoscopy yesterday. No acute intervention necessary at this time. 2. Airway obstruction: Patient has undergone multiple flexible bronchoscopies for mucus clearance as well as evaluation of his obstructive bronchus intermedius. On 10/19/2017 he underwent rigid bronchoscopy with removal of the fungating mass obstructing the bronchus intermedius. Patient does note improvement in his respiratory status at this time. 3. Sign off: This time the Pulmonary service will sign off the patient. If he has any change in his respiratory status please contact us. Patient will require follow-up within the 2 week. After his discharge with the Pulmonary group. He can be myself or any available pulmonary providers. Data Medications: Current Inpatient Medications Medications (Trade) Dose Ordered Sig/Konstantin Route Start Time Stop Time Status Last Admin Dose Admin Acetaminophen (Tylenol Tab) 650 mg Q4H PRN PO 10/14/17 23:00 11/13/17 22:59 10/16/17 06:14 650 MG Ondansetron HCl (Zofran Inj) 4 mg Q6H PRN IV 10/14/17 23:00 11/13/17 22:59 10/18/17 03:52 4 MG Ferrous Sulfate (Feosol Tab) 325 mg BIDM PO 10/15/17 07:15 11/14/17 07:59 10/20/17 08:32 325 MG Sucralfate (Carafate Susp) 1 gm QID PO 10/15/17 09:00 11/14/17 08:59 10/20/17 08:31 1 GM Albuterol/ Ipratropium (Duoneb) 3 ml QIDR INH 10/15/17 08:00 11/14/17 07:59 10/20/17 07:08 3 ML Miscellaneous Information (Consult) 1 ea UD PRN N/A 10/14/17 23:30 11/13/17 23:29 Piperacillin Sod/ Tazobactam Sod 3.375 gm/Dextrose 115 ml @ 28.75 mls/ hr Q8H IV 10/15/17 06:00 10/22/17 05:59 10/20/17 05:57 28.75 MLS/HR Fentanyl (Duragesic Patch) 12 mcg Q3D TD 10/16/17 14:30 10/30/17 14:29 10/19/17 14:05 12 MCG Miscellaneous (Fentanyl Patch Remove & Waste) 1 ea Q3D N/A 10/16/17 14:29 11/15/17 14:28 10/19/17 14:06 1 EA Miscellaneous Information (Check Fentanyl Patch Placement) 1 ea QS N/A 10/15/17 00:00 11/14/17 00:00 10/20/17 08:00 1 EA Heparin Sodium (Porcine) (Heparin 100 Unit/ml 5ml Flush) 5 ml PRN PRN IV 10/15/17 00:30 11/14/17 00:29 Pantoprazole Sodium (Protonix Tab) 40 mg BID PO 10/15/17 21:00 11/14/17 20:59 10/20/17 08:32 40 MG Docusate Sodium (coLACE CAP) 100 mg BID PO 10/16/17 13:15 11/15/17 13:14 10/20/17 08:32 100 MG Oxycodone/ Acetaminophen (Percocet 5-325mg Tab) `1-2 tabs for pain 1 tab ... Q4H PRN PO 10/16/17 20:45 10/30/17 20:44 10/20/17 06:02 2 TAB Polyethylene (Miralax Powder Packet) 17 gm BID PO 10/17/17 21:00 11/15/17 13:14 10/20/17 08:32 17 GM Metoprolol Tartrate (Lopressor Tab) 12.5 mg BID PO 10/20/17 09:00 11/19/17 08:59 UNV Fluconazole/ Sodium Chloride 100 mg/Prmx 50 ml @ 100 mls/hr DAILY IV 10/20/17 09:00 10/27/17 08:59 UNV Vital Signs: Date Time Temp Pulse Resp B/P (MAP) Pulse Ox O2 Delivery O2 Flow Rate FiO2 10/20/17 07:39 36.9 96 18 148/93 (111) 93 Room Air 10/20/17 07:08 73 16 93 Nasal Cannula 2.0 10/20/17 04:25 Nasal Cannula 4.0 10/20/17 03:10 37.2 107 23 138/84 (102) 90 Nasal Cannula 2.0 10/20/17 00:30 Nasal Cannula 4.0 10/19/17 23:33 36.9 104 20 142/83 (102) 92 Nasal Cannula 3.0 10/19/17 20:00 95 Nasal Cannula 4.0 10/19/17 19:42 108 16 94 Nasal Cannula 2.0 10/19/17 18:52 37.3 100 18 137/84 (101) 94 Nasal Cannula 2.0 10/19/17 16:00 96 Nasal Cannula 4.0 10/19/17 15:46 96 16 96 Nasal Cannula 2.0 10/19/17 15:15 36.7 92 18 145/81 (102) 97 Room Air 4.0 10/19/17 13:00 36.8 92 22 132/83 (99) 94 Nasal Cannula 4.0 10/19/17 13:00 Nasal Cannula 4.0 10/19/17 12:20 36.7 101 18 138/94 96 Nasal Cannula 4 10/19/17 12:10 101 19 135/94 98 Nasal Cannula 4 10/19/17 12:00 106 18 127/98 96 Oxymask 10 10/19/17 11:50 102 16 139/95 96 Oxymask 10 10/19/17 11:42 36.0 100 21 133/90 97 Oxymask 10 Laboratory Results: Last 24 Hours Test 10/20/17 06:21 White Blood Count 7.97 K/uL Red Blood Count 3.99 M/uL Hemoglobin 10.0 g/dL Hematocrit 32.4 % Mean Corpuscular Volume 81.2 fL Mean Corpuscular Hemoglobin 25.1 pg Mean Corpuscular Hemoglobin Concent 30.9 g/dl Platelet Count 310 K/uL Mean Platelet Volume 8.7 fL Neutrophils (%) (Auto) 80.6 % Lymphocytes (%) (Auto) 6.5 % Monocytes (%) (Auto) 11.5 % Eosinophils (%) (Auto) 1.0 % Basophils (%) (Auto) 0.1 % Neutrophils # (Auto) 6.42 K/uL Lymphocytes # (Auto) 0.52 K/uL Monocytes # (Auto) 0.92 K/uL Eosinophils # (Auto) 0.08 K/uL Basophils # (Auto) 0.01 K/uL RDW Standard Deviation 64.8 fL RDW Coefficient of Variation 21.9 % Immature Granulocyte % (Auto) 0.3 % Immature Granulocyte # (Auto) 0.02 K/uL Anisocytosis PRESENT Target Cells 1+ Sodium Level 133 mmol/L Potassium Level 3.8 mmol/L Chloride Level 98 mmol/L Carbon Dioxide Level 28 mmol/L Anion Gap 7.0 mmol/L Blood Urea Nitrogen 8 mg/dl Creatinine 0.39 mg/dl Est Creatinine Clear Calc Drug Dose 209.3 ml/min Estimated GFR () > 150.0 Estimated GFR (Non- 129.5 BUN/Creatinine Ratio 21.3 Random Glucose 82 mg/dl Calcium Level 7.8 mg/dl Magnesium Level 1.9 mg/dl
[2017-10-20] MEDS ORDERED: FLUCONAZOLE / NSS 100 MG in PREMIXED NSS 50 ML IV SCH (09:00)
--- NOTE | 2017-10-20 09:14 | Hospitalist Progress Note ---
Hospitalist Progress Note Date of Service Oct 20, 2017. Subjective Pt evaluation today including: conversation w/ patient, conversation w/ family , physical exam, chart review, lab review Pain: None PO Intake: Fair, early satiety Voiding: no voiding problems The patient was seen and examined this morning. Pt reports doing well today. Pt still is having throat irritation/soreness s/p bronchoscopy. Overnight he had several episodes of coughing with hemoptysis, dark red and intermittent. He denies large volume of bright red blood. He denies feeling acutely short of breath at rest, but notes he does become winded with talking for a while still. He has only ambulated to the bathroom, and feels he would otherwise be weak and short of breath. No fever, sweats or chills right overnight. He reports a chronic issue with difficulty eating and early satiety since esophagus/stomach surgery. He denies nausea currently, but reports he does get nauseous with eating too much. Pt is requesting to see oncology, Dr. Carson or Dr. Lopez since he follows with them as an outpatient. Discussed that Dr. Ray is on consults, he is agreeable to outpatient follow up. ROS: 6 point ROS reviewed and negative other than per HPI. Objective Vital Signs Date Time Temp Pulse Resp B/P (MAP) Pulse Ox O2 Delivery O2 Flow Rate FiO2 10/20/17 07:39 36.9 96 18 148/93 (111) 93 Room Air 10/20/17 07:08 73 16 93 Nasal Cannula 2.0 10/20/17 04:25 Nasal Cannula 4.0 10/20/17 03:10 37.2 107 23 138/84 (102) 90 Nasal Cannula 2.0 10/20/17 00:30 Nasal Cannula 4.0 10/19/17 23:33 36.9 104 20 142/83 (102) 92 Nasal Cannula 3.0 10/19/17 20:00 95 Nasal Cannula 4.0 10/19/17 19:42 108 16 94 Nasal Cannula 2.0 10/19/17 18:52 37.3 100 18 137/84 (101) 94 Nasal Cannula 2.0 10/19/17 16:00 96 Nasal Cannula 4.0 10/19/17 15:46 96 16 96 Nasal Cannula 2.0 10/19/17 15:15 36.7 92 18 145/81 (102) 97 Room Air 4.0 10/19/17 13:00 36.8 92 22 132/83 (99) 94 Nasal Cannula 4.0 10/19/17 13:00 Nasal Cannula 4.0 10/19/17 12:20 36.7 101 18 138/94 96 Nasal Cannula 4 10/19/17 12:10 101 19 135/94 98 Nasal Cannula 4 10/19/17 12:00 106 18 127/98 96 Oxymask 10 10/19/17 11:50 102 16 139/95 96 Oxymask 10 10/19/17 11:42 36.0 100 21 133/90 97 Oxymask 10 Physical Exam General Appearance: WD/WN, no apparent distress, + thin Eyes: PERRL, EOMI ENT: hearing grossly normal, pharynx normal, + pertinent finding (MMM) Neck: supple, no JVD Respiratory/Chest: chest non-tender, no respiratory distress, no accessory muscle use, + pertinent finding (on RA, Absent breath sounds L base, improving aeration toward the apexes, + rhonchi throughout in the right. Left chest wall port in place. ) Cardiovascular: regular rate, rhythm Abdomen: normal bowel sounds, non tender, soft Extremities: non-tender, no pedal edema, no calf tenderness Neurologic/Psychiatric: alert, normal mood/affect, oriented x 3 Skin: normal color, warm/dry Laboratory Results Last 24 Hours Test 10/20/17 06:21 White Blood Count 7.97 K/uL Red Blood Count 3.99 M/uL Hemoglobin 10.0 g/dL Hematocrit 32.4 % Mean Corpuscular Volume 81.2 fL Mean Corpuscular Hemoglobin 25.1 pg Mean Corpuscular Hemoglobin Concent 30.9 g/dl Platelet Count 310 K/uL Mean Platelet Volume 8.7 fL Neutrophils (%) (Auto) 80.6 % Lymphocytes (%) (Auto) 6.5 % Monocytes (%) (Auto) 11.5 % Eosinophils (%) (Auto) 1.0 % Basophils (%) (Auto) 0.1 % Neutrophils # (Auto) 6.42 K/uL Lymphocytes # (Auto) 0.52 K/uL Monocytes # (Auto) 0.92 K/uL Eosinophils # (Auto) 0.08 K/uL Basophils # (Auto) 0.01 K/uL RDW Standard Deviation 64.8 fL RDW Coefficient of Variation 21.9 % Immature Granulocyte % (Auto) 0.3 % Immature Granulocyte # (Auto) 0.02 K/uL Anisocytosis PRESENT Target Cells 1+ Sodium Level 133 mmol/L Potassium Level 3.8 mmol/L Chloride Level 98 mmol/L Carbon Dioxide Level 28 mmol/L Anion Gap 7.0 mmol/L Blood Urea Nitrogen 8 mg/dl Creatinine 0.39 mg/dl Est Creatinine Clear Calc Drug Dose 209.3 ml/min Estimated GFR () > 150.0 Estimated GFR (Non- 129.5 BUN/Creatinine Ratio 21.3 Random Glucose 82 mg/dl Calcium Level 7.8 mg/dl Magnesium Level 1.9 mg/dl Assessment and Plan 62 yo male admitted because of acute hypoxic respiratory failure secondary to postobstructive pneumonia and occlusion of lung. Other PMHx includes Hx of metastatic esophageal CA with metastasis to the lungs, liver, kidneys status post esophagectomy with esophago-gastric anastomosis, recent UGI bleed from anastomotic ulcer, chronic anemia, GERD Acute Hypoxic Respiratory Failure/Bilat Pleural Effusions/Post-obstructive PNA/ Occluding Lung masses - 10/19/17: had flexible and rigid Bronchoscopy, bronchial lavage, cryoprobe debridement, forcep debridement by pulmonary with dx of Metastatic gastric carcinoma - Appreciate pulmonology involvement and recs. - Pt having sore throat/irritation, and with hemoptysis occasionally. - Will order analgesics for throat prn. - Hgb is stable at 10. - Follow cbc and prp. S/P B/L Thoracentesis and Bronchoscopy on 10/15 - Pulm performed bedside US 10/17 and only small pleural effusions - bronchoscopy 10/18 with evidence of tumor burden throughout mucosa in left lung , and fungating mass right bronchus intermedius - continue fluconazole - Treating for MRSA and GNR PNA given recent hospital stay, but now narrowed down to Zosyn alone - Continue Duonebs OCTAVIO and PRN, f/u cultures from bronchoscopy, BCxs, pleural fluid cultures - Continue supportive care Constipation, continue Miralax bid, docusate, Relistor prn Metastatic Esophageal Carcinoma S/P Esophagectomy and Gastrectomy: Follows with Dr. Nicole - Can have him seen as outpatient within 1 week after discharge DVT Prophylaxis: SCDs because of recent GI bleeding Code Status: FULL RESUSCITATION Discussed and pt wishes to remain full code Disposition: From home, lives alone, possible dc in 1-2 days.
[2017-10-20] MEDS ORDERED: FLUCONAZOLE CONSULT ACTIVE PRN (09:30)
[2017-10-20] MEDS: FLUCONAZOLE 200MG / NSS IV SCH ×2 (09:54→11:01)
[2017-10-20] MEDS: METOPROLOL TARTRATE 25 MG TAB PO SCH ×2 (09:54→19:48)
--- NOTE | 2017-10-20 14:25 | Progress Note ---
Progress Note Date of Service Oct 20, 2017. Progress Note ID Consult Dictated #[id number] A/P: 1. + bronch culture - c. albicans -would not suggest treatment, likely colonization -If concerned for aspiration, could transition from zosyn to po augmentin to complete 7 day course -thank you
--- NOTE | 2017-10-20 14:51 | INFECT. DISEASE CONSULTATION ---
DATE OF CONSULTATION: 10/20/2017 HISTORY OF PRESENT ILLNESS: This is a 62-year-old gentleman who has a history of esophageal cancer with metastatic disease to the lungs, liver, kidney and status post esophagectomy and gastrectomy. He came in to the hospital with acute onset of shortness of breath. He did have imaging, which showed pulmonary edema and suspected effusions. He was evaluated by pulmonary and underwent bronchoscopy on the . He has cultures from the growing a few Poppy albicans and again from the . His remaining cultures are unremarkable. He has been on vancomycin and Levaquin and now he is on Zosyn monotherapy. His white blood cell count is normal. He has been afebrile since admission to the hospital. There was some concern of aspiration. He was found on the bronchoscopy to have a large mass consistent with metastatic disease. He currently states he has an intermittent cough. He denies any hemoptysis. He denies any chest pain. He has no fevers or chills. He denies any nausea, vomiting or diarrhea. He was placed on fluconazole today and infectious diseases was asked to further input regarding the Poppy growing from his bronchoscopy. PAST MEDICAL HISTORY: As above. FAMILY HISTORY: Noncontributory. SOCIAL HISTORY: Significant for a history of tobacco use. He denies any alcohol or drug use. ALLERGIES: He has no known drug allergies. CURRENT MEDICATIONS: Include fluconazole, Lopressor, MiraLax, Percocet, fentanyl patch, Colace, Protonix, Carafate, DuoNeb, iron, Zosyn, subQ heparin, Tylenol and Zofran. PHYSICAL EXAMINATION: VITAL SIGNS: He is afebrile, pulse 86, respiratory rate 16, blood pressure 134/87. Oxygen saturation is 91%-93%. GENERAL: He is awake, alert and oriented x3. He is in no acute distress. HEENT: Mucous membranes are dry. Extraocular muscles are intact. HEART: Regular. LUNGS: Decreased bilaterally. There is no wheezing. ABDOMEN: Soft. There is no edema. SKIN: Without rash. A left chest wall port is clean, dry and intact. LABORATORY STUDIES: CBC reveals a white blood cell count of 7.9, hemoglobin 10, platelets 310. Chemistry panel reveals a sodium of 133, potassium 3.8, chloride is 98, bicarbonate 28, BUN 8, creatinine 0.39, glucose 82. On October 15, right lung aspiration reveals 482 white cells and from the left, there were 530 white cells. Blood cultures on the showed no growth and on final pleural fluid cultures from the , there are no growth to date. A bronchoscopy is showing light growth of normal solange. Bronch washings from the and are growing few Poppy albicans. Fungal smears have a few yeast on and no yeast on from bronchoscopy. Most recent chest x-ray was done on the and shows congestive heart failure and pulmonary edema, bilateral pleural effusions. ASSESSMENT AND PLAN: Poppy from bronchoscopy. This likely represents a normal solange and I doubt, it will require a treatment if there is concern for aspiration. Certainly, he could be narrowed from Zosyn to Augmentin to complete a 10-day course of antibiotics. I would not treat Poppy from the bronchial washings. Thank you for this consultation.
[2017-10-20] MEDS: AMOXICILLIN/CLAVULANATE TAB 875 MG TAB PO SCH (17:28)
[2017-10-21] VITALS (13 sets, daily range): BP systolic 118–133; BP diastolic 71–90; PULSE 81–110; TEMP 36.7–37.2; O2SAT 89–98
[2017-10-21] MEDS: ALBUT/IPRATROP 3MG/0.5MG NEB 3 ML VIAL INH SCH ×4 (07:23→19:23)
[2017-10-21] MEDS: POLYETHYLENE (MIRALAX) 17 GM PACK PO SCH ×2 (07:46→20:17)
[2017-10-21] MEDS: METOPROLOL TARTRATE 25 MG TAB PO SCH ×2 (07:48→20:17)
[2017-10-21] MEDS: FERROUS SULFATE 325 MG TAB PO SCH ×2 (07:48→16:07)
[2017-10-21] MEDS: PANTOprazole SOD 40 MG TAB PO SCH ×2 (07:49→20:17)
[2017-10-21] MEDS: DOCUSATE SODIUM 100 MG CAP PO SCH ×2 (07:49→20:17)
[2017-10-21] MEDS: AMOXICILLIN/CLAVULANATE TAB 875 MG TAB PO SCH ×2 (07:49→16:07)
[2017-10-21] MEDS: OXYCODONE/ACETAMINOPHEN 5-325 TAB PO PRN ×2 (07:49→16:06)
[2017-10-21] MEDS: SUCRALFATE 1 GM/10 ML UDC PO SCH ×4 (07:50→20:16)
[2017-10-21] MEDS: CHECK FENTANYL PATCH PLACEMENT SCH ×2 (07:53→16:07)
--- NOTE | 2017-10-21 15:40 | Progress Note ---
Subjective Date of Service: Oct 21, 2017. Subjective Pt evaluation today including: conversation w/ patient, physical exam, chart review, lab review, review of studies, conversation w/ career development consultant, review of inpatient medication list Feeling generalized weakness, still cough, still need oxygen, does not need oxygen at home prior to this admission, reported posterior back possible fluid retention, decreased appetite Problem List Medical Problems: (1) Anemia Status: Acute (2) GI bleed Status: Acute (3) Hypoxia Status: Acute (4) Hypoxia Status: Acute (5) Metastasis from esophageal cancer Status: Acute (6) Pedal edema Status: Acute Review of Systems Constitutional: + weakness, + fatigue, No fever, No chills, No sweats, No weight loss, No problem reported Eyes: No worsening of vision, No eye pain, No redness, No discharge, No diplopia ENT: No hearing loss, No unusual epistaxis, No nasal symptoms, No sore throat, No tinnitus, No dental problems, No trouble swallowing Respiratory: + cough, + sputum, + shortness of breath, + hemoptysis (is better) , No wheezing, No dyspnea on exertion, No dyspnea at rest Cardiac: No chest pain, No orthopnea, No PND, No edema, No claudication, No palpitations Abdomen: No pain, No nausea, No vomiting, No diarrhea, No constipation Musculoskeletal: No joint pain, No muscle pain, No swelling, No calf pain Male : No dysuria, No urinary frequency, No incontinence, No nocturia more than once/night, No slowing stream, No hematuria Neurologic: No memory loss, No paralysis, No weakness, No numbness/tingling, No vertigo, No balance problems Psychiatric: No depression symptoms, No anhedonism, No anxiety, No insomnia, No substance abuse Heme: No abnormal bleeding/bruising, No clotting problems, No swollen lymph nodes, No night sweats Endo: No fatigue, No excessive thirst, No excessive urination Skin: No rash, No itch, No new/changing skin lesions, No color change, No bleeding Objective Vital Signs Date Time Temp Pulse Resp B/P (MAP) Pulse Ox O2 Delivery O2 Flow Rate FiO2 10/21/17 14:20 99 16 89 Room Air 10/21/17 11:43 37.0 95 18 124/86 (99) 93 2.0 10/21/17 11:27 90 16 94 Nasal Cannula 2.0 10/21/17 08:05 37.2 93 20 127/89 (102) 98 9.0 10/21/17 07:25 96 16 93 Nasal Cannula 2.0 10/21/17 04:00 36.7 81 20 129/75 (93) 93 2.0 10/21/17 00:35 Nasal Cannula 4.0 10/21/17 00:13 36.7 88 18 132/84 (100) 92 Nasal Cannula 2.0 10/20/17 20:00 92 Nasal Cannula 4.0 10/20/17 19:36 101 16 92 Nasal Cannula 2.0 10/20/17 17:55 36.7 83 16 92 4.0 10/20/17 16:53 83 16 92 Room Air 10/20/17 16:10 Nasal Cannula 4.0 10/20/17 15:52 36.7 91 16 150/88 (108) 95 Nasal Cannula 2.0 Physical Exam General Appearance: WD/WN, no apparent distress, + thin, + pertinent finding ( frail looking, very weak) Eyes: normal inspection, PERRL, EOMI, sclerae normal ENT: normal ENT inspection, hearing grossly normal, pharynx normal Neck: supple, no adenopathy, thyroid normal, no JVD, no carotid bruits, trachea midline Respiratory/Chest: chest non-tender, + decreased breath sounds, + rales, + rhonchi, + wheezing Cardiovascular: regular rate, rhythm, no gallop, no JVD, no murmur, + pertinent finding (trace to 1+ edema) Abdomen: normal bowel sounds, non tender, soft, no organomegaly, no pulsatile mass Extremities: normal range of motion, non-tender, normal inspection, no pedal edema, no calf tenderness, normal capillary refill, pelvis stable Neurologic/Psychiatric: enforcement officer II-XII nml as tested, no motor/sensory deficits, alert, normal mood/affect, oriented x 3 Skin: normal color, warm/dry, no rash Lymphatic: no adenopathy Assessment and Plan 62 yo male admitted because of acute hypoxic respiratory failure secondary to postobstructive pneumonia and occlusion of lung, hx of metastatic esophageal CA with metastasis to the lungs, liver, kidneys status post esophagectomy with esophago-gastric anastomosis, recent UGI bleed from anastomotic ulcer, chronic anemia, GERD Acute Hypoxic Respiratory Failure/Bilat Pleural Effusions/Post-obstructive PNA/ Occluding Lung masses had flexible and rigid Bronchoscopy, bronchial lavage, cryoprobe debridement, forcep debridement by pulmonary Continue relative to stable, is planning to taper off oxygen, and sent home with oxygen if needed, two-step exercise was done S/P B/L Thoracentesis and Bronchoscopy on 10/15 Pulm performed bedside US 10/17 and only small pleural effusions bronchoscopy 10/18 with evidence of tumor burden throughout mucosa in left lung, and fungating mass right bronchus intermedius Ttreating for MRSA and GNR PNA given recent hospital stay, has been using Zosyn , which was change to Augmentin for total 10 days Continue Duonebs OCTAVIO and PRN, f /u cultures from bronchoscopy, BCxs, pleural fluid cultures Two-step exercise done, he need oxygen 3 L per min is when walking Constipation, continue Miralax bid, docusate, Relistor prn Metastatic Esophageal Carcinoma S/P Esophagectomy and Gastrectomy: Follows with Dr. Nicole DVT Prophylaxis: SCDs because of recent GI bleeding and upcoming procedure Code Status: FULL RESUSCITATION, Patient live alone at home, will have PT OT to evaluation of the need of rehabilitation or alf, or home health care Continued [facility] stay due to: home environment unsafe for pt Discharge planning: home
[2017-10-22] VITALS (11 sets, daily range): BP systolic 122–148; BP diastolic 70–95; PULSE 93–106; TEMP 36.8–37; O2SAT 90–96
[2017-10-22] MEDS: CHECK FENTANYL PATCH PLACEMENT SCH ×3 (00:13→16:00)
[2017-10-22] MEDS: OXYCODONE/ACETAMINOPHEN 5-325 TAB PO PRN ×2 (04:28→19:30)
[2017-10-22] MEDS: ALBUT/IPRATROP 3MG/0.5MG NEB 3 ML VIAL INH SCH ×5 (07:07→23:24)
[2017-10-22] MEDS: POLYETHYLENE (MIRALAX) 17 GM PACK PO SCH ×2 (08:00→19:27)
[2017-10-22] MEDS: DOCUSATE SODIUM 100 MG CAP PO SCH ×2 (08:00→19:27)
[2017-10-22] MEDS: PANTOprazole SOD 40 MG TAB PO SCH ×2 (08:59→19:28)
[2017-10-22] MEDS: FERROUS SULFATE 325 MG TAB PO SCH ×2 (08:59→17:30)
[2017-10-22] MEDS: AMOXICILLIN/CLAVULANATE TAB 875 MG TAB PO SCH ×2 (09:00→17:30)
[2017-10-22] MEDS: SUCRALFATE 1 GM/10 ML UDC PO SCH ×4 (09:00→19:28)
[2017-10-22] MEDS: METOPROLOL TARTRATE 25 MG TAB PO SCH ×2 (09:01→19:28)
--- NOTE | 2017-10-22 11:03 | PULMONARY PROGRESS NOTE ---
DATE: 10/22/2017 TIME: 9:50 a.m. HISTORY OF PRESENT ILLNESS: I was asked by nursing to see this patient today. Dr. Jimenez had signed off a couple of days ago. The patient complains of potentially filling up with pleural fluid again. He feels more short of breath. He is concerned about going home in this state. The patient has a very extensive history. This past week, Dr. Jimenez did thoracentesis on both the right and left chest and he did bronchoscopy. He has a history of esophageal cancer and he had tumor within the right middle lobe. OBJECTIVE: GENERAL: The patient looks mildly short of breath at rest. He is just sitting in his bed doing nothing. Temperature is 37. NECK: Neck veins were not distended. HEART: Heart rate was 96 per minute. The rhythm is regular. Blood pressure 137/89. LUNGS: Auscultation of the lung bey reveals diminished breath sounds bilaterally. This would be mid to lower. He does have some subcutaneous edema in the lower left chest between the skin and the rib cage. His respiratory rate was 20 breaths per minute. Saturation was 94% on 2 liters. EXTREMITIES: Showed no edema. LABORATORY DATA: I did review the patient's chest x-ray that was done most recently. This was on October 19. He has persistent bibasilar airspace opacities that may represent infiltrates versus atelectasis versus mass versus effusions. IMPRESSIONS: 1. Bilateral pleural effusions. 2. Esophageal cancer. 3. Right middle lobe mass. RECOMMENDATIONS: I have explained to the patient that if he is not discharged, I will ask Dr. Jimenez tomorrow to check in on him and do a bedside ultrasound to determine if he is a candidate for a repeat thoracentesis. Obviously, if there is a large amount of recurrence, he might ultimately be considered a candidate for a PleurX catheter. We will defer this followup to Dr. Jimenez. He did not appear in acute distress that anything needed to be done today.
--- NOTE | 2017-10-22 11:52 | Oncology Consultation ---
Oncology/Heme Consultation Date of Consultation: Oct 22, 2017. Attending Physician: Julito Langford MD, PhD Reason for Consultation: History of metastatic esophageal carcinoma History of Present Illness Mr. Dixon is a 62-year-old gentleman with a history of esophageal adenocarcinoma dates back to April 2015. He was originally treated with neoadjuvant chemoradiotherapy. He then had a resection of this tumor done at [facility] followed by 3 months of FOLFOX therapy. Recently he had noted to lose a fair amount of weight when a PET scan also showed widespread changes consistent with metastatic disease as well to the liver as well as retroperitoneal abdominal adenopathy. He was being prepared for chemotherapy made up of docetaxel cisplatin and leucovorin 5-FU as well as Herceptin. He missed the beginning of that therapy as he was admitted now with respiratory distress secondary to mucoid plugging. Bronchoscopy also comments about having a pulmonary friable tumor seen. Past Medical/Surgical History Medical Problems: (1) Anemia Status: Acute (2) GI bleed Status: Acute (3) Hypoxia Status: Acute (4) Hypoxia Status: Acute (5) Metastasis from esophageal cancer Status: Acute (6) Pedal edema Status: Acute Family History FHx: cancer Hypertension Social History Smoking Status: Former Smoker Smokeless Tobacco Use: No Alcohol Use: none Drug Use: none Marital Status: Occupation Status: employed Allergies Coded Allergies: No Known Allergies (Verified , 10/14/17) Home Medications Scheduled Fentanyl (Fentanyl), 12 MCG TOP Q3DAYS Ferrous Sulfate (Ferrous Sulfate), 325 MG PO BIDM Pantoprazole (Protonix), 40 MG PO BID Sucralfate (Sucralfate), 1 GM PO QID Scheduled PRN Ondansetron Hcl (Zofran), 8 MG PO Q8 PRN for Nausea Oxycodone Hcl (Oxycodone Hcl), 1 TAB PO Q4 PRN for Pain Oxycodone/Acetaminophen 5MG/325MG (Percocet 5MG/325MG), 1 TABLET PO Q4H PRN for Pain Miscellaneous Medications Dexamethasone (Decadron), 8 MG PO Current Inpatient Medications Current Inpatient Medications Medications (Trade) Dose Ordered Sig/Konstantin Route Start Time Stop Time Status Last Admin Dose Admin Acetaminophen (Tylenol Tab) 650 mg Q4H PRN PO 10/14/17 23:00 11/13/17 22:59 10/16/17 06:14 650 MG Ondansetron HCl (Zofran Inj) 4 mg Q6H PRN IV 10/14/17 23:00 11/13/17 22:59 10/18/17 03:52 4 MG Ferrous Sulfate (Feosol Tab) 325 mg BIDM PO 10/15/17 07:15 11/14/17 07:59 10/22/17 08:59 325 MG Sucralfate (Carafate Susp) 1 gm QID PO 10/15/17 09:00 11/14/17 08:59 10/22/17 09:00 1 GM Albuterol/ Ipratropium (Duoneb) 3 ml QIDR INH 10/15/17 08:00 11/14/17 07:59 10/22/17 11:28 3 ML Fentanyl (Duragesic Patch) 12 mcg Q3D TD 10/16/17 14:30 10/30/17 14:29 10/19/17 14:05 12 MCG Miscellaneous (Fentanyl Patch Remove & Waste) 1 ea Q3D N/A 10/16/17 14:29 11/15/17 14:28 10/19/17 14:06 1 EA Miscellaneous Information (Check Fentanyl Patch Placement) 1 ea QS N/A 10/15/17 00:00 11/14/17 00:00 10/22/17 08:00 1 EA Heparin Sodium (Porcine) (Heparin 100 Unit/ml 5ml Flush) 5 ml PRN PRN IV 10/15/17 00:30 11/14/17 00:29 10/21/17 08:54 5 ML Pantoprazole Sodium (Protonix Tab) 40 mg BID PO 10/15/17 21:00 11/14/17 20:59 10/22/17 08:59 40 MG Docusate Sodium (coLACE CAP) 100 mg BID PO 10/16/17 13:15 11/15/17 13:14 10/21/17 20:17 100 MG Oxycodone/ Acetaminophen (Percocet 5-325mg Tab) `1-2 tabs for pain 1 tab ... Q4H PRN PO 10/16/17 20:45 10/30/17 20:44 10/22/17 04:28 2 TAB Polyethylene (Miralax Powder Packet) 17 gm BID PO 10/17/17 21:00 2/28/18 13:14 10/21/17 20:17 17 GM Metoprolol Tartrate (Lopressor Tab) 12.5 mg BID PO 10/20/17 09:00 11/19/17 08:59 10/22/17 09:01 12.5 MG Amoxicillin/ Clavulanate Potassium (Augmentin Tab) 875 mg BIDM PO 10/20/17 16:45 10/27/17 16:44 10/22/17 09:00 875 MG Review of Systems Constitutional: Negative for night sweats, or fever Eyes: Negative for event change of vision ENT: Negative for epistaxis, nasal discharge, sore throat, or deafness Cardiovascular: Negative for chest pain, palpitations, dizziness, diaphoresis Respiratory: Positive for new shortness of breath that he states has improved some since he has been admitted and post bronchoscopy with lavage. Gastrointestinal: Negative for diarrhea, hematemesis, melena, nausea, vomiting , or dyspepsia Integumentary (skin): Negative for rash or jaundice discoloration Genitourinary: Negative for urinary frequency, hematuria, or dysuria Neurological: Negative for weakness, seizure activity, headache, or dizziness Lymphatic/Hematologic: Negative for petechiae, bleeding or new adenopathy Musculoskeletal: Negative for new joint or back pain. Claims some of left shoulder pain. Allergic/Immunologic: Negative for unusual rash or pruritis. Physical Exam Date Time Temp Pulse Resp B/P (MAP) Pulse Ox O2 Delivery O2 Flow Rate FiO2 10/22/17 11:28 93 16 94 Nasal Cannula 0.5 10/22/17 07:44 37.0 96 18 137/89 (105) 94 Nasal Cannula 2.0 10/22/17 07:07 93 16 96 Nasal Cannula 3.0 10/22/17 04:33 37.0 100 18 148/95 (112) 91 Nasal Cannula 3.0 10/22/17 00:30 Nasal Cannula 3.0 10/21/17 23:49 37.2 95 18 133/90 (104) 93 Room Air 10/21/17 19:45 91 Nasal Cannula 3.0 10/21/17 19:36 37.0 104 18 120/78 (92) 91 Nasal Cannula 3.0 10/21/17 19:23 110 16 92 Nasal Cannula 3.0 10/21/17 16:00 37.0 106 18 118/71 (87) 90 Room Air 10/21/17 16:00 94 Nasal Cannula 1.0 10/21/17 14:20 99 16 89 Room Air Constitutional: vitals are stable. Thin pleasant gentleman Eyes: Eyes are CAROL EOMI without conjuctival erythema or icterus. ENT: External examination was negative for masses. Neck: Negative for masses or palpable thyromegaly Respiratory: Lung sounds were generally clear but decreased bilaterally Cardiovascular: Heart was RRR without significant murmur, gallops or rubs Gastrointestinal: Fullness right upper quadrant consistent with mild hepatomegaly no tenderness Lymphatic system: there was no palpable peripheral lymphadenopathy Musculoskeletal System: The musculoskeletal system seemed concordant with age. Skin: The skin was negative for jaundice. Neurologic exam: The exam was negative for any focal findings. Deep tendon reflexes were equal and symmetrical. Psychiatric exam: Was essentially negative with normal mood and effect. Extremities: negative for edema Assessment & Plan Asked to see in comment about Mr. Mcmahon and his metastatic esophageal adenocarcinoma. His performance status even since last seen just 2 weeks ago is seemingly decreased. He was now replaced or characterized with an ECOG status of close to 3.0. I am doubtful that he will ever be able to receive systemic cytoreductive chemotherapy for this condition. He states he is feeling better over the past few days and perhaps we should wait a week and see just how strong he gets however I have told him today that the unfortunate reality is that he is very borderline in regards to therapy and may not be able to safely receive chemotherapy. He seemed to understand. I also went on to state that if he does not receive chemotherapy then hospice would be warranted. He will have a followup to our clinic for that assessment and decision.
--- NOTE | 2017-10-22 13:07 | Progress Note ---
Subjective Date of Service: Oct 22, 2017. Subjective Pt evaluation today including: conversation w/ patient, physical exam, chart review, lab review, review of studies, review of inpatient medication list Sitting up in bed, eating lunch, report no any pain in the abdomen for now, Report possible more worsening difficulty breathing with fluid retention in his chest Deny fever or chill, denied chest pain now Problem List Medical Problems: (1) Anemia Status: Acute (2) GI bleed Status: Acute (3) Hypoxia Status: Acute (4) Hypoxia Status: Acute (5) Metastasis from esophageal cancer Status: Acute (6) Pedal edema Status: Acute Review of Systems Constitutional: + weakness, + fatigue Eyes: No worsening of vision, No eye pain, No redness, No discharge, No diplopia ENT: No hearing loss, No unusual epistaxis, No nasal symptoms, No sore throat, No tinnitus, No dental problems, No trouble swallowing Respiratory: + cough, + sputum, + wheezing, + shortness of breath, + dyspnea on exertion Cardiac: No chest pain, No orthopnea, No PND, No edema, No claudication, No palpitations Abdomen: No pain, No nausea, No vomiting, No diarrhea, No constipation Musculoskeletal: No joint pain, No muscle pain, No swelling, No calf pain Male : No dysuria, No urinary frequency, No incontinence, No nocturia more than once/night, No slowing stream, No hematuria Neurologic: No memory loss, No paralysis, No weakness, No numbness/tingling, No vertigo, No balance problems Psychiatric: No depression symptoms, No anhedonism, No anxiety, No insomnia, No substance abuse Heme: No abnormal bleeding/bruising, No clotting problems, No swollen lymph nodes, No night sweats Endo: No fatigue, No excessive thirst, No excessive urination Skin: No rash, No itch, No new/changing skin lesions, No color change, No bleeding Objective Vital Signs Date Time Temp Pulse Resp B/P (MAP) Pulse Ox O2 Delivery O2 Flow Rate FiO2 10/22/17 11:28 93 16 94 Nasal Cannula 0.5 10/22/17 07:44 37.0 96 18 137/89 (105) 94 Nasal Cannula 2.0 10/22/17 07:07 93 16 96 Nasal Cannula 3.0 10/22/17 04:33 37.0 100 18 148/95 (112) 91 Nasal Cannula 3.0 10/22/17 00:30 Nasal Cannula 3.0 10/21/17 23:49 37.2 95 18 133/90 (104) 93 Room Air 10/21/17 19:45 91 Nasal Cannula 3.0 10/21/17 19:36 37.0 104 18 120/78 (92) 91 Nasal Cannula 3.0 10/21/17 19:23 110 16 92 Nasal Cannula 3.0 10/21/17 16:00 37.0 106 18 118/71 (87) 90 Room Air 10/21/17 16:00 94 Nasal Cannula 1.0 10/21/17 14:20 99 16 89 Room Air Physical Exam General Appearance: WD/WN, no apparent distress, + cachetic, + thin, + pertinent finding (frail chronic ill-looking, but looks better than yesterday) Eyes: normal inspection, PERRL, EOMI, sclerae normal ENT: normal ENT inspection, hearing grossly normal, pharynx normal Neck: supple, no adenopathy, thyroid normal, no JVD, no carotid bruits, trachea midline Respiratory/Chest: chest non-tender, no respiratory distress, no accessory muscle use, + decreased breath sounds, + crackles, + rales, + rhonchi, + wheezing Cardiovascular: regular rate, rhythm, no edema, no gallop, no JVD, no murmur Abdomen: normal bowel sounds, non tender, soft, no organomegaly, no pulsatile mass Extremities: normal range of motion, non-tender, normal inspection, no pedal edema, no calf tenderness, normal capillary refill, pelvis stable Neurologic/Psychiatric: gun synchronizer II-XII nml as tested, no motor/sensory deficits, alert, normal mood/affect, oriented x 3 Skin: normal color, warm/dry, no rash Lymphatic: no adenopathy Assessment and Plan 62 yo male admitted because of acute hypoxic respiratory failure secondary to postobstructive pneumonia and occlusion of lung, hx of metastatic esophageal CA with metastasis to the lungs, liver, kidneys status post esophagectomy with esophago-gastric anastomosis, recent UGI bleed from anastomotic ulcer, chronic anemia, GERD Acute Hypoxic Respiratory Failure/Bilat Pleural Effusions/Post-obstructive PNA/ Occluding Lung masses had flexible and rigid Bronchoscopy, bronchial lavage, cryoprobe debridement, forcep debridement by pulmonary Continue relative to stable, was not able taper off oxygen, very likely need to send home with oxygen S/P B/L Thoracentesis and Bronchoscopy on 10/15, no report possible fluid retention again, metal patternmaker recommend to have bedside ultrasound tomorrow and remove fluid if needed, and around to 10:[address] Jimenez if not seen yet Pulm performed bedside US 10/17 and only small pleural effusions bronchoscopy 10/18 with evidence of tumor burden throughout mucosa in left lung, and fungating mass right bronchus intermedius Ttreating for MRSA and GNR PNA given recent hospital stay, has been using Zosyn , which was change to Augmentin for total 10 days Continue Duonebs OCTAVIO and PRN, f /u cultures from bronchoscopy, BCxs, pleural fluid cultures Two-step exercise done, he need oxygen 3 L per min is when walking, it wasn't done a of discharge Constipation, continue Miralax bid, docusate, Relistor prn Metastatic Esophageal Carcinoma S/P Esophagectomy and Gastrectomy: Follows with Dr. Nicole, need to have care goal defined with primary oncologist has request oncology formal consult DVT Prophylaxis: SCDs because of recent GI bleeding and upcoming procedure Code Status: FULL RESUSCITATION, Patient live alone at home, will have PT OT to evaluation of the need of rehabilitation or half-way, or home health care Continued [facility] stay due to: home environment unsafe for pt Discharge planning: home
[2017-10-22] MEDS: FENTANYL PATCH REMOVE & WASTE SCH (14:29)
[2017-10-22] MEDS: FENTANYL 12 MCG/HR TDSY TD SCH (17:33)
[2017-10-23] VITALS (12 sets, daily range): BP systolic 108–125; BP diastolic 72–82; PULSE 87–98; TEMP 36.6–37.2; O2SAT 90–97
[2017-10-23] MEDS: OXYCODONE/ACETAMINOPHEN 5-325 TAB PO PRN ×2 (04:00→07:58)
[2017-10-23] MEDS: ALBUT/IPRATROP 3MG/0.5MG NEB 3 ML VIAL INH SCH ×4 (07:08→19:39)
[2017-10-23] MEDS: CHECK FENTANYL PATCH PLACEMENT SCH ×3 (07:57→16:04)
[2017-10-23] MEDS: DOCUSATE SODIUM 100 MG CAP PO SCH ×2 (08:00→19:44)
[2017-10-23] MEDS: POLYETHYLENE (MIRALAX) 17 GM PACK PO SCH ×2 (08:00→19:45)
[2017-10-23] MEDS: FERROUS SULFATE 325 MG TAB PO SCH ×2 (08:01→18:21)
[2017-10-23] MEDS: AMOXICILLIN/CLAVULANATE TAB 875 MG TAB PO SCH ×2 (08:01→18:21)
[2017-10-23] MEDS: METOPROLOL TARTRATE 25 MG TAB PO SCH ×2 (08:01→19:47)
[2017-10-23] MEDS: SUCRALFATE 1 GM/10 ML UDC PO SCH ×4 (08:02→19:44)
[2017-10-23] MEDS: PANTOprazole SOD 40 MG TAB PO SCH ×2 (08:03→19:46)
--- NOTE | 2017-10-23 08:44 | Pulmonology Progress Note ---
Pulmonary Progress Note Date of Service Oct 23, 2017. Attending Dr. Manzanares Subjective Mr. Mcmahon is a 62-year-old male that was diagnosed with esophageal cancer. Review of chart shows poor prognosis. Discussion with patient reveals that Dr. Nicole as well as Dr. Carson have both indicated that he is a poor candidate for chemotherapy and would most likely benefit from hospice. Patient has had bilateral thoracentesis with Dr. Jimenez and had resultant regarding his respiratory status. On physical examination today it appears that effusions have recurred left worse than right. Patient denies any pleuritic pain or shortness of breath at rest. He has not been out of bed to walk the halls but requests to do so. He also would be interested in repeat thoracentesis versus Pleurx catheter. The patient denies any productive cough or sputum. He has no hemoptysis. He denies fever, chills, rigors, sweats. He has no chest pain or tightness. He does have 2/10 mid epigastric pain. He has no other acute complaints. The following is an excerpt from Dr. Jimenez's note: 62-yo male admitted to [facility] through the ER 10/14/17 with symptoms of dyspnea, weakness and cough. Prior records were reviewed. PMHx includes: metastatic esophageal adenocarcinoma (dx 04/2015, chemoradiotherapy s/p esophagectomy & gastrectomy with pull-through @ [facility] [place]), COPD/pulmonary emphysema (1-2ppd, age 17-yo), acid reflux, allergic rhinitis, h/o right pneumothorax (2014), h/o sepsis. Note made of prior admission 10/06/17-10/10/17 with GIB 2/2 EG anastomosis ulceration: -Echocardiogram 10/06/17: pEF, mild AR/MR/TR, PASP: 35-40mmHg. In the ER CTA: No PE. Near complete mucoid impaction of the distal left main bronchus and LLL bronchus. Focal obstruction of the right bronchus intermedius. Increase in size of previously noted moderate bilateral pleural effusions. Patchy densities in the RLL. ABG 10/14/17: 7.4/48/66-4LPM/29. ProBNP: 1180 10/15/17: bronchoscopy with Dr. Sumner: noted near obstructive lesion of the bronchus intermedius as well as lavage of purulent mucoid impaction and secretions from the EMMA, RLL, RML and lingula. Suspected aspiration as well. 10/15/17: - Left thoracentesis: 650mL nuha fluid removed - Right thoracentesis: 1250 mL nuha fluid removed (WBC: 482, LDH: 150, Amylase : 11, Glucose: 87, protein: 1.8). Objective Vital Signs - as noted below Laboratory Data - as noted below Physical Exam: General - NAD. Seen in bedside chair Eyes - No icterus, gaze conjugate ENT - Mucosa moist, no lesions or candidiasis Neck - Supple, No JVD Lungs - No bronchospasm. Diffuse coarse rales at the bases. Bilateral upper field anterior rhonchi. Dull to percussion bilaterally Heart - Regular, rate controlled Abdomen - Soft, NT, ND, BS present Extremities - No edema, pedal pulses intact Neuro - A&OX3 Assessment & Plan 62-year-old gentleman with metastatic esophageal CA: BILATERAL PLEURAL EFFUSIONS * Previous thoracentesis bilaterally by Dr. Jimenez this admission * Patient reports increased shortness of breath and early satiety * Will ultrasound later today for possible bronchoscopy * May benefit from Pleurx catheter as it appears as though patient will be a hospice candidate AIRWAY OBSTRUCTION * Bronchoscopy with Dr. Sumner revealed airway obstruction and bronchus intermedius * Patient underwent rigid bronchoscopy 10/19/[address] Jimenez with removal of fungating mass with respiratory improvement status post procedure * Further management per Dr. Jimenez DVT PROPHYLAXIS * Patient not receiving any chemical prophylaxis * INR 1.3 on 10/14/17 * Check repeat coags * TEDs/SCDs * Ambulate in hallways as tolerated with assistance Thank you for including us in the care of this patient. I will discuss evaluation for thoracentesis with Dr. Manzanares as well as Dr. Jimenez. On discharge, patient will need follow-up in the pulmonary clinic within two weeks. Physician Supervision Note: I was present with Roosevelt Harkins PA-C during the history and exam. I discussed the case with him and agree with the findings and plan as documented in the note. Any exceptions or clarifications are listed here: Patient with metastatic esophageal cancer, s/p removal of bronchus intermedius fungating mass, s/p b/l thoracentesis. Repeat CXR tomorrow, evaluate for fluid reaccumulation. May require PleurX catheter for palliation. Patient is dying of cancer, our efforts would not provide meaningful improvement or recovery Documented By: Alexi Manzanares MD Data Medications: Current Inpatient Medications Medications (Trade) Dose Ordered Sig/Konstantin Route Start Time Stop Time Status Last Admin Dose Admin Acetaminophen (Tylenol Tab) 650 mg Q4H PRN PO 10/14/17 23:00 11/13/17 22:59 10/16/17 06:14 650 MG Ondansetron HCl (Zofran Inj) 4 mg Q6H PRN IV 10/14/17 23:00 11/13/17 22:59 10/18/17 03:52 4 MG Ferrous Sulfate (Feosol Tab) 325 mg BIDM PO 10/15/17 07:15 11/14/17 07:59 10/23/17 08:01 325 MG Sucralfate (Carafate Susp) 1 gm QID PO 10/15/17 09:00 11/14/17 08:59 10/23/17 08:02 1 GM Albuterol/ Ipratropium (Duoneb) 3 ml QIDR INH 10/15/17 08:00 11/14/17 07:59 10/23/17 07:08 3 ML Fentanyl (Duragesic Patch) 12 mcg Q3D TD 10/16/17 14:30 10/30/17 14:29 10/22/17 17:33 12 MCG Miscellaneous (Fentanyl Patch Remove & Waste) 1 ea Q3D N/A 10/16/17 14:29 11/15/17 14:28 10/22/17 14:29 1 EA Miscellaneous Information (Check Fentanyl Patch Placement) 1 ea QS N/A 10/15/17 00:00 11/14/17 00:00 10/23/17 07:57 1 EA Heparin Sodium (Porcine) (Heparin 100 Unit/ml 5ml Flush) 5 ml PRN PRN IV 10/15/17 00:30 11/14/17 00:29 10/21/17 08:54 5 ML Pantoprazole Sodium (Protonix Tab) 40 mg BID PO 10/15/17 21:00 11/14/17 20:59 10/23/17 08:03 40 MG Docusate Sodium (coLACE CAP) 100 mg BID PO 10/16/17 13:15 11/15/17 13:14 10/22/17 19:27 100 MG Oxycodone/ Acetaminophen (Percocet 5-325mg Tab) `1-2 tabs for pain 1 tab ... Q4H PRN PO 10/16/17 20:45 10/30/17 20:44 10/23/17 07:58 2 TAB Polyethylene (Miralax Powder Packet) 17 gm BID PO 10/17/17 21:00 11/15/17 13:14 10/22/17 19:27 17 GM Metoprolol Tartrate (Lopressor Tab) 12.5 mg BID PO 10/20/17 09:00 11/19/17 08:59 10/23/17 08:01 12.5 MG Amoxicillin/ Clavulanate Potassium (Augmentin Tab) 875 mg BIDM PO 10/20/17 16:45 10/27/17 16:44 10/23/17 08:01 875 MG Vital Signs: Date Time Temp Pulse Resp B/P (MAP) Pulse Ox O2 Delivery O2 Flow Rate FiO2 10/23/17 08:05 36.6 92 18 114/79 (91) 95 Nasal Cannula 2.0 10/23/17 07:09 89 16 90 Nasal Cannula 2.0 10/23/17 04:00 36.6 92 18 119/77 (91) 92 2.0 10/23/17 00:17 Nasal Cannula 3.0 10/23/17 00:00 36.6 93 18 123/82 (96) 95 2.0 10/22/17 23:26 95 16 93 Nasal Cannula 2.0 10/22/17 20:10 Nasal Cannula 3.0 10/22/17 20:00 36.8 106 20 122/70 (87) 92 2.0 10/22/17 19:44 103 16 93 Nasal Cannula 2.0 10/22/17 16:35 37.0 100 18 132/88 (103) 90 Nasal Cannula 2.0 10/22/17 16:00 92 Nasal Cannula 1.0 10/22/17 14:33 94 16 94 Nasal Cannula 0.5 10/22/17 11:28 93 16 94 Nasal Cannula 0.5
--- NOTE | 2017-10-23 09:01 | HEME/ONC PROGRESS NOTE ---
DATE: 10/23/2017 DIAGNOSES: 1. Acute hypoxic respiratory failure. 2. Metastatic esophageal cancer. 3. Recent history of gastrointestinal bleeding. 4. Anorexia/weight loss. SUBJECTIVE: Mr. Dixon was seen at bedside this morning. He is currently under my care with metastatic esophageal cancer. Unfortunately, his performance status has been in steady decline since the diagnosis was confirmed close to a month ago. He has been hospitalized on multiple occasions for gastrointestinal bleeding and most recently for respiratory failure and development of bilateral pleural effusions. He is now on hospital day 8 and clearly is not making significant progress. He is now complaining of early satiety and nursing reports ultrasound of the abdomen is pending today. Mr. Dixon understands that chemotherapy may be more of detrimental than benefit at this juncture. I am not sure mentally where he is, if he is prepared to pursue a palliative approach or not. Clearly, however, he has lost considerable weight and I believe chemotherapy would probably result in rehospitalization. PHYSICAL EXAMINATION: GENERAL: He is a cachectic appearing 62-year-old gentleman in no acute distress. VITAL SIGNS: Temperature 36.6, pulse 92, respirations 18, blood pressure 114/79. SKIN: Without rash or lesion. Turgor is poor. HEENT: Oral mucosa without erythema or ulceration. NECK: Supple. HEART: Regular rate and rhythm. LUNGS: Clear to auscultation. ABDOMEN: Soft, nontender, nondistended. EXTREMITIES: No clubbing, cyanosis or edema. LABORATORY DATA: WBC count last performed on 10/20/2017, WBCs 7970, hemoglobin 10, platelet count 310,000. His last chemistries were done on the same date, sodium of 133, potassium 3.8, chloride 98, carbon dioxide 28, creatinine 0.39, BUN is 8. IMPRESSION: 1. Acute respiratory failure. 2. Metastatic prostate cancer. 3. Anorexia/weight loss. PLAN: I had the pleasure of seeing Roshan at bedside today. This is the first time I have seen him in a couple of weeks. I had recommended salvage chemotherapy, in particular docetaxel, cisplatin and 5-FU in combination with Herceptin. Every time he was scheduled to receive chemotherapy he developed new clinical issue involving hospitalization. His performance status is not conducive to pushing forward aggressively. Dr. Carson saw him yesterday and I spoke to Mr. Dixon again today reiterating our concerns with pursuing salvage chemotherapy. Based on my conversation with Roshan today, I am unsure whether he is mentally prepared to give up the fight; however, will continue to have dialogue with him during his hospital stay. I have nothing further to add and agree with current medical management. Thank you very much for assisting us in the care of this very pleasant gentleman. CAMILO
[2017-10-23 09:20] LABS: BASO % 0.1 %; BASO ABS # 0.01 K/uL (0-0.2); EOS % 0.8 %; EOS ABS # 0.06 K/uL (0-0.5); HEMATOCRIT 32.5 % (42-52); HEMOGLOBIN 10.2 g/dL (14.0-18.0); IG# 0.01 K/uL (0.00-0.02); LYMPH % 7.7 %; LYMPH ABS # 0.56 K/uL (1.2-3.4); MEAN CORPUSCULAR HEMOGLOBIN 25.4 pg (25-34); MEAN PLATELET VOLUME 8.7 fL (7.4-10.4); MONO % 10.9 %; NEUT % 80.4 %; NEUT ABS # 5.87 K/uL (1.4-6.5); PLATELET COUNT 351 K/uL (130-400); RED CELL DISTRIBUTION WIDTH CV 21.5 % (11.5-14.5); RED CELL DISTRIBUTION WIDTH SD 64.3 fL (36.4-46.3); WHITE BLOOD COUNT 7.31 K/uL (4.8-10.8)
[2017-10-23 09:28] LABS: INR 1.1 (0.9-1.1); PTT PATIENT 36.7 SECONDS (21.0-31.0)
[2017-10-23 09:34] LABS: MEAN CORPUSCULAR HGB CONC 31.4 g/dl (32-36)
--- NOTE | 2017-10-23 11:31 | Palliative Care Consultation ---
Consultation Date of Consultation: Oct 23, 2017. Requesting Physician: Meir Harkins PA-C Attending Physician: Dr. Langford Reason for Consultation: Goals of care History of Present Illness This 62 year old male patient with PMH COPD, metastatic esophageal cancer dx 2015, mets to lungs, liver and kidneys, s/p esophagectomy and partial gastrectomy, as well as radiation and chemotherapy, presented to the hospital nine days ago with c/o SOB and increased/persistent weakness. Patient has recurrent pleural effusions which are not malignant in nature per pathology. He had a bronchoscopy on 10/[address] Jimenez debrided a RML fungating mass with occlusion from 90% down to 5% after procedure. Patient had just been discharged from the hospital four days prior to arrival when he was here with GI bleed and abdominal pain from October 06-. Unfortunately, patient's disease seems to be progressing and patient's performance status is worsening. The plan was for palliative chemotherapy, but patient has not been able to stay out of the hospital long enough to stay well enough to receive it. Palliative care was consulted during last admission, but patient was doing fairly well and wanted to continue on full court press. Palliative care is reconsulted now due to patient's decline. Heme/onc is following and states that chemotherapy could be detrimental at this point given poor performance status of 2-3. I met with the patient in room 416. During my visit, Dr. Jimenez was present and performed bedside ultrasound. Left side has no pleural fluid, right side has a small amount, but not enough to place a Pleur-x catheter at this time per Dr. Jimenez. I stayed with patient to discuss goals of care. Patient is awake , alert and oriented, however he is quite forgetful. He does not recall what the doctors have been telling him, he easily gets his timeline mixed up as well. Patient states that he still wants to receive chemotherapy, he just needs to "get stronger." Patient is quick to blame medical team for "not doing anything" about his complaints, and that's why he hasn't been able to get better. I discussed his widespread metastatic disease, poor nutritional status, declining physical condition, recently weight loss, etc., but patient did not seem interested. He gave me permission to reach out to his daughter/POA, Lolly, which I did. Lolly will call me tomorrow to discuss. Past Medical/Surgical History Medical History: Esophageal cancer, metastases to lung, liver, kidneys COPD Recurrent pleural effusions Surgical History: Esophagectomy Partial gastrectomy Bronchoscopy Thoracentesis Social History Smoking Status: Former Smoker History of Alcohol Use: No Drug Use: none Marital Status: Occupation Status: employed Review of Systems Constitutional: + weakness (but improved since admission), No fever, No chills ENT: No trouble swallowing Respiratory: + cough, + dyspnea on exertion, No sputum, No wheezing, No dyspnea at rest Cardiac: + edema (not at this time), No chest pain Abdomen: No pain, No nausea, No vomiting Male : No problem reported Psychiatric: No depression symptoms, No anxiety Allergies Coded Allergies: No Known Allergies (Verified , 10/14/17) Medications Current Inpatient Medications Medications (Trade) Dose Ordered Sig/Konstantin Route Start Time Stop Time Status Last Admin Dose Admin Acetaminophen (Tylenol Tab) 650 mg Q4H PRN PO 10/14/17 23:00 11/13/17 22:59 10/16/17 06:14 650 MG Ondansetron HCl (Zofran Inj) 4 mg Q6H PRN IV 10/14/17 23:00 11/13/17 22:59 10/18/17 03:52 4 MG Ferrous Sulfate (Feosol Tab) 325 mg BIDM PO 10/15/17 07:15 11/14/17 07:59 10/23/17 08:01 325 MG Sucralfate (Carafate Susp) 1 gm QID PO 10/15/17 09:00 11/14/17 08:59 10/23/17 08:02 1 GM Albuterol/ Ipratropium (Duoneb) 3 ml QIDR INH 10/15/17 08:00 11/14/17 07:59 10/23/17 11:03 3 ML Fentanyl (Duragesic Patch) 12 mcg Q3D TD 10/16/17 14:30 10/30/17 14:29 10/22/17 17:33 12 MCG Miscellaneous (Fentanyl Patch Remove & Waste) 1 ea Q3D N/A 10/16/17 14:29 11/15/17 14:28 10/22/17 14:29 1 EA Miscellaneous Information (Check Fentanyl Patch Placement) 1 ea QS N/A 10/15/17 00:00 11/14/17 00:00 10/23/17 07:57 1 EA Heparin Sodium (Porcine) (Heparin 100 Unit/ml 5ml Flush) 5 ml PRN PRN IV 10/15/17 00:30 11/14/17 00:29 10/21/17 08:54 5 ML Pantoprazole Sodium (Protonix Tab) 40 mg BID PO 10/15/17 21:00 11/14/17 20:59 10/23/17 08:03 40 MG Docusate Sodium (coLACE CAP) 100 mg BID PO 10/16/17 13:15 11/15/17 13:14 10/22/17 19:27 100 MG Oxycodone/ Acetaminophen (Percocet 5-325mg Tab) `1-2 tabs for pain 1 tab ... Q4H PRN PO 10/16/17 20:45 10/30/17 20:44 10/23/17 07:58 2 TAB Polyethylene (Miralax Powder Packet) 17 gm BID PO 10/17/17 21:00 11/15/17 13:14 10/22/17 19:27 17 GM Metoprolol Tartrate (Lopressor Tab) 12.5 mg BID PO 10/20/17 09:00 11/19/17 08:59 10/23/17 08:01 12.5 MG Amoxicillin/ Clavulanate Potassium (Augmentin Tab) 875 mg BIDM PO 10/20/17 16:45 10/27/17 16:44 10/23/17 08:01 875 MG Physical Exam Date Time Temp Pulse Resp B/P (MAP) Pulse Ox O2 Delivery O2 Flow Rate FiO2 10/23/17 11:04 87 16 95 Nasal Cannula 2.0 10/23/17 08:05 36.6 92 18 114/79 (91) 95 Nasal Cannula 2.0 10/23/17 08:00 90 Nasal Cannula 2.0 10/23/17 07:09 89 16 90 Nasal Cannula 2.0 10/23/17 04:00 36.6 92 18 119/77 (91) 92 2.0 10/23/17 00:17 Nasal Cannula 3.0 10/23/17 00:00 36.6 93 18 123/82 (96) 95 2.0 10/22/17 23:26 95 16 93 Nasal Cannula 2.0 10/22/17 20:10 Nasal Cannula 3.0 10/22/17 20:00 36.8 106 20 122/70 (87) 92 2.0 10/22/17 19:44 103 16 93 Nasal Cannula 2.0 10/22/17 16:35 37.0 100 18 132/88 (103) 90 Nasal Cannula 2.0 10/22/17 16:00 92 Nasal Cannula 1.0 10/22/17 14:33 94 16 94 Nasal Cannula 0.5 10/22/17 11:28 93 16 94 Nasal Cannula 0.5 General Appearance: no apparent distress, + cachetic, + thin, + pertinent finding (frail) ENT: hearing grossly normal, + muffled/hoarse voice (weakened voice) Neck: supple, no JVD Respiratory: no respiratory distress, no accessory muscle use, + decreased breath sounds (bilateral bases), + crackles (few, fine RLL) Cardiovascular: regular rate, rhythm, no edema, + normal peripheral pulses Abdomen: normal bowel sounds, non tender, soft Neurologic/Psychiatric: alert, normal mood/affect, oriented x 3 Skin: normal color, + pallor Laboratory Results Last 24 Hours Test 10/23/17 09:11 White Blood Count 7.31 K/uL Red Blood Count 4.01 M/uL Hemoglobin 10.2 g/dL Hematocrit 32.5 % Mean Corpuscular Volume 81.0 fL Mean Corpuscular Hemoglobin 25.4 pg Mean Corpuscular Hemoglobin Concent 31.4 g/dl Platelet Count 351 K/uL Mean Platelet Volume 8.7 fL Neutrophils (%) (Auto) 80.4 % Lymphocytes (%) (Auto) 7.7 % Monocytes (%) (Auto) 10.9 % Eosinophils (%) (Auto) 0.8 % Basophils (%) (Auto) 0.1 % Neutrophils # (Auto) 5.87 K/uL Lymphocytes # (Auto) 0.56 K/uL Monocytes # (Auto) 0.80 K/uL Eosinophils # (Auto) 0.06 K/uL Basophils # (Auto) 0.01 K/uL RDW Standard Deviation 64.3 fL RDW Coefficient of Variation 21.5 % Immature Granulocyte % (Auto) 0.1 % Immature Granulocyte # (Auto) 0.01 K/uL Large Platelets 1+ Hypochromasia PRESENT Poikilocytosis PRESENT Prothrombin Time 11.3 SECONDS Prothromb Time International Ratio 1.1 Activated Partial Thromboplast Time 36.7 SECONDS Partial Thromboplastin Ratio 1.4 Assessment & Plan Palliative Performance Scale: 40 % Problem list: SOB/MATTA Weakness, generalized Weight loss/malnutrition/hypoalbuminemia Poor performance status Bilateral pleural effusions Airway obstruction- s/p bronch on 10/19/[address] Jimenez at which time RML fungating mass was removed Metastatic esophageal cancer Goals of care (Z51.5) Palliative care recs: -Patient is currently a level one/full code per his wishes. I did not discuss this in detail today, but have in the past. -Patient seems to be having a difficult time remembering what physicians are telling him. He believes he is just waiting to get better/stronger so that he can receive chemo. When I brought up about him possibly not being a candidate, he did seem to understand but quickly changed the subject to discuss how we ( the medical team) just aren't addressing his problems. He really couldn't elaborate on this, just kept saying he only needed to get stronger. He feels he is improving, however, from last admission to now patient looks markedly deconditioned, thinner, and weaker. Even his voice is somewhat strained and weak. -With patient's permission, I called his daughter Lolly and will update her on patient's status and current condition. She is to call me tomorrow. -I did note that Dr. Carson will be following with patient in the clinic and he states the decision on chemo vs. hospice can be made at that time. That is perfectly fine, I will just assist in any way I can. -Further goals of care to be determined. Thank you kindly for this consult. I will follow as needed. Total time spent 70 minutes. Greater than 50% of time with the patient was spent on counseling and coordinating care.
--- NOTE | 2017-10-23 15:55 | Progress Note ---
Subjective Date of Service: Oct 23, 2017. Subjective Pt evaluation today including: conversation w/ patient, physical exam, chart review, lab review, review of studies, conversation w/ behavioral consultant, review of inpatient medication list Cough, sputum, wheezing, but feeling better in generally, deny fever and chill, Problem List Medical Problems: (1) Anemia Status: Acute (2) GI bleed Status: Acute (3) Hypoxia Status: Acute (4) Hypoxia Status: Acute (5) Metastasis from esophageal cancer Status: Acute (6) Pedal edema Status: Acute Review of Systems Constitutional: + weakness, + fatigue, No fever, No chills, No sweats, No weight loss, No problem reported Eyes: No worsening of vision, No eye pain, No redness, No discharge, No diplopia ENT: No hearing loss, No unusual epistaxis, No nasal symptoms, No sore throat, No tinnitus, No dental problems, No trouble swallowing Respiratory: + see HPI, No cough, No sputum, No wheezing, No shortness of breath, No dyspnea on exertion, No dyspnea at rest, No hemoptysis Cardiac: No chest pain, No orthopnea, No PND, No edema, No claudication, No palpitations Abdomen: + problem reported (no appetite), No pain, No nausea, No vomiting, No diarrhea, No constipation Musculoskeletal: No joint pain, No muscle pain, No swelling, No calf pain Male : No dysuria, No urinary frequency, No incontinence, No nocturia more than once/night, No slowing stream, No hematuria Neurologic: No memory loss, No paralysis, No weakness, No numbness/tingling, No vertigo, No balance problems Psychiatric: No depression symptoms, No anhedonism, No anxiety, No insomnia, No substance abuse Heme: No abnormal bleeding/bruising, No clotting problems, No swollen lymph nodes, No night sweats Endo: No fatigue, No excessive thirst, No excessive urination Skin: No rash, No itch, No new/changing skin lesions, No color change, No bleeding Objective Vital Signs Date Time Temp Pulse Resp B/P (MAP) Pulse Ox O2 Delivery O2 Flow Rate FiO2 10/23/17 15:43 90 16 96 Nasal Cannula 2.0 10/23/17 11:27 37.0 96 18 112/78 (89) 90 Nasal Cannula 2.0 2/5/18 11:04 87 16 95 Nasal Cannula 2.0 10/23/17 08:05 36.6 92 18 114/79 (91) 95 Nasal Cannula 2.0 10/23/17 08:00 90 Nasal Cannula 2.0 10/23/17 07:09 89 16 90 Nasal Cannula 2.0 10/23/17 04:00 36.6 92 18 119/77 (91) 92 2.0 10/23/17 00:17 Nasal Cannula 3.0 10/23/17 00:00 36.6 93 18 123/82 (96) 95 2.0 10/22/17 23:26 95 16 93 Nasal Cannula 2.0 10/22/17 20:10 Nasal Cannula 3.0 10/22/17 20:00 36.8 106 20 122/70 (87) 92 2.0 10/22/17 19:44 103 16 93 Nasal Cannula 2.0 10/22/17 16:35 37.0 100 18 132/88 (103) 90 Nasal Cannula 2.0 10/22/17 16:00 92 Nasal Cannula 1.0 Physical Exam General Appearance: WD/WN, no apparent distress, + cachetic, + thin, + pertinent finding Eyes: normal inspection, PERRL, EOMI, sclerae normal ENT: normal ENT inspection, hearing grossly normal, pharynx normal Neck: supple, no adenopathy, thyroid normal, no JVD, no carotid bruits, trachea midline Respiratory/Chest: no respiratory distress, no accessory muscle use, + decreased breath sounds, + crackles, + rales, + rhonchi, + wheezing Cardiovascular: regular rate, rhythm, no edema, no gallop, no JVD, no murmur Abdomen: normal bowel sounds, non tender, soft, no organomegaly, no pulsatile mass Extremities: normal range of motion, non-tender, normal inspection, no pedal edema, no calf tenderness, normal capillary refill, pelvis stable Neurologic/Psychiatric: hospice massage therapist II-XII nml as tested, no motor/sensory deficits, alert, normal mood/affect, oriented x 3 Skin: normal color, warm/dry, no rash Lymphatic: no adenopathy Laboratory Results Last 24 Hours Test 10/23/17 09:11 White Blood Count 7.31 K/uL Red Blood Count 4.01 M/uL Hemoglobin 10.2 g/dL Hematocrit 32.5 % Mean Corpuscular Volume 81.0 fL Mean Corpuscular Hemoglobin 25.4 pg Mean Corpuscular Hemoglobin Concent 31.4 g/dl Platelet Count 351 K/uL Mean Platelet Volume 8.7 fL Neutrophils (%) (Auto) 80.4 % Lymphocytes (%) (Auto) 7.7 % Monocytes (%) (Auto) 10.9 % Eosinophils (%) (Auto) 0.8 % Basophils (%) (Auto) 0.1 % Neutrophils # (Auto) 5.87 K/uL Lymphocytes # (Auto) 0.56 K/uL Monocytes # (Auto) 0.80 K/uL Eosinophils # (Auto) 0.06 K/uL Basophils # (Auto) 0.01 K/uL RDW Standard Deviation 64.3 fL RDW Coefficient of Variation 21.5 % Immature Granulocyte % (Auto) 0.1 % Immature Granulocyte # (Auto) 0.01 K/uL Large Platelets 1+ Hypochromasia PRESENT Poikilocytosis PRESENT Prothrombin Time 11.3 SECONDS Prothromb Time International Ratio 1.1 Activated Partial Thromboplast Time 36.7 SECONDS Partial Thromboplastin Ratio 1.4 Assessment and Plan 62 yo male admitted because of acute hypoxic respiratory failure secondary to postobstructive pneumonia and occlusion of lung, relative stable hx of metastatic esophageal CA with metastasis to the lungs, liver, kidneys status post esophagectomy with esophago-gastric anastomosis, recent UGI bleed from anastomotic ulcer, chronic anemia, GERD Acute Hypoxic Respiratory Failure/Bilat Pleural Effusions/Post-obstructive PNA/ Occluding Lung masses upon admission had flexible and rigid Bronchoscopy, bronchial lavage, cryoprobe debridement, forcep debridement by pulmonary on 10/19/2017 Continue relative to stable, was not able taper off oxygen, very likely need to send home with oxygen S/P B/L Thoracentesis and Bronchoscopy on 10/15, today computer systems software engineer evaluation possible pleural fluid was around 500ml in the right no fluid in the left, no need to have thoracentesis Pleurx tube Pulm performed bedside US 10/17 and only small pleural effusions bronchoscopy 10/18 with evidence of tumor burden throughout mucosa in left lung, and fungating mass right bronchus intermedius Ttreating for MRSA and GNR PNA given recent hospital stay, has been using Zosyn , which was change to Augmentin for total 10 days recommendation of infectious disease Also per ID candidus albicans from bronchial wash possible does not need to be treated Continue Duonebs OCTAVIO and PRN, f/u cultures from bronchoscopy, BCxs, pleural fluid cultures Two-step exercise done, he need oxygen 3 L per min is when walking, it wasn't done a of discharge Constipation, continue Miralax bid, docusate, Relistor prn Metastatic Esophageal Carcinoma S/P Esophagectomy and Gastrectomy: Follows with Dr. Nicole, Oncology service has talked to patient several times , palliative care doctor patient as well, patient has no inside of his poor prognosis and severe medical condition. DVT Prophylaxis: SCDs because of recent GI bleeding , joint high risk on the admission, however he can be discharged home or assisted if able to reach to same goal of care plan Code Status: FULL RESUSCITATION, Patient live alone at home, will have PT OT to evaluation of the need of rehabilitation or assisted, or home health care Continued [facility] stay due to: home environment unsafe for pt Discharge planning: home
[2017-10-24] VITALS (12 sets, daily range): BP systolic 111–128; BP diastolic 72–81; PULSE 82–107; TEMP 36.6–37.3; O2SAT 90–96
[2017-10-24] MEDS: CHECK FENTANYL PATCH PLACEMENT SCH ×3 (01:07→16:05)
[2017-10-24] MEDS: OXYCODONE/ACETAMINOPHEN 5-325 TAB PO PRN ×2 (06:44→18:08)
[2017-10-24] MEDS: ALBUT/IPRATROP 3MG/0.5MG NEB 3 ML VIAL INH SCH ×4 (07:19→19:13)
--- NOTE | 2017-10-24 07:37 | DIAGNOSTIC IMAGING REPORT ---
CHEST ONE VIEW PORTABLE CLINICAL HISTORY: 62 years-old Male presenting with f/u pleural effusions. TECHNIQUE: Portable upright AP view of the chest was obtained. COMPARISON: 10/19/2017. FINDINGS: Left subclavian Mediport terminates in the right atrium and has been accessed. Atherosclerosis of the aortic arch. Prominence of the bilateral tricia. Decreased left mid lung opacity with persistent bibasilar opacities. Diffuse coarsened lung markings evident. Moderate left pleural effusion decreased from prior. Small moderate right pleural effusion. No pneumothorax. Osseous structures normal. Upper abdomen normal. IMPRESSION: 1. Improved left mid lung aeration and slight decrease in moderate left pleural effusion. 2. Persistent bibasilar consolidation. Infection or aspiration cannot be excluded. 3. Persistent small to moderate right pleural effusion. Underlying metastatic disease best demonstrated on recent CT from 10/14/2017. 4. Prominence of the tricia consistent with known mediastinal and hilar lymphadenopathy related to metastatic disease. Electronically signed by: Stiven Morel M.D. 10/24/2017 7:35 AM Dictated Date/Time: 10/24/2017 7:32 AM
[2017-10-24] MEDS: SUCRALFATE 1 GM/10 ML UDC PO SCH ×4 (09:22→19:17)
[2017-10-24] MEDS: PANTOprazole SOD 40 MG TAB PO SCH ×2 (09:23→19:17)
[2017-10-24] MEDS: AMOXICILLIN/CLAVULANATE TAB 875 MG TAB PO SCH ×2 (09:23→16:12)
[2017-10-24] MEDS: POLYETHYLENE (MIRALAX) 17 GM PACK PO SCH ×2 (09:24→19:15)
[2017-10-24] MEDS: DOCUSATE SODIUM 100 MG CAP PO SCH ×2 (09:24→19:16)
[2017-10-24] MEDS: FERROUS SULFATE 325 MG TAB PO SCH ×2 (09:24→16:11)
[2017-10-24] MEDS: METOPROLOL TARTRATE 25 MG TAB PO SCH ×2 (09:25→19:17)
--- NOTE | 2017-10-24 09:30 | HEME/ONC PROGRESS NOTE ---
DATE: 10/24/2017 DIAGNOSES: 1. Acute hypoxic respiratory failure. 2. Recent history of gastrointestinal bleeding. 3. Anorexia/weight loss. 4. Metastatic esophageal cancer. SUBJECTIVE: Mr. Dixon was again seen and examined at bedside. Appreciate palliative consultation and input. His performance status has been in a steady decline since diagnosis of metastatic disease, which was confirmed about a month ago. Roshan is still of a mindset that he will gain strength and proceed to salvage chemotherapy. I am personally much less optimistic. I reinforced the fact chemotherapy would probably be more of a detriment than benefit at this juncture. We will leave options open and certainly if Roshan is insistent, may consider a modified salvage regimen upon discharge. PHYSICAL EXAMINATION: GENERAL: He is a cachectic-appearing 62-year-old gentleman, in no acute distress. VITAL SIGNS: Temperature 37.0, pulse 92, respirations 20, blood pressure 118/78. SKIN: Without rash or lesion. Turgor is quite poor. HEENT: Oral mucosa without erythema or ulceration. NECK: Supple. HEART: Regular rate and rhythm. LUNGS: Scattered rhonchi heard in all lung bey. ABDOMEN: Soft, nontender, nondistended. EXTREMITIES: No clubbing, cyanosis or edema. NEUROLOGIC: Grossly intact. LABORATORY DATA: Peripheral blood counts are pending as are chemistries. IMPRESSION: 1. Acute respiratory failure. 2. Anorexia/weight loss. 3. Decline in performance status. 4. Metastatic esophageal cancer. PLAN: I once again visited Roshan at bedside. Reinforced the notion that chemotherapy will probably not result in prolongation of life and could expedite his . He is still of a mindset to continue his fight and I will accommodate him upon discharge to discuss therapeutic options. Clearly, I would like to see him gain some more weight and ambulate without assistance. There is a question of a previous gastrointestinal bleeding, which I suspect is attributable to disease progression within the upper GI tract. We will continue to work with the palliative team to convince Roshan that a palliative approach may be his best option. Thank you again for assisting us in the care of this very pleasant gentleman.
[2017-10-24 09:47] LABS: BASO % 0.2 %; BASO ABS # 0.01 K/uL (0-0.2); EOS % 1.1 %; EOS ABS # 0.07 K/uL (0-0.5); HEMATOCRIT 32.2 % (42-52); HEMOGLOBIN 9.8 g/dL (14.0-18.0); IG# 0.01 K/uL (0.00-0.02); LYMPH % 10.3 %; LYMPH ABS # 0.64 K/uL (1.2-3.4); MEAN CELL VOLUME 80.7 fL (80-100); MEAN CORPUSCULAR HEMOGLOBIN 24.6 pg (25-34); MEAN CORPUSCULAR HGB CONC 30.4 g/dl (32-36); MEAN PLATELET VOLUME 8.7 fL (7.4-10.4); MONO % 11.2 %; NEUT ABS # 4.81 K/uL (1.4-6.5); PLATELET COUNT 365 K/uL (130-400); RED CELL DISTRIBUTION WIDTH CV 21.4 % (11.5-14.5); RED CELL DISTRIBUTION WIDTH SD 63.4 fL (36.4-46.3); WHITE BLOOD COUNT 6.24 K/uL (4.8-10.8)
[2017-10-24 10:12] LABS: BLOOD UREA NITROGEN 8 mg/dl (7-18); CALCIUM 8.1 mg/dl (8.5-10.1); CARBON DIOXIDE 28 mmol/L (21-32); CREATININE 0.38 mg/dl (0.60-1.40); GLUCOSE 78 mg/dl (70-99); SODIUM 132 mmol/L (136-145)
--- NOTE | 2017-10-24 14:24 | Palliative Care Progress Note ---
Palliative Care Progress Note Date of Service Oct 24, 2017. Subjective Pt evaluation today including: conversation w/ patient, conversation w/ family (daughter/POA, Lolly Junior), physical exam, chart review, conversation w/ internet marketing consultant (Dr. Donovan) Pain: none PO Intake: tolerating liquid diet Voiding: no voiding problems -Patient remains awake, alert and oriented x4. Is forgetful. -Met for lengthy conversation with patient and his daughter Lolly. -Discussed current medical condition and goals of care. See below. -Patient upset that he remains on a liquid diet. Review of Systems Constitutional: + weight loss, + weakness (but improving) ENT: No trouble swallowing (patient denies trouble swallowing) Respiratory: + dyspnea on exertion, No cough, No sputum, No dyspnea at rest Cardiac: No chest pain Abdomen: No pain, No nausea, No vomiting Male : No problem reported Psychiatric: No depression symptoms, No anxiety Objective Vital Signs Date Time Temp Pulse Resp B/P (MAP) Pulse Ox O2 Delivery O2 Flow Rate FiO2 10/24/17 11:41 36.6 86 20 114/74 (87) 92 Room Air 0.0 10/24/17 11:28 88 16 96 Nasal Cannula 2.0 10/24/17 08:00 2.0 10/24/17 08:00 Nasal Cannula 2.0 10/24/17 07:43 37.0 92 20 118/78 (91) 93 Nasal Cannula 2.0 10/24/17 07:22 82 16 93 Nasal Cannula 2.0 10/24/17 03:35 37.0 92 19 127/81 (96) 93 Nasal Cannula 2.0 10/24/17 00:02 37.0 96 18 120/76 (91) 92 Nasal Cannula 2.0 10/24/17 00:00 Nasal Cannula 2.0 10/23/17 20:00 Nasal Cannula 2.0 10/23/17 19:57 37.2 96 19 125/78 (94) 97 Nasal Cannula 2.0 10/23/17 19:42 97 16 94 Nasal Cannula 2.0 10/23/17 16:14 37.2 98 18 108/72 (84) 94 Nasal Cannula 2.0 10/23/17 16:00 93 Nasal Cannula 2.0 10/23/17 15:43 90 16 96 Nasal Cannula 2.0 Physical Exam General Appearance: no apparent distress, + cachetic, + thin ENT: hearing grossly normal Neck: supple, no JVD Respiratory/Chest: no respiratory distress, no accessory muscle use, + pertinent finding (room air while at rest) Cardiovascular: regular rate, rhythm, no edema Abdomen: normal bowel sounds, non tender, soft Neurologic/Psychiatric: alert, normal mood/affect, oriented x 3 Laboratory Results Last 24 Hours Test 10/24/17 09:32 White Blood Count 6.24 K/uL Red Blood Count 3.99 M/uL Hemoglobin 9.8 g/dL Hematocrit 32.2 % Mean Corpuscular Volume 80.7 fL Mean Corpuscular Hemoglobin 24.6 pg Mean Corpuscular Hemoglobin Concent 30.4 g/dl Platelet Count 365 K/uL Mean Platelet Volume 8.7 fL Neutrophils (%) (Auto) 77.0 % Lymphocytes (%) (Auto) 10.3 % Monocytes (%) (Auto) 11.2 % Eosinophils (%) (Auto) 1.1 % Basophils (%) (Auto) 0.2 % Neutrophils # (Auto) 4.81 K/uL Lymphocytes # (Auto) 0.64 K/uL Monocytes # (Auto) 0.70 K/uL Eosinophils # (Auto) 0.07 K/uL Basophils # (Auto) 0.01 K/uL RDW Standard Deviation 63.4 fL RDW Coefficient of Variation 21.4 % Immature Granulocyte % (Auto) 0.2 % Immature Granulocyte # (Auto) 0.01 K/uL Giant Platelets 1+ Hypochromasia PRESENT Anisocytosis PRESENT Sodium Level 132 mmol/L Potassium Level 4.0 mmol/L Chloride Level 99 mmol/L Carbon Dioxide Level 28 mmol/L Anion Gap 5.0 mmol/L Blood Urea Nitrogen 8 mg/dl Creatinine 0.38 mg/dl Est Creatinine Clear Calc Drug Dose 204.7 ml/min Estimated GFR () > 150.0 Estimated GFR (Non- 130.9 BUN/Creatinine Ratio 20.1 Random Glucose 78 mg/dl Calcium Level 8.1 mg/dl Magnesium Level 1.9 mg/dl Assessment and Plan Problem list: SOB/MATTA Weakness, generalized Weight loss/malnutrition/hypoalbuminemia Poor performance status Bilateral pleural effusions Airway obstruction- s/p bronch on 10/19/[address] Jimenez at which time RML fungating mass was removed Metastatic esophageal cancer Goals of care (Z51.5) Palliative care recs: discussed with patient, patient's daughter/POA Lolly Junior , and Dr. Donovan. -Had lengthy discussion with patient and his daughter Lolly. Patient was somewhat agitated during conversation as he feels "no one is listening." He is upset about being on a liquid diet since admission, which is causing him to lose more weight. -We again discussed his widely metastatic disease and the fact that at the moment, he really is not a good candidate for chemotherapy. His daughter Lolly verbalized understanding. Patient states he still thinks he can get stronger and may be able to receive it later on. -Lolly followed me out of room and said, "If my dad does ever take a turn for the worst, I would want to take him home with hospice. I would make decisions for him if he wasn't able to." Lolly acknowledged that she knows her father forgets things frequently and is appreciative of providers keeping her in the loop. -Patient wishes to remain a full code at this point, but would not want to live on machines long-term. -Spoke with Dr. Donovan about diet, will advance. Thank you again for this consult. I will follow peripherally for now. Total time spent 35 minutes with collaborating with physician and patient/ family. Greater than 50% of time with the patient was spent on counseling and coordinating care. Palliative Performance Scale: 40 % Continued [facility] stay due to: home environment unsafe for pt Discharge planning: home
--- NOTE | 2017-10-24 15:09 | Hospitalist Progress Note ---
Hospitalist Progress Note Date of Service Oct 24, 2017. Subjective Pt evaluation today including: conversation w/ patient, conversation w/ family , conversation w/ consultant in ergonomics and safety ([facility] [employer]) Pt feeling better than when I last saw him. Is weaned off O2 for a few hours now and I just watched him take a lap around the hallway. He is moving his bowels, and wants to advance his diet. POx after walking without O2 is 88-89% All Other Systems: Reviewed and Negative Objective Vital Signs Date Time Temp Pulse Resp B/P (MAP) Pulse Ox O2 Delivery O2 Flow Rate FiO2 10/24/17 14:20 37.0 89 20 113/75 (88) 91 Room Air 0.0 10/24/17 11:41 36.6 86 20 114/74 (87) 92 Room Air 0.0 10/24/17 11:28 88 16 96 Nasal Cannula 2.0 10/24/17 08:00 2.0 10/24/17 08:00 Nasal Cannula 2.0 10/24/17 07:43 37.0 92 20 118/78 (91) 93 Nasal Cannula 2.0 10/24/17 07:22 82 16 93 Nasal Cannula 2.0 10/24/17 03:35 37.0 92 19 127/81 (96) 93 Nasal Cannula 2.0 10/24/17 00:02 37.0 96 18 120/76 (91) 92 Nasal Cannula 2.0 10/24/17 00:00 Nasal Cannula 2.0 10/23/17 20:00 Nasal Cannula 2.0 10/23/17 19:57 37.2 96 19 125/78 (94) 97 Nasal Cannula 2.0 10/23/17 19:42 97 16 94 Nasal Cannula 2.0 10/23/17 16:14 37.2 98 18 108/72 (84) 94 Nasal Cannula 2.0 10/23/17 16:00 93 Nasal Cannula 2.0 10/23/17 15:43 90 16 96 Nasal Cannula 2.0 Physical Exam General Appearance: no apparent distress, + thin Eyes: normal inspection, sclerae normal ENT: hearing grossly normal, pharynx normal Neck: supple, trachea midline Respiratory/Chest: no respiratory distress, no accessory muscle use, + crackles (at bases, otherwise diminished but clear) Cardiovascular: regular rate, rhythm, no edema, no gallop, no murmur Abdomen: normal bowel sounds, non tender, soft Extremities: non-tender, normal inspection, no pedal edema, no calf tenderness Neurologic/Psychiatric: alert, normal mood/affect, oriented x 3 Skin: normal color, warm/dry, no rash Laboratory Results Last 24 Hours Test 10/24/17 09:32 White Blood Count 6.24 K/uL Red Blood Count 3.99 M/uL Hemoglobin 9.8 g/dL Hematocrit 32.2 % Mean Corpuscular Volume 80.7 fL Mean Corpuscular Hemoglobin 24.6 pg Mean Corpuscular Hemoglobin Concent 30.4 g/dl Platelet Count 365 K/uL Mean Platelet Volume 8.7 fL Neutrophils (%) (Auto) 77.0 % Lymphocytes (%) (Auto) 10.3 % Monocytes (%) (Auto) 11.2 % Eosinophils (%) (Auto) 1.1 % Basophils (%) (Auto) 0.2 % Neutrophils # (Auto) 4.81 K/uL Lymphocytes # (Auto) 0.64 K/uL Monocytes # (Auto) 0.70 K/uL Eosinophils # (Auto) 0.07 K/uL Basophils # (Auto) 0.01 K/uL RDW Standard Deviation 63.4 fL RDW Coefficient of Variation 21.4 % Immature Granulocyte % (Auto) 0.2 % Immature Granulocyte # (Auto) 0.01 K/uL Giant Platelets 1+ Hypochromasia PRESENT Anisocytosis PRESENT Sodium Level 132 mmol/L Potassium Level 4.0 mmol/L Chloride Level 99 mmol/L Carbon Dioxide Level 28 mmol/L Anion Gap 5.0 mmol/L Blood Urea Nitrogen 8 mg/dl Creatinine 0.38 mg/dl Est Creatinine Clear Calc Drug Dose 204.7 ml/min Estimated GFR () > 150.0 Estimated GFR (Non- 130.9 BUN/Creatinine Ratio 20.1 Random Glucose 78 mg/dl Calcium Level 8.1 mg/dl Magnesium Level 1.9 mg/dl Assessment and Plan Pt is a 62 yo male with 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 He was found to have bilateral pleural effusions that are large, bilateral obstructing bronchial tumors, and post-obstructive PNA vs HCAP, treating for MRSA and GNR PNA given recent hospital stay. Pleural effusions transudative likely secondary to atelectasis Acute Hypoxic Respiratory Failure/Bilat Pleural Effusions/Post-obstructive PNA/ Occluding Lung masses - Patient is S/P B/L Thoracentesis and Bronchoscopy on 10/15 - tapped for 650 mL on the left and 1250 mL on right; had bronchoscopy on 10/15 revealing tumor burden with near occlusion bronchus intermedius and also left upper lobe bronchus and mucus plugging suctioned Pulm performed bedside US 10/17 and only small pleural effusions present despite CXR appearing much worse and could have EMMA partial collapse, but no worsening resp distress or worsening hypoxia Repeat bronchoscopy 10/18 with evidence of tumor burden throughout mucosa in left lung, and fungating mass right bronchus intermedius 10/19 with tumor debulking procedure of right bronchus intermedius -treating for MRSA and GNR PNA given recent hospital stay, but then narrowed down to Zosyn, bnow on po Augmentin-today day #06/27 Growing out Poppy and Yeast not Poppy in BALs--> ID recommends no treatment - Pleural fluid cytology neg for malignancy - Continue Duonebs OCTAVIO and PRN -BCxs no growth, pleural fluid cxs no growth -supportive care, supplemental O2 and wean down/off, pain control Palliative consult appreciated but pt continues to want to try salvage chemotherapy and remain Full Code Recent Ulceration of Esophagogastric Anastomosis with Recent Upper GI Bleed/ Probable food impaction--food impaction at ulcer site most likely occurrence with chest pain- now resolved and tolerating full liquids diet for the last week. Discussed case with GI -continue Carafate, bid PPI, no need for EGD at this time, advance diet to mechanical soft to try to improve nutrition at this time -hgb remains stable from previous given recent GI bleed -Appreciate GI consult -follow CBC Constipation-improved/resolved -continue Miralax bid, docusate, Relistor prn Metastatic Esophageal Carcinoma S/P Esophagectomy and Gastrectomy: Follows with Dr. Nicole - Has not initiated palliative chemotherapy again yet due to hospitalization. Patient currently would like to pursue aggressive treatment - Mets to Lung, Liver, and Kidney - evidenced on imaging and support LFTs - He is prescribed Decadron to take with chemotherapy only, no need for this here DVT Prophylaxis: SCDs only given recent GI bleeding Code Status: FULL RESUSCITATION Disposition: possibly to home tomorrow with Home Health and may need O2- two step tomorrow
[2017-10-25] VITALS (12 sets, daily range): BP systolic 117–128; BP diastolic 78–84; PULSE 86–104; TEMP 36.7–37.3; O2SAT 87–99
[2017-10-25] MEDS: CHECK FENTANYL PATCH PLACEMENT SCH ×3 (00:22→15:40)
[2017-10-25] MEDS: ALBUT/IPRATROP 3MG/0.5MG NEB 3 ML VIAL INH SCH ×4 (07:16→19:04)
[2017-10-25] MEDS: FERROUS SULFATE 325 MG TAB PO SCH ×2 (08:21→17:33)
[2017-10-25] MEDS: POLYETHYLENE (MIRALAX) 17 GM PACK PO SCH ×2 (08:22→20:11)
[2017-10-25] MEDS: METOPROLOL TARTRATE 25 MG TAB PO SCH ×2 (08:22→20:11)
[2017-10-25] MEDS: AMOXICILLIN/CLAVULANATE TAB 875 MG TAB PO SCH (08:22)
[2017-10-25] MEDS: DOCUSATE SODIUM 100 MG CAP PO SCH ×2 (08:22→20:10)
[2017-10-25] MEDS: PANTOprazole SOD 40 MG TAB PO SCH ×2 (08:23→20:11)
[2017-10-25] MEDS: SUCRALFATE 1 GM/10 ML UDC PO SCH ×4 (08:23→20:11)
--- NOTE | 2017-10-25 10:20 | Hospitalist Progress Note ---
Hospitalist Progress Note Date of Service Oct 25, 2017. Subjective Pt evaluation today including: conversation w/ patient PO Intake: chel mechanical soft diet Voiding: no voiding problems Pt feels fairly well. He ate soft foods yesterday and this AM and did not have any chest pain or dysphagia, but does report early satiety. Is off O2 at rest, no SOB at rest Constitutional: No fever Abdomen: No GI bleeding All Other Systems: Reviewed and Negative Objective Vital Signs Date Time Temp Pulse Resp B/P (MAP) Pulse Ox O2 Delivery O2 Flow Rate FiO2 10/25/17 08:30 99 Room Air 10/25/17 08:05 36.9 97 16 122/78 (93) 99 Room Air 10/25/17 07:16 104 16 90 Room Air 10/25/17 03:18 36.9 95 18 125/82 (96) 91 Room Air 10/25/17 01:47 Room Air 10/24/17 23:14 37.2 107 16 111/72 (85) 91 Room Air 10/24/17 19:45 37.3 104 20 128/78 (95) 90 Room Air 10/24/17 19:13 84 16 91 Room Air 10/24/17 19:10 106 112/76 (88) 10/24/17 19:05 Room Air 10/24/17 16:00 Room Air 10/24/17 15:32 100 16 90 Room Air 10/24/17 14:20 37.0 89 20 113/75 (88) 91 Room Air 0.0 10/24/17 11:41 36.6 86 20 114/74 (87) 92 Room Air 0.0 10/24/17 11:28 88 16 96 Nasal Cannula 2.0 Physical Exam General Appearance: no apparent distress, + thin Eyes: normal inspection, sclerae normal ENT: hearing grossly normal Neck: trachea midline Respiratory/Chest: no respiratory distress, no accessory muscle use, + decreased breath sounds (at the bases bilat, with crackles in mid lungs) Cardiovascular: regular rate, rhythm, no edema, no murmur Abdomen: normal bowel sounds, non tender, soft Extremities: non-tender, normal inspection, no pedal edema, no calf tenderness Neurologic/Psychiatric: alert, normal mood/affect, oriented x 3 Skin: normal color, warm/dry, no rash Assessment and Plan Pt is a 62 yo male with 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 He was found to have bilateral transudative pleural effusions that are large, bilateral obstructing bronchial tumors, and post-obstructive PNA vs HCAP, treating for MRSA and GNR PNA given recent hospital stay. Pleural effusions transudative likely secondary to atelectasis. Acute Hypoxic Respiratory Failure/Bilat Pleural Effusions/Post-obstructive PNA/ Occluding Lung masses - Patient is S/P B/L Thoracentesis and Bronchoscopy on 10/15 - tapped for 650 mL on the left and 1250 mL on right; had bronchoscopy on 10/15 revealing tumor burden with near occlusion bronchus intermedius and also left upper lobe bronchus and mucus plugging suctioned Pulm performed bedside US 10/17 and only small pleural effusions present despite CXR appearing much worse and could have EMMA partial collapse, but no worsening resp distress or worsening hypoxia Repeat bronchoscopy 10/18 with evidence of tumor burden throughout mucosa in left lung, and fungating mass right bronchus intermedius 10/19 with tumor debulking procedure of right bronchus intermedius CXR 09/23 with mod left effusion, right small-mod effusion with slight improvement on left from previous -treated for MRSA and GNR PNA given recent hospital stay, but then narrowed down to Zosyn, then on po Augmentin-stopped today as 10 day course total completed Growing out Poppy and Yeast not Poppy in BALs--> ID recommends no treatment - Pleural fluid cytology neg for malignancy - Continue Duonebs OCTAVIO and PRN -BCxs no growth, pleural fluid cxs no growth -supportive care, supplemental O2 and wean down/off, pain control with Fentanyl patch and oxycodone prn Palliative consult appreciated but pt continues to want to try salvage chemotherapy and remain Full Code -check CXR in AM to reassess for reaccumulation of fluid prior to discharge -Needs outpt f/u with Pulm in 2 weeks Recent Ulceration of Esophagogastric Anastomosis with Recent Upper GI Bleed/ Probable food impaction this admission early on--food impaction at ulcer site most likely occurrence with chest pain- now resolved and tolerated full liquids diet for the last week, advanced to mechanical soft diet on 10/24 and tolerating well so far Consulted GI -continue Carafate, bid PPI, no need for EGD at this time, -continue mechanical soft diet to try to improve nutrition at this time -hgb remains stable from previous given recent GI bleed -Appreciate GI consult -follow CBC Weight loss/Severe protein Calorie malnutrition-has continue dto lose weight this admission likely due to poor po intake, liquid diet, plus progressive metastatic disease -continue mechanical soft diet -add Boost tid with meals -check lytes, LFTs, and phos in AM Constipation-improved/resolved -continue Miralax bid, docusate, Relistor prn Metastatic Esophageal Carcinoma S/P Esophagectomy and Gastrectomy: Follows with Dr. Nicole - Has not initiated palliative chemotherapy again yet due to hospitalization. Patient currently would like to pursue aggressive treatment if performance status allows - Mets to Lung, Liver, and Kidney - evidenced on imaging and support LFTs - He is prescribed Decadron to take with chemotherapy only, no need for this here -f/u with Oncology after discharge DVT Prophylaxis: SCDs only given recent GI bleeding Code Status: FULL RESUSCITATION Disposition: possibly to home tomorrow with Home Health and may need O2- two step today
[2017-10-25] MEDS ORDERED: BOOST VANILLA PO SCH ×2 (11:00→17:00)
[2017-10-25] MEDS: FENTANYL PATCH REMOVE & WASTE SCH (15:38)
[2017-10-25] MEDS: FENTANYL 12 MCG/HR TDSY TD SCH (15:40)
[2017-10-25] MEDS: OXYCODONE/ACETAMINOPHEN 5-325 TAB PO PRN (17:37)
[2017-10-26 04:17] VITALS: BP 123/83; PULSE 89; TEMP 36.9; O2SAT 92
[2017-10-26] MEDS: OXYCODONE/ACETAMINOPHEN 5-325 TAB PO PRN (05:14)
[2017-10-26 06:03] LABS: BASO % 0.3 %; BASO ABS # 0.02 K/uL (0-0.2); EOS % 1.4 %; EOS ABS # 0.09 K/uL (0-0.5); HEMOGLOBIN 9.7 g/dL (14.0-18.0); IG# 0.02 K/uL (0.00-0.02); LYMPH % 10.7 %; LYMPH ABS # 0.68 K/uL (1.2-3.4); MEAN CELL VOLUME 80.5 fL (80-100); MEAN CORPUSCULAR HEMOGLOBIN 25.2 pg (25-34); MEAN CORPUSCULAR HGB CONC 31.3 g/dl (32-36); MEAN PLATELET VOLUME 9.1 fL (7.4-10.4); MONO % 13.3 %; MONO ABS # 0.84 K/uL (0.11-0.59); NEUT ABS # 4.68 K/uL (1.4-6.5); PLATELET COUNT 399 K/uL (130-400); RED CELL DISTRIBUTION WIDTH CV 21.2 % (11.5-14.5); RED CELL DISTRIBUTION WIDTH SD 62.9 fL (36.4-46.3); WHITE BLOOD COUNT 6.33 K/uL (4.8-10.8)
[2017-10-26 06:45] LABS: ALBUMIN 1.9 gm/dl (3.4-5.0); ALT/SGPT 17 U/L (12-78); AST/SGOT 131 U/L (15-37); BLOOD UREA NITROGEN 10 mg/dl (7-18); CALCIUM 7.9 mg/dl (8.5-10.1); CARBON DIOXIDE 27 mmol/L (21-32); CREATININE 0.39 mg/dl (0.60-1.40); GLUCOSE 80 mg/dl (70-99); POTASSIUM 3.7 mmol/L (3.5-5.1); SODIUM 134 mmol/L (136-145)
[2017-10-26 06:47] LABS: ALKALINE PHOSPHATASE 268 U/L (45-117); PHOSPHORUS 2.9 mg/dl (2.5-4.9); TOTAL PROTEIN 5.5 gm/dl (6.4-8.2)
[2017-10-26] MEDS: ALBUT/IPRATROP 3MG/0.5MG NEB 3 ML VIAL INH SCH ×2 (07:19→12:00)
[2017-10-26 07:20] VITALS: PULSE 99; O2SAT 94
[2017-10-26] MEDS: METOPROLOL TARTRATE 25 MG TAB PO SCH (07:34)
[2017-10-26] MEDS: PANTOprazole SOD 40 MG TAB PO SCH (07:34)
[2017-10-26] MEDS: SUCRALFATE 1 GM/10 ML UDC PO SCH ×2 (07:34→13:27)
[2017-10-26] MEDS: FERROUS SULFATE 325 MG TAB PO SCH (07:34)
[2017-10-26] MEDS: CHECK FENTANYL PATCH PLACEMENT SCH ×2 (07:35)
[2017-10-26] MEDS: POLYETHYLENE (MIRALAX) 17 GM PACK PO SCH (07:37)
[2017-10-26] MEDS: DOCUSATE SODIUM 100 MG CAP PO SCH (07:37)
[2017-10-26] MEDS ORDERED: NURSING VERBAL MED ORDER ONE ×2 (07:45→08:15)
[2017-10-26 07:46] VITALS: BP 124/82; PULSE 80; TEMP 36.8; O2SAT 99
--- NOTE | 2017-10-26 07:56 | DIAGNOSTIC IMAGING REPORT ---
CHEST 2 VIEWS ROUTINE CLINICAL HISTORY: f/u pleural effusions COMPARISON STUDY: 10/24/2017 FINDINGS: The cardiac and mediastinal contours remain stable. There is a left-sided A-Port catheter. There are bilateral pleural effusions present. There is air present within the left pleural space. There is persistent hilar enlargement consistent with adenopathy. There is slight improvement in the bilateral airspace opacities. There is a 17 mm left midlung zone nodular opacity[ IMPRESSION: 1. Hilar enlargement consistent with adenopathy 2. Slight improvement in the bilateral pulmonary airspace opacities 3. Bilateral pleural effusions left greater than right. There is air present within the left pleural space 4. 17 mm left midlung zone nodular opacity Electronically signed by: Jorge A Taylor M.D. 10/26/2017 7:54 AM Dictated Date/Time: 10/26/2017 7:50 AM
[2017-10-26] MEDS: BOOST VANILLA PO SCH ×2 (08:30→13:27)
[2017-10-26] MEDS ORDERED: LIDOCAINE HCL 2% VISC SOLN 20 ML UDC MT PRN (08:30)
[2017-10-26] MEDS ORDERED: FENTANYL 25 MCG/HR TDSY TD SCH (08:30)
[2017-10-26] MEDS ORDERED: DEXAMETHASONE CONC SOLN 3.75 MG, NYSTATIN SUSP 30 ML, DiphenhydrAMINE HCL SYRUP 300 MG,... PO PRN ×5 (08:30)
--- NOTE | 2017-10-26 08:31 | HEME/ONC PROGRESS NOTE ---
DATE: 10/26/2017 DIAGNOSES: 1. Acute hypoxic respiratory failure. 2. Recent history of gastrointestinal bleeding. 3. Anorexia/weight loss. 4. Metastatic esophageal cancer. SUBJECTIVE: Roshan is a pleasant 62-year-old gentleman well known to [facility] with metastatic esophageal cancer. He is now on hospital day 12 for failing performance status and acute hypoxic respiratory failure. He has made slow clinical progress. His overall performance status continues to be marginal. Continues to complain of epigastric pain despite low dose opioids. Tolerating diet reasonably well otherwise. Apparently finally was convinced to be discharged to outpatient hospice with family support. Nursing reports no overnight issues otherwise. PHYSICAL EXAMINATION: GENERAL: He is a cachectic appearing 62-year-old gentleman, in no acute distress. VITAL SIGNS: Temperature 36.8, pulse 80, respiration 16, blood pressure 124/82. SKIN: Warm, dry, noncyanotic. Turgor is poor. HEENT: Oral mucosa without erythema or ulceration. NECK: Supple without JVD or thyromegaly. HEART: Regular rate and rhythm. LUNGS: Diffuse rhonchi heard in all bey. ABDOMEN: Soft, nontender, nondistended. EXTREMITIES: No clubbing, cyanosis or edema. NEUROLOGIC: Grossly intact. LABORATORY DATA: WBC count 6330, hemoglobin 9.7, platelet count 399,000. Sodium 134, potassium 3.7, chloride 101, carbon dioxide 27, creatinine 0.39, BUN 10. Albumin 1.9. IMPRESSION: 1. Acute respiratory failure. 2. Hypoalbuminemia. 3. Anorexia/weight loss. 4. Declining performance status. 5. Metastatic esophageal cancer. I had the pleasure visiting with Roshan again at bedside. According to nursing the patient is now agreeable for discharge and outpatient hospice. I encouraged him to continue p.o. input to improve on low albumin. Roshan continues to be hampered with epigastric pain which I believe is attributable to disease progression. Recommended nursing to increase fentanyl patch from 12 to 25 mcg per hour. I have nothing further to add at this juncture. Will officially sign off today. Thank you again for assisting us in the care of this very pleasant gentleman.
[2017-10-26 10:15] VITALS: BP 124/82; PULSE 80; TEMP 36.8; O2SAT 99
[2017-10-26] MEDS ORDERED: CRFUDL PO (10:33)
[2017-10-26] MEDS ORDERED: DXM/4 PO (10:33)
[2017-10-26] MEDS ORDERED: CLC100 PO (10:33)
[2017-10-26] MEDS ORDERED: OXYC-57 PO (10:33)
[2017-10-26] MEDS ORDERED: MGCCMP100 MT (10:33)
[2017-10-26] MEDS ORDERED: MRLP17 PO (10:33)
[2017-10-26] MEDS ORDERED: VNTHFA/IN INH (10:33)
[2017-10-26] MEDS ORDERED: DRGTP25 TD (10:33)
[2017-10-26] MEDS ORDERED: Enteral Nutrition Formula PO (10:33)
[2017-10-26] MEDS ORDERED: LPR25 PO (10:33)
[2017-10-26] MEDS ORDERED: PANT40TA PO (10:33)
--- NOTE | 2017-10-26 10:41 | Discharge Instructions ---
Discharge Instructions Date of Service Oct 26, 2017. Admission Reason for Admission: Acute Respiratory Failure With Hypoxia Discharge Discharge Diagnosis / Problem: Metastatic esophageal cancer, acute respiratory failure, lung masses Discharge Goals Goal(s): Improve disease control, Diagnostic testing, Therapeutic intervention Activity Recommendations Activity Limitations: as noted below Exercise/Sports Limitations: gradually increase as tolerated Shower/Bathe: no limitations Driving or Machine Use: no driving . Instructions / Follow-Up Instructions / Follow-Up You were admitted with respiratory failure due to fluid build up in your lungs, pneumonia, and tumors in your lungs blocking the airways. This is all as a result of spread of your cancer to the lungs. You had multiple procedures to clean mucus out of the lungs and to remove parts of the tumors to open up your airways. You were treated with antibiotics for your pneumonia. Oncology does not think it is likely that your body will be able to handle future chemotherapy, but please follow up with Dr. Nicole within 1 week to further discuss. Please follow up with Pulmonology and your PCP as scheduled for you within 1-2 weeks. You should take all the medications on this discharge list exactly as prescribed. Current Hospital Diet Patient's current hospital diet: Regular Diet Discharge Diet Recommended Diet: Regular Diet Diet Texture: Mechanical Soft (ground) Procedures Procedures Performed: Flexible and Rigid Bronchoscopy, Forceps Biopsy, Cryoprobe, Bronchial Lavage Left Upper Lobe Chest xrays CT Chest Pending Studies Studies pending at discharge: no Laboratory Results Last 24 Hours Test 10/26/17 05:02 White Blood Count 6.33 K/uL Red Blood Count 3.85 M/uL Hemoglobin 9.7 g/dL Hematocrit 31.0 % Mean Corpuscular Volume 80.5 fL Mean Corpuscular Hemoglobin 25.2 pg Mean Corpuscular Hemoglobin Concent 31.3 g/dl Platelet Count 399 K/uL Mean Platelet Volume 9.1 fL Neutrophils (%) (Auto) 74.0 % Lymphocytes (%) (Auto) 10.7 % Monocytes (%) (Auto) 13.3 % Eosinophils (%) (Auto) 1.4 % Basophils (%) (Auto) 0.3 % Neutrophils # (Auto) 4.68 K/uL Lymphocytes # (Auto) 0.68 K/uL Monocytes # (Auto) 0.84 K/uL Eosinophils # (Auto) 0.09 K/uL Basophils # (Auto) 0.02 K/uL RDW Standard Deviation 62.9 fL RDW Coefficient of Variation 21.2 % Immature Granulocyte % (Auto) 0.3 % Immature Granulocyte # (Auto) 0.02 K/uL Giant Platelets 1+ Hypochromasia PRESENT Anisocytosis PRESENT Ovalocytes 1+ Sodium Level 134 mmol/L Potassium Level 3.7 mmol/L Chloride Level 101 mmol/L Carbon Dioxide Level 27 mmol/L Anion Gap 6.0 mmol/L Blood Urea Nitrogen 10 mg/dl Creatinine 0.39 mg/dl Est Creatinine Clear Calc Drug Dose 199.5 ml/min Estimated GFR () > 150.0 Estimated GFR (Non- 129.5 BUN/Creatinine Ratio 25.6 Random Glucose 80 mg/dl Calcium Level 7.9 mg/dl Phosphorus Level 2.9 mg/dl Magnesium Level 1.9 mg/dl Total Bilirubin 0.3 mg/dl Direct Bilirubin < 0.1 mg/dl Aspartate Amino Transf (AST/SGOT) 131 U/L Alanine Aminotransferase (ALT/SGPT) 17 U/L Alkaline Phosphatase 268 U/L Total Protein 5.5 gm/dl Albumin 1.9 gm/dl Medical Emergencies . Who to Call and When: Medical Emergencies: If at any time you feel your situation is an emergency, please call 911 immediately. . Non-Emergent Contact Non-Emergency issues call your: Primary Care Provider, Oncologist, Stallion Manager Call Non-Emergent contact if: you have a fever, temperature is above 100.5, your pain is not controlled, your pain is worsening, your pain is unusual for you, your pain is concerning you, you have any medication questions . . "Provider Documentation" section prepared by Ines Donovan. . VTE Core Measure Inpt VTE Proph given/why not?: SCD's, Contraindicated [place] Drug Monitoring Program Search Results: patient reviewed within database, no issues identified
[2017-10-26] MEDS ORDERED: OXGN (10:44)
[2017-10-26] MEDS ORDERED: LIDO2SOL19 PO ×2 (10:53→11:45)
--- NOTE | 2017-10-26 11:02 | Discharge Summary ---
Discharge Summary Date of Service Oct 26, 2017. Discharge Summary Admission Date: Oct 14, 2017 at 22:59 Discharge Date: Oct 26, 2017 Discharge Disposition: Home with services Principal Diagnosis: Acute hypoxemic respiratory failure, Metastatic esophageal CA Problems/Secondary Diagnoses: Metastatic esophageal CA with metastasis to the lungs, liver, kidneys status post esophagectomy with esophago-gastric anastomosis Recent UGI bleed from anastomotic ulcer Chronic Fe-deficiency anemia GERD Bilateral transudative pleural effusions Bilateral obstructing bronchial tumors Post-obstructive PNA/HCAP Probable food impaction Weight loss Severe protein Calorie malnutrition Constipation Bony pain secondary to metastatic cancer Immunizations: Have You Had Influenza Vaccine: No History of Tetanus Vaccine?: No History of Pneumococcal: No History of Hepatitis B Vaccine: No Procedures: Bronchoscopy x 2 CT Chest Multiple Chest xrays Cryoprobe and traditional forcep debridement of the bronchus intermedius Consultations: Pulmonology Hematology/oncology Palliative care Infectious disease Gastroenterology Medication Reconciliation New Medications: Albuterol Hfa (Ventolin Hfa) 200 Puffs/08225 Mcg Aers 2-4 PUFFS INH Q6H PRN for SOB/Wheezing, #1 INHALER Home O2 Therapy (Oxygen) Gas 2 LITERS NA PRN PRN for ambulation for 30 Days Lidocaine Hcl (Mouth-Throat) (Lidocaine Viscous) 2 % Corrie 15 ML PO QID PRN for mouth pain for 30 Days, #100 ML Docusate Sodium (Docusate Sodium) 100 Mg Cap 100 MG PO BID for 30 Days OTC Fentanyl (Fentanyl) 25 Mcg Tdsy 25 MCG TD Q3D, #1 BOX Metoprolol Tartrate (Lopressor) 25 Mg Tab 12.5 MG PO BID for 30 Days, #30 TAB Polyethylene (Miralax) 17 Gm Pow 17 GM PO DAILY for 30 Days OTC [Enteral Nutrition Formula] () 1 CAN LIQD 1 CAN PO TIDM for 30 Days OTC Changed Medications: Dexamethasone (Decadron) 4 Mg Tab 8 MG PO DAILY for 1 Day, TAB (Medication details modified) as directed by oncology Sucralfate (Sucralfate) 1 Gm/10 Ml Susp 1 GM PO QID for 7 Days, #28 GM (Changed from: 40; 10) For your ulcer Continued Medications: Ferrous Sulfate (Ferrous Sulfate) 325 Mg Tab 325 MG PO BIDM for 30 Days, #60 TAB Ondansetron Hcl (Zofran) 8 Mg Tab 8 MG PO Q8 PRN for Nausea, TAB Oxycodone/Acetaminophen 5MG/325MG (Percocet 5MG/325MG) Tab 1 TABLET PO Q4H PRN for Pain, #20 TAB (This prescription has been renewed) PAIN Pantoprazole (Protonix) 40 Mg Tab 40 MG PO BID for 30 Days, #60 TAB (This prescription has been renewed) Discontinued Medications: Fentanyl (Fentanyl) 12 Mcg Tdsy 12 MCG TOP Q3DAYS Oxycodone Hcl (Oxycodone Hcl) 10 Mg Tab 1 TAB PO Q4 PRN for Pain for 30 Days, TAB Discharge Exam Patient feeling well. Does not feel short of breath unless he ambulates around. Is going to require 2 L of oxygen with ambulation based on his two- step test today. He is moving his bowels, making urine, tolerating soft diet. Ready for discharge. I discussed the case with oncology today and they are willing to see the patient in the office to further discuss future chemotherapy although this not likely that this will commence. I also discussed today's chest x-ray results with the manager english as there was mention of some air in the left pleural space. Pulmonology feels this is likely secondary to previous thoracentesis and is not concerning especially as the patient is not in any respiratory distress. Physical Exam General Appearance: no apparent distress, + thin Eyes: normal inspection, sclerae normal ENT: hearing grossly normal Neck: trachea midline Respiratory/Chest: no respiratory distress, no accessory muscle use, + decreased breath sounds (at the bases bilat, with crackles in mid lungs) Cardiovascular: regular rate, rhythm, no edema, no murmur Abdomen: normal bowel sounds, non tender, soft Extremities: non-tender, normal inspection, no pedal edema, no calf tenderness Neurologic/Psychiatric: alert, normal mood/affect, oriented x 3 Skin: normal color, warm/dry, no rash Review of Systems: Constitutional: No fever Eyes: No problem reported ENT: No problem reported Respiratory: + dyspnea on exertion Cardiovascular: No chest pain Abdomen: No pain, No nausea, No vomiting, No constipation Musculoskeletal: + problem reported (Left shoulder pain) Genitourinary - Male: No problem reported Neurologic: No problem reported Psychiatric: No problem reported Endocrine: No problem reported Hematologic / Lymphatic: No problem reported Integumentary: No problem reported Hospital Course Pt is a 62 yo male with 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 He was found to have bilateral transudative pleural effusions that are large, bilateral obstructing bronchial tumors, and post-obstructive PNA vs HCAP, treating for MRSA and GNR PNA given recent hospital stay. Pleural effusions transudative likely secondary to atelectasis. Acute Hypoxic Respiratory Failure/Bilat Pleural Effusions/Post-obstructive PNA/ Occluding Lung masses - Patient is S/P B/L Thoracentesis and Bronchoscopy on 10/15 - tapped for 650 mL on the left and 1250 mL on right; had bronchoscopy on 10/15 revealing tumor burden with near occlusion bronchus intermedius and also left upper lobe bronchus and mucus plugging suctioned Pulm performed bedside US 10/17 and only small pleural effusions present despite CXR appearing much worse and could have EMMA partial collapse, but no worsening resp distress or worsening hypoxia Repeat bronchoscopy 10/18 with evidence of tumor burden throughout mucosa in left lung, and fungating mass right bronchus intermedius 10/19 with tumor debulking procedure of right bronchus intermedius CXR 10/24 with mod left effusion, right small-mod effusion with slight improvement on left from previous CXR 10/26 again with bilateral effusions not much change from before, some air in the left pleural space -treated for MRSA and GNR PNA given recent hospital stay, but then narrowed down to Zosyn, then on po Augmentin-stopped after 10 day course total completed Growing out Poppy and Yeast not Poppy and not Cryptococcus neoformans in BALs--> ID recommends no treatment - Pleural fluid cytology neg for malignancy - Continue albuterol HFA at home as needed -BCxs no growth, pleural fluid cxs no growth Palliative consult appreciated but pt continues to want to try salvage chemotherapy and remain Full Code -Needs supplemental O2 2-3 L nasal cannula with ambulation-arranged prior to discharge -Needs outpt f/u with Pulm within 2 weeks Recent Ulceration of Esophagogastric Anastomosis with Recent Upper GI Bleed/ iron deficiency anemia/probable food impaction this admission early on--food impaction at ulcer site most likely occurrence with chest pain- now resolved and tolerated full liquids diet for the last week, advanced to mechanical soft diet on 2/6 and tolerating well so far Consulted GI -continue Carafate, bid PPI, no need for EGD at this time -continue mechanical soft diet to try to improve nutrition at this time -hgb remains stable from previous given recent GI bleed -Appreciate GI consult -follow CBC as an outpatient-remained stable at 9.7 on the day of discharge, microcytic Weight loss/Severe protein Calorie malnutrition-has continued to lose weight this admission likely due to poor po intake, liquid diet, plus progressive metastatic disease -continue mechanical soft diet -added Boost tid with meals -Weight on the day of discharge was 69.4 kg Constipation-improved/resolved -continue Miralax bid, docusate, Relistor prn Metastatic Esophageal Carcinoma S/P Esophagectomy and Gastrectomy: Follows with Dr. Nicole - Has not initiated palliative chemotherapy again yet due to hospitalization. Patient currently would like to pursue aggressive treatment if performance status allows - Mets to Lung, Liver, and Kidney - evidenced on imaging and with mildly elevated LFTs - He is prescribed Decadron to take with chemotherapy only, no need for this here -Improved pain control with increased dose fentanyl patch to 25 mcg today and Percocet as needed -f/u with Oncology after discharge DVT Prophylaxis: SCDs only given recent GI bleeding Code Status: FULL RESUSCITATION Disposition: to home today with Home Health and supplemental O2 Total Time Spent: Greater than 30 minutes This includes examination of the patient, discharge planning, medication reconciliation, and communication with other providers. Discharge Instructions Please refer to the electronic Patient Visit Report (Discharge Instructions) for additional information. Follow-Up PCP within 1 week Pulmonology within 1-2 weeks Oncology within 1 week Additional Copies To Carlos Nicole D.O.; Yury Robert M.D.; Gigi Jimenez MD
[2017-10-26] MEDS ORDERED: CHECK FENTANYL PATCH PLACEMENT SCH (16:00)
[2017-10-29] MEDS ORDERED: FENTANYL PATCH REMOVE & WASTE SCH (08:30)
== END 2017-10-26 13:54 | disposition home health service (06) | DRG 166 ==
LOC: C.EDB 19:41 → C.MSICU 22:59 → ENRESERV 23:03 → C.2T 10-15 12:31 → ENRESERV 10-20 17:50 → C.4E 10-20 19:05
PROVIDERS: ADMIT Family Medicine; ATTEND Family Medicine
PROC: 0W993ZX Drainage of Right Pleural Cavity, Percutaneous Approach, Diagnostic (ICD-10-PCS; principal; 2017-10-15)
PROC: 0W9B3ZX Drainage of Left Pleural Cavity, Percutaneous Approach, Diagnostic (ICD-10-PCS; principal; 2017-10-15)
PROC: 0BC88ZZ Extirpation of Matter from Left Upper Lobe Bronchus, Via Natural or Artificial Opening Endoscopic (ICD-10-PCS; principal; 2017-10-15)
PROC: 0BC58ZZ Extirpation of Matter from Right Middle Lobe Bronchus, Via Natural or Artificial Opening Endoscopic (ICD-10-PCS; 2017-10-18)
PROC: 0BC38ZZ Extirpation of Matter from Right Main Bronchus, Via Natural or Artificial Opening Endoscopic (ICD-10-PCS; 2017-10-18)
PROC: 0B9F8ZX Drainage of Right Lower Lung Lobe, Via Natural or Artificial Opening Endoscopic, Diagnostic (ICD-10-PCS; 2017-10-18)
PROC: 0BC68ZZ Extirpation of Matter from Right Lower Lobe Bronchus, Via Natural or Artificial Opening Endoscopic (ICD-10-PCS; 2017-10-18)
PROC: 0BB Respiratory System, Excision (ICD-10-PCS; 2017-10-19)
PROC: 0B9G8ZZ Drainage of Left Upper Lung Lobe, Via Natural or Artificial Opening Endoscopic (ICD-10-PCS; 2017-10-19)
DX: J18.9 Pneumonia, unspecified organism (principal); J96.01 Acute respiratory failure with hypoxia; E43 Unspecified severe protein-calorie malnutrition; C15.9 Malignant neoplasm of esophagus, unspecified; C78.00 Secondary malignant neoplasm of unspecified lung; C78.7 Secondary malignant neoplasm of liver and intrahepatic bile duct; J90 Pleural effusion, not elsewhere classified; R64 Cachexia; C16.9 Malignant neoplasm of stomach, unspecified; K21.9 Gastro-esophageal reflux disease without esophagitis; J44.9 Chronic obstructive pulmonary disease, unspecified; D50.9 Iron deficiency anemia, unspecified; K59.00 Constipation, unspecified; Z79.899 Other long term (current) drug therapy; Z87.891 Personal history of nicotine dependence

== ENCOUNTER 2017-10-31 07:54 | Inpatient (IN) | payer OTHER ==
[2017-10-31] VITALS (12 sets, daily range): BP systolic 98–116; BP diastolic 62–77; PULSE 88–104; TEMP 36.5–37.2; O2SAT 91–95; BMI 20.3
[~2017-10-31] VITALS: Ht 182.9 cm; Wt 69.0 kg
[~2017-10-31 07:54] MED LIST changes: +CLC100 PO; -DRGTP12 TOP; +DRGTP25 TD; +DXM/4 PO; +Enteral Nutrition Formula PO; +LIDO2SOL19 PO; +LPR25 PO; +MRLP17 PO; +ONDA8TAB6 PO; +OXGN; -STEROID PO; +VNTHFA/IN INH
[2017-10-31 08:40] LABS: BASO % 0.1 %; BASO ABS # 0.01 K/uL (0-0.2); EOS % 0.2 %; EOS ABS # 0.02 K/uL (0-0.5); HEMATOCRIT 28.6 % (42-52); HEMOGLOBIN 8.9 g/dL (14.0-18.0); IG# 0.04 K/uL (0.00-0.02); LYMPH % 3.5 %; LYMPH ABS # 0.45 K/uL (1.2-3.4); MEAN CELL VOLUME 80.6 fL (80-100); MEAN CORPUSCULAR HEMOGLOBIN 25.1 pg (25-34); MEAN CORPUSCULAR HGB CONC 31.1 g/dl (32-36); MEAN PLATELET VOLUME 8.6 fL (7.4-10.4); MONO % 9.2 %; MONO ABS # 1.18 K/uL (0.11-0.59); NEUT % 86.7 %; NEUT ABS # 11.11 K/uL (1.4-6.5); PLATELET COUNT 391 K/uL (130-400); RED CELL DISTRIBUTION WIDTH CV 21.3 % (11.5-14.5); RED CELL DISTRIBUTION WIDTH SD 63.3 fL (36.4-46.3); WHITE BLOOD COUNT 12.81 K/uL (4.8-10.8)
--- NOTE | 2017-10-31 08:47 | DIAGNOSTIC IMAGING REPORT ---
CHEST ONE VIEW PORTABLE HISTORY: EVALUATE ALTERED MENTAL STATUS/WEAKNESS COMPARISON: Chest 10/26/2017. FINDINGS: No pneumothorax. Trace right and small left pleural effusions. This remains unchanged. Left subclavian Port-A-Cath terminates at the right atrium. The heart is stable in size. Right greater than left interstitial and vascular thickening with right lung hazy airspace opacities have progressed. Bilateral hilar lymphadenopathy, unchanged. IMPRESSION: 1. Progressive interstitial thickening and hazy airspace opacities. This suggests worsening pulmonary edema. However, a pneumonia could also have a similar appearance. 2. Bilateral hilar lymphadenopathy is again noted. 3. Small left and trace right pleural effusions, unchanged. Electronically signed by: Ángel Prieto M.D. 10/31/2017 8:46 AM Dictated Date/Time: 10/31/2017 8:44 AM
[2017-10-31 08:48] LABS: INR 1.1 (0.9-1.1); PTT PATIENT 30.8 SECONDS (21.0-31.0)
[2017-10-31 08:58] LABS: ALBUMIN 1.9 gm/dl (3.4-5.0); ALT/SGPT 22 U/L (12-78); BLOOD UREA NITROGEN 16 mg/dl (7-18); CARBON DIOXIDE 27 mmol/L (21-32); CREATININE 0.58 mg/dl (0.60-1.40); GLUCOSE 93 mg/dl (70-99); POTASSIUM 4.2 mmol/L (3.5-5.1); SODIUM 133 mmol/L (136-145)
[2017-10-31 09:07] LABS: ALKALINE PHOSPHATASE 254 U/L (45-117); AST/SGOT 146 U/L (15-37); CKMB 0.8 ng/ml (0.5-3.6); LIPASE 95 U/L (73-393); PHOSPHORUS 2.6 mg/dl (2.5-4.9); TOTAL PROTEIN 5.9 gm/dl (6.4-8.2)
[2017-10-31] MEDS ORDERED: ZOLPIDEM TARTRATE 5 MG TAB PO PRN ×2 (12:30)
[2017-10-31] MEDS ORDERED: ONDANSETRON 8 MG TAB PO PRN (12:30)
[2017-10-31] MEDS ORDERED: LIDOCAINE HCL 2% VISC SOLN 20 ML UDC PO PRN (12:30)
[2017-10-31] MEDS ORDERED: BISACODYL 10 MG SUPP PR PRN (12:30)
[2017-10-31] MEDS ORDERED: MAGNESIUM HYDROXIDE SUSP 30 ML UDC PO PRN (12:30)
[2017-10-31] MEDS ORDERED: ONDANSETRON INJ 2 MG/ML 2 ML VIAL IV PRN (12:30)
[2017-10-31] MEDS ORDERED: ALUMINUM/MAGNESIUM/SIMETH (MAALOX MAX) 30 ML UDC PO PRN (12:30)
[2017-10-31] MEDS ORDERED: POLYETHYLENE (MIRALAX) 17 GM PACK PO PRN (12:30)
[2017-10-31] MEDS ORDERED: ALBUTEROL HFA 8 GM INHALER INH PRN (12:30)
[2017-10-31] MEDS ORDERED: OXYCODONE/ACETAMINOPHEN 5-325 TAB ONE (12:53)
[2017-10-31] MEDS ORDERED: LEVALBUTEROL/IPRATROPIUM NEB INH SCH (13:00)
--- NOTE | 2017-10-31 13:23 | History and Physical ---
History & Physical Date & Time of Service: Oct 31, 2017 at 12:59 Chief Complaint: Weak,Swelling Of Feet Primary Care Physician: Yury Robert M.D. History of Present Illness Source: patient, family 62-year-old man with stage IV recurrent metastatic esophageal cancer post esophagectomy with esophageal gastric anastomosis and chemotherapy. Patient was treated in the hospital recently for post obstructive pneumonia. Received broad-spectrum antibiotics initially then Augmentin. Had bilateral thoracocentesis and bronchoscopy 2, which revealed near occlusion of bronchus with tumor burden and significant mucus plugging. He was discharged home on hospice after he was treated. Unfortunately he lives alone, has 3 daughters but none of them is able to stay with him. He is also unable to move to one of his daughters. Over the last 5 days he developed progressive shortness of breath. Continued to have intermittent cough with yellowish mucus. Also developed generalized weakness and fatigue. Unable to walk unsupported. Which is a great challenge for him as he lives by himself. Past Medical/Surgical History Medical Problems: (1) Esophageal cancer Status: Chronic Family History FHx: cancer Hypertension Social History Smoking Status: Former Smoker Drug Use: none Marital Status: Occupational Status: employed Immunizations History of Influenza Vaccine: No History of Tetanus Vaccine?: No History of Pneumococcal: No History of Hepatitis B Vaccine: No Multi-Drug Resistant Organisms History of MDRO: No Allergies Coded Allergies: No Known Allergies (Verified , 10/31/17) Home Medications Scheduled Dexamethasone (Decadron), 8 MG PO DAILY Docusate Sodium (Docusate Sodium), 100 MG PO BID Fentanyl (Fentanyl), 25 MCG TD Q3D Ferrous Sulfate (Ferrous Sulfate), 325 MG PO BIDM Metoprolol Tartrate (Lopressor), 12.5 MG PO BID Pantoprazole (Protonix), 40 MG PO BID Polyethylene (Miralax), 17 GM PO DAILY Sucralfate (Sucralfate), 1 GM PO QID [Enteral Nutrition Formula], 1 CAN PO TIDM Scheduled PRN Albuterol Hfa (Ventolin Hfa), 2-4 PUFFS INH Q6H PRN for SOB/Wheezing Home O2 Therapy (Oxygen), 2 LITERS NA PRN PRN for ambulation Lidocaine Hcl (Mouth-Throat) (Lidocaine Viscous), 15 ML PO QID PRN for mouth pain Ondansetron Hcl (Zofran), 8 MG PO Q8 PRN for Nausea Oxycodone/Acetaminophen 5MG/325MG (Percocet 5MG/325MG), 1 TABLET PO Q4H PRN for Pain Review of Systems Constitutional: + weight loss, + weakness, + fatigue Eyes: No worsening of vision, No eye pain, No redness, No discharge, No diplopia, No problem reported ENT: No hearing loss, No unusual epistaxis, No nasal symptoms, No sore throat, No tinnitus, No dental problems, No trouble swallowing, No problem reported Respiratory: + cough, + sputum, + shortness of breath, + dyspnea on exertion, + dyspnea at rest Cardiovascular: + edema, No chest pain, No orthopnea, No PND, No claudication, No palpitations, No problem reported Abdomen: + pain, + nausea, No vomiting, No diarrhea, No constipation, No GI bleeding, No problem reported Musculoskeletal: No joint pain, No muscle pain, No swelling, No calf pain, No problem reported Genitourinary - Male: No hematuria, No dysuria, No urinary frequency, No urinary urgency, No urinary hesitancy, No urinary retention, No urinary incontinence, No penile discharge, No lesions, No impotence, No problem reported Neurologic: No memory loss, No paralysis, No weakness, No numbness/tingling, No vertigo, No balance problems, No problem reported Psychiatric: No depression symptoms, No anhedonism, No anxiety, No insomnia, No substance abuse, No problem reported Endocrine: + fatigue, No excessive thirst, No excessive urination, No problem reported Hematologic / Lymphatic: No abnormal bleeding/bruising, No clotting problems, No swollen lymph nodes, No night sweats, No problem reported Integumentary: No rash, No itch, No new/changing skin lesions, No color change , No bleeding, No problem reported Allergic / Immunologic: No environmental allergies, No seasonal allergies, No pet sensitivities, No food allergies, No hives, No frequent infections, No poor healing, No prolonged convalescence, No problem reported Physical Exam Vital Signs Date Time Temp Pulse Resp B/P (MAP) Pulse Ox O2 Delivery O2 Flow Rate FiO2 10/31/17 11:12 101 20 95 Nasal Cannula 2.0 10/31/17 10:12 102 27 10/31/17 10:07 98 18 Nasal Cannula 2.0 10/31/17 09:46 103/70 10/31/17 09:37 100 24 10/31/17 09:15 Nasal Cannula 2.0 10/31/17 09:07 96 21 10/31/17 09:02 95/65 10/31/17 08:54 97 19 10/31/17 08:24 96 24 10/31/17 08:23 94 10/31/17 07:55 36.7 97 20 100/69 94 Nasal Cannula 2.5 General Appearance: + mild distress, + cachetic Head: normocephalic, atraumatic Eyes: normal inspection, EOMI ENT: normal ENT inspection Neck: supple Respiratory/Chest: chest non-tender, no accessory muscle use, + respiratory distress, + decreased breath sounds, + crackles, + rales, + rhonchi Cardiovascular: regular rate, rhythm, no edema, no gallop, + systolic murmur Abdomen/GI: normal bowel sounds, non tender, soft, no organomegaly, no pulsatile mass, normal rectal exam Back: normal inspection, no CVA tenderness, no muscle spasm Extremities/Musculoskelatal: no calf tenderness, + pedal edema 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, no motor/sensory deficits, alert, normal mood/affect, normal reflexes, oriented x 3 Skin: normal color, + pertinent finding (2X2 cm decubitus ulcers stage 3, X 4 (2 on midback and 2 on buttock)) Diagnostics Laboratory Results Results Past 24 Hours Test 10/31/17 08:15 10/31/17 08:28 10/31/17 10:45 Range/Units White Blood Count 12.81 4.8-10.8 K/uL Red Blood Count 3.55 4.7-6.1 M/uL Hemoglobin 8.9 14.0-18.0 g/dL Hematocrit 28.6 42-52 % Mean Corpuscular Volume 80.6 80-100 fL Mean Corpuscular Hemoglobin 25.1 25-34 pg Mean Corpuscular Hemoglobin Concent 31.1 32-36 g/dl Platelet Count 391 130-400 K/uL Mean Platelet Volume 8.6 7.4-10.4 fL Neutrophils (%) (Auto) 86.7 % Lymphocytes (%) (Auto) 3.5 % Monocytes (%) (Auto) 9.2 % Eosinophils (%) (Auto) 0.2 % Basophils (%) (Auto) 0.1 % Neutrophils # (Auto) 11.11 1.4-6.5 K/uL Lymphocytes # (Auto) 0.45 1.2-3.4 K/uL Monocytes # (Auto) 1.18 0.11-0.59 K/uL Eosinophils # (Auto) 0.02 0-0.5 K/uL Basophils # (Auto) 0.01 0-0.2 K/uL RDW Standard Deviation 63.3 36.4-46.3 fL RDW Coefficient of Variation 21.3 11.5-14.5 % Immature Granulocyte % (Auto) 0.3 % Immature Granulocyte # (Auto) 0.04 0.00-0.02 K/uL Hypochromasia PRESENT Anisocytosis PRESENT Microcytosis PRESENT Prothrombin Time 11.5 9.0-12.0 SECONDS Prothromb Time International Ratio 1.1 0.9-1.1 Activated Partial Thromboplast Time 30.8 21.0-31.0 SECONDS Partial Thromboplastin Ratio 1.2 Sodium Level 133 136-145 mmol/L Potassium Level 4.2 3.5-5.1 mmol/L Chloride Level 99 98-107 mmol/L Carbon Dioxide Level 27 21-32 mmol/L Anion Gap 8.0 3-11 mmol/L Blood Urea Nitrogen 16 7-18 mg/dl Creatinine 0.58 0.60-1.40 mg/dl Est Creatinine Clear Calc Drug Dose 128.6 ml/min Estimated GFR () 127.5 Estimated GFR (Non- 110.0 BUN/Creatinine Ratio 28.2 10-20 Random Glucose 93 70-99 mg/dl Calcium Level 8.0 8.5-10.1 mg/dl Phosphorus Level 2.6 2.5-4.9 mg/dl Magnesium Level 1.9 1.8-2.4 mg/dl Total Bilirubin 0.2 0.2-1 mg/dl Direct Bilirubin < 0.1 0-0.2 mg/dl Aspartate Amino Transf (AST/SGOT) 146 15-37 U/L Alanine Aminotransferase (ALT/SGPT) 22 12-78 U/L Alkaline Phosphatase 254 45-117 U/L Total Creatine Kinase 115 39-308 U/L Creatine Kinase MB 0.8 0.5-3.6 ng/ml Creatine Kinase MB Ratio 0.7 0-3.0 Troponin I < 0.015 0-0.045 ng/ml Total Protein 5.9 6.4-8.2 gm/dl Albumin 1.9 3.4-5.0 gm/dl Lipase 95 73-393 U/L Thyroid Stimulating Hormone (TSH) 3.210 0.300-4.500 uIu/ml Bedside Lactic Acid Venous 1.72 0.90-1.70 mmol/L Urine Color YELLOW Urine Appearance CLEAR CLEAR Urine pH 5.5 4.5-7.5 Urine Specific [place] 1.021 1.000-1.030 Urine Protein NEG NEG Urine Glucose (UA) NEG NEG Urine Ketones NEG NEG Urine Occult Blood NEG NEG Urine Nitrite NEG NEG Urine Bilirubin NEG NEG Urine Urobilinogen NEG NEG Urine Leukocyte Esterase NEG NEG Urine WBC (Auto) 1-5 0-5 /hpf Urine RBC (Auto) 0-4 0-4 /hpf Urine Hyaline Casts (Auto) 1-5 0-5 /lpf Urine Epithelial Cells (Auto) 0-5 0-5 /lpf Urine Bacteria (Auto) NEG NEG Microbiology Results 10/31/17 Blood Culture, Received Pending 10/31/17 Blood Culture, Received Pending Impression Assessment and Plan 62-year-old man with stage IV recurrent metastatic esophageal cancer p/w progressive shortness of breath /productive cough with yellowish mucus. Also developed generalized weakness and fatigue. Increased lower extremity edema. Assessment Acute and chronic respiratory failure secondary to below Mucus plugging and postobstructive atelectasis Acute bronchitis Acute on chronic diastolic congestive heart failure, last echo was 10/06/2017 showed normal ejection fraction Recurrent metastasize stage IV esophageal cancer Severe protein caloric malnutrition secondary to above Recent H Pneumonia status post resolution after finishing antibiotics course Recent Ulceration of Esophagogastric Anastomosis with Recent Upper GI Bleed with acute and chronic iron deficiency anemia Multiple decubitus ulcers stage III present on admission as mentioned on physical exam Plan At this point it seems that his major medical complaint is that tumor burden obstructing his bronchus and the mucus plugging. We'll start with aggressive pulmonary toilet, chest physiotherapy, vibrating vest 3 times a day followed by Mucomyst inhalation nebulizer, followed by Xopenex/Atrovent bronchodilator. We'll hold off pulmonary consult as I will try to treat his mucous plugs was the least invasive methods giving his hospice eligibility, the above-mentioned pulmonary toilet failed to control his symptoms then he can benefit from pulmonary consult and repeat bronchoscopy. Consult physical therapy/occupational therapy I don't think he has a full blown healthcare associated pneumonia at this point , but would like to treat bronchitis with azithromycin to give the benefit of anti-inflammatory effect. Will add probiotic with azithromycin for C. difficile prophylaxis We'll decrease his Decadron from 8 to 4 mg daily and see how his body well respond to that I called palliative care consult and discussed the case with Sofi who agreed that disposition can be a challenge for him as he lives alone and there is nobody to move in with him He might require placement, he also clearly stated that he wants to be a full code, which I believe Sofi had a discussion with him before about his expectations. I's also spoke with his daughter about his disposition, she said she will discuss the matter with her other 2 sisters. Giving his generalized weakness I discussed with him transfusing 1 unit of packed RBCs Started him on a low-dose oral Lasix for gentle diuresis Consult wound care Pain management Stool softeners And since there is no active bleeding I kept him on heparin plus a SCD boots for DVT prophylaxis, giving his metastasized cancer he must be coagulopathic, and the benefits of low-dose heparin outweighs the risk. Resuscitation Status FULL RESUSCITATION VTE Prophylaxis VTE Risk Assessment Done? Y/N: Yes Risk Level: Moderate Given or contraindicated: Enoxaparin (Lovenox)SQ
[2017-10-31] MEDS: ACETAMINOPHEN 325 MG TAB PO PRN (14:06)
[2017-10-31] MEDS ORDERED: ENOXAPARIN 40 MG/0.4 ML SYR SQ SCH (14:30)
--- NOTE | 2017-10-31 14:37 | EMERGENCY ROOM VISIT NOTE ---
History Report prepared by Tom: Willam Lipscomb Under the Supervision of: Dr. Tyrone Manzanares D.O. First contact with patient: 08:05 Chief Complaint: WEAKNESS Stated Complaint: WEAK,SWELLING OF FEET Nursing Triage Summary: bilateral leg weakness and bilateral leg swelling since yesterday History of Present Illness The patient is a 62 year old male who presents to the Emergency Room with complaints of persistent weakness and shakiness that he has been experiencing since being discharged from an inpatient stay on 5 days ago. The patient notes that he was admitted to the hospital for weakness and fluid on his lungs. It was suggested that he go to a physical therapy rehabilitation center following his discharge, but he refused and went home. He has been noticing some worsening lower extremity edema recently as well. The patient has esophageal cancer with metastasis to his liver and kidneys. He adds that this diagnosis is terminal. 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 A total of 10 systems reviewed and were otherwise negative. Past Medical & Surgical Medical Problems: (1) Acute respiratory failure with hypoxia (2) Dizziness (3) Esophageal cancer (4) HCAP (healthcare-associated pneumonia) (5) Pneumonia (6) Sepsis Family History FHx: cancer Hypertension Social History Smoking Status: Former Smoker Drug Use: none Marital Status: Occupation Status: employed Current/Historical Medications Scheduled Dexamethasone (Decadron), 8 MG PO DAILY Docusate Sodium (Docusate Sodium), 100 MG PO BID Fentanyl (Fentanyl), 25 MCG TD Q3D Ferrous Sulfate (Ferrous Sulfate), 325 MG PO BIDM Metoprolol Tartrate (Lopressor), 12.5 MG PO BID Pantoprazole (Protonix), 40 MG PO BID Polyethylene (Miralax), 17 GM PO DAILY Sucralfate (Sucralfate), 1 GM PO QID [Enteral Nutrition Formula], 1 CAN PO TIDM Scheduled PRN Albuterol Hfa (Ventolin Hfa), 2-4 PUFFS INH Q6H PRN for SOB/Wheezing Home O2 Therapy (Oxygen), 2 LITERS NA PRN PRN for ambulation Lidocaine Hcl (Mouth-Throat) (Lidocaine Viscous), 15 ML PO QID PRN for mouth pain Ondansetron Hcl (Zofran), 8 MG PO Q8 PRN for Nausea Oxycodone/Acetaminophen 5MG/325MG (Percocet 5MG/325MG), 1 TABLET PO Q4H PRN for Pain Allergies Coded Allergies: No Known Allergies (Verified , 10/31/17) Physical Exam Vital Signs Date Time Temp Pulse Resp B/P (MAP) Pulse Ox O2 Delivery O2 Flow Rate FiO2 10/31/17 12:17 97 26 10/31/17 11:47 98 24 10/31/17 11:41 104/72 10/31/17 11:17 97 17 10/31/17 11:12 101 20 95 Nasal Cannula 2.0 10/31/17 10:12 102 27 10/31/17 10:07 98 18 Nasal Cannula 2.0 10/31/17 09:46 103/70 10/31/17 09:37 100 24 10/31/17 09:15 Nasal Cannula 2.0 10/31/17 09:07 96 21 10/31/17 09:02 95/65 10/31/17 08:54 97 19 10/31/17 08:24 96 24 10/31/17 08:23 94 10/31/17 07:55 36.7 97 20 100/69 94 Nasal Cannula 2.5 Physical Exam CONSTITUTIONAL/VITAL SIGNS: Reviewed / noted above. GENERAL: Chronically ill appearing. INTEGUMENTARY: Warm, dry, and [place]. HEAD: Normocephalic. EYES: without scleral icterus or trauma. ENT/OROPHARYNX: clear and moist. LYMPHADENOPATHY/NECK: Is supple without lymphadenopathy or meningismus. RESPIRATORY: There is some rhonchi in the right lung. CARDIOVASCULAR: Regular rate and rhythm. GI/ABDOMEN: Soft and nontender. No organomegaly or pulsatile mass. No rebound or guarding. Normal bowel sounds. EXTREMITIES: Warm and well perfused. BACK: No CVA tenderness. NEUROLOGICAL: Intact without focal deficits. PSYCHIATRIC: normal affect. MUSCULOSKELETAL: Normally developed with good muscle tone. RECTAL: The patient rectal exam revealed light brown guaiac positive stool. Medical Decision & Procedures ER Provider Diagnostic Interpretation: Radiology results as stated below per my review and radiologist interpretation: CHEST ONE VIEW PORTABLE HISTORY: EVALUATE ALTERED MENTAL STATUS/WEAKNESS COMPARISON: Chest 10/26/2017. FINDINGS: No pneumothorax. Trace right and small left pleural effusions. This remains unchanged. Left subclavian Port-A-Cath terminates at the right atrium. The heart is stable in size. Right greater than left interstitial and vascular thickening with right lung hazy airspace opacities have progressed. Bilateral hilar lymphadenopathy, unchanged. IMPRESSION: 1. Progressive interstitial thickening and hazy airspace opacities. This suggests worsening pulmonary edema. However, a pneumonia could also have a similar appearance. 2. Bilateral hilar lymphadenopathy is again noted. 3. Small left and trace right pleural effusions, unchanged. Electronically signed by: Ángel Prieto M.D. 10/31/2017 8:46 AM Dictated Date/Time: 10/31/2017 8:44 AM Laboratory Results 10/31/17 08:15 Red Blood Count 3.55, Mean Corpuscular Volume 80.6, Mean Corpuscular Hemoglobin 25.1, Mean Corpuscular Hemoglobin Concent 31.1, Mean Platelet Volume 8.6, Neutrophils (%) (Auto) 86.7, Lymphocytes (%) (Auto) 3.5, Monocytes (%) (Auto) 9.2, Eosinophils (%) (Auto) 0.2, Basophils (%) (Auto) 0.1, Neutrophils # (Auto) 11.11, Lymphocytes # (Auto) 0.45, Monocytes # (Auto) 1.18, Eosinophils # (Auto) 0.02, Basophils # (Auto) 0.01 10/31/17 08:15 Test 10/31/17 08:15 10/31/17 08:28 10/31/17 10:45 White Blood Count 12.81 K/uL (4.8-10.8) Red Blood Count 3.55 M/uL (4.7-6.1) Hemoglobin 8.9 g/dL (14.0-18.0) Hematocrit 28.6 % (42-52) Mean Corpuscular Volume 80.6 fL (80-100) Mean Corpuscular Hemoglobin 25.1 pg (25-34) Mean Corpuscular Hemoglobin Concent 31.1 g/dl (32-36) Platelet Count 391 K/uL (130-400) Mean Platelet Volume 8.6 fL (7.4-10.4) Neutrophils (%) (Auto) 86.7 % Lymphocytes (%) (Auto) 3.5 % Monocytes (%) (Auto) 9.2 % Eosinophils (%) (Auto) 0.2 % Basophils (%) (Auto) 0.1 % Neutrophils # (Auto) 11.11 K/uL (1.4-6.5) Lymphocytes # (Auto) 0.45 K/uL (1.2-3.4) Monocytes # (Auto) 1.18 K/uL (0.11-0.59) Eosinophils # (Auto) 0.02 K/uL (0-0.5) Basophils # (Auto) 0.01 K/uL (0-0.2) RDW Standard Deviation 63.3 fL (36.4-46.3) RDW Coefficient of Variation 21.3 % (11.5-14.5) Immature Granulocyte % (Auto) 0.3 % Immature Granulocyte # (Auto) 0.04 K/uL (0.00-0.02) Hypochromasia PRESENT Anisocytosis PRESENT Microcytosis PRESENT Prothrombin Time 11.5 SECONDS (9.0-12.0) Prothromb Time International Ratio 1.1 (0.9-1.1) Activated Partial Thromboplast Time 30.8 SECONDS (21.0-31.0) Partial Thromboplastin Ratio 1.2 Anion Gap 8.0 mmol/L (3-11) Est Creatinine Clear Calc Drug Dose 128.6 ml/min Estimated GFR () 127.5 Estimated GFR (Non- 110.0 BUN/Creatinine Ratio 28.2 (10-20) Calcium Level 8.0 mg/dl (8.5-10.1) Phosphorus Level 2.6 mg/dl (2.5-4.9) Magnesium Level 1.9 mg/dl (1.8-2.4) Total Bilirubin 0.2 mg/dl (0.2-1) Direct Bilirubin < 0.1 mg/dl (0-0.2) Aspartate Amino Transf (AST/SGOT) 146 U/L (15-37) Alanine Aminotransferase (ALT/SGPT) 22 U/L (12-78) Alkaline Phosphatase 254 U/L (45-117) Total Creatine Kinase 115 U/L (39-308) Creatine Kinase MB 0.8 ng/ml (0.5-3.6) Creatine Kinase MB Ratio 0.7 (0-3.0) Troponin I < 0.015 ng/ml (0-0.045) Total Protein 5.9 gm/dl (6.4-8.2) Albumin 1.9 gm/dl (3.4-5.0) Lipase 95 U/L (73-393) Thyroid Stimulating Hormone (TSH) 3.210 uIu/ml (0.300-4.500) Bedside Lactic Acid Venous 1.72 mmol/L (0.90-1.70) Urine Color YELLOW Urine Appearance CLEAR (CLEAR) Urine pH 5.5 (4.5-7.5) Urine Specific [place] 1.021 (1.000-1.030) Urine Protein NEG (NEG) Urine Glucose (UA) NEG (NEG) Urine Ketones NEG (NEG) Urine Occult Blood NEG (NEG) Urine Nitrite NEG (NEG) Urine Bilirubin NEG (NEG) Urine Urobilinogen NEG (NEG) Urine Leukocyte Esterase NEG (NEG) Urine WBC (Auto) 1-5 /hpf (0-5) Urine RBC (Auto) 0-4 /hpf (0-4) Urine Hyaline Casts (Auto) 1-5 /lpf (0-5) Urine Epithelial Cells (Auto) 0-5 /lpf (0-5) Urine Bacteria (Auto) NEG (NEG) Laboratory results as stated above per my review. Medications Administered Medications (Trade) Dose Ordered Sig/Konstantin Route Start Time Stop Time Status Last Admin Dose Admin Acetaminophen (Tylenol Tab) 650 mg Q4H PRN PO 10/31/17 12:30 11/30/17 12:29 10/31/17 14:06 650 MG ECG Indication: weakness Rate (beats per minute): 97 Rhythm: normal sinus Findings: other (No ST elevations or depressions, Normal [place]) Change: Patient's electrocardiogram interpreted by me. ED Course 0813: Previous medical records were reviewed. The patient was evaluated in room A9B. A complete history and physical examination was performed. 1112: I performed a rectal exam on the patient at this time. See physical exam for further findings. 1128: I discussed the case with Dr. Fritz Moran Hospitalist. He will evaluate the patient for further treatment. Medical Decision Differential includes acute coronary syndrome, myocardial infarction, CVA, TIA, anemia, infection, pneumonia, UTI, pyelonephritis, poor nutrition, dehydration, electrolyte disturbance,hypoglycemia. This is a 62-year-old male who presents to the ED with a chief complaint of weakness. The patient reports feeling shaky and weak for the past couple of days. He was discharged from the hospital about 5 days ago. The patient reports a history of terminal esophageal cancer. He reports that he has about 3 -6 months to live. He has a cough that is chronic. His vital signs here are stable. Physical exam is noted above. The patient is cachectic in appearance. His stool was trace guaiac positive light brown. Patient's EKG today reveals a normal sinus rhythm at a rate of 97. His hemoglobin is 8.9. This is down from 9.75 days ago. White blood cell count 12.8. Troponin was negative. Chest x-ray reveals some worsening pulmonary edema or pneumonia. This could be related to his oncologic issues. The patient was treated as above. The patient be seen by the hospitalist service for further inpatient evaluation and care. Consults Time Called: [phone] Consulting Physician: Dr. Fritz Moran Hospitalist Returned Call: [phone] I discussed the case with Dr. Fritz Moran Hospitalist. He will evaluate the patient for further treatment. Impression Primary Impression: Generalized weakness Additional Impressions: Anemia Guaiac positive stools Scribe Attestation The scribe's documentation has been prepared under my direction and personally reviewed by me in its entirety. I confirm that the note above accurately reflects all work, treatment, procedures, and medical decision making performed by me. Departure Information Dispostion Being Evaluated By Hospitalist Referrals Yury Robert M.D. (PCP) Patient Instructions My [facility] Problem Qualifiers
[2017-10-31] MEDS: ACETYLCYSTEINE 20% INHAL SOLN ***DISPENSED BY RESP. INH SCH ×2 (15:05→20:04)
[2017-10-31] MEDS: LEVALBUTEROL 0.63MG/3 ML NEB INH SCH ×2 (15:05→20:04)
[2017-10-31] MEDS: IPRATROPIUM BROMIDE NEB SOLN 0.02% 2.5 ML VIAL INH SCH ×2 (15:05→20:04)
[2017-10-31] MEDS: CHECK FENTANYL PATCH PLACEMENT SCH ×2 (16:00→23:31)
[2017-10-31] MEDS: GUAIFENESIN SUGAR FREE 100 MG/5 ML UDC PO SCH ×3 (16:52→22:19)
[2017-10-31] MEDS: FUROSEMIDE 20 MG TAB PO SCH (16:52)
[2017-10-31] MEDS: AZITHROMYCIN 250 MG TAB PO SCH (16:53)
[2017-10-31] MEDS: SUCRALFATE 1 GM/10 ML UDC PO SCH ×2 (16:55→22:19)
[2017-10-31] MEDS: BOOST VANILLA PO SCH (16:55)
[2017-10-31] MEDS: FERROUS SULFATE 325 MG TAB PO SCH (16:56)
[2017-10-31] MEDS: LACTOBACILLUS ACIDOPHILUS 1 GM PACK PO SCH (16:57)
[2017-10-31] MEDS: OXYCODONE/ACETAMINOPHEN 5-325 TAB PO PRN (18:05)
[2017-10-31] MEDS: ENOXAPARIN 40 MG/0.4 ML SYR SQ SCH (22:19)
[2017-10-31] MEDS: DOCUSATE SODIUM/SENNA 50/8.6MG TAB PO SCH (22:19)
[2017-10-31] MEDS: METOPROLOL TARTRATE 25 MG TAB PO SCH (22:20)
[2017-10-31] MEDS: PANTOprazole SOD 40 MG TAB PO SCH (22:36)
[2017-11-01] VITALS (12 sets, daily range): BP systolic 113–132; BP diastolic 71–80; PULSE 82–105; TEMP 36.6–37; O2SAT 91–96; Ht 182.9 cm; Wt 69.0 kg
[2017-11-01] MEDS ORDERED: LEVALBUTEROL 0.63MG/3 ML NEB INH PRN (02:00)
[2017-11-01] MEDS: LEVALBUTEROL 0.63MG/3 ML NEB INH SCH ×5 (02:04→18:48)
[2017-11-01] MEDS: OXYCODONE/ACETAMINOPHEN 5-325 TAB PO PRN ×2 (03:19→08:57)
[2017-11-01 06:05] LABS: BASO % 0.1 %; BASO ABS # 0.01 K/uL (0-0.2); EOS % 0.4 %; EOS ABS # 0.04 K/uL (0-0.5); HEMOGLOBIN 9.9 g/dL (14.0-18.0); IG# 0.03 K/uL (0.00-0.02); LYMPH % 6.5 %; LYMPH ABS # 0.69 K/uL (1.2-3.4); MEAN CELL VOLUME 81.6 fL (80-100); MEAN CORPUSCULAR HEMOGLOBIN 25.3 pg (25-34); MEAN CORPUSCULAR HGB CONC 30.9 g/dl (32-36); MEAN PLATELET VOLUME 8.6 fL (7.4-10.4); MONO % 11.6 %; MONO ABS # 1.22 K/uL (0.11-0.59); NEUT % 81.1 %; NEUT ABS # 8.55 K/uL (1.4-6.5); PLATELET COUNT 375 K/uL (130-400); RED CELL DISTRIBUTION WIDTH CV 20.4 % (11.5-14.5); RED CELL DISTRIBUTION WIDTH SD 60.9 fL (36.4-46.3); WHITE BLOOD COUNT 10.54 K/uL (4.8-10.8)
[2017-11-01] MEDS: SUCRALFATE 1 GM/10 ML UDC PO SCH ×4 (06:32→19:57)
[2017-11-01 06:52] LABS: ALBUMIN 1.8 gm/dl (3.4-5.0); CALCIUM 7.8 mg/dl (8.5-10.1); CREATININE 0.48 mg/dl (0.60-1.40); POTASSIUM 3.8 mmol/L (3.5-5.1); TOTAL PROTEIN 5.5 gm/dl (6.4-8.2)
[2017-11-01] MEDS: IPRATROPIUM BROMIDE NEB SOLN 0.02% 2.5 ML VIAL INH SCH ×4 (06:57→18:48)
[2017-11-01] MEDS: ACETYLCYSTEINE 20% INHAL SOLN ***DISPENSED BY RESP. INH SCH ×3 (06:58→18:49)
[2017-11-01] MEDS: CHECK FENTANYL PATCH PLACEMENT SCH ×3 (07:44→23:51)
[2017-11-01] MEDS: DOCUSATE SODIUM/SENNA 50/8.6MG TAB PO SCH ×2 (07:45→19:56)
[2017-11-01] MEDS: METOPROLOL TARTRATE 25 MG TAB PO SCH ×2 (07:45→19:57)
[2017-11-01] MEDS: FUROSEMIDE 20 MG TAB PO SCH (07:45)
[2017-11-01] MEDS: PANTOprazole SOD 40 MG TAB PO SCH ×2 (07:45→19:57)
[2017-11-01] MEDS: AZITHROMYCIN 250 MG TAB PO SCH (07:45)
[2017-11-01] MEDS: DEXAMETHASONE 4 MG TAB PO SCH (07:46)
[2017-11-01] MEDS: FERROUS SULFATE 325 MG TAB PO SCH ×2 (07:46→17:12)
[2017-11-01] MEDS: LACTOBACILLUS ACIDOPHILUS 1 GM PACK PO SCH ×3 (07:46→17:12)
[2017-11-01] MEDS: POLYETHYLENE (MIRALAX) 17 GM PACK PO SCH (07:47)
[2017-11-01] MEDS: GUAIFENESIN SUGAR FREE 100 MG/5 ML UDC PO SCH ×4 (07:48→19:57)
[2017-11-01] MEDS: BOOST VANILLA PO SCH ×3 (07:51→17:00)
--- NOTE | 2017-11-01 10:31 | Palliative Care Consultation ---
Consultation Date of Consultation: Nov 01, 2017. Requesting Physician: Dr. Hu Attending Physician: Dr. 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 Patient is well-known to the palliative service as he has had multiple readmissions since August 2017. Patient has been steadily and rapidly declining since his admission in August. He has lost at least 50lbs in last few months and continues to become weaker and more frail. He lives home alone and has been resistant to placement or help in the home. Oncology has followed patient on previous admissions and states he is not a candidate for any further treatment for the cancer. Today, I met with patient in 421. He is awake, alert and oriented. Appears thin and cachectic, frail. We had a very antoinette discussion about the fact that he is approaching end of life and there is no further treatment for the cancer to be offered. Patient stated, "I think I knew this was coming." We discussed hospice care and patient is agreeable. We also talked about the fact that he cannot be home alone any more and he agrees. He wants me to call his daughter/POA, Lolly, to discuss options: home with family care vs. SNF, but either way will have hospice. Talked about code status, patient is agreeable to DO NOT RESUSCITATE/DO NOT INTUBATE, but wants me to talk with Lolly first. For now, patient is okay with abx and steroids as ordered while he is in hospital. Past Medical/Surgical History Medical History: Esophageal cancer, metastases to lung, liver, kidneys COPD Recurrent pleural effusions Surgical History: Esophagectomy Partial gastrectomy Bronchoscopy Thoracentesis Social History Smoking Status: Former Smoker History of Alcohol Use: No Drug Use: none Marital Status: Occupation Status: employed Review of Systems Constitutional: + weight loss, + weakness, + fatigue ENT: No trouble swallowing Respiratory: + cough, + dyspnea on exertion, No sputum, No dyspnea at rest Cardiac: No chest pain, No edema Abdomen: + pain, No nausea, No vomiting Male : No problem reported Psychiatric: No depression symptoms, No anxiety Allergies Coded Allergies: No Known Allergies (Verified , 10/31/17) Medications Current Inpatient Medications Medications (Trade) Dose Ordered Sig/Konstantin Route Start Time Stop Time Status Last Admin Dose Admin Albuterol (Ventolin Hfa Inhaler) 2 puffs Q6H PRN INH 10/31/17 12:30 11/30/17 12:29 Dexamethasone (Decadron Tab) 4 mg DAILY PO 11/01/17 08:00 12/01/17 08:59 11/01/17 07:46 4 MG Fentanyl (Duragesic Patch) 25 mcg Q3D TD 11/01/17 16:00 11/15/17 15:59 Ferrous Sulfate (Feosol Tab) 325 mg BIDM PO 10/31/17 17:00 11/30/17 17:59 11/01/17 07:46 325 MG Lidocaine HCl (Viscous Lidocaine 2% Soln) 20 ml QID PRN PO 10/31/17 12:30 11/30/17 12:29 Metoprolol Tartrate (Lopressor Tab) 12.5 mg BID PO 10/31/17 20:00 11/30/17 20:59 11/01/17 07:45 12.5 MG Ondansetron HCl (Zofran Tab) 8 mg Q8 PRN PO 10/31/17 12:30 11/30/17 12:29 Oxycodone/ Acetaminophen (Percocet 5-325mg Tab) 1 tab Q4H PRN PO 10/31/17 12:30 11/14/17 12:29 11/01/17 08:57 1 TAB Pantoprazole Sodium (Protonix Tab) 40 mg BID PO 10/31/17 20:00 11/30/17 20:59 11/01/17 07:45 40 MG Polyethylene (Miralax Powder Packet) 17 gm DAILY PO 11/01/17 08:00 12/01/17 08:59 11/01/17 07:47 17 GM Sucralfate (Carafate Susp) 1 gm ACHS PO 10/31/17 16:30 11/30/17 16:29 11/01/17 06:32 1 GM Enteral Nutritional Formula (Boost) 1 can TIDM PO 10/31/17 17:00 11/30/17 17:59 11/01/17 07:51 1 CAN Furosemide (Lasix Tab) 20 mg QAM PO 10/31/17 14:30 11/30/17 14:29 11/01/17 07:45 20 MG Acetylcysteine (Mucomyst 20% Inh Soln) 5 ml TIDR INH 10/31/17 15:00 11/30/17 14:59 11/01/17 06:58 5 ML Guaifenesin (Robitussin Sugar Free Syrup) 100 mg QID PO 10/31/17 14:30 11/30/17 14:29 11/01/17 07:48 100 MG Lactobacillus Acidophilus (Lactinex Granules Pack) 1 gm TIDM PO 10/31/17 17:00 11/30/17 17:59 11/01/17 07:46 1 GM Senna/Docusate Sodium (Senokot S Tab) 1 tab BID PO 10/31/17 20:00 11/30/17 20:59 11/01/17 07:45 1 TAB Bisacodyl (Dulcolax Supp) 10 mg UD PRN [place] 10/31/17 12:30 11/30/17 12:29 Acetaminophen (Tylenol Tab) 650 mg Q4H PRN PO 10/31/17 12:30 11/30/17 12:29 10/31/17 14:06 650 MG Al Hydrox/Mg Hydrox/Simethicone (Maalox Max Susp) 15 ml Q4H PRN PO 10/31/17 12:30 11/30/17 12:29 Magnesium Hydroxide (Milk Of Magnesia Susp) 30 ml Q6H PRN PO 10/31/17 12:30 11/30/17 12:29 Polyethylene (Miralax Powder Packet) 17 gm DAILY PRN PO 10/31/17 12:30 11/30/17 12:29 Zolpidem Tartrate (Ambien Tab) 5 mg HSZ PRN PO 10/31/17 12:30 11/30/17 12:29 Ondansetron HCl (Zofran Inj) 4 mg Q6H PRN IV 10/31/17 12:30 11/30/17 12:29 Zolpidem Tartrate (Ambien Tab) 5 mg HSZ PRN PO 10/31/17 12:30 11/30/17 12:29 Azithromycin (Zithromax Tab) 500 mg QAM PO 10/31/17 14:30 11/05/17 07:59 11/01/17 07:45 500 MG Ipratropium [place] (Atrovent 0.02% 0.5MG/2.5ML Neb) 0.5 mg QIDR INH 10/31/17 16:00 11/30/17 15:59 11/01/17 06:57 0.5 MG Levalbuterol (Xopenex 0.63 Mg/ 3 Ml Neb) 0.63 mg QIDR INH 10/31/17 16:00 11/30/17 15:59 11/01/17 06:57 0.63 MG Miscellaneous (Fentanyl Patch Remove & Waste) 1 ea Q72H N/A 11/01/17 16:00 12/01/17 15:59 Miscellaneous Information (Check Fentanyl Patch Placement) 1 ea QS N/A 10/31/17 16:00 11/30/17 15:59 11/01/17 07:44 1 EA Enoxaparin Sodium (Lovenox Inj) 40 mg HS SQ 10/31/17 22:00 11/30/17 21:59 10/31/17 22:19 40 MG Levalbuterol (Xopenex 0.63 Mg/ 3 Ml Neb) 0.63 mg Q2HWA PRN INH 11/01/17 02:00 12/01/17 01:59 Heparin Sodium (Porcine) (Heparin 100 Unit/ml 5ml Flush) 5 ml PRN PRN IV 11/01/17 06:30 12/01/17 06:29 Physical Exam Date Time Temp Pulse Resp B/P (MAP) Pulse Ox O2 Delivery O2 Flow Rate FiO2 11/01/17 08:13 36.6 97 20 113/71 (85) 91 11/01/17 08:00 Nasal Cannula 3.0 11/01/17 06:58 88 16 93 Nasal Cannula 2.0 11/01/17 04:09 36.7 82 18 132/76 (94) 96 Room Air 11/01/17 02:04 88 18 96 Nasal Cannula 3.0 11/01/17 00:35 37.0 92 18 114/76 (89) 96 3.0 11/01/17 00:05 Nasal Cannula 3.0 10/31/17 22:10 36.7 99 18 113/74 (87) 95 Nasal Cannula 2.0 10/31/17 21:10 36.8 103 18 116/77 91 2.0 10/31/17 20:43 36.5 104 18 98/68 (78) 92 Nasal Cannula 3.0 10/31/17 20:40 36.5 104 18 98/63 92 2.0 10/31/17 20:10 99/62 10/31/17 20:10 36.7 101 18 116/77 92 2.0 10/31/17 20:04 88 18 94 Nasal Cannula 2.5 10/31/17 19:55 37.0 94 18 101/67 94 2.0 10/31/17 19:38 36.7 98 16 103/70 92 2.0 10/31/17 16:00 Nasal Cannula 3.0 10/31/17 15:48 37.2 93 18 103/66 (78) 91 10/31/17 15:06 94 18 91 Nasal Cannula 3.0 10/31/17 13:54 37.0 96 16 105/67 (80) 94 Nasal Cannula 10/31/17 13:30 37.0 96 16 105/67 Nasal Cannula 2.0 10/31/17 13:17 95 19 94 Nasal Cannula 2.0 10/31/17 12:55 109/71 10/31/17 12:47 98 19 10/31/17 12:17 97 26 10/31/17 11:47 98 24 10/31/17 11:41 104/72 10/31/17 11:17 97 17 10/31/17 11:12 101 20 95 Nasal Cannula 2.0 10/31/17 10:12 102 27 10/31/17 10:07 98 18 Nasal Cannula 2.0 General Appearance: + cachetic, + thin ENT: hearing grossly normal Neck: supple, no JVD Respiratory: no respiratory distress, no accessory muscle use, + rhonchi ( extremely coarse throughout) Cardiovascular: regular rate, rhythm, no edema, + normal peripheral pulses Abdomen: normal bowel sounds, non tender, soft Neurologic/Psychiatric: alert, normal mood/affect, oriented x 3 Laboratory Results Last 24 Hours Test 10/31/17 10:45 11/01/17 05:49 Urine Color YELLOW Urine Appearance CLEAR Urine pH 5.5 Urine Specific [place] 1.021 Urine Protein NEG Urine Glucose (UA) NEG Urine Ketones NEG Urine Occult Blood NEG Urine Nitrite NEG Urine Bilirubin NEG Urine Urobilinogen NEG Urine Leukocyte Esterase NEG Urine WBC (Auto) 1-5 /hpf Urine RBC (Auto) 0-4 /hpf Urine Hyaline Casts (Auto) 1-5 /lpf Urine Epithelial Cells (Auto) 0-5 /lpf Urine Bacteria (Auto) NEG White Blood Count 10.54 K/uL Red Blood Count 3.92 M/uL Hemoglobin 9.9 g/dL Hematocrit 32.0 % Mean Corpuscular Volume 81.6 fL Mean Corpuscular Hemoglobin 25.3 pg Mean Corpuscular Hemoglobin Concent 30.9 g/dl Platelet Count 375 K/uL Mean Platelet Volume 8.6 fL Neutrophils (%) (Auto) 81.1 % Lymphocytes (%) (Auto) 6.5 % Monocytes (%) (Auto) 11.6 % Eosinophils (%) (Auto) 0.4 % Basophils (%) (Auto) 0.1 % Neutrophils # (Auto) 8.55 K/uL Lymphocytes # (Auto) 0.69 K/uL Monocytes # (Auto) 1.22 K/uL Eosinophils # (Auto) 0.04 K/uL Basophils # (Auto) 0.01 K/uL RDW Standard Deviation 60.9 fL RDW Coefficient of Variation 20.4 % Immature Granulocyte % (Auto) 0.3 % Immature Granulocyte # (Auto) 0.03 K/uL Hypochromasia PRESENT Poikilocytosis PRESENT Anisocytosis PRESENT Sodium Level 134 mmol/L Potassium Level 3.8 mmol/L Chloride Level 99 mmol/L Carbon Dioxide Level 28 mmol/L Anion Gap 7.0 mmol/L Blood Urea Nitrogen 10 mg/dl Creatinine 0.48 mg/dl Est Creatinine Clear Calc Drug Dose 136.7 ml/min Estimated GFR () 137.9 Estimated GFR (Non- 118.9 BUN/Creatinine Ratio 20.9 Random Glucose 83 mg/dl Calcium Level 7.8 mg/dl Magnesium Level 1.9 mg/dl Total Bilirubin 0.5 mg/dl Aspartate Amino Transf (AST/SGOT) 134 U/L Alanine Aminotransferase (ALT/SGPT) 21 U/L Alkaline Phosphatase 253 U/L Total Protein 5.5 gm/dl Albumin 1.8 gm/dl Globulin 3.7 gm/dl Albumin/Globulin Ratio 0.5 Assessment & Plan Palliative Performance Scale: 40 % Problem list: Pain, abdominal SOB/MATTA- improved Severe weakness/deconditioning Severe malnutrition/hypoalbuminemia Metastatic esophageal cancer Pulmonary edema/recurrent pleural effusions Goals of care Palliative care recs: discussed with patient, daughter Lolly, and Dr. Reagan. -Patient and his daughter Lolly are in agreement with DNR. -Patient is accepting of the fact that he is coming to the end of life. He would like to have hospice care set up. He also agrees that he cannot live home alone any more. I spoke with Lolly on the phone. She will be in later this evening to discuss with her father and with her other sisters about whether or not they can take patient home with hospice or if he will need to go to SNF. -Patient is agreeable to hospice at SNF if needed. -For now, continue abx and steroids as ordered while patient is in hospital. He' d like to feel as well as possible before discharge. -Discontinue percocet. -Start Roxanol 5mg PO Q2h PRN pain or SOB. -Continue fentanyl patch 25mcg/hr. Thank you kindly for this consult. I will follow as needed. Total time spent 70 minutes with >50% of time spent with patient counseling and discussing goals of care.
[2017-11-01] MEDS: MoRPHine SULFATE 5 MG/0.25 ML UDP PO PRN ×4 (11:32→22:51)
[2017-11-01] MEDS ORDERED: FENTANYL 25 MCG/HR TDSY TD SCH (16:00)
[2017-11-01] MEDS ORDERED: FENTANYL PATCH REMOVE & WASTE SCH (16:00)
[2017-11-01] MEDS: ACETAMINOPHEN 325 MG TAB PO PRN (18:28)
[2017-11-01] MEDS: ENOXAPARIN 40 MG/0.4 ML SYR SQ SCH (19:57)
--- NOTE | 2017-11-01 21:40 | Family Medicine Progress Note ---
Progress Note Date of Service Nov 01, 2017. Subjective Pt evaluation today including: conversation w/ patient, physical exam, chart review, lab review, review of studies Pain: No pain reported this morning Voiding: no voiding problems, no incontinence Patient states that today his weakness and fatigue have significantly improved since last night. He continues to have a productive cough and wheezing. He also has pain with eating but that has been chronic since his surgery to remove his esophageal cancer. Constitutional: + fatigue, No fever, No chills Respiratory: + cough, + wheezing, + shortness of breath Cardiovascular: No chest pain, No palpitations Abdomen: + pain (RLQ and LLQ tenderness), + constipation, No nausea, No vomiting, No diarrhea Medications Current Inpatient Medications Medications (Trade) Dose Ordered Sig/Konstantin Route Start Time Stop Time Status Last Admin Dose Admin Albuterol (Ventolin Hfa Inhaler) 2 puffs Q6H PRN INH 10/31/17 12:30 11/30/17 12:29 Dexamethasone (Decadron Tab) 4 mg DAILY PO 11/01/17 08:00 12/01/17 08:59 11/01/17 07:46 4 MG Fentanyl (Duragesic Patch) 25 mcg Q3D TD 11/01/17 16:00 11/15/17 15:59 11/01/17 16:19 25 MCG Ferrous Sulfate (Feosol Tab) 325 mg BIDM PO 10/31/17 17:00 11/30/17 17:59 11/01/17 17:12 325 MG Lidocaine HCl (Viscous Lidocaine 2% Soln) 20 ml QID PRN PO 10/31/17 12:30 11/30/17 12:29 Metoprolol Tartrate (Lopressor Tab) 12.5 mg BID PO 10/31/17 20:00 11/30/17 20:59 11/01/17 19:57 12.5 MG Ondansetron HCl (Zofran Tab) 8 mg Q8 PRN PO 10/31/17 12:30 11/30/17 12:29 Pantoprazole Sodium (Protonix Tab) 40 mg BID PO 10/31/17 20:00 11/30/17 20:59 11/01/17 19:57 40 MG Polyethylene (Miralax Powder Packet) 17 gm DAILY PO 11/01/17 08:00 3/16/18 08:59 11/01/17 07:47 17 GM Sucralfate (Carafate Susp) 1 gm ACHS PO 10/31/17 16:30 11/30/17 16:29 11/01/17 19:57 1 GM Furosemide (Lasix Tab) 20 mg QAM PO 10/31/17 14:30 11/30/17 14:29 11/01/17 07:45 20 MG Acetylcysteine (Mucomyst 20% Inh Soln) 5 ml TIDR INH 10/31/17 15:00 11/30/17 14:59 11/01/17 18:49 5 ML Guaifenesin (Robitussin Sugar Free Syrup) 100 mg QID PO 10/31/17 14:30 11/30/17 14:29 11/01/17 19:57 100 MG Lactobacillus Acidophilus (Lactinex Granules Pack) 1 gm TIDM PO 10/31/17 17:00 11/30/17 17:59 11/01/17 17:12 1 GM Senna/Docusate Sodium (Senokot S Tab) 1 tab BID PO 10/31/17 20:00 11/30/17 20:59 11/01/17 19:56 1 TAB Bisacodyl (Dulcolax Supp) 10 mg UD PRN [place] 10/31/17 12:30 11/30/17 12:29 Acetaminophen (Tylenol Tab) 650 mg Q4H PRN PO 10/31/17 12:30 11/30/17 12:29 11/01/17 18:28 650 MG Al Hydrox/Mg Hydrox/Simethicone (Maalox Max Susp) 15 ml Q4H PRN PO 10/31/17 12:30 11/30/17 12:29 Magnesium Hydroxide (Milk Of Magnesia Susp) 30 ml Q6H PRN PO 10/31/17 12:30 11/30/17 12:29 Polyethylene (Miralax Powder Packet) 17 gm DAILY PRN PO 10/31/17 12:30 11/30/17 12:29 Zolpidem Tartrate (Ambien Tab) 5 mg HSZ PRN PO 10/31/17 12:30 11/30/17 12:29 Ondansetron HCl (Zofran Inj) 4 mg Q6H PRN IV 10/31/17 12:30 11/30/17 12:29 Zolpidem Tartrate (Ambien Tab) 5 mg HSZ PRN PO 10/31/17 12:30 11/30/17 12:29 Azithromycin (Zithromax Tab) 500 mg QAM PO 10/31/17 14:30 11/05/17 07:59 11/01/17 07:45 500 MG Ipratropium [place] (Atrovent 0.02% 0.5MG/2.5ML Neb) 0.5 mg QIDR INH 10/31/17 16:00 11/30/17 15:59 11/01/17 18:48 0.5 MG Levalbuterol (Xopenex 0.63 Mg/ 3 Ml Neb) 0.63 mg QIDR INH 10/31/17 16:00 11/30/17 15:59 11/01/17 18:48 0.63 MG Miscellaneous (Fentanyl Patch Remove & Waste) 1 ea Q72H N/A 11/01/17 16:00 12/01/17 15:59 11/01/17 16:20 1 EA Miscellaneous Information (Check Fentanyl Patch Placement) 1 ea QS N/A 10/31/17 16:00 11/30/17 15:59 11/01/17 16:20 1 EA Enoxaparin Sodium (Lovenox Inj) 40 mg HS SQ 10/31/17 22:00 11/30/17 21:59 11/01/17 19:57 40 MG Levalbuterol (Xopenex 0.63 Mg/ 3 Ml Neb) 0.63 mg Q2HWA PRN INH 11/01/17 02:00 12/01/17 01:59 Heparin Sodium (Porcine) (Heparin 100 Unit/ml 5ml Flush) 5 ml PRN PRN IV 11/01/17 06:30 12/01/17 06:29 Morphine Sulfate (Roxanol Oral Soln) 5 mg Q2H PRN PO 11/01/17 10:15 11/15/17 10:14 11/01/17 19:52 5 MG Enteral Nutritional Formula (Boost) 1 can TIDM PO 11/01/17 17:00 12/01/17 16:59 11/01/17 17:00 1 CAN Objective Vital Signs Date Time Temp Pulse Resp B/P (MAP) Pulse Ox O2 Delivery O2 Flow Rate FiO2 11/01/17 19:55 102 117/79 (92) 11/01/17 18:53 105 16 91 Nasal Cannula 4.0 11/01/17 16:00 Nasal Cannula 4.0 11/01/17 15:02 36.7 93 18 113/74 (87) 93 11/01/17 14:21 94 16 94 Nasal Cannula 4.0 11/01/17 11:11 90 16 93 Nasal Cannula 4.0 11/01/17 08:13 36.6 97 20 113/71 (85) 91 11/01/17 08:00 Nasal Cannula 3.0 11/01/17 06:58 88 16 93 Nasal Cannula 4.0 11/01/17 04:09 36.7 82 18 132/76 (94) 96 Room Air 11/01/17 02:04 88 18 96 Nasal Cannula 3.0 11/01/17 00:35 37.0 92 18 114/76 (89) 96 3.0 11/01/17 00:05 Nasal Cannula 3.0 10/31/17 22:10 36.7 99 18 113/74 (87) 95 Nasal Cannula 2.0 Physical Exam General Appearance: WD/WN, no apparent distress Eyes: normal inspection, sclerae normal Neck: supple, trachea midline Respiratory/Chest: chest non-tender, + crackles, + wheezing Cardiovascular: regular rate, rhythm, no edema, no gallop Abdomen: normal bowel sounds, soft, + tenderness (RLQ/LLQ), + hepatomegaly Extremities: non-tender, no calf tenderness Neurologic/Psychiatric: alert, normal mood/affect, oriented x 3 Skin: + pertinent finding (Stage 3 Decubitus Ulcers over mid back region as well as over sacrum -dressing C/D/I) Laboratory Results Results Past 24 Hours Test 11/01/17 05:49 Range/Units White Blood Count 10.54 4.8-10.8 K/uL Red Blood Count 3.92 4.7-6.1 M/uL Hemoglobin 9.9 14.0-18.0 g/dL Hematocrit 32.0 42-52 % Mean Corpuscular Volume 81.6 80-100 fL Mean Corpuscular Hemoglobin 25.3 25-34 pg Mean Corpuscular Hemoglobin Concent 30.9 32-36 g/dl Platelet Count 375 130-400 K/uL Mean Platelet Volume 8.6 7.4-10.4 fL Neutrophils (%) (Auto) 81.1 % Lymphocytes (%) (Auto) 6.5 % Monocytes (%) (Auto) 11.6 % Eosinophils (%) (Auto) 0.4 % Basophils (%) (Auto) 0.1 % Neutrophils # (Auto) 8.55 1.4-6.5 K/uL Lymphocytes # (Auto) 0.69 1.2-3.4 K/uL Monocytes # (Auto) 1.22 0.11-0.59 K/uL Eosinophils # (Auto) 0.04 0-0.5 K/uL Basophils # (Auto) 0.01 0-0.2 K/uL RDW Standard Deviation 60.9 36.4-46.3 fL RDW Coefficient of Variation 20.4 11.5-14.5 % Immature Granulocyte % (Auto) 0.3 % Immature Granulocyte # (Auto) 0.03 0.00-0.02 K/uL Hypochromasia PRESENT Poikilocytosis PRESENT Anisocytosis PRESENT Sodium Level 134 136-145 mmol/L Potassium Level 3.8 3.5-5.1 mmol/L Chloride Level 99 98-107 mmol/L Carbon Dioxide Level 28 21-32 mmol/L Anion Gap 7.0 3-11 mmol/L Blood Urea Nitrogen 10 7-18 mg/dl Creatinine 0.48 0.60-1.40 mg/dl Est Creatinine Clear Calc Drug Dose 136.7 ml/min Estimated GFR () 137.9 Estimated GFR (Non- 118.9 BUN/Creatinine Ratio 20.9 10-20 Random Glucose 83 70-99 mg/dl Calcium Level 7.8 8.5-10.1 mg/dl Magnesium Level 1.9 1.8-2.4 mg/dl Total Bilirubin 0.5 0.2-1 mg/dl Aspartate Amino Transf (AST/SGOT) 134 15-37 U/L Alanine Aminotransferase (ALT/SGPT) 21 12-78 U/L Alkaline Phosphatase 253 45-117 U/L Total Protein 5.5 6.4-8.2 gm/dl Albumin 1.8 3.4-5.0 gm/dl Globulin 3.7 2.5-4.0 gm/dl Albumin/Globulin Ratio 0.5 0.9-2 Assessment and Plan Patient is a 62 year old male with metastatic esophageal cancer that presents with worsening fatigue and shortness of breath 1) Stage IV Esophageal Cancer - After discussion with palliative care patient has code status and will be placed on hospice care - Patients daughter will move in with the patient to take care of him at home - Roxanol 5mg q2h PRN for pain - Fentanyl Patch - Referral to [facility] - Will continue currently therapy with no escalation of care 2) Acute on Chronic Respiratory Failure 2/2 acute bronchitis / mucous plugging - Azithromycin - Decadron 4mg daily - Supplemental oxygen as needed - Duonebs, Xopenex, Atrovent, Albuterol 3) CHF - Lasix - Monitor I/O - CXR: Progressive interstitial thickening and hazy airspace opacities. This suggests worsening pulmonary edema 4) Multiple Decubitus Ulcers Stage III - Wound Care 5) Acute on Chronic Iron Deficiency Anemia - Recent Ulceration of Esophagogastric Anastomosis with Recent Upper GI Bleed - Hgb improved to 9.9 (8.9 yesterday) - Ferrous Sulfate 6) Constipation - Senna - Miralax 7) GERD - Protonix - Sucralfate 8) DVT - Lovenox 9) Code Status - DNR Resident Tracking Resident Involvement: Resident Care Provided Care Provided: Adult Hospital Medicine
[2017-11-02] VITALS (8 sets, daily range): BP systolic 103–123; BP diastolic 65–82; PULSE 75–93; TEMP 36.6–36.8; O2SAT 90–94
[2017-11-02] MEDS: MoRPHine SULFATE 5 MG/0.25 ML UDP PO PRN ×2 (05:25→13:39)
[2017-11-02] MEDS: SUCRALFATE 1 GM/10 ML UDC PO SCH ×4 (05:26→20:32)
[2017-11-02] MEDS: IPRATROPIUM BROMIDE NEB SOLN 0.02% 2.5 ML VIAL INH SCH ×4 (07:01→19:29)
[2017-11-02] MEDS: LEVALBUTEROL 0.63MG/3 ML NEB INH SCH ×4 (07:01→19:29)
[2017-11-02] MEDS: ACETYLCYSTEINE 20% INHAL SOLN ***DISPENSED BY RESP. INH SCH ×3 (07:02→19:28)
[2017-11-02] MEDS: DOCUSATE SODIUM/SENNA 50/8.6MG TAB PO SCH ×2 (08:45→20:31)
[2017-11-02] MEDS: BOOST VANILLA PO SCH ×3 (08:45→18:00)
[2017-11-02] MEDS: FERROUS SULFATE 325 MG TAB PO SCH ×2 (08:45→16:57)
[2017-11-02] MEDS: DEXAMETHASONE 4 MG TAB PO SCH (08:45)
[2017-11-02] MEDS: PANTOprazole SOD 40 MG TAB PO SCH ×2 (08:46→20:30)
[2017-11-02] MEDS: METOPROLOL TARTRATE 25 MG TAB PO SCH ×2 (08:46→20:30)
[2017-11-02] MEDS: AZITHROMYCIN 250 MG TAB PO SCH (08:47)
[2017-11-02] MEDS: LACTOBACILLUS ACIDOPHILUS 1 GM PACK PO SCH ×3 (08:47→16:57)
[2017-11-02] MEDS: FUROSEMIDE 20 MG TAB PO SCH (08:47)
[2017-11-02] MEDS: GUAIFENESIN SUGAR FREE 100 MG/5 ML UDC PO SCH ×4 (08:48→20:30)
[2017-11-02] MEDS: POLYETHYLENE (MIRALAX) 17 GM PACK PO SCH (08:48)
[2017-11-02] MEDS: CHECK FENTANYL PATCH PLACEMENT SCH ×3 (08:49→15:41)
[2017-11-02] MEDS ORDERED: FENTANYL 25 MCG/HR TDSY TD SCH ×2 (10:21→13:30)
[2017-11-02] MEDS ORDERED: SIMETHICONE 80 MG CHEW PO PRN (10:30)
[2017-11-02] MEDS ORDERED: FENTANYL 12 MCG/HR TDSY TD SCH (13:30)
[2017-11-02] MEDS ORDERED: NURSING VERBAL MED ORDER ONE (14:00)
[2017-11-02] MEDS ORDERED: FENTANYL PATCH REMOVE & WASTE ONE (14:15)
--- NOTE | 2017-11-02 15:39 | Palliative Care Progress Note ---
Palliative Care Progress Note Date of Service Nov 02, 2017. Subjective Pt evaluation today including: conversation w/ patient, physical exam, chart review, lab review Pain: "better" after BM, current level - "OK" Voiding: no voiding problems Review of Systems Constitutional: No fever Eyes: No worsening of vision ENT: No hearing loss Respiratory: No cough Cardiac: No chest pain Abdomen: + pain (present but at an acceptable level per pt) Male : No dysuria Neurologic: + weakness Psychiatric: No anxiety Heme: No abnormal bleeding/bruising Endo: + fatigue Skin: No rash Objective Vital Signs Date Time Temp Pulse Resp B/P (MAP) Pulse Ox O2 Delivery O2 Flow Rate FiO2 11/02/17 12:05 75 15 90 Nasal Cannula 4.0 11/02/17 09:00 Nasal Cannula 4.0 11/02/17 07:25 36.8 85 16 123/82 (96) 94 Nasal Cannula 4.0 11/02/17 07:05 92 18 93 Nasal Cannula 4.0 11/02/17 00:00 93 Nasal Cannula 4.0 11/01/17 23:30 37.0 93 18 117/80 (92) 93 Nasal Cannula 4.0 11/01/17 23:06 93 20 93 Nasal Cannula 4.0 11/01/17 19:55 102 117/79 (92) 11/01/17 18:53 105 16 91 Nasal Cannula 4.0 11/01/17 16:00 Nasal Cannula 4.0 Physical Exam General Appearance: no apparent distress Eyes: EOMI ENT: hearing grossly normal Neck: supple Respiratory/Chest: lungs clear, + pertinent finding (increased SOB with speech) Cardiovascular: regular rate, rhythm, no edema Abdomen: + tenderness (lower abdomen) Extremities: no pedal edema Neurologic/Psychiatric: alert, + pertinent finding (appropriate) Skin: warm/dry Assessment and Plan (1) Pain due to neoplasm Status: Acute Assessment & Plan: Improved with increase in Fentanyl patch dose - now on 37 mcg Pt reports that 5 mg Roxanol is effective - 2 doses since 0500 - last dose 2 hours prior to exam Cont current pain regime (2) Esophageal cancer Status: Chronic Assessment & Plan: Pt to be d/c under Hospice care (3) Generalized weakness Status: Acute Assessment & Plan: Will likely progress - pt nearing EOL (4) Anemia Status: Chronic Assessment & Plan: Consider d/c iron as it causes constipation which exacerbates abd pain. Pt not likely to benefit from supplement at this time. Palliative Performance Scale: 40 % Continued [facility] stay due to: home environment unsafe for pt (family making plans for help vs SNF placement) Discharge planning: other (home or facility with Hospice care)
--- NOTE | 2017-11-02 17:48 | Family Medicine Progress Note ---
Progress Note Date of Service Nov 02, 2017. Subjective Pt evaluation today including: conversation w/ patient, physical exam, chart review, lab review, review of studies Pain: Moderate pain Voiding: no voiding problems, no incontinence Patient is resting in bed this morning and is still complaining of pain. He also states that he began having a headache yesterday evening after starting the Roxinol. He states it was a frontal headache but says he is a poor historian and its difficult to recall details. He denies any shortness of breath , fever, chills, sweats, abdominal pain, nausea, vomiting at this time. Constitutional: No fever, No chills, No fatigue Respiratory: + cough, + wheezing, No sputum, No shortness of breath Cardiovascular: No chest pain, No palpitations Abdomen: + pain (pain with eating), No nausea, No vomiting, No diarrhea, No constipation Neurologic: No weakness, No numbness/tingling, No vertigo Medications Current Inpatient Medications Medications (Trade) Dose Ordered Sig/Konstantin Route Start Time Stop Time Status Last Admin Dose Admin Albuterol (Ventolin Hfa Inhaler) 2 puffs Q6H PRN INH 10/31/17 12:30 11/30/17 12:29 Dexamethasone (Decadron Tab) 4 mg DAILY PO 11/01/17 08:00 12/01/17 08:59 11/02/17 08:45 4 MG Ferrous Sulfate (Feosol Tab) 325 mg BIDM PO 10/31/17 17:00 11/30/17 17:59 11/02/17 16:57 325 MG Lidocaine HCl (Viscous Lidocaine 2% Soln) 20 ml QID PRN PO 10/31/17 12:30 11/30/17 12:29 Metoprolol Tartrate (Lopressor Tab) 12.5 mg BID PO 10/31/17 20:00 11/30/17 20:59 11/02/17 08:46 12.5 MG Ondansetron HCl (Zofran Tab) 8 mg Q8 PRN PO 10/31/17 12:30 11/30/17 12:29 Pantoprazole Sodium (Protonix Tab) 40 mg BID PO 10/31/17 20:00 11/30/17 20:59 11/02/17 08:46 40 MG Polyethylene (Miralax Powder Packet) 17 gm DAILY PO 11/01/17 08:00 12/01/17 08:59 11/02/17 08:48 17 GM Sucralfate (Carafate Susp) 1 gm ACHS PO 10/31/17 16:30 11/30/17 16:29 11/02/17 15:40 1 GM Furosemide (Lasix Tab) 20 mg QAM PO 10/31/17 14:30 11/30/17 14:29 11/02/17 08:47 20 MG Acetylcysteine (Mucomyst 20% Inh Soln) 5 ml TIDR INH 10/31/17 15:00 11/30/17 14:59 11/02/17 15:26 5 ML Guaifenesin (Robitussin Sugar Free Syrup) 100 mg QID PO 10/31/17 14:30 11/30/17 14:29 11/02/17 16:57 100 MG Lactobacillus Acidophilus (Lactinex Granules Pack) 1 gm TIDM PO 10/31/17 17:00 11/30/17 17:59 11/02/17 16:57 1 GM Senna/Docusate Sodium (Senokot S Tab) 1 tab BID PO 10/31/17 20:00 11/30/17 20:59 11/02/17 08:45 1 TAB Bisacodyl (Dulcolax Supp) 10 mg UD PRN [place] 10/31/17 12:30 11/30/17 12:29 Acetaminophen (Tylenol Tab) 650 mg Q4H PRN PO 10/31/17 12:30 11/30/17 12:29 11/01/17 18:28 650 MG Al Hydrox/Mg Hydrox/Simethicone (Maalox Max Susp) 15 ml Q4H PRN PO 10/31/17 12:30 11/30/17 12:29 Magnesium Hydroxide (Milk Of Magnesia Susp) 30 ml Q6H PRN PO 10/31/17 12:30 11/30/17 12:29 Polyethylene (Miralax Powder Packet) 17 gm DAILY PRN PO 10/31/17 12:30 11/30/17 12:29 Zolpidem Tartrate (Ambien Tab) 5 mg HSZ PRN PO 10/31/17 12:30 11/30/17 12:29 Ondansetron HCl (Zofran Inj) 4 mg Q6H PRN IV 2/13/18 12:30 11/30/17 12:29 Zolpidem Tartrate (Ambien Tab) 5 mg HSZ PRN PO 10/31/17 12:30 11/30/17 12:29 Azithromycin (Zithromax Tab) 500 mg QAM PO 10/31/17 14:30 11/05/17 07:59 11/02/17 08:47 500 MG Ipratropium [place] (Atrovent 0.02% 0.5MG/2.5ML Neb) 0.5 mg QIDR INH 10/31/17 16:00 11/30/17 15:59 11/02/17 15:27 0.5 MG Levalbuterol (Xopenex 0.63 Mg/ 3 Ml Neb) 0.63 mg QIDR INH 10/31/17 16:00 11/30/17 15:59 11/02/17 15:27 0.63 MG Enoxaparin Sodium (Lovenox Inj) 40 mg HS SQ 10/31/17 22:00 11/30/17 21:59 11/01/17 19:57 40 MG Levalbuterol (Xopenex 0.63 Mg/ 3 Ml Neb) 0.63 mg Q2HWA PRN INH 11/01/17 02:00 12/01/17 01:59 11/01/17 23:06 0.63 MG Heparin Sodium (Porcine) (Heparin 100 Unit/ml 5ml Flush) 5 ml PRN PRN IV 11/01/17 06:30 12/01/17 06:29 Morphine Sulfate (Roxanol Oral Soln) 5 mg Q2H PRN PO 11/01/17 10:15 11/15/17 10:14 11/02/17 13:39 5 MG Enteral Nutritional Formula (Boost) 1 can TIDM PO 11/01/17 17:00 12/01/17 16:59 11/02/17 12:30 1 CAN Simethicone (Mylicon Chew Tab) 80 mg Q6H PRN PO 11/02/17 10:30 12/02/17 10:29 Fentanyl (Duragesic Patch) 25 mcg Q3D TD 11/02/17 13:30 11/16/17 13:29 11/02/17 13:40 25 MCG Miscellaneous (Fentanyl Patch Remove & Waste) 1 ea Q3D N/A 11/05/17 13:30 12/05/17 13:29 Miscellaneous Information (Check Fentanyl Patch Placement) 1 ea QS N/A 11/02/17 16:00 12/02/17 15:59 11/02/17 15:40 1 EA Fentanyl (Duragesic Patch) 12 mcg Q3D TD 11/02/17 13:30 11/16/17 13:29 11/02/17 13:40 12 MCG Miscellaneous (Fentanyl Patch Remove & Waste) 1 ea Q3D N/A 11/05/17 13:30 12/05/17 13:29 Miscellaneous Information (Check Fentanyl Patch Placement) 1 ea QS N/A 11/02/17 16:00 12/02/17 15:59 11/02/17 15:41 1 EA Objective Vital Signs Date Time Temp Pulse Resp B/P (MAP) Pulse Ox O2 Delivery O2 Flow Rate FiO2 11/02/17 16:22 Nasal Cannula 2.0 11/02/17 15:56 36.6 92 18 110/72 (85) 93 Nasal Cannula 3.0 11/02/17 15:28 81 16 91 Nasal Cannula 2.0 11/02/17 12:05 75 15 90 Nasal Cannula 4.0 11/02/17 09:00 Nasal Cannula 4.0 11/02/17 07:25 36.8 85 16 123/82 (96) 94 Nasal Cannula 4.0 11/02/17 07:05 92 18 93 Nasal Cannula 4.0 11/02/17 00:00 93 Nasal Cannula 4.0 11/01/17 23:30 37.0 93 18 117/80 (92) 93 Nasal Cannula 4.0 11/01/17 23:06 93 20 93 Nasal Cannula 4.0 11/01/17 19:55 102 117/79 (92) 11/01/17 18:53 105 16 91 Nasal Cannula 4.0 Physical Exam General Appearance: no apparent distress, + cachetic, + thin Eyes: normal inspection, sclerae normal Neck: supple, no carotid bruits Respiratory/Chest: chest non-tender, + crackles, + wheezing Cardiovascular: regular rate, rhythm, no edema, no gallop Abdomen: normal bowel sounds, soft, + tenderness (RLQ/LLQ) Assessment and Plan Patient is a 62 year old male with metastatic esophageal cancer that presents with worsening fatigue and shortness of breath 1) Stage IV Esophageal Cancer - After discussion with palliative care patient has code status and will be placed on hospice care - Patients daughter will move in with the patient to take care of him at home - Roxanol 5mg q2h PRN for pain - Fentanyl Patch --> Increased to 37.5mg - [facility] arranged --> Now arranging transition to home - Will continue currently therapy with no escalation of care 2) Acute on Chronic Respiratory Failure 2/2 acute bronchitis / mucous plugging - Respiratory status and no longer complaining of shortness of breath - Azithromycin Day 10/25 - Decadron 4mg daily - Supplemental oxygen as needed - Duonebs, Xopenex, Atrovent, Albuterol 3) CHF - Lasix - Monitor I/O - CXR: Progressive interstitial thickening and hazy airspace opacities. This suggests worsening pulmonary edema 4) Multiple Decubitus Ulcers Stage III - Wound Care 5) Acute on Chronic Iron Deficiency Anemia - Recent Ulceration of Esophagogastric Anastomosis with Recent Upper GI Bleed - Ferrous Sulfate 6) Constipation - Senna - Miralax 7) GERD - Protonix - Sucralfate 8) DVT - Lovenox 9) Code Status - DNR Resident Tracking Resident Involvement: Resident Care Provided Care Provided: Adult Hospital Medicine
[2017-11-02] MEDS: ENOXAPARIN 40 MG/0.4 ML SYR SQ SCH (20:33)
[2017-11-03] VITALS (13 sets, daily range): BP systolic 107–119; BP diastolic 58–79; PULSE 85–103; TEMP 36.6–36.9; O2SAT 91–98
[2017-11-03] MEDS: CHECK FENTANYL PATCH PLACEMENT SCH ×8 (00:24→23:54)
[2017-11-03] MEDS: MoRPHine SULFATE 5 MG/0.25 ML UDP PO PRN ×3 (01:38→23:54)
[2017-11-03 05:56] LABS: HEMATOCRIT 32.9 % (42-52); HEMOGLOBIN 10.3 g/dL (14.0-18.0); MEAN CELL VOLUME 80.8 fL (80-100); MEAN CORPUSCULAR HEMOGLOBIN 25.3 pg (25-34); MEAN CORPUSCULAR HGB CONC 31.3 g/dl (32-36); MEAN PLATELET VOLUME 8.1 fL (7.4-10.4); PLATELET COUNT 310 K/uL (130-400); RED CELL DISTRIBUTION WIDTH CV 20.6 % (11.5-14.5); RED CELL DISTRIBUTION WIDTH SD 61.6 fL (36.4-46.3); WHITE BLOOD COUNT 7.65 K/uL (4.8-10.8)
[2017-11-03] MEDS: SUCRALFATE 1 GM/10 ML UDC PO SCH ×4 (06:04→21:44)
[2017-11-03 06:32] LABS: CALCIUM 8.1 mg/dl (8.5-10.1); CREATININE 0.42 mg/dl (0.60-1.40); POTASSIUM 3.8 mmol/L (3.5-5.1)
[2017-11-03] MEDS: ACETYLCYSTEINE 20% INHAL SOLN ***DISPENSED BY RESP. INH SCH ×3 (07:07→19:29)
[2017-11-03] MEDS: IPRATROPIUM BROMIDE NEB SOLN 0.02% 2.5 ML VIAL INH SCH ×4 (07:07→19:27)
[2017-11-03] MEDS: LEVALBUTEROL 0.63MG/3 ML NEB INH SCH ×4 (07:07→19:27)
[2017-11-03] MEDS: BOOST VANILLA PO SCH ×3 (08:13→17:00)
[2017-11-03] MEDS: POLYETHYLENE (MIRALAX) 17 GM PACK PO SCH (08:13)
[2017-11-03] MEDS: LACTOBACILLUS ACIDOPHILUS 1 GM PACK PO SCH ×3 (08:16→17:35)
[2017-11-03] MEDS: METOPROLOL TARTRATE 25 MG TAB PO SCH ×2 (08:18→20:10)
[2017-11-03] MEDS: FERROUS SULFATE 325 MG TAB PO SCH ×2 (08:18→17:36)
[2017-11-03] MEDS: DEXAMETHASONE 4 MG TAB PO SCH (08:18)
[2017-11-03] MEDS: PANTOprazole SOD 40 MG TAB PO SCH ×2 (08:19→20:10)
[2017-11-03] MEDS: DOCUSATE SODIUM/SENNA 50/8.6MG TAB PO SCH ×2 (08:19→20:09)
[2017-11-03] MEDS: FUROSEMIDE 20 MG TAB PO SCH (08:19)
[2017-11-03] MEDS: GUAIFENESIN SUGAR FREE 100 MG/5 ML UDC PO SCH ×4 (08:19→20:09)
[2017-11-03] MEDS: AZITHROMYCIN 250 MG TAB PO SCH (08:20)
--- NOTE | 2017-11-03 20:26 | Family Medicine Progress Note ---
Progress Note Date of Service Nov 03, 2017. Subjective Pt evaluation today including: conversation w/ patient, physical exam, chart review, lab review, review of studies Pain: Patient reports mild pain this morning Voiding: no voiding problems, no incontinence Patient resting comfortably in bed this morning with no acute distress. The patient states he had much better pain control overnight with the increased dose of the fentanyl patch, and his pain at this time in 2-3/. He states his breathing is improved and denies any shortness of breath at this time. Constitutional: + fatigue, No fever, No chills, No sweats Respiratory: + cough, + sputum, No wheezing, No shortness of breath Cardiovascular: No chest pain, No palpitations Abdomen: + pain (b/l lower quadrant tenderness), No nausea, No vomiting, No diarrhea Male : No dysuria Medications Current Inpatient Medications Medications (Trade) Dose Ordered Sig/Konstantin Route Start Time Stop Time Status Last Admin Dose Admin Albuterol (Ventolin Hfa Inhaler) 2 puffs Q6H PRN INH 10/31/17 12:30 11/30/17 12:29 11/03/17 05:44 2 PUFFS Dexamethasone (Decadron Tab) 4 mg DAILY PO 11/01/17 08:00 12/01/17 08:59 11/03/17 08:18 4 MG Ferrous Sulfate (Feosol Tab) 325 mg BIDM PO 10/31/17 17:00 11/30/17 17:59 11/03/17 17:36 325 MG Lidocaine HCl (Viscous Lidocaine 2% Soln) 20 ml QID PRN PO 10/31/17 12:30 11/30/17 12:29 Metoprolol Tartrate (Lopressor Tab) 12.5 mg BID PO 10/31/17 20:00 11/30/17 20:59 11/03/17 20:10 12.5 MG Ondansetron HCl (Zofran Tab) 8 mg Q8 PRN PO 10/31/17 12:30 11/30/17 12:29 Pantoprazole Sodium (Protonix Tab) 40 mg BID PO 10/31/17 20:00 11/30/17 20:59 11/03/17 20:10 40 MG Polyethylene (Miralax Powder Packet) 17 gm DAILY PO 11/01/17 08:00 12/01/17 08:59 11/03/17 08:13 17 GM Sucralfate (Carafate Susp) 1 gm ACHS PO 10/31/17 16:30 11/30/17 16:29 11/03/17 17:35 1 GM Furosemide (Lasix Tab) 20 mg QAM PO 10/31/17 14:30 11/30/17 14:29 11/03/17 08:19 20 MG Acetylcysteine (Mucomyst 20% Inh Soln) 5 ml TIDR INH 10/31/17 15:00 11/30/17 14:59 11/03/17 19:29 5 ML Guaifenesin (Robitussin Sugar Free Syrup) 100 mg QID PO 10/31/17 14:30 11/30/17 14:29 11/03/17 20:09 100 MG Lactobacillus Acidophilus (Lactinex Granules Pack) 1 gm TIDM PO 10/31/17 17:00 11/30/17 17:59 11/03/17 17:35 1 GM Senna/Docusate Sodium (Senokot S Tab) 1 tab BID PO 10/31/17 20:00 11/30/17 20:59 11/03/17 20:09 1 TAB Bisacodyl (Dulcolax Supp) 10 mg UD PRN [place] 10/31/17 12:30 11/30/17 12:29 Acetaminophen (Tylenol Tab) 650 mg Q4H PRN PO 10/31/17 12:30 11/30/17 12:29 11/01/17 18:28 650 MG Al Hydrox/Mg Hydrox/Simethicone (Maalox Max Susp) 15 ml Q4H PRN PO 10/31/17 12:30 11/30/17 12:29 Magnesium Hydroxide (Milk Of Magnesia Susp) 30 ml Q6H PRN PO 10/31/17 12:30 11/30/17 12:29 Polyethylene (Miralax Powder Packet) 17 gm DAILY PRN PO 10/31/17 12:30 11/30/17 12:29 Zolpidem Tartrate (Ambien Tab) 5 mg HSZ PRN PO 10/31/17 12:30 11/30/17 12:29 Ondansetron HCl (Zofran Inj) 4 mg Q6H PRN IV 10/31/17 12:30 11/30/17 12:29 11/03/17 04:32 4 MG Zolpidem Tartrate (Ambien Tab) 5 mg HSZ PRN PO 10/31/17 12:30 11/30/17 12:29 Azithromycin (Zithromax Tab) 500 mg QAM PO 10/31/17 14:30 11/05/17 07:59 11/03/17 08:20 500 MG Ipratropium [place] (Atrovent 0.02% 0.5MG/2.5ML Neb) 0.5 mg QIDR INH 10/31/17 16:00 11/30/17 15:59 11/03/17 19:27 0.5 MG Levalbuterol (Xopenex 0.63 Mg/ 3 Ml Neb) 0.63 mg QIDR INH 10/31/17 16:00 11/30/17 15:59 11/03/17 19:27 0.63 MG Enoxaparin Sodium (Lovenox Inj) 40 mg HS SQ 10/31/17 22:00 11/30/17 21:59 11/02/17 20:33 40 MG Levalbuterol (Xopenex 0.63 Mg/ 3 Ml Neb) 0.63 mg Q2HWA PRN INH 11/01/17 02:00 12/01/17 01:59 11/01/17 23:06 0.63 MG Heparin Sodium (Porcine) (Heparin 100 Unit/ml 5ml Flush) 5 ml PRN PRN IV 11/01/17 06:30 12/01/17 06:29 Morphine Sulfate (Roxanol Oral Soln) 5 mg Q2H PRN PO 11/01/17 10:15 11/15/17 10:14 11/03/17 17:34 5 MG Simethicone (Mylicon Chew Tab) 80 mg Q6H PRN PO 11/02/17 10:30 12/02/17 10:29 11/03/17 20:10 80 MG Fentanyl (Duragesic Patch) 25 mcg Q3D TD 11/02/17 13:30 11/16/17 13:29 11/02/17 13:40 25 MCG Miscellaneous (Fentanyl Patch Remove & Waste) 1 ea Q3D N/A 11/05/17 13:30 12/05/17 13:29 Miscellaneous Information (Check Fentanyl Patch Placement) 1 ea QS N/A 11/02/17 16:00 12/02/17 15:59 11/03/17 15:33 1 EA Fentanyl (Duragesic Patch) 12 mcg Q3D TD 11/02/17 13:30 11/16/17 13:29 11/02/17 13:40 12 MCG Miscellaneous (Fentanyl Patch Remove & Waste) 1 ea Q3D N/A 11/05/17 13:30 12/05/17 13:29 Miscellaneous Information (Check Fentanyl Patch Placement) 1 ea QS N/A 11/02/17 16:00 12/02/17 15:59 11/03/17 15:33 1 EA Enteral Nutritional Formula (Boost) 1 can TIDM PO 11/03/17 17:00 12/01/17 16:59 11/03/17 17:00 1 CAN Objective Vital Signs Date Time Temp Pulse Resp B/P (MAP) Pulse Ox O2 Delivery O2 Flow Rate FiO2 11/03/17 20:05 101 119/79 (92) 11/03/17 19:27 103 16 91 Nasal Cannula 2.0 11/03/17 19:11 36.9 95 20 117/78 (91) 93 Nasal Cannula 3.0 11/03/17 16:00 98 Nasal Cannula 2.0 11/03/17 14:53 36.9 91 18 107/72 (84) 98 11/03/17 14:20 95 16 91 Nasal Cannula 2.0 11/03/17 13:22 36.8 90 18 108/58 (75) 92 Nasal Cannula 2.0 11/03/17 11:17 87 16 95 Nasal Cannula 2.0 11/03/17 09:50 94 Nasal Cannula 2.0 11/03/17 08:00 95 Nasal Cannula 2.0 11/03/17 07:45 36.6 94 20 118/78 (91) 95 Nasal Cannula 2.0 11/03/17 07:09 95 16 91 Nasal Cannula 2.0 11/03/17 00:00 Nasal Cannula 2.0 11/02/17 23:42 36.8 93 18 103/65 (78) 92 Nasal Cannula 2.0 Physical Exam General Appearance: WD/WN, + cachetic, + thin Neck: supple, trachea midline Respiratory/Chest: chest non-tender, + crackles, + wheezing Cardiovascular: regular rate, rhythm, no edema, no gallop Abdomen: normal bowel sounds, soft, + tenderness (LLQ/RLQ tenderness) Extremities: no pedal edema, no calf tenderness Neurologic/Psychiatric: alert, normal mood/affect, oriented x 3 Laboratory Results Results Past 24 Hours Test 11/03/17 05:50 Range/Units White Blood Count 7.65 4.8-10.8 K/uL Red Blood Count 4.07 4.7-6.1 M/uL Hemoglobin 10.3 14.0-18.0 g/dL Hematocrit 32.9 42-52 % Mean Corpuscular Volume 80.8 80-100 fL Mean Corpuscular Hemoglobin 25.3 25-34 pg Mean Corpuscular Hemoglobin Concent 31.3 32-36 g/dl RDW Standard Deviation 61.6 36.4-46.3 fL RDW Coefficient of Variation 20.6 11.5-14.5 % Platelet Count 310 130-400 K/uL Mean Platelet Volume 8.1 7.4-10.4 fL Sodium Level 135 136-145 mmol/L Potassium Level 3.8 3.5-5.1 mmol/L Chloride Level 100 98-107 mmol/L Carbon Dioxide Level 30 21-32 mmol/L Anion Gap 5.0 3-11 mmol/L Blood Urea Nitrogen 11 7-18 mg/dl Creatinine 0.42 0.60-1.40 mg/dl Est Creatinine Clear Calc Drug Dose 156.2 ml/min Estimated GFR () 145.6 Estimated GFR (Non- 125.7 BUN/Creatinine Ratio 26.9 10-20 Random Glucose 103 70-99 mg/dl Calcium Level 8.1 8.5-10.1 mg/dl Assessment and Plan Patient is a 62 year old male with metastatic esophageal cancer that presents with worsening fatigue and shortness of breath 1) Stage IV Esophageal Cancer - After discussion with palliative care patient has code status and will be placed on hospice care - Have arranged home hospice and his daughter will move into his [place] with him - Fentanyl Patch --> Increased to 37.5mg - Roxanol 5mg q2h PRN for breakthrough pain - [facility] arranged --> Now arranging transition to home - Will continue currently therapy with no escalation of care 2) Acute on Chronic Respiratory Failure 2/2 acute bronchitis / mucous plugging - Respiratory status improving and no longer complaining of shortness of breath - Azithromycin Day 3/7 - Decadron 4mg daily - Supplemental oxygen as needed - Duonebs, Xopenex, Atrovent, Albuterol 3) CHF - Lasix 20mg qAM - Monitor I/O - CXR: Progressive interstitial thickening and hazy airspace opacities. This suggests worsening pulmonary edema 4) Multiple Decubitus Ulcers Stage III - Wound Care Instructions TO MID BACK CLEAN WITH SALINE, APPLY AQUACEL AG TO PROXIMAL OPEN WOUND, AND COVER WITH AN OPTIFOAM, CHANGE EVERY OTHER DAY AND NEEDED. TO COCCYX AND LEFT BUTTOCK CLEAN WITH SALINE AND APPLY OPTIFOAM. CHANGE EVERY OTHER DAY AND NEEDED. SUGGEST WOUND CLINIC FOR FOLLOW UP CARE CARE. 5) Acute on Chronic Iron Deficiency Anemia - Recent Ulceration of Esophagogastric Anastomosis with Recent Upper GI Bleed - Ferrous Sulfate 6) Constipation - Senna - Miralax 7) GERD - Protonix - Sucralfate 8) DVT - Lovenox 9) Code Status - DNR Disposition - Discharge with home hospice tomorrow Resident Tracking Resident Involvement: Resident Care Provided Care Provided: Adult Hospital Medicine
[2017-11-03] MEDS: ENOXAPARIN 40 MG/0.4 ML SYR SQ SCH (21:45)
[2017-11-04 02:50] VITALS: BP 136/86; PULSE 90; TEMP 36.5; O2SAT 93
[2017-11-04] MEDS: MoRPHine SULFATE 5 MG/0.25 ML UDP PO PRN ×3 (03:40→10:26)
[2017-11-04] MEDS: SUCRALFATE 1 GM/10 ML UDC PO SCH ×2 (06:42→11:54)
[2017-11-04] MEDS: LEVALBUTEROL 0.63MG/3 ML NEB INH SCH ×2 (06:50→11:26)
[2017-11-04] MEDS: IPRATROPIUM BROMIDE NEB SOLN 0.02% 2.5 ML VIAL INH SCH ×2 (06:50→11:26)
[2017-11-04] MEDS: ACETYLCYSTEINE 20% INHAL SOLN ***DISPENSED BY RESP. INH SCH (06:51)
[2017-11-04 06:53] VITALS: PULSE 96; O2SAT 92
[2017-11-04 06:55] VITALS: BP 132/87; PULSE 94; TEMP 36.5; O2SAT 93
[2017-11-04] MEDS: CHECK FENTANYL PATCH PLACEMENT SCH ×2 (07:34)
[2017-11-04] MEDS: BOOST VANILLA PO SCH ×2 (07:34→11:54)
[2017-11-04] MEDS: POLYETHYLENE (MIRALAX) 17 GM PACK PO SCH (07:38)
[2017-11-04] MEDS: LACTOBACILLUS ACIDOPHILUS 1 GM PACK PO SCH ×2 (07:39→11:55)
[2017-11-04] MEDS: METOPROLOL TARTRATE 25 MG TAB PO SCH (07:39)
[2017-11-04] MEDS: PANTOprazole SOD 40 MG TAB PO SCH (07:39)
[2017-11-04] MEDS: FERROUS SULFATE 325 MG TAB PO SCH (07:40)
[2017-11-04] MEDS: DEXAMETHASONE 4 MG TAB PO SCH (07:41)
[2017-11-04] MEDS: GUAIFENESIN SUGAR FREE 100 MG/5 ML UDC PO SCH ×2 (07:41→11:55)
[2017-11-04] MEDS: FUROSEMIDE 20 MG TAB PO SCH (07:41)
[2017-11-04] MEDS: AZITHROMYCIN 250 MG TAB PO SCH (07:42)
[2017-11-04] MEDS: DOCUSATE SODIUM/SENNA 50/8.6MG TAB PO SCH (07:42)
[2017-11-04] MEDS ORDERED: AZIT-57 PO (10:45)
[2017-11-04] MEDS ORDERED: RXNS10 PO (10:45)
[2017-11-04] MEDS ORDERED: MCMIN20ML INH (10:45)
[2017-11-04] MEDS ORDERED: Enteral Nutrition Formula PO (10:45)
[2017-11-04] MEDS ORDERED: AMB5 PO (10:45)
[2017-11-04] MEDS ORDERED: LSX20 PO (10:45)
[2017-11-04] MEDS ORDERED: DRGTP25 TD (10:45)
--- NOTE | 2017-11-04 10:48 | Discharge Instructions ---
Discharge Instructions Date of Service Nov 04, 2017. Admission Reason for Admission: Healthcare-Associated Pneumonia Discharge Discharge Diagnosis / Problem: Respiratory Failure Discharge Goals Goal(s): Decrease discomfort, Learn about illness, Therapeutic intervention, Specific goals Activity Recommendations Activity Limitations: as noted below Lifting Limitations: gradually increase as tolerated Exercise/Sports Limitations: as tolerated May Resume Sexual Activity: when tolerated Shower/Bathe: no limitations Driving or Machine Use: Do not drive while on pain medication . Instructions / Follow-Up Instructions / Follow-Up Mr. Dixon, Gabino were admitted due to shortness of breath. This improved with antibiotics and steroids. Please complete your antibiotics and continue your inhalers For pain medications have been adjusted- Please see medication list You will have home hospice services. - Wound Care Instructions TO MID BACK CLEAN WITH SALINE, APPLY AQUACEL AG TO PROXIMAL OPEN WOUND, AND COVER WITH AN OPTIFOAM, CHANGE EVERY OTHER DAY AND NEEDED. TO COCCYX AND LEFT BUTTOCK CLEAN WITH SALINE AND APPLY OPTIFOAM. CHANGE EVERY OTHER DAY AND NEEDED. SUGGEST WOUND CLINIC FOR FOLLOW UP CARE CARE. Current Hospital Diet Patient's current hospital diet: Regular Diet Discharge Diet Recommended Diet: Regular Diet Pending Studies Studies pending at discharge: no Medical Emergencies . Who to Call and When: Medical Emergencies: If at any time you feel your situation is an emergency, please call 911 immediately. . Non-Emergent Contact Non-Emergency issues call your: Primary Care Provider, Oncologist Call Non-Emergent contact if: you have a fever, your pain is worsening, wound has increased drainage . . "Provider Documentation" section prepared by Kimberlee Meyer. . VTE Core Measure Inpt VTE Proph given/why not?: Enoxaparin (Lovenox)SQ
[2017-11-04] MEDS ORDERED: FENT1DIS85 TD (10:50)
--- NOTE | 2017-11-04 11:04 | Discharge Summary ---
Discharge Summary Date of Service Nov 04, 2017. Discharge Summary Admission Date: Oct 31, 2017 at 12:42 Discharge Disposition: Home with services Principal Diagnosis: respiratory failure Problems/Secondary Diagnoses: Stage IV Esophageal Cancer Chronic Respiratory Failure CHF Multiple Decubitus Ulcers Stage III Acute on Chronic Iron Deficiency Anemia Constipation GERD Immunizations: Have You Had Influenza Vaccine: No History of Tetanus Vaccine?: No History of Pneumococcal: No History of Hepatitis B Vaccine: No Procedures: CHEST ONE VIEW PORTABLE HISTORY: EVALUATE ALTERED MENTAL STATUS/WEAKNESS COMPARISON: Chest 10/26/2017. FINDINGS: No pneumothorax. Trace right and small left pleural effusions. This remains unchanged. Left subclavian Port-A-Cath terminates at the right atrium. The heart is stable in size. Right greater than left interstitial and vascular thickening with right lung hazy airspace opacities have progressed. Bilateral hilar lymphadenopathy, unchanged. IMPRESSION: 1. Progressive interstitial thickening and hazy airspace opacities. This suggests worsening pulmonary edema. However, a pneumonia could also have a similar appearance. 2. Bilateral hilar lymphadenopathy is again noted. 3. Small left and trace right pleural effusions, unchanged. Consultations: Palliative Care Medication Reconciliation New Medications: Fentanyl (Fentanyl) 37.5 Mcg/Hr Dis 37.5 MCG TD Q3D for 30 Days, #1 BOX Acetylcysteine (Acetylcysteine) 1 Ml Soln 5 ML INH TIDR for 10 Days, #60 ML Azithromycin (Azithromycin) 250 Mg Tab 500 MG PO QAM for 2 Days, #2 TAB Furosemide (Furosemide) 20 Mg Tab 20 MG PO QAM for 30 Days, #30 TAB Morphine Sulfate (Morphine Sulfate) 10 Mg/0.5 Ml Soln 5 MG PO Q2H PRN for Pain for 30 Days, #30 ML Zolpidem Tartrate (Zolpidem Tartrate) 5 Mg Tab 5 MG PO HSZ PRN for Insomnia for 15 Days, TAB [Enteral Nutrition Formula] () 1 CAN LIQD 1 CAN PO TIDM for 30 Days, #30 Continued Medications: Albuterol Hfa (Ventolin Hfa) 200 Puffs/68023 Mcg Aers 2-4 PUFFS INH Q6H PRN for SOB/Wheezing, #1 INHALER Dexamethasone (Decadron) 4 Mg Tab 8 MG PO DAILY for 1 Day, TAB as directed by oncology Docusate Sodium (Docusate Sodium) 100 Mg Cap 100 MG PO BID for 30 Days OTC Home O2 Therapy (Oxygen) Gas 2 LITERS NA PRN PRN for ambulation for 30 Days Lidocaine Hcl (Mouth-Throat) (Lidocaine Viscous) 2 % Corrie 15 ML PO QID PRN for mouth pain, #100 ML Metoprolol Tartrate (Lopressor) 25 Mg Tab 12.5 MG PO BID for 30 Days, #30 TAB Ondansetron Hcl (Zofran) 8 Mg Tab 8 MG PO Q8 PRN for Nausea, TAB Pantoprazole (Protonix) 40 Mg Tab 40 MG PO BID for 30 Days, #60 TAB Polyethylene (Miralax) 17 Gm Pow 17 GM PO DAILY for 30 Days OTC Sucralfate (Sucralfate) 1 Gm/10 Ml Susp 1 GM PO QID for 7 Days, #28 GM For your ulcer [Enteral Nutrition Formula] () 1 CAN LIQD 1 CAN PO TIDM for 30 Days OTC Discontinued Medications: Fentanyl (Fentanyl) 25 Mcg Tdsy 25 MCG TD Q3D, #1 BOX Ferrous Sulfate (Ferrous Sulfate) 325 Mg Tab 325 MG PO BIDM for 30 Days, #60 TAB Oxycodone/Acetaminophen 5MG/325MG (Percocet 5MG/325MG) Tab 1 TABLET PO Q4H PRN for Pain, #20 TAB PAIN Discharge Exam Review of Systems: Constitutional: No fever, No chills Eyes: No worsening of vision ENT: No hearing loss Respiratory: + cough, + sputum, + shortness of breath (at baseline), + dyspnea on exertion, No wheezing Cardiovascular: No chest pain Abdomen: + pain, No nausea, No vomiting, No diarrhea Genitourinary - Male: No hematuria, No dysuria, No urinary frequency Physical Exam: General Appearance: no apparent distress, + cachetic, + thin Eyes: PERRL, EOMI ENT: hearing grossly normal Neck: supple Respiratory/Chest: no respiratory distress, no accessory muscle use, + decreased breath sounds, + crackles Cardiovascular: regular rate, rhythm, no edema Abdomen / GI: normal bowel sounds, soft, + tenderness Extremities: no calf tenderness, no pedal edema Neurologic/Psychiatric: oriented x 3, + depressed affect Hospital Course This is a 62 y/o M with stage IV metastatic esophageal cancer who presented with worsening fatigue and shortness of breath. His shortness of breath was attributed to bronchitis/atypical pneumonia. He was started on Azithromycin and has improved. While here, palliative care was consulted to address his code status as well as further recommendations of pain control. He was made DNR and was requesting home Hospice which was arranged. 1) Stage IV Esophageal Cancer - palliative care consulted - made DNR, Home hospice arranged. Daughter will be moving in as well. - Fentanyl Patch --> Increased to 37.5mg - Roxanol 5mg q2h PRN for breakthrough pain 2) Acute on Chronic Respiratory Failure 2/2 acute bronchitis / mucous plugging - Respiratory status improved to baseline - Azithromycin Day 3/ - Decadron 4mg daily - Supplemental oxygen as needed - Duonebs, Xopenex, Atrovent, Albuterol 3) CHF - Lasix 20mg qAM 4) Multiple Decubitus Ulcers Stage III - Wound Care Instructions TO MID BACK CLEAN WITH SALINE, APPLY AQUACEL AG TO PROXIMAL OPEN WOUND, AND COVER WITH AN OPTIFOAM, CHANGE EVERY OTHER DAY AND NEEDED. TO COCCYX AND LEFT BUTTOCK CLEAN WITH SALINE AND APPLY OPTIFOAM. CHANGE EVERY OTHER DAY AND NEEDED. SUGGEST WOUND CLINIC FOR FOLLOW UP CARE CARE. 5) Acute on Chronic Iron Deficiency Anemia - Recent Ulceration of Esophagogastric Anastomosis with Recent Upper GI Bleed - Ferrous Sulfate dc/d due to abdominal pain 6) Constipation - Senna - Miralax 7) GERD - Protonix - Sucralfate 8) DVT - Lovenox 9) Code Status DNR Attending Resident Physician Supervision Note: I independently interviewed and examined the patient and verified the clinton history and physical, reviewed labs and image studies, discussed the case with the resident Dr. Rosenberg and agree with the findings and care plan with some clarifications in below: Labs and Images reviewed and discussed Assessment/Plan Patient is a 62 year old male with metastatic esophageal cancer admitted with uncontrolled pain, worsening fatigue and shortness of breath, Stage IV Esophageal Cancer, metastatic disease to the liver and lungs, palliative care on the case, general condition is declining and deteriorating, patient and family agreed supportive care, home hospice care and do not resuscitation, Rx of Fentanyl patch 37.5 mcg every 72 hours for better pain control, Roxanol for breakthrough pain, we will given, patient has esophageal cancer he definitely qualifies for the liquid form of sucralfate to release the esophageal uncomfortable and pain, agree to request insurance company authorization, continue treatment symptom and supportive care, discussed with patient and daughter about the care plan Total Time Spent: Greater than 30 minutes This includes examination of the patient, discharge planning, medication reconciliation, and communication with other providers. Discharge Instructions Please refer to the electronic Patient Visit Report (Discharge Instructions) for additional information. Additional Copies To Yury Robert M.D.
[2017-11-04 11:10] VITALS: BP 132/87; PULSE 94; TEMP 36.5; O2SAT 93
[2017-11-04 11:26] VITALS: PULSE 91; O2SAT 93
[2017-11-05] MEDS ORDERED: FENTANYL PATCH REMOVE & WASTE SCH ×2 (13:30)
== END 2017-11-04 12:28 | disposition hospice, home (50) | DRG 202 ==
LOC: C.EDB 07:55 → C.4E 12:42 → ENRESERV 13:01
PROVIDERS: ADMIT Internal Medicine; ATTEND Hospitalist
DX: J20.9 Acute bronchitis, unspecified (principal); E43 Unspecified severe protein-calorie malnutrition; I50.33 Acute on chronic diastolic (congestive) heart failure; J96.20 Acute and chronic respiratory failure, unspecified whether with hypoxia or hypercapnia; L89.323 Pressure ulcer of left buttock, stage 3; L89.153 Pressure ulcer of sacral region, stage 3; C15.9 Malignant neoplasm of esophagus, unspecified; C78.7 Secondary malignant neoplasm of liver and intrahepatic bile duct; C79.00 Secondary malignant neoplasm of unspecified kidney and renal pelvis; G89.3 Neoplasm related pain (acute) (chronic); Z51.5 Encounter for palliative care; D50.9 Iron deficiency anemia, unspecified; K59.00 Constipation, unspecified; K21.9 Gastro-esophageal reflux disease without esophagitis; Z66 Do not resuscitate; Z79.899 Other long term (current) drug therapy; Z68.20 Body mass index [BMI] 20.0-20.9, adult; Z87.01 Personal history of pneumonia (recurrent); Z87.891 Personal history of nicotine dependence